=== PATIENT | male | born 1960 | race Caucasian/White ===

== ENCOUNTER 2016-08-23 15:17 | Emergency (ER) | payer MEDICARE ==
[2016-08-23 15:58] LABS: PROTHROMBIN TIME 17.5 SEC (11.4-15.4)
[2016-08-23 15:59] LABS: ABSOLUTE EOSINOPHILS # (AUTO) 0.1 10^3/uL (0.0-0.6); ABSOLUTE LYMPHOCYTES (AUTO) 0.8 10^3/uL (0.5-4.7); ABSOLUTE MONOCYTES (AUTO) 0.5 10^3/uL (0.1-1.4); ABSOLUTE NEUT (AUTO) 4.8 10^3/uL (1.7-8.2); BASOPHILS % (AUTO) 0.7 % (0-2); EOSINOPHILS % (AUTO) 0.9 % (0-6); HEMATOCRIT 29.4 % (37.9-51.0); HEMOGLOBIN 9.4 g/dL (13.5-17.0); HGB HCT DIFFERENCE -1.2; LYMPHOCYTES % (AUTO) 13.4 % (13-45); MEAN CORPUSCULAR HEMOGLOBIN 32.3 pg (27.0-33.4); MEAN CORPUSCULAR HGB CONC 31.8 g/dL (32.0-36.0); MEAN CORPUSCULAR VOLUME 102 fl (80-97); MONOCYTES % (AUTO) 7.6 % (3-13); RED CELL DISTRIBUTION WIDTH 16.6 % (11.5-14.0); SEGMENTED NEUTROPHILS % (AUTO) 77.4 % (42-78); WHITE BLOOD COUNT 6.2 10^3/uL (4.0-10.5)
[2016-08-23 16:00] LABS: VENOUS BLOOD HCO3 26.6 mmol/L (20-32); VENOUS BLOOD PCO2 53.1 mmHg (35-63); VENOUS BLOOD PH 7.32 (7.30-7.42)
[2016-08-23 16:01] LABS: APPEARANCE,URINE SLIGHTLY-CLOUDY; BILIRUBIN,URINE NEGATIVE (NEGATIVE); GLUCOSE, URINE 50 mg/dL (NEGATIVE); KETONES,URINE NEGATIVE (NEGATIVE); LEUKOCYTE ESTERASE,URINE NEGATIVE (NEGATIVE); NITRITE,URINE NEGATIVE (NEGATIVE); PROTEIN,URINE >=500 mg/dL (NEGATIVE); UROBILINOGEN,URINE NEGATIVE mg/dL (<2.0)
[2016-08-23 16:19] LABS: ALANINE AMINOTRANSFERASE 37 U/L (21-72); ALBUMIN 2.6 g/dL (3.5-5.0); ALKALINE PHOSPHATASE 150 U/L (38-126); ANION GAP 10 (5-19); ASPARTATE AMINO TRANSFERASE 28 U/L (17-59); BILIRUBIN,TOTAL 0.4 mg/dL (0.2-1.3); BLOOD UREA NITROGEN 45 mg/dL (7-20); CALCIUM 8.3 mg/dL (8.4-10.2); CARBON DIOXIDE 26 mmol/L (22-30); CHLORIDE 105 mmol/L (98-107); CREATININE RESULT 2.28 mg/dL (0.52-1.25); GLUCOSE 224 mg/dL (75-110); SODIUM 141.2 mmol/L (137-145); TOTAL PROTEIN 7.8 g/dL (6.3-8.2)
[2016-08-23 16:29] LABS: ANISOCYTOSIS 1+; MICROCYTOSIS 1+; OVALOCYTES SLIGHT
[2016-08-23] MEDS ORDERED: IPRATROPIUM/ALBUTEROL 0.5-2.5 MG/3 ML AMPUL NEB ONE (16:55)
--- NOTE | 2016-08-23 16:55 | ER Document Report ---
ED Respiratory Problem - General Mode of Arrival: Medic Information source: Patient TRAVEL OUTSIDE OF THE [place] IN LAST 30 DAYS: No - HPI Patient complains to provider of: Other - Difficulty breathing Associated symptoms: Other - See above <ANDREWS TERRY - Last Filed: 08/23/16 17:15> <ZOE MORALES - Last Filed: 08/23/16 20:32> - General Chief Complaint: Breathing Difficulty Stated Complaint: BODY ACHES Notes: Patient is a 56 year old male, with a past medical history including a-fib and COPD, who presents to the emergency department via EMS with his family complaining of difficulty breathing onset last night. Patient reports that he is breathing better now. Patient had a right leg amputation and reports that his left lower leg is more swollen than usual. Patient is currently taking Eloquis and Lasix regularly. (ANDREWS TERRY) - Related Data Allergies/Adverse Reactions: No Known Allergies Allergy (Verified 09/16/14 09:10) Past Medical History - General Information source: Patient - Social History Smoking Status: Unknown if Ever Smoked Family History: Reviewed & Not Pertinent - Past Medical History Cardiac Medical History: Reports: Hx Atrial Fibrillation, Hx Congestive Heart Failure, Hx Heart Attack - x2, Hx Hypercholesterolemia Pulmonary Medical History: Reports: Hx COPD Endocrine Medical History: Reports: Hx Diabetes Mellitus Type 1 Renal/ Medical History: Reports: Hx Renal Insufficiency GI Medical History: Reports: Hx Gastroesophageal Reflux Disease, Hx Ulcer Past Surgical History: Reports: Hx Cardiac Catheterization, Hx Orthopedic Surgery - right knee, right big toe amputation, right leg amputation - Immunizations Hx Diphtheria, Pertussis, Tetanus Vaccination: Yes Hx Pneumococcal Vaccination: 09/25/14 <ANDREWS TERRY - Last Filed: 08/23/16 17:15> Review of Systems - Review of Systems Constitutional: No symptoms reported EENT: No symptoms reported Cardiovascular: No symptoms reported Respiratory: See HPI, Other - difficulty breathing Gastrointestinal: No symptoms reported Genitourinary: No symptoms reported Male Genitourinary: No symptoms reported Musculoskeletal: See HPI, Leg swelling Skin: No symptoms reported Hematologic/Lymphatic: No symptoms reported Neurological/Psychological: No symptoms reported -: Yes All other systems reviewed and negative <ANDREWS TERRY - Last Filed: 08/23/16 17:15> Physical Exam - Vital signs Interpretation: Normal - General General appearance: Appears well, Alert - HEENT Head: Normocephalic, Atraumatic - Respiratory Respiratory status: No respiratory distress Chest status: Nontender, Prolonged expirations Breath sounds: Rhonchi, Wheezing Chest palpation: Normal - Cardiovascular Rhythm: Regular Heart sounds: Normal auscultation Murmur: No - Back Back: Normal, Nontender - Extremities General upper extremity: Normal inspection, Normal ROM, Normal strength General lower extremity: Edema - left, Other - right amputation wound bandaged with a wound vacuum - Neurological Neuro grossly intact: Yes Cognition: Normal Orientation: AAOx4 Hope Coma Scale Eye Opening: Spontaneous Cory Coma Scale Verbal: Oriented Cory Coma Scale Motor: Obeys Commands Hope Coma Scale Total: 15 Speech: Normal - Psychological Associated symptoms: Normal affect, Normal mood - Skin Skin Temperature: Warm Skin Moisture: Dry Skin Color: Normal <ANDREWS TERRY - Last Filed: 08/23/16 17:15> - Extremities General lower extremity: Other - right AKA stump wound bandaged with a wound vacuum <ZOE MORALES - Last Filed: 08/23/16 20:32> - Vital signs Vitals: Resp Pulse Ox 21 H 96 08/23/16 15:30 08/23/16 15:30 (ANDREWS TERRY) (ZOE MORALES) Course - Laboratory Result Diagrams: 08/23/16 15:30 08/23/16 15:30 <ANDREWS TERRY - Last Filed: 08/23/16 17:15> - Laboratory Result Diagrams: 08/23/16 15:30 08/23/16 15:30 - Diagnostic Test Radiology reviewed: Image reviewed, Reports reviewed - Cardiac enlargement with pulmonary vascular congestion, unchanged from previous chest x-ray - EKG Interpretation by [place] EKG shows normal: Sinus rhythm, [place], QRS Complexes. abnormal: Intervals - Prolonged QT interval, ST-T Waves - Nonspecific lateral T-wave abnormalities Rate: Tachycardia - 121 Rhythm: A.Fib Voltage: Decreased voltage When compared to previous EKG there are: No significant change <ZOE MORALES - Last Filed: 08/23/16 20:32> - Re-evaluation Re-evalutation: 08/23/16 20:21 Patient states he feels much better after breathing treatments. At this time his room air pulse ox is 95%. He has started to diurese some from the Lasix. He is comfortable going home with an inhaler. His hemoglobin A1c was only 5.7, so I think we can safely add steroids to his regimen for now. (ZOE MORALES) - Vital Signs Vital signs: Temp Pulse Resp BP Pulse Ox 98.6 F 120 H 25 H 127/83 H 93 08/23/16 15:37 08/23/16 15:37 08/23/16 17:01 08/23/16 17:01 08/23/16 18:01 (ANDREWS TERRY) (ZOE MORALES) - Laboratory Laboratory results interpreted by me: 08/23/16 08/23/16 08/23/16 15:30 15:30 15:30 RBC 2.90 L Hgb 9.4 L Hct 29.4 L MCV 102 H MCHC 31.8 L RDW 16.6 H PT 17.5 H BUN 45 H Creatinine 2.28 H Est GFR ( Amer) 36 L Est GFR (Non-Af Amer) 30 L Glucose 224 H Calcium 8.3 L Alkaline Phosphatase 150 H Creatine Kinase NT-Pro-B Natriuret Pep Albumin 2.6 L Urine Protein Urine Glucose (UA) Urine Blood Digoxin 08/23/16 08/23/16 08/23/16 15:30 15:30 15:30 RBC Hgb Hct MCV MCHC RDW PT BUN Creatinine Est GFR ( Amer) Est GFR (Non-Af Amer) Glucose Calcium Alkaline Phosphatase Creatine Kinase 24 L NT-Pro-B Natriuret Pep 79438 H Albumin Urine Protein Urine Glucose (UA) Urine Blood Digoxin 0.71 L 08/23/16 15:46 RBC Hgb Hct MCV MCHC RDW PT BUN Creatinine Est GFR ( Amer) Est GFR (Non-Af Amer) Glucose Calcium Alkaline Phosphatase Creatine Kinase NT-Pro-B Natriuret Pep Albumin Urine Protein >=500 H Urine Glucose (UA) 50 H Urine Blood MODERATE H Digoxin (ANDREWS TERRY) (ZOE MORALES) Discharge <ANDREWS TERRY - Last Filed: 08/23/16 17:15> <ZOE MORALES - Last Filed: 08/23/16 20:32> - Discharge Clinical Impression: Acute exacerbation of chronic obstructive pulmonary disease (COPD), Pulmonary vascular congestion, Peripheral edema, Chronic atrial fibrillation Condition: Stable Disposition: HOME, SELF-CARE Additional Instructions: Your shortness of breath appears to be a combination of a COPD exacerbation and some pulmonary vascular congestion. Use the inhaler dispensed for the shortness of breath and wheezing. Take 2 puffs every 4 hours as needed. Elevate your swollen leg as much as possible. Continue your regular medications. Add the prednisone as prescribed for the next few days. Follow-up with your primary care doctor this week for recheck. RETURN TO THE EMERGENCY ROOM IF ANY NEW OR WORSENING SYMPTOMS. Prescriptions: Prednisone 10 mg PO TID #10 tablet Referrals: CLARISSE REMY MD [Primary Care Provider] - Follow up in 3-5 days Theodora Attestation: 08/23/16 20:32 I personally performed the services described in the documentation, reviewed and edited the documentation which was dictated to the scribe in my presence, and it accurately records my words and actions. (ZOE MORALES) Theodora Documentation - Scribe Written by Theodora:: theodora Pearson, 08/23/16, 17:22 <ANDREWS TERRY - Last Filed: 08/23/16 17:15>
[2016-08-23 17:03] LABS: ADD ON TESTING BLD IN LAB ACKNOWLEDGE
[2016-08-23 17:25] LABS: DIGOXIN 0.71 ng/mL (0.8-2.0)
[2016-08-23] MEDS ORDERED: FUROSEMIDE INJ/PF 100 MG/10 ML SDV IV ONE (18:20)
[2016-08-23] MEDS ORDERED: ALBUTEROL SULFATE 0.083% NEB 2.5 MG/3 ML AMPUL NEB ONE ×2 (18:20→19:23)
[2016-08-23 19:06] LABS: ADD ON TESTING BLD IN LAB ACKNOWLEDGE
[2016-08-23 19:18] LABS: CREATINE KINASE 24 U/L (55-170)
[2016-08-23 19:32] LABS: TROPONIN I < 0.012 ng/mL
[2016-08-23] MEDS ORDERED: METHYLPREDNISOLONE INJ 125 MG/2 ML SDV IV ONE (20:15)
[2016-08-23] MEDS ORDERED: PREDNISONE 20 MG TABLET PO ONE (20:22)
[2016-08-23] MEDS ORDERED: ALBUTEROL SULFATE HFA (90 MCG/PUFF) 8 GM MDI (1 MDI/ER DISP) IH ONE (20:23)
--- NOTE | 2016-08-23 22:05 | EKG REPORT ---
SEVERITY:- ABNORMAL ECG - ATRIAL FIBRILLATION VENTRICULAR PREMATURE COMPLEX LOW VOLTAGE IN FRONTAL LEADS NONSPECIFIC T ABNORMALITIES, LATERAL LEADS BORDERLINE PROLONGED QT INTERVAL : Confirmed by: Mayra Sanz 23-Aug-2016 22:04:18
[2016-08-23 22:39] VITALS: BP 143/98
== END 2016-08-23 22:25 | disposition home or self-care (01) ==
LOC: ER 15:17
DX: J44.1 Chronic obstructive pulmonary disease with (acute) exacerbation (principal); R60.9 Edema, unspecified; R06.00 Dyspnea, unspecified; I48.2 Chronic atrial fibrillation; M79.1 Myalgia; J44.9 Chronic obstructive pulmonary disease, unspecified; I50.9 Heart failure, unspecified; E78.00 Pure hypercholesterolemia, unspecified; E10.9 Type 1 diabetes mellitus without complications; K21.9 Gastro-esophageal reflux disease without esophagitis; Z89.612 Acquired absence of left leg above knee; Z79.01 Long term (current) use of anticoagulants
CPT/HCPCS: 93005; 94640 ×2; 99285; 96374; 36415; 87040; 87086; 82553; 82550; 80162; 85025; 85610; 80053; 81001; 84484; 83036; 82803; 83605; 83880; 71010; 93010; J1940; A9270 ×3; J3490; J7512; J7620

== ENCOUNTER 2016-08-25 21:28 | Inpatient (IN) | payer MEDICARE ==
[2016-08-25] MEDS ORDERED: IPRATROPIUM/ALBUTEROL 0.5-2.5 MG/3 ML AMPUL NEB ONE (21:31)
[2016-08-25] MEDS ORDERED: METHYLPREDNISOLONE INJ 125 MG/2 ML SDV ONE (21:32)
[2016-08-25] MEDS ORDERED: MAGNESIUM SULFATE/D5W 2 GM/200 ML RTUPB IV ONE (21:32)
[2016-08-25] MEDS ORDERED: NALOXONE HCL INJ/PF 0.4 MG/1 ML SDV ONE ×2 (21:35)
[2016-08-25] MEDS ORDERED: FUROSEMIDE INJ/PF 40 MG/4 ML SDV ONE (21:40)
--- NOTE | 2016-08-25 22:07 | ER Document Report ---
ED General - General Chief Complaint: Respiratory Distress Stated Complaint: UNRESPONSIVE Cannot obtain history due to: Unstable vital signs, Altered mental status Notes: Patient is a 56-year-old male with past history of COPD and CHF as well as chronic kidney disease who presents by EMS in respiratory distress, lethargic, unable to answer any additional questions. Family who arrived later was also unable to provide any additional useful history. She was seen emergency room 2 days ago and diagnosed as COPD exacerbation and discharged home with prednisone and inhalers which family states did not appear to help symptoms. They deny history of similar severe episodes of shortness of breath and altered mental status in the past. TRAVEL OUTSIDE OF THE [place] IN LAST 30 DAYS: No - Related Data Allergies/Adverse Reactions: No Known Allergies Allergy (Verified 09/16/14 09:10) Home Medications: Current Home Medications Amiodarone HCl [Cordarone 200 mg Tablet] 200 mg PO DAILY 08/26/16 [History] Atorvastatin Calcium 40 mg PO QHS 08/26/16 [History] Furosemide [Lasix 40 mg Tablet] 80 mg PO DAILY 08/26/16 [History] Gabapentin 100 mg PO TID 08/26/16 [History] Oxycodone HCl 5 mg PO Q4H PRN 08/26/16 [History] Pantoprazole Sodium 40 mg PO BID 08/26/16 [History] Tamsulosin HCl 0.4 mg PO DAILY 08/26/16 [History] Past Medical History - General Information source: Emergency Med Personnel Cannot obtain history due to: Unstable vital signs - Social History Smoking Status: Former Smoker Frequency of alcohol use: None Drug Abuse: None Lives with: Alone Family History: Reviewed & Not Pertinent - Past Medical History Cardiac Medical History: Reports: Hx Atrial Fibrillation, Hx Congestive Heart Failure, Hx Heart Attack - x2, Hx Hypercholesterolemia Pulmonary Medical History: Reports: Hx COPD Denies: Hx Tuberculosis Endocrine Medical History: Reports: Hx Diabetes Mellitus Type 1 Renal/ Medical History: Reports: Hx Renal Insufficiency GI Medical History: Reports: Hx Gastroesophageal Reflux Disease, Hx Ulcer Psychiatric Medical History: Denies: Hx Depression Past Surgical History: Reports: Hx Cardiac Catheterization, Hx Orthopedic Surgery - right knee, right big toe amputation, right leg amputation - Immunizations Hx Diphtheria, Pertussis, Tetanus Vaccination: Yes Hx Pneumococcal Vaccination: 09/25/14 Review of Systems - Review of Systems -: Yes ROS unobtainable due to patient's medical condition Physical Exam - Vital signs Vitals: Resp 19 08/25/16 21:30 Interpretation: Tachycardic, Tachypneic Notes: PHYSICAL EXAMINATION: GENERAL: Frail, older appearing than stated age HEAD: Atraumatic, normocephalic. EYES: Pupils are pinpoint and reactive to light bilaterally ENT: nares patent, oropharynx clear without exudates. Dry mucous membranes. NECK: supple without lymphadenopathy LUNGS: Respiratory distress with tachypnea with respiratory rate of 32. Coarse expiratory wheezing throughout with scattered rales. Outside ultrasound the lungs shows B-lines, appropriate pleural slide HEART: Regular tachycardia without murmurs, bedside echocardiogram shows poor cardiac contractility diffusely without pericardial effusion or RV dilation ABDOMEN: Soft, nontender, normoactive bowel sounds. No guarding, no rebound. No masses appreciated. EXTREMITIES: BKA of the right lower extremity. 3+ pitting edema in the left lower extremity NEUROLOGICAL: No focal neurological deficits. Moves all extremities spontaneously and on command. PSYCH: Altered and unable to answer questions SKIN: Warm, Dry, normal turgor, no rashes or lesions noted. Course - Re-evaluation Re-evalutation: 08/25/162139 Patient arrives in severe respiratory distress, initially listless but would follow commands in bilateral hands as well as open his eyes on command after several verbal prompts. His initial vitals show tachycardia with a rapid ventricular response to atrial fibrillation. He was immediately placed on BiPAP. A bedside ultrasound demonstrated findings consistent with pulmonary edema. Cardiac ultrasound demonstrated cardiomegaly with ventricular hypertrophy and poor contractility but no evidence of pericardial effusion. Patient did have significant improvement of his mentation after giving 0.08 mg of naloxone. He also began to have decreased work of breathing on BiPAP with continuous in-line DuoNeb nebulizer. 2 g of IV magnesium as well as 125 mg of IV Solu-Medrol were administered. He was also given 80 mg of IV Lasix given obvious IVC distention on bedside ultrasound in addition to the findings of pulmonary edema both on ultrasound and chest x-ray. He remains critically ill at this time will require frequent reassessments. 08/25/16 22:30 Patient is much more alert, awake and talkative at this time. Asking to have the BiPAP mask off. Joking with staff at this time. ABG does show severe hypoxemia but I believe this is prior to the improvement that he received after getting Narcan and BiPAP. He will require admission and will be continued to monitor this time although I do not believe he has any longer critically ill at this time 08/25/16 23:32 Patient's laboratories do show show significant hyperkalemia at 6.1 although no changes on EKG. Insulin, glucose, and Lasix have all been administered. Patient continues to be wheezing on repeat lung examination so additional 15 mg of continuous albuterol through the BiPAP has been administered. She continues to have appropriate mentation and be much improved both from a vitals and clinical appearance standpoint. I have discussed this case with Dr. Juárez will admit the patient to the [facility]. - Vital Signs Vital signs: Temp Pulse Resp BP Pulse Ox 99.0 F 14 126/94 H 95 08/25/16 22:01 08/26/16 02:40 08/26/16 02:40 08/26/16 02:40 - Laboratory Result Diagrams: 08/25/16 21:57 08/25/16 21:57 Laboratory results interpreted by me: 08/25/16 08/25/16 08/25/16 21:45 21:57 21:57 RBC 3.08 L Hgb 10.2 L Hct 31.4 L MCV 102 H RDW 16.5 H Seg Neutrophils % 79.0 H Lymphocytes % 10.6 L Carbonic Acid 1.64 H ABG pH 7.26 L ABG pCO2 54.6 H ABG pO2 30.7 L* ABG O2 Saturation 49.0 L Potassium 6.1 H* BUN 58 H Creatinine 3.14 H Est GFR ( Amer) 25 L Est GFR (Non-Af Amer) 20 L Glucose 207 H AST 105 H ALT 103 H Alkaline Phosphatase 163 H Creatine Kinase 25 L NT-Pro-B Natriuret Pep Total Protein 8.6 H Albumin 3.3 L TSH Free T4 08/25/16 08/25/16 21:57 21:57 RBC Hgb Hct MCV RDW Seg Neutrophils % Lymphocytes % Carbonic Acid ABG pH ABG pCO2 ABG pO2 ABG O2 Saturation Potassium BUN Creatinine Est GFR ( Amer) Est GFR (Non-Af Amer) Glucose AST ALT Alkaline Phosphatase Creatine Kinase NT-Pro-B Natriuret Pep 36395 H Total Protein Albumin TSH 16.70 H Free T4 4.03 H - Diagnostic Test Radiology reviewed: Image reviewed, Reports reviewed Radiology results interpreted by me: 08/25/16 23:33 CXR: Cardiomegaly and bilateral pulmonary congestion - EKG Interpretation by Me Additional EKG results interpreted by me: 08/25/16 23:33 Atrial fibrillation with rapid ventricular response, rate 107. No ST elevations or depressions. QTC is prolonged at 513. No widened QRS or peaking T waves Critical Care Note - Critical Care Note Total time excluding time spent on procedures (mins): 45 Comments: Critical care time spent obtaining history from patient or surrogate, discussions with consultants, development of treatment plan with patient or surrogate, evaluation of patient's response to treatment, examination of patient , ordering and performing treatments and interventions, ordering and review of laboratory studies, re-evaluation of patient's condition, ordering and review of radiographic studies and review of old charts Discharge - Discharge Clinical Impression: Respiratory distress, Hypoxemia, Acute kidney injury superimposed on chronic kidney disease Narcotic overdose Qualifiers: Encounter type: initial encounter Injury intent: accidental or unintentional Qualified Code(s): T40.601A - Poisoning by unspecified narcotics, accidental ( unintentional), initial encounter CHF exacerbation Qualifiers: Congestive heart failure type: unspecified congestive heart failure type Qualified Code(s): I50.9 - Heart failure, unspecified Condition: Fair Disposition: ADMITTED INPATIENT Admitting Provider: [facility] Unit Admitted: [facility]
[2016-08-25 22:13] LABS: ARTERIAL BLOOD BASE EXCESS -3.7 mmol/L
[2016-08-25 22:20] LABS: ABSOLUTE BASOPHILS # (AUTO) 0.1 10^3/uL (0.0-0.2); ABSOLUTE MONOCYTES (AUTO) 0.8 10^3/uL (0.1-1.4); ABSOLUTE NEUT (AUTO) 7.2 10^3/uL (1.7-8.2); BASOPHILS % (AUTO) 0.7 % (0-2); EOSINOPHILS % (AUTO) 0.3 % (0-6); HEMATOCRIT 31.4 % (37.9-51.0); HEMOGLOBIN 10.2 g/dL (13.5-17.0); HGB HCT DIFFERENCE -0.8; LYMPHOCYTES % (AUTO) 10.6 % (13-45); MEAN CORPUSCULAR HEMOGLOBIN 33.3 pg (27.0-33.4); MEAN CORPUSCULAR HGB CONC 32.6 g/dL (32.0-36.0); MEAN CORPUSCULAR VOLUME 102 fl (80-97); MONOCYTES % (AUTO) 9.4 % (3-13); RED BLOOD COUNT 3.08 10^6/uL (4.35-5.55); RED CELL DISTRIBUTION WIDTH 16.5 % (11.5-14.0); WHITE BLOOD COUNT 9.1 10^3/uL (4.0-10.5)
[2016-08-25 22:32] LABS: ALANINE AMINOTRANSFERASE 103 U/L (21-72); ALBUMIN 3.3 g/dL (3.5-5.0); ALKALINE PHOSPHATASE 163 U/L (38-126); ANION GAP 15 (5-19); ASPARTATE AMINO TRANSFERASE 105 U/L (17-59); BILIRUBIN,TOTAL 0.6 mg/dL (0.2-1.3); BLOOD UREA NITROGEN 58 mg/dL (7-20); CALCIUM 8.8 mg/dL (8.4-10.2); CARBON DIOXIDE 23 mmol/L (22-30); CHLORIDE 102 mmol/L (98-107); CREATINE KINASE 25 U/L (55-170); CREATININE RESULT 3.14 mg/dL (0.52-1.25); GLUCOSE 207 mg/dL (75-110); SODIUM 139.9 mmol/L (137-145); TOTAL PROTEIN 8.6 g/dL (6.3-8.2)
[2016-08-25 22:34] LABS: POTASSIUM 6.1 mmol/L (3.6-5.0)
[2016-08-25] MEDS ORDERED: INSULIN REG, HUMAN 100 UNIT/ML 3 ML VIAL (PYX) IV ONE (22:39)
[2016-08-25] MEDS ORDERED: DEXTROSE 50%-WATER 25 GM/50 ML DISP.SYRIN IV ONE (22:39)
[2016-08-25 22:51] LABS: CREATINE KINASE MB 0.96 ng/mL (<4.55); TROPONIN I 0.012 ng/mL
--- NOTE | 2016-08-25 23:11 | EKG REPORT ---
SEVERITY:- ABNORMAL ECG - ATRIAL FIBRILLATION NONSPECIFIC T ABNORMALITIES, LATERAL LEADS PROLONGED QT INTERVAL : Confirmed by: Mayra Sanz 25-Aug-2016 23:10:57
[2016-08-25] MEDS ORDERED: ALBUTEROL SULFATE 0.083% NEB 2.5 MG/3 ML AMPUL NEB ONE (23:51)
[2016-08-26] MEDS ORDERED: GLUCAGON,HUMAN RECOMB 1 MG INJ IM PRN (00:13)
[2016-08-26] MEDS ORDERED: DEXTROSE 40% GEL 15 GM TUBE PO PRN ×2 (00:13)
[2016-08-26] MEDS ORDERED: DEXTROSE 50%-WATER 25 GM/50 ML DISP.SYRIN IV PRN ×2 (00:13)
[2016-08-26] MEDS ORDERED: NORMAL SALINE 250 ML with FUROSEMIDE 250 MG IV PRN ×4 (00:14→10:53)
[2016-08-26] MEDS ORDERED: (PENDING PHARMACY ID) (Linagliptin [Tradjenta] 5 MG) PO SCH (00:15)
[2016-08-26 01:15] LABS: THYROID STIMULATING HORMONE 16.7 uIU/mL (0.47-4.68)
[2016-08-26 01:23] LABS: APPEARANCE,URINE CLOUDY; BILIRUBIN,URINE NEGATIVE (NEGATIVE); GLUCOSE, URINE 50 mg/dL (NEGATIVE); KETONES,URINE NEGATIVE (NEGATIVE); LEUKOCYTE ESTERASE,URINE TRACE (NEGATIVE); NITRITE,URINE NEGATIVE (NEGATIVE); PROTEIN,URINE >=500 mg/dL (NEGATIVE); URINE SPECIFIC GRAVITY 1.015; UROBILINOGEN,URINE NEGATIVE mg/dL (<2.0)
[2016-08-26 01:31] LABS: URINE BARBITURATES SCREEN NEGATIVE; URINE METHADONE SCREEN NEGATIVE; URINE PHENCYCLIDINE SCREEN NEGATIVE
[2016-08-26] MEDS ORDERED: APIXABAN 2.5 MG TABLET PO ONE (02:30)
[2016-08-26] MEDS ORDERED: LEVOTHYROXINE SODIUM 0.15 MG TABLET PO ONE (02:30)
[2016-08-26] MEDS ORDERED: METOPROLOL SUCCINATE 50 MG TAB.SR.24H PO ONE (02:30)
[2016-08-26] MEDS ORDERED: SIMVASTATIN 40 MG TABLET PO ONE (03:00)
[2016-08-26] MEDS ORDERED: LEVOTHYROXINE SODIUM 0.15 MG TABLET ONE (03:22)
[2016-08-26 04:39] LABS: CREATINE KINASE MB 0.6 ng/mL (<4.55); TROPONIN I 0.013 ng/mL
[2016-08-26] MEDS: LEVALBUTEROL HCL NEB 0.63 MG/3 ML AMPUL NEB PRN (04:56)
[2016-08-26] MEDS ORDERED: FUROSEMIDE INJ/PF 100 MG/10 ML SDV ONE (05:12)
[2016-08-26] MEDS ORDERED: METOPROLOL SUCCINATE 50 MG TAB.SR.24H PO SCH (10:00)
[2016-08-26 10:30] LABS: ALANINE AMINOTRANSFERASE 121 U/L (21-72); ALBUMIN 2.6 g/dL (3.5-5.0); ALKALINE PHOSPHATASE 144 U/L (38-126); ANION GAP 13 (5-19); ASPARTATE AMINO TRANSFERASE 106 U/L (17-59); BILIRUBIN,TOTAL 0.5 mg/dL (0.2-1.3); BLOOD UREA NITROGEN 67 mg/dL (7-20); CALCIUM 8.8 mg/dL (8.4-10.2); CARBON DIOXIDE 24 mmol/L (22-30); CHLORIDE 103 mmol/L (98-107); CREATININE RESULT 3.08 mg/dL (0.52-1.25); GLUCOSE 191 mg/dL (75-110)
[2016-08-26 11:22] LABS: CREATINE KINASE MB 0.65 ng/mL (<4.55); TROPONIN I 0.013 ng/mL
[2016-08-26 11:31] LABS: ARTERIAL BLOOD BASE EXCESS 0.9 mmol/L; ARTERIAL BLOOD O2 SATURATION 98.6 % (94-98)
[2016-08-26] MEDS ORDERED: CALCIUM GLUCONATE 1000 MG/10 ML INJ IV ONE (11:55)
[2016-08-26] MEDS: SODIUM POLYSTYRENE SULFONATE 15 GM/60 ML PO SCH ×4 (12:03→23:15)
--- NOTE | 2016-08-26 13:55 | XCELERA REPORT ---
[address] [address] Transthoracic Echocardiogram Report Name: JOSE D COLBERT Age: 56 yrs Gender: Male : 1960 Patient Status: Inpatient Patient Location: [id number]\S\326\S\A Study Date: 08/26/2016 10:01 AM Height: 69 in Weight: 196 lb BSA: 2.0 m2 Procedure: A complete two-dimensional transthoracic echocardiogram was performed (2D, M-mode, spectral and color flow Doppler). The study was technically difficult with many images being suboptimal in quality. Reason For Study: chf Ordering Physician: CLARISSE REMY Performed By: Patricia Wells Interpretation Summary The Ejection Fraction estimate is 20-25% Left ventricular systolic function is severely reduced. Doppler measurements suggest pseudonormalized left ventricular relaxation, which is associated with grade II/IV or mild to moderate diastolic dysfunction There is borderline concentric left ventricular hypertrophy. The left ventricle is moderately dilated. There is anterior wall akinesis There is apical wall akinesis The left ventricular apex is not well visualized. Thrombus can not be excluded. The right ventricle is mildly dilated. The right ventricular systolic function is mild to moderately reduced. The left atrium is moderately dilated. The right atrium is mildly dilated. There is a moderate amount of mitral regurgitation There is a trace amount of aortic regurgitation There is a moderate amount of tricuspid regurgitation Best estimated right ventricular systolic pressure is elevated at >60mmHg. There is servere pulmonary hypertension by echo The inferior vena cava appeared normal and decreased < 50% with respiration (RAP 10-15 mmHg) There is no pericardial effusion. MMode/2D Measurements \T\ Calculations RVDd: 2.3 cm LVIDd: 6.2 cm FS: 12.8 % Ao root diam: IVSd: 0.76 cm LVIDs: 5.4 cm EDV(Teich): 3.2 cm LVPWd: 0.84 cm 192.6 ml Ao root area: ESV(Teich): 140.9 ml 8.0 cm2 EF(Teich): 26.9 % LA dimension: 4.7 cm LVLd ap4: 7.7 cm SV(MOD-sp4): EDV(MOD-sp4): 26.0 ml 113.0 ml LVLs ap4: 7.4 cm ESV(MOD-sp4): 87.0 ml EF(MOD-sp4): 23.0 % Doppler Measurements \T\ Calculations MV E max adriane: MV P1/2t max adriane: Ao V2 max: LV V1 max P.5 cm/sec 104.8 cm/sec 64.6 cm/sec 1.1 mmHg MV A max adriane: MV P1/2t: 42.6 msec Ao max PG: LV V1 max: 28.1 cm/sec MVA(P1/2t): 5.2 cm2 1.7 mmHg 52.8 cm/sec MV E/A: 3.7 MV dec slope: 719.9 cm/sec2 MV dec time: 0.15 sec PA V2 max: PI end-d adriane: TR max adriane: 41.6 cm/sec 162.5 cm/sec 272.7 cm/sec PA max PG: TR max P.69 mmHg 29.7 mmHg Left Ventricle The left ventricle is moderately dilated. There is borderline concentric left ventricular hypertrophy. Left ventricular systolic function is severely reduced. The Ejection Fraction estimate is 20-25%. Doppler measurements suggest pseudonormalized left ventricular relaxation, which is associated with grade II/IV or mild to moderate diastolic dysfunction. There is anterior wall akinesis. There is apical wall akinesis. The left ventricular apex is not well visualized. Thrombus can not be excluded. Right Ventricle The right ventricle is mildly dilated. There is normal right ventricular wall thickness. The right ventricular systolic function is mild to moderately reduced. Atria The right atrium is mildly dilated. The left atrium is moderately dilated. Interarterial septum not well visualized and not well dopplered. Cannot comment on ASD/PFO presence. Mitral Valve The mitral valve is grossly normal. There is no mitral valve stenosis. There is a moderate amount of mitral regurgitation. Aortic Valve The aortic valve is not well visualized secondary to technical limitations. There is no aortic valve stenosis. There is a trace amount of aortic regurgitation. Tricuspid Valve The tricuspid valve is not well visualized, but is grossly normal. There is no tricuspid stenosis. There is a moderate amount of tricuspid regurgitation. Best estimated right ventricular systolic pressure is elevated at >60mmHg. There is servere pulmonary hypertension by echo. Pulmonic Valve The pulmonic valve is not well visualized. Great Vessels The aortic root is not well visualized. The inferior vena cava appeared normal and decreased < 50% with respiration (RAP 10-15 mmHg). Effusions There is no pericardial effusion. : CLARISSE REMY > Mayra Sanz
[2016-08-26] MEDS: APIXABAN 2.5 MG TABLET PO SCH ×2 (13:59→21:32)
[2016-08-26] MEDS: SITAGLIPTIN PHOSPHATE 25 MG TABLET PO SCH (13:59)
[2016-08-26] MEDS: SIMVASTATIN 40 MG TABLET PO SCH (13:59)
[2016-08-26] MEDS: OXYCODONE HCL IR 5 MG TABLET PO PRN ×2 (14:04→19:31)
[2016-08-26 14:27] LABS: ALANINE AMINOTRANSFERASE 111 U/L (21-72); ALBUMIN 3.1 g/dL (3.5-5.0); ALKALINE PHOSPHATASE 144 U/L (38-126); ANION GAP 12 (5-19); ASPARTATE AMINO TRANSFERASE 96 U/L (17-59); BILIRUBIN,TOTAL 0.7 mg/dL (0.2-1.3); BLOOD UREA NITROGEN 68 mg/dL (7-20); CARBON DIOXIDE 25 mmol/L (22-30); CHLORIDE 104 mmol/L (98-107); CREATININE RESULT 3.09 mg/dL (0.52-1.25); GLUCOSE 185 mg/dL (75-110); POTASSIUM 5.6 mmol/L (3.6-5.0); SODIUM 140.9 mmol/L (137-145); TOTAL PROTEIN 8.2 g/dL (6.3-8.2)
--- NOTE | 2016-08-26 16:47 | PDOC CONSULTATION ---
Consultation Consult Date: 08/26/16 Attending physician:: CLARISSE REMY Consult reason:: Right stump wound History of Present Illness Admission Date/PCP: 08/26/16 00:07 CLARISSE REMY, History of Present Illness: JOSE D COLBERT is a 56 year old male several weeks if not months status post right [id number] amputation, and other procedures including some sort of revascularization right lower extremity, likely [facility]. Past Medical History Cardiac Medical History: Reports: Atrial Fibrillation, Congestive Heart Failure , Myocardial Infarction - x2, Hyperlipidema Pulmonary Medical History: Reports: Chronic Obstructive Pulmonary Disease (COPD) Denies: Tuberculosis Endocrine Medical History: Reports: Diabetes Mellitus Type 1 GI Medical History: Reports: Gastroesophageal Reflux Disease Psychiatric Medical History: Denies: Depression Past Surgical History Past Surgical History: Reports: Cardiac Catheterization, Orthopedic Surgery - right knee, right big toe amputation, right leg amputation Social History Lives with: Alone Smoking Status: Former Smoker Frequency of Alcohol Use: None Hx Recreational Drug Use: No Hx Prescription Drug Abuse: No - Advance Directive Resuscitation Status: Full Code Family History Family History: Reviewed & Not Pertinent Parental Family History Reviewed: Yes Children Family History Reviewed: Yes Sibling(s) Family History Reviewed.: Yes Medication/Allergy Home Medications: Levothyroxine Sodium [Unithroid] 150 mcg PO QAM 09/16/14 Apixaban [Eliquis 2.5 mg Tablet] 2.5 mg PO BID #60 tablet 09/24/14 Metoprolol Succinate [Toprol Xl 50 mg Tab.sr] 200 mg PO DAILY #30 tab.sr.24h 11/03 Prednisone 10 mg PO TID #10 tablet 08/23/16 Amiodarone HCl [Cordarone 200 mg Tablet] 200 mg PO DAILY 08/26/16 Atorvastatin Calcium 40 mg PO QHS 08/26/16 Furosemide [Lasix 40 mg Tablet] 80 mg PO DAILY 08/26/16 Gabapentin 100 mg PO TID 08/26/16 Oxycodone HCl 5 mg PO Q4H PRN 08/26/16 Pantoprazole Sodium 40 mg PO BID 08/26/16 Tamsulosin HCl 0.4 mg PO DAILY 08/26/16 Allergies/Adverse Reactions: No Known Allergies Allergy (Verified 09/16/14 09:10) Physical Exam Vital Signs: Temp Pulse Resp BP Pulse Ox 97.2 F 117 H 20 116/90 H 92 08/26/16 07:23 08/26/16 11:53 08/26/16 11:53 08/26/16 11:53 08/26/16 11:53 Intake & Output 08/25/16 08/26/16 08/27/16 06:59 06:59 06:59 Intake Total 7 Output Total 300 Balance -293 Weight 85.1 kg General appearance: PRESENT: mild distress Musculoskeletal exam: PRESENT: other - Stump examined; the operative scars reasonably well healed; no open areas. There is marked edema elated to hypoalbuminemia. Is a wound well granulating in the right inguinal crease, chronic, with a thin fibrinous film over the granulating tissue; there is a small tracking cavity cephalad approximately 3 cm in depth. Results Laboratory Results: 08/26/16 13:58 08/26/16 08/26/16 08/26/16 01:05 09:41 10:45 Carbonic Acid 1.75 H HCO3/H2CO3 Ratio 16:1 ABG pH 7.30 L ABG pCO2 58.2 H ABG pO2 147.1 H ABG HCO3 28.1 H ABG O2 Saturation 98.6 H ABG Base Excess 0.9 FiO2 45% Sodium 140.0 Potassium 6.0 H* Chloride 103 Carbon Dioxide 24 Anion Gap 13 BUN 67 H Creatinine 3.08 H Est GFR ( Amer) 25 L Est GFR (Non-Af Amer) 21 L Glucose 191 H Calcium 8.8 Total Bilirubin 0.5 AST 106 H ALT 121 H Alkaline Phosphatase 144 H Total Protein 8.0 Albumin 2.6 L Urine Color YELLOW Urine Appearance CLOUDY Urine pH 5.0 Ur Specific [place] 1.015 Urine Protein >=500 H Urine Glucose (UA) 50 H Urine Ketones NEGATIVE Urine Blood LARGE H Urine Nitrite NEGATIVE Ur Leukocyte Esterase TRACE H Urine WBC (Auto) 9 Urine RBC (Auto) >182 08/26/16 13:58 Carbonic Acid HCO3/H2CO3 Ratio ABG pH ABG pCO2 ABG pO2 ABG HCO3 ABG O2 Saturation ABG Base Excess FiO2 Sodium 140.9 Potassium 5.6 H Chloride 104 Carbon Dioxide 25 Anion Gap 12 BUN 68 H Creatinine 3.09 H Est GFR ( Amer) 25 L Est GFR (Non-Af Amer) 21 L Glucose 185 H Calcium 9.0 Total Bilirubin 0.7 AST 96 H ALT 111 H Alkaline Phosphatase 144 H Total Protein 8.2 Albumin 3.1 L Urine Color Urine Appearance Urine pH Ur Specific [place] Urine Protein Urine Glucose (UA) Urine Ketones Urine Blood Urine Nitrite Ur Leukocyte Esterase Urine WBC (Auto) Urine RBC (Auto) 08/26/16 08/26/16 08/26/16 03:52 03:52 10:31 Creatine Kinase < 20 L 41 L CK-MB (CK-2) 0.60 Troponin I 0.013 08/26/16 10:31 Creatine Kinase CK-MB (CK-2) 0.65 Troponin I 0.013 Impressions: Chest X-Ray 08/25/16 00:00 IMPRESSION: Similar interstitial edema pattern bilaterally. Assessment & Plan - Diagnosis (1) Right groin wound Is this a current diagnosis for this admission?: YesPlan: 1. Right groin were wound can be treated with Teresa, or comparable absorbing agent, then cover with 4 x 4's. 2. I would leave the penile wound which is dry and scabbing over left open and the air. 3. The right ivyid-wiu-ieqx amputation wound has epithelialized closed and there is no need for further debridement of dressing changes. 4. Consider [place] wrap to right AKA stump to control edema 5. Reconsult surgery if needed. - Time Time Spent: 30 to 50 Minutes Critical Time spent with patient: Less than 15 minutes
[2016-08-26 17:11] LABS: CREATINE KINASE MB 0.58 ng/mL (<4.55); TROPONIN I 0.014 ng/mL
--- NOTE | 2016-08-26 18:55 | PDOC H&P ---
History of Present Illness Admission Date/PCP: 08/26/16 00:07 ZIONEVERSUNG REMY, History of Present Illness: Patient 56-year-old male with history of diabetes mellitus type II with metabolic complications including nephropathy, retinopathy, cardiomyopathy, history of COPD, atrial fibrillation on chronic anticoagulation. He was recently admitted at [facility] when he had below-knee amputation of the right leg due to peripheral vascular disease. He came to the emergency room last night because of respiratory distress and altered mental status. History taking is a challenge in emergency room, he was evaluated blood work was done, he also had ABG done, pH 7.26, PCO2 54.6, this is consistent with acute respiratory acidosis. Patient is known to have chronic kidney disease with nephrotic syndrome when he presented last night, this serum potassium was 6, the GFR was 20. He told me that he spent about, 2 months in the hospital in [place]. A 2-D echo was done this morning it showed dilated left ventricle with ejection fraction of 20%, the right ventricle is dilated with severe pulmonary hypertension., Past Medical History Cardiac Medical History: Reports: Atrial Fibrillation, Congestive Heart Failure , Myocardial Infarction - x2, Hyperlipidema Pulmonary Medical History: Reports: Chronic Obstructive Pulmonary Disease (COPD) Denies: Tuberculosis Endocrine Medical History: Reports: Diabetes Mellitus Type 1 GI Medical History: Reports: Gastroesophageal Reflux Disease Psychiatric Medical History: Denies: Depression Past Surgical History Past Surgical History: Reports: Cardiac Catheterization, Orthopedic Surgery - right knee, right big toe amputation, right leg amputation Social History Information Source: Patient Lives with: Alone, Friend Smoking Status: Former Smoker Frequency of Alcohol Use: None Hx Recreational Drug Use: No Hx Prescription Drug Abuse: No - Advance Directive Resuscitation Status: Full Code Family History Family History: Reviewed & Not Pertinent Parental Family History Reviewed: Yes Children Family History Reviewed: Yes Sibling(s) Family History Reviewed.: Yes Medication/Allergy Home Medications: Levothyroxine Sodium [Unithroid] 150 mcg PO QAM 09/16/14 Apixaban [Eliquis 2.5 mg Tablet] 2.5 mg PO BID #60 tablet 09/24/14 Metoprolol Succinate [Toprol Xl 50 mg Tab.sr] 200 mg PO DAILY #30 tab.sr.24h 11/03 Prednisone 10 mg PO TID #10 tablet 08/23/16 Amiodarone HCl [Cordarone 200 mg Tablet] 200 mg PO DAILY 08/26/16 Atorvastatin Calcium 40 mg PO QHS 08/26/16 Furosemide [Lasix 40 mg Tablet] 80 mg PO DAILY 08/26/16 Gabapentin 100 mg PO TID 08/26/16 Oxycodone HCl 5 mg PO Q4H PRN 08/26/16 Pantoprazole Sodium 40 mg PO BID 08/26/16 Tamsulosin HCl 0.4 mg PO DAILY 08/26/16 Allergies/Adverse Reactions: No Known Allergies Allergy (Verified 09/16/14 09:10) Review of Systems Constitutional: PRESENT: anorexia Cardiovascular: PRESENT: dyspnea on exertion, edema Respiratory: PRESENT: dyspnea Gastrointestinal: ABSENT: as per HPI, abdominal pain, bloating, coffee ground emesis, constipation, diarrhea, dysphagia, heartburn, hematemesis, hematochezia , melena, nausea, vomiting, other Neurological: PRESENT: dizziness Physical Exam Vital Signs: Temp Pulse Resp BP Pulse Ox 98.8 F 110 H 18 126/89 H 93 08/26/16 15:35 08/26/16 15:35 08/26/16 15:35 08/26/16 15:35 08/26/16 15:35 Intake & Output 08/25/16 08/26/16 08/27/16 06:59 06:59 06:59 Intake Total 7 200 Output Total 300 400 Balance -293 -200 Weight 85.1 kg General appearance: PRESENT: mild distress Eye exam: PRESENT: PERRLA Respiratory exam: PRESENT: rales Cardiovascular exam: PRESENT: irregular rhythm, +S1, +S2 GI/Abdominal exam: PRESENT: soft Gentrourinary exam: PRESENT: other - There is penile lesion on the shaft, ulcerated low suspicious for HPV versus herpes Extremities exam: PRESENT: right BKA Neurological exam: PRESENT: alert, CN II-XII grossly intact Skin exam: PRESENT: other - edema of the lower extremity Results Laboratory Results: 08/26/16 13:58 08/26/16 08/26/16 08/26/16 01:05 09:41 10:45 Carbonic Acid 1.75 H HCO3/H2CO3 Ratio 16:1 ABG pH 7.30 L ABG pCO2 58.2 H ABG pO2 147.1 H ABG HCO3 28.1 H ABG O2 Saturation 98.6 H ABG Base Excess 0.9 FiO2 45% Sodium 140.0 Potassium 6.0 H* Chloride 103 Carbon Dioxide 24 Anion Gap 13 BUN 67 H Creatinine 3.08 H Est GFR ( Amer) 25 L Est GFR (Non-Af Amer) 21 L Glucose 191 H Calcium 8.8 Total Bilirubin 0.5 AST 106 H ALT 121 H Alkaline Phosphatase 144 H Total Protein 8.0 Albumin 2.6 L Urine Color YELLOW Urine Appearance CLOUDY Urine pH 5.0 Ur Specific [place] 1.015 Urine Protein >=500 H Urine Glucose (UA) 50 H Urine Ketones NEGATIVE Urine Blood LARGE H Urine Nitrite NEGATIVE Ur Leukocyte Esterase TRACE H Urine WBC (Auto) 9 Urine RBC (Auto) >182 08/26/16 13:58 Carbonic Acid HCO3/H2CO3 Ratio ABG pH ABG pCO2 ABG pO2 ABG HCO3 ABG O2 Saturation ABG Base Excess FiO2 Sodium 140.9 Potassium 5.6 H Chloride 104 Carbon Dioxide 25 Anion Gap 12 BUN 68 H Creatinine 3.09 H Est GFR ( Amer) 25 L Est GFR (Non-Af Amer) 21 L Glucose 185 H Calcium 9.0 Total Bilirubin 0.7 AST 96 H ALT 111 H Alkaline Phosphatase 144 H Total Protein 8.2 Albumin 3.1 L Urine Color Urine Appearance Urine pH Ur Specific [place] Urine Protein Urine Glucose (UA) Urine Ketones Urine Blood Urine Nitrite Ur Leukocyte Esterase Urine WBC (Auto) Urine RBC (Auto) 08/26/16 08/26/16 08/26/16 03:52 03:52 10:31 Creatine Kinase < 20 L 41 L CK-MB (CK-2) 0.60 Troponin I 0.013 08/26/16 08/26/16 08/26/16 10:31 16:30 16:30 Creatine Kinase 48 L CK-MB (CK-2) 0.65 0.58 Troponin I 0.013 0.014 Impressions: Chest X-Ray 08/25/16 00:00 IMPRESSION: Similar interstitial edema pattern bilaterally. Assessment & Plan - Diagnosis (1) Acute systolic heart failure Is this a current diagnosis for this admission?: Yes (2) Acute kidney injury Is this a current diagnosis for this admission?: YesPlan: Patient with a baseline chronic kidney disease stage III, the acute kidney injury could be progression from his chronic kidney disease, there could be prerenal component. There is more consistent with progression of chronic kidney disease. Because of the hyperkalemia (3) Nephrotic range proteinuria Is this a current diagnosis for this admission?: Yes (4) Chronic kidney disease, stage IV (severe) Is this a current diagnosis for this admission?: Yes (5) Anasarca Is this a current diagnosis for this admission?: YesPlan: The anasarca is due to to combination of acute systolic heart failure, nephrotic syndrome, chronic kidney disease stage IV. Patient will be diuresed with furosemide infusion (6) Hyperkalemia Is this a current diagnosis for this admission?: YesPlan: Patient to be treated with anti-hyperkalemic regimen including Kayexalate, calcium gluconate, insulin, dextrose (7) Acute hypercapnic respiratory failure Is this a current diagnosis for this admission?: Yes (8) Acute respiratory acidosis Plan: Patient with acute respiratory acidosis, the PCO2 54.6, pH 7.26. The expected bicarbonate is 25, patient was treated with positive pressure ventilation emergency room, BiPAP (9) Hypothyroidism Qualifiers: Hypothyroidism type: unspecified Qualified Code(s): E03.9 - Hypothyroidism, unspecified Is this a current diagnosis for this admission?: YesPlan: Patient with history of hypothyroidism, on Synthroid replacement therapy, not issue of adherence to medication , thyroid stimulating hormone is 16
[2016-08-26 19:26] LABS: ALANINE AMINOTRANSFERASE 127 U/L (21-72); ALKALINE PHOSPHATASE 145 U/L (38-126); ANION GAP 15 (5-19); ASPARTATE AMINO TRANSFERASE 98 U/L (17-59); BILIRUBIN,TOTAL 0.5 mg/dL (0.2-1.3); BLOOD UREA NITROGEN 76 mg/dL (7-20); CALCIUM 9.4 mg/dL (8.4-10.2); CARBON DIOXIDE 24 mmol/L (22-30); CHLORIDE 109 mmol/L (98-107); CREATININE RESULT 3.19 mg/dL (0.52-1.25); GLUCOSE 193 mg/dL (75-110); POTASSIUM 5.9 mmol/L (3.6-5.0); SODIUM 147.6 mmol/L (137-145); TOTAL PROTEIN 8.2 g/dL (6.3-8.2)
[2016-08-26] MEDS: NORMAL SALINE 250 ML with FUROSEMIDE 250 MG IV PRN ×2 (19:56)
[2016-08-26] MEDS ORDERED: TAMSULOSIN HCL 0.4 MG CAP.SR.24H PO ONE (20:00)
[2016-08-26] MEDS: ATORVASTATIN CALCIUM 40 MG TABLET PO SCH (21:31)
[2016-08-26] MEDS: LEVOTHYROXINE SODIUM 0.15 MG TABLET PO SCH (21:32)
[2016-08-26] MEDS: INSULIN REG, HUMAN 100 UNIT/ML 3 ML VIAL (PYX) SUBCUT PRN (23:15)
[2016-08-27 05:32] LABS: ABSOLUTE LYMPHOCYTES (AUTO) 0.8 10^3/uL (0.5-4.7); ABSOLUTE MONOCYTES (AUTO) 0.8 10^3/uL (0.1-1.4); ABSOLUTE NEUT (AUTO) 6.1 10^3/uL (1.7-8.2); BASOPHILS % (AUTO) 0.4 % (0-2); HEMATOCRIT 29.6 % (37.9-51.0); HEMOGLOBIN 9.5 g/dL (13.5-17.0); HGB HCT DIFFERENCE -1.1; LYMPHOCYTES % (AUTO) 10.9 % (13-45); MEAN CORPUSCULAR HEMOGLOBIN 32.4 pg (27.0-33.4); MEAN CORPUSCULAR HGB CONC 32.1 g/dL (32.0-36.0); MEAN CORPUSCULAR VOLUME 101 fl (80-97); MONOCYTES % (AUTO) 10.7 % (3-13); PROTHROMBIN TIME 16.7 SEC (11.4-15.4); RED BLOOD COUNT 2.92 10^6/uL (4.35-5.55); WHITE BLOOD COUNT 7.8 10^3/uL (4.0-10.5)
[2016-08-27 05:33] LABS: PARTIAL THROMBOPLASTIN TIME 31.3 SEC (23.5-35.8)
[2016-08-27 05:49] LABS: ALANINE AMINOTRANSFERASE 115 U/L (21-72); ALBUMIN 2.6 g/dL (3.5-5.0); ALKALINE PHOSPHATASE 140 U/L (38-126); ANION GAP 13 (5-19); ASPARTATE AMINO TRANSFERASE 82 U/L (17-59); BILIRUBIN,TOTAL 0.4 mg/dL (0.2-1.3); BLOOD UREA NITROGEN 67 mg/dL (7-20); CALCIUM 8.4 mg/dL (8.4-10.2); CARBON DIOXIDE 27 mmol/L (22-30); CHLORIDE 103 mmol/L (98-107); CHOLESTEROL 118.98 mg/dL (0-200); CREATININE RESULT 3.05 mg/dL (0.52-1.25); Direct HDL 30 mg/dL (>40); GLUCOSE 128 mg/dL (75-110); MAGNESIUM 2.3 mg/dL (1.6-2.3); PHOSPHORUS 8.2 mg/dL (2.5-4.5); SODIUM 143.4 mmol/L (137-145); TOTAL PROTEIN 7.8 g/dL (6.3-8.2); TRIGLYCERIDES 85 mg/dL (<150)
[2016-08-27 06:00] LABS: DIRECT LDL 55 mg/dL (<100)
[2016-08-27] MEDS: LEVALBUTEROL HCL NEB 0.63 MG/3 ML AMPUL NEB PRN ×3 (06:08→16:56)
[2016-08-27 06:17] LABS: POTASSIUM 3.5 mmol/L (3.6-5.0)
[2016-08-27 07:14] LABS: ARTERIAL BLOOD BASE EXCESS -0.5 mmol/L; ARTERIAL BLOOD O2 SATURATION 93.6 % (94-98)
[2016-08-27] MEDS: NORMAL SALINE 250 ML with FUROSEMIDE 250 MG IV PRN ×4 (08:12→22:26)
[2016-08-27] MEDS: SIMVASTATIN 40 MG TABLET PO SCH (09:34)
[2016-08-27] MEDS: APIXABAN 2.5 MG TABLET PO SCH ×2 (09:34→22:27)
[2016-08-27] MEDS: SITAGLIPTIN PHOSPHATE 25 MG TABLET PO SCH (09:39)
[2016-08-27] MEDS: METOPROLOL SUCCINATE 50 MG TAB.SR.24H PO SCH (10:00)
--- NOTE | 2016-08-27 10:23 | EKG REPORT ---
SEVERITY:- ABNORMAL ECG - ATRIAL FIBRILLATION, V-RATE 86-150 LOW VOLTAGE IN FRONTAL LEADS NONSPECIFIC T ABNORMALITIES, LATERAL LEADS BORDERLINE PROLONGED QT INTERVAL : Confirmed by: Mayra Sanz 27-Aug-2016 10:22:40
[2016-08-27] MEDS: INSULIN REG, HUMAN 100 UNIT/ML 3 ML VIAL (PYX) SUBCUT PRN (11:29)
[2016-08-27 11:40] LABS: CREATININE URINE 98.5 mg/dL (Not Estab.)
[2016-08-27] MEDS: TAMSULOSIN HCL 0.4 MG CAP.SR.24H PO SCH (17:05)
--- NOTE | 2016-08-27 18:52 | PDOC PROGRESS REPORT ---
Subjective Progress Note for:: 08/27/16 Subjective:: Patient was seen by the bedside, he was admitted yesterday because of anasarca due to combination of nephrotic syndrome and acute systolic and diastolic heart failure. He is diuresing quite nicely on the IV furosemide, there was admitted. He had altered mental status and he was asking me why he was in the hospital and I explained to him the circumstances that led to his admission to the hospital. Physical Exam Vital Signs: Temp Pulse Resp BP Pulse Ox 97.6 F 101 H 20 136/85 H 96 08/27/16 15:47 08/27/16 16:56 08/27/16 16:56 08/27/16 15:47 08/27/16 16:56 Intake & Output 08/26/16 08/27/16 08/28/16 06:59 06:59 06:59 Intake Total 7 1022 1532 Output Total 300 1300 2195 Balance -293 -278 -663 Weight 85.1 kg 88.6 kg General appearance: PRESENT: no acute distress Eye exam: PRESENT: PERRLA Respiratory exam: PRESENT: crackles, rales Cardiovascular exam: PRESENT: irregular rhythm, +S1, +S2 GI/Abdominal exam: PRESENT: soft Extremities exam: PRESENT: right BKA - There is edema of the left leg,areas of open wound in the right groin, other Results Laboratory Results: 08/27/16 05:02 08/27/16 05:02 08/26/16 08/27/16 08/27/16 16:30 05:02 05:02 WBC 7.8 RBC 2.92 L Hgb 9.5 L Hct 29.6 L MCV 101 H MCH 32.4 MCHC 32.1 RDW 16.0 H Plt Count 217 Seg Neutrophils % 78.0 Lymphocytes % 10.9 L Monocytes % 10.7 Eosinophils % 0.0 Basophils % 0.4 Absolute Neutrophils 6.1 Absolute Lymphocytes 0.8 Absolute Monocytes 0.8 Absolute Eosinophils 0.0 Absolute Basophils 0.0 Carbonic Acid HCO3/H2CO3 Ratio ABG pH ABG pCO2 ABG pO2 ABG HCO3 ABG O2 Saturation ABG Base Excess FiO2 Sodium 147.6 H 143.4 Potassium 5.9 H 3.5 L D Chloride 109 H 103 Carbon Dioxide 24 27 Anion Gap 15 13 BUN 76 H 67 H Creatinine 3.19 H 3.05 H Est GFR ( Amer) 24 L 26 L Est GFR (Non-Af Amer) 20 L 21 L Glucose 193 H 128 H Calcium 9.4 8.4 Phosphorus 8.2 H Magnesium 2.3 Total Bilirubin 0.5 0.4 AST 98 H 82 H ALT 127 H 115 H Alkaline Phosphatase 145 H 140 H Total Protein 8.2 7.8 Albumin 3.0 L 2.6 L Triglycerides 85 Cholesterol 118.98 LDL Cholesterol Direct 55 VLDL Cholesterol 17.0 HDL Cholesterol 30 L Lipase 316.0 H 08/27/16 06:45 WBC RBC Hgb Hct MCV MCH MCHC RDW Plt Count Seg Neutrophils % Lymphocytes % Monocytes % Eosinophils % Basophils % Absolute Neutrophils Absolute Lymphocytes Absolute Monocytes Absolute Eosinophils Absolute Basophils Carbonic Acid 1.68 H HCO3/H2CO3 Ratio 15:1 ABG pH 7.30 L ABG pCO2 55.8 H ABG pO2 76.2 L ABG HCO3 26.6 H ABG O2 Saturation 93.6 L ABG Base Excess -0.5 FiO2 2 L Sodium Potassium Chloride Carbon Dioxide Anion Gap BUN Creatinine Est GFR ( Amer) Est GFR (Non-Af Amer) Glucose Calcium Phosphorus Magnesium Total Bilirubin AST ALT Alkaline Phosphatase Total Protein Albumin Triglycerides Cholesterol LDL Cholesterol Direct VLDL Cholesterol HDL Cholesterol Lipase 08/26/16 08/26/16 08/26/16 03:52 03:52 10:31 Creatine Kinase < 20 L 41 L CK-MB (CK-2) 0.60 Troponin I 0.013 08/26/16 08/26/16 08/26/16 10:31 16:30 16:30 Creatine Kinase 48 L CK-MB (CK-2) 0.65 0.58 Troponin I 0.013 0.014 Impressions: Chest X-Ray 08/25/16 00:00 IMPRESSION: Similar interstitial edema pattern bilaterally. Assessment & Plan - Diagnosis (1) Acute systolic heart failure Is this a current diagnosis for this admission?: Yes (2) Acute kidney injury Is this a current diagnosis for this admission?: Yes (3) Nephrotic range proteinuria Is this a current diagnosis for this admission?: Yes (4) Chronic kidney disease, stage IV (severe) Is this a current diagnosis for this admission?: Yes (5) Anasarca Is this a current diagnosis for this admission?: YesPlan: Continue intravenous furosemide infusion, she is still edematous (6) Hyperkalemia Is this a current diagnosis for this admission?: Yes (7) Acute hypercapnic respiratory failure Is this a current diagnosis for this admission?: Yes (9) Hypothyroidism Qualifiers: Hypothyroidism type: unspecified Qualified Code(s): E03.9 - Hypothyroidism, unspecified Is this a current diagnosis for this admission?: Yes
[2016-08-27] MEDS: ATORVASTATIN CALCIUM 40 MG TABLET PO SCH (22:27)
[2016-08-27] MEDS: LEVOTHYROXINE SODIUM 0.15 MG TABLET PO SCH (22:27)
[2016-08-28 05:31] LABS: ABSOLUTE LYMPHOCYTES (AUTO) 0.6 10^3/uL (0.5-4.7); ABSOLUTE MONOCYTES (AUTO) 0.5 10^3/uL (0.1-1.4); ABSOLUTE NEUT (AUTO) 4.8 10^3/uL (1.7-8.2); BASOPHILS % (AUTO) 0.3 % (0-2); EOSINOPHILS % (AUTO) 0.5 % (0-6); HEMATOCRIT 27.1 % (37.9-51.0); HEMOGLOBIN 8.8 g/dL (13.5-17.0); HGB HCT DIFFERENCE -0.7; LYMPHOCYTES % (AUTO) 9.8 % (13-45); MEAN CORPUSCULAR HEMOGLOBIN 32.4 pg (27.0-33.4); MEAN CORPUSCULAR HGB CONC 32.6 g/dL (32.0-36.0); MEAN CORPUSCULAR VOLUME 99 fl (80-97); MONOCYTES % (AUTO) 9.1 % (3-13); RED BLOOD COUNT 2.73 10^6/uL (4.35-5.55); RED CELL DISTRIBUTION WIDTH 15.8 % (11.5-14.0); SEGMENTED NEUTROPHILS % (AUTO) 80.3 % (42-78); WHITE BLOOD COUNT 5.9 10^3/uL (4.0-10.5)
[2016-08-28 05:34] LABS: PROTHROMBIN TIME 17.2 SEC (11.4-15.4)
[2016-08-28 05:35] LABS: PARTIAL THROMBOPLASTIN TIME 33.9 SEC (23.5-35.8)
[2016-08-28 05:49] LABS: ALANINE AMINOTRANSFERASE 104 U/L (21-72); ALBUMIN 2.3 g/dL (3.5-5.0); ALKALINE PHOSPHATASE 144 U/L (38-126); ANION GAP 8 (5-19); ASPARTATE AMINO TRANSFERASE 61 U/L (17-59); BILIRUBIN,TOTAL 0.3 mg/dL (0.2-1.3); BLOOD UREA NITROGEN 65 mg/dL (7-20); CALCIUM 7.6 mg/dL (8.4-10.2); CARBON DIOXIDE 32 mmol/L (22-30); CHLORIDE 101 mmol/L (98-107); CREATININE RESULT 2.56 mg/dL (0.52-1.25); GLUCOSE 154 mg/dL (75-110); LIPASE 91.4 U/L (23-300); MAGNESIUM 1.9 mg/dL (1.6-2.3); SODIUM 141.3 mmol/L (137-145)
[2016-08-28 06:03] LABS: PHOSPHORUS 5.6 mg/dL (2.5-4.5)
[2016-08-28 06:05] LABS: POTASSIUM 2.6 mmol/L (3.6-5.0)
[2016-08-28] MEDS ORDERED: POTASSIUM CHLORIDE 10 MEQ TABLET.SA PO ONE (06:26)
[2016-08-28] MEDS: POTASSIUM CHLORIDE 10 MEQ TABLET.SA PO SCH ×2 (07:40→11:07)
[2016-08-28] MEDS: LEVALBUTEROL HCL NEB 0.63 MG/3 ML AMPUL NEB PRN (08:43)
[2016-08-28] MEDS: APIXABAN 2.5 MG TABLET PO SCH ×2 (09:22→21:55)
[2016-08-28] MEDS: METOPROLOL SUCCINATE 50 MG TAB.SR.24H PO SCH (09:22)
[2016-08-28] MEDS: SIMVASTATIN 40 MG TABLET PO SCH (09:22)
[2016-08-28] MEDS: SITAGLIPTIN PHOSPHATE 25 MG TABLET PO SCH (09:22)
[2016-08-28 12:19] LABS: MICROALBUMIN URINE 2273.4 ug/mL (Not Estab.)
[2016-08-28] MEDS: NORMAL SALINE 250 ML with FUROSEMIDE 250 MG IV PRN ×2 (13:32)
--- NOTE | 2016-08-28 15:30 | PDOC PROGRESS REPORT ---
Subjective Progress Note for:: 08/28/16 Subjective:: Patient was admitted because of acute systolic failure and nephrotic syndrome, he said he feels better. It seems that he is getting close to his dry weight Physical Exam Vital Signs: Temp Pulse Resp BP Pulse Ox 98.1 F 114 H 20 125/68 91 L 08/28/16 12:18 08/28/16 14:00 08/28/16 12:18 08/28/16 12:18 08/28/16 12:18 Intake & Output 08/27/16 08/28/16 08/29/16 06:59 06:59 06:59 Intake Total 1022 2283 1014 Output Total 1300 5509 1800 Balance -248 -3358 -871 Weight 88.6 kg 87.4 kg General appearance: PRESENT: no acute distress Eye exam: PRESENT: PERRLA Respiratory exam: PRESENT: rhonchi Cardiovascular exam: PRESENT: irregular rhythm, +S1, +S2 Neurological exam: PRESENT: alert, CN II-XII grossly intact Results Laboratory Results: 08/28/16 04:51 08/28/16 04:51 08/28/16 08/28/16 04:51 04:51 WBC 5.9 RBC 2.73 L Hgb 8.8 L Hct 27.1 L MCV 99 H MCH 32.4 MCHC 32.6 RDW 15.8 H Plt Count 177 Seg Neutrophils % 80.3 H Lymphocytes % 9.8 L Monocytes % 9.1 Eosinophils % 0.5 Basophils % 0.3 Absolute Neutrophils 4.8 Absolute Lymphocytes 0.6 Absolute Monocytes 0.5 Absolute Eosinophils 0.0 Absolute Basophils 0.0 Sodium 141.3 Potassium 2.6 L* Chloride 101 Carbon Dioxide 32 H Anion Gap 8 BUN 65 H Creatinine 2.56 H Est GFR ( Amer) 31 L Est GFR (Non-Af Amer) 26 L Glucose 154 H Calcium 7.6 L Phosphorus 5.6 H D Magnesium 1.9 Total Bilirubin 0.3 AST 61 H ALT 104 H Alkaline Phosphatase 144 H Total Protein 7.0 Albumin 2.3 L Lipase 91.4 08/26/16 08/26/16 08/26/16 03:52 03:52 10:31 Creatine Kinase < 20 L 41 L CK-MB (CK-2) 0.60 Troponin I 0.013 08/26/16 08/26/16 08/26/16 10:31 16:30 16:30 Creatine Kinase 48 L CK-MB (CK-2) 0.65 0.58 Troponin I 0.013 0.014 Impressions: Chest X-Ray 08/25/16 00:00 IMPRESSION: Similar interstitial edema pattern bilaterally. Assessment & Plan - Diagnosis (1) Acute systolic heart failure Is this a current diagnosis for this admission?: Yes (2) Acute kidney injury Is this a current diagnosis for this admission?: Yes (3) Nephrotic range proteinuria Is this a current diagnosis for this admission?: Yes (4) Chronic kidney disease, stage IV (severe) Is this a current diagnosis for this admission?: Yes (5) Anasarca Is this a current diagnosis for this admission?: Yes (6) Hyperkalemia Is this a current diagnosis for this admission?: Yes (7) Acute hypercapnic respiratory failure Is this a current diagnosis for this admission?: Yes (9) Hypothyroidism Qualifiers: Hypothyroidism type: unspecified Qualified Code(s): E03.9 - Hypothyroidism, unspecified Is this a current diagnosis for this admission?: Yes
[2016-08-28] MEDS ORDERED: LOSARTAN POTASSIUM 50 MG TABLET PO ONE (16:00)
[2016-08-28] MEDS: TAMSULOSIN HCL 0.4 MG CAP.SR.24H PO SCH (18:07)
[2016-08-28] MEDS: ATORVASTATIN CALCIUM 40 MG TABLET PO SCH (21:55)
[2016-08-28] MEDS: LEVOTHYROXINE SODIUM 0.15 MG TABLET PO SCH (21:55)
[2016-08-28] MEDS: INSULIN REG, HUMAN 100 UNIT/ML 3 ML VIAL (PYX) SUBCUT PRN (22:35)
[2016-08-29] MEDS: LEVALBUTEROL HCL NEB 0.63 MG/3 ML AMPUL NEB PRN ×2 (03:44→17:09)
[2016-08-29 05:34] LABS: ABSOLUTE EOSINOPHILS # (AUTO) 0.1 10^3/uL (0.0-0.6); ABSOLUTE LYMPHOCYTES (AUTO) 0.8 10^3/uL (0.5-4.7); ABSOLUTE MONOCYTES (AUTO) 0.7 10^3/uL (0.1-1.4); BASOPHILS % (AUTO) 0.3 % (0-2); EOSINOPHILS % (AUTO) 0.9 % (0-6); HEMATOCRIT 27.8 % (37.9-51.0); HEMOGLOBIN 9.1 g/dL (13.5-17.0); HGB HCT DIFFERENCE -0.5; LYMPHOCYTES % (AUTO) 14.9 % (13-45); MEAN CORPUSCULAR HEMOGLOBIN 32.3 pg (27.0-33.4); MEAN CORPUSCULAR HGB CONC 32.8 g/dL (32.0-36.0); MEAN CORPUSCULAR VOLUME 98 fl (80-97); MONOCYTES % (AUTO) 11.9 % (3-13); RED BLOOD COUNT 2.83 10^6/uL (4.35-5.55); RED CELL DISTRIBUTION WIDTH 15.6 % (11.5-14.0); WHITE BLOOD COUNT 5.5 10^3/uL (4.0-10.5)
[2016-08-29 05:36] LABS: PROTHROMBIN TIME 17.6 SEC (11.4-15.4)
[2016-08-29 05:37] LABS: PARTIAL THROMBOPLASTIN TIME 34.2 SEC (23.5-35.8)
[2016-08-29 06:09] LABS: ALANINE AMINOTRANSFERASE 84 U/L (21-72); ALBUMIN 2.6 g/dL (3.5-5.0); ALKALINE PHOSPHATASE 133 U/L (38-126); ANION GAP 9 (5-19); ASPARTATE AMINO TRANSFERASE 46 U/L (17-59); BILIRUBIN,TOTAL 0.4 mg/dL (0.2-1.3); BLOOD UREA NITROGEN 60 mg/dL (7-20); CALCIUM 8.1 mg/dL (8.4-10.2); CARBON DIOXIDE 36 mmol/L (22-30); CHLORIDE 99 mmol/L (98-107); CREATININE RESULT 2.23 mg/dL (0.52-1.25); GLUCOSE 111 mg/dL (75-110); LIPASE 144.1 U/L (23-300); MAGNESIUM 1.7 mg/dL (1.6-2.3); PHOSPHORUS 4.1 mg/dL (2.5-4.5); SODIUM 144.3 mmol/L (137-145); TOTAL PROTEIN 7.1 g/dL (6.3-8.2)
[2016-08-29 08:47] LABS: HSV SOURCE PENIS
[2016-08-29] MEDS: METOPROLOL SUCCINATE 50 MG TAB.SR.24H PO SCH (09:06)
[2016-08-29] MEDS: POTASSIUM CHLORIDE 10 MEQ TABLET.SA PO SCH (09:06)
[2016-08-29] MEDS: LOSARTAN POTASSIUM 50 MG TABLET PO SCH (09:07)
[2016-08-29] MEDS: SITAGLIPTIN PHOSPHATE 25 MG TABLET PO SCH (09:07)
[2016-08-29] MEDS: SIMVASTATIN 40 MG TABLET PO SCH (09:07)
[2016-08-29] MEDS: APIXABAN 2.5 MG TABLET PO SCH ×2 (09:07→21:19)
[2016-08-29] MEDS: NORMAL SALINE 250 ML with FUROSEMIDE 250 MG IV PRN ×4 (14:10→14:17)
--- NOTE | 2016-08-29 14:53 | PDOC PROGRESS REPORT ---
Subjective Progress Note for:: 08/29/16 Subjective:: Patient was seen by the bedside, he has no new complaints today Physical Exam Vital Signs: Temp Pulse Resp BP Pulse Ox 97.8 F 104 H 20 123/79 96 08/29/16 11:17 08/29/16 11:17 08/29/16 11:17 08/29/16 11:17 08/29/16 11:17 Intake & Output 08/28/16 08/29/16 08/30/16 06:59 06:59 06:59 Intake Total 2283 3082 662 Output Total 5584 4450 600 Balance -5384 -6820 62 Weight 87.4 kg 84.3 kg General appearance: PRESENT: mild distress Eye exam: PRESENT: PERRLA Neck exam: PRESENT: full ROM Respiratory exam: PRESENT: rales, rhonchi Cardiovascular exam: PRESENT: RRR, +S1, +S2 GI/Abdominal exam: PRESENT: soft Extremities exam: PRESENT: pedal edema Neurological exam: PRESENT: alert, awake, oriented to person, oriented to place , oriented to time, oriented to situation, CN II-XII grossly intact. ABSENT: motor sensory deficit Psychiatric exam: PRESENT: appropriate affect, normal mood Results Laboratory Results: 08/29/16 05:00 08/29/16 05:00 08/29/16 08/29/16 05:00 05:00 WBC 5.5 RBC 2.83 L Hgb 9.1 L Hct 27.8 L MCV 98 H MCH 32.3 MCHC 32.8 RDW 15.6 H Plt Count 162 Seg Neutrophils % 72.0 Lymphocytes % 14.9 Monocytes % 11.9 Eosinophils % 0.9 Basophils % 0.3 Absolute Neutrophils 4.0 Absolute Lymphocytes 0.8 Absolute Monocytes 0.7 Absolute Eosinophils 0.1 Absolute Basophils 0.0 Sodium 144.3 Potassium 3.0 L* Chloride 99 Carbon Dioxide 36 H Anion Gap 9 BUN 60 H Creatinine 2.23 H Est GFR ( Amer) 37 L Est GFR (Non-Af Amer) 30 L Glucose 111 H Calcium 8.1 L Phosphorus 4.1 Magnesium 1.7 Total Bilirubin 0.4 AST 46 ALT 84 H Alkaline Phosphatase 133 H Total Protein 7.1 Albumin 2.6 L Lipase 144.1 08/26/16 14:20 Groin - Right Gram Stain - Final 08/26/16 23:00 Sputum Gram Stain - Final 08/26/16 23:00 Sputum Sputum Culture - Final Corynebacterium Striatum Normal [place] 08/26/16 01:05 Catheterized Urine Urine Culture - Final Pseudomonas Aeruginosa 08/26/16 08/26/16 08/26/16 03:52 03:52 10:31 Creatine Kinase < 20 L 41 L CK-MB (CK-2) 0.60 Troponin I 0.013 08/26/16 08/26/16 08/26/16 10:31 16:30 16:30 Creatine Kinase 48 L CK-MB (CK-2) 0.65 0.58 Troponin I 0.013 0.014 Impressions: Chest X-Ray 08/25/16 00:00 IMPRESSION: Similar interstitial edema pattern bilaterally. Assessment & Plan - Diagnosis (1) Acute systolic heart failure Is this a current diagnosis for this admission?: Yes (2) Acute kidney injury Is this a current diagnosis for this admission?: Yes (3) Nephrotic range proteinuria Is this a current diagnosis for this admission?: Yes (4) Chronic kidney disease, stage IV (severe) Is this a current diagnosis for this admission?: Yes (5) Anasarca Is this a current diagnosis for this admission?: YesPlan: Continue IV furosemide infusion until dry weight is achieve (6) Hyperkalemia Is this a current diagnosis for this admission?: Yes (7) Acute hypercapnic respiratory failure Is this a current diagnosis for this admission?: Yes (9) Hypothyroidism Qualifiers: Hypothyroidism type: unspecified Qualified Code(s): E03.9 - Hypothyroidism, unspecified Is this a current diagnosis for this admission?: Yes (10) Hypokalemia due to loss of potassium Is this a current diagnosis for this admission?: YesPlan: Replace potassium
[2016-08-29 15:46] LABS: ALANINE AMINOTRANSFERASE 74 U/L (21-72); ALBUMIN 2.7 g/dL (3.5-5.0); ANION GAP 11 (5-19); ASPARTATE AMINO TRANSFERASE 41 U/L (17-59); BILIRUBIN,TOTAL 0.5 mg/dL (0.2-1.3); BLOOD UREA NITROGEN 53 mg/dL (7-20); CALCIUM 7.5 mg/dL (8.4-10.2); CARBON DIOXIDE 38 mmol/L (22-30); CHLORIDE 96 mmol/L (98-107); CREATININE RESULT 2.07 mg/dL (0.52-1.25); GLUCOSE 145 mg/dL (75-110); SODIUM 144.9 mmol/L (137-145); TOTAL PROTEIN 6.8 g/dL (6.3-8.2)
[2016-08-29 15:47] LABS: ALKALINE PHOSPHATASE 124 U/L (38-126)
[2016-08-29] MEDS: POTASSI CL 20 MEQ/50 ML RIDER 50 ML IV SCH ×2 (16:53→18:10)
[2016-08-29] MEDS: TAMSULOSIN HCL 0.4 MG CAP.SR.24H PO SCH (17:23)
[2016-08-29] MEDS: INSULIN REG, HUMAN 100 UNIT/ML 3 ML VIAL (PYX) SUBCUT PRN ×2 (17:23→21:21)
[2016-08-29] MEDS ORDERED: NORMAL SALINE 250 ML with FUROSEMIDE 250 MG IV PRN ×2 (17:51)
[2016-08-29] MEDS: LEVOTHYROXINE SODIUM 0.15 MG TABLET PO SCH (21:19)
[2016-08-29] MEDS: ATORVASTATIN CALCIUM 40 MG TABLET PO SCH (21:19)
[2016-08-29 22:36] LABS: HSV I DNA Negative (Negative)
[2016-08-30] MEDS: POTASSIUM CHLORIDE 10 MEQ TABLET.SA PO SCH (10:14)
[2016-08-30] MEDS: LOSARTAN POTASSIUM 50 MG TABLET PO SCH (10:15)
[2016-08-30] MEDS: APIXABAN 2.5 MG TABLET PO SCH ×2 (10:15→21:34)
[2016-08-30] MEDS: METOPROLOL SUCCINATE 50 MG TAB.SR.24H PO SCH (10:15)
[2016-08-30] MEDS: SIMVASTATIN 40 MG TABLET PO SCH (10:15)
[2016-08-30] MEDS: OXYCODONE HCL IR 5 MG TABLET PO PRN (10:45)
[2016-08-30] MEDS: SITAGLIPTIN PHOSPHATE 25 MG TABLET PO SCH (10:45)
[2016-08-30] MEDS: INSULIN REG, HUMAN 100 UNIT/ML 3 ML VIAL (PYX) SUBCUT PRN ×3 (12:33→22:28)
[2016-08-30 13:51] LABS: ABSOLUTE EOSINOPHILS # (AUTO) 0.1 10^3/uL (0.0-0.6); ABSOLUTE LYMPHOCYTES (AUTO) 1.2 10^3/uL (0.5-4.7); ABSOLUTE MONOCYTES (AUTO) 0.6 10^3/uL (0.1-1.4); ABSOLUTE NEUT (AUTO) 5.1 10^3/uL (1.7-8.2); BASOPHILS % (AUTO) 0.4 % (0-2); EOSINOPHILS % (AUTO) 1.5 % (0-6); HEMATOCRIT 30.7 % (37.9-51.0); HGB HCT DIFFERENCE -0.7; LYMPHOCYTES % (AUTO) 17.1 % (13-45); MEAN CORPUSCULAR HEMOGLOBIN 31.7 pg (27.0-33.4); MEAN CORPUSCULAR HGB CONC 32.7 g/dL (32.0-36.0); MEAN CORPUSCULAR VOLUME 97 fl (80-97); MONOCYTES % (AUTO) 8.8 % (3-13); RED BLOOD COUNT 3.17 10^6/uL (4.35-5.55); RED CELL DISTRIBUTION WIDTH 15.8 % (11.5-14.0); SEGMENTED NEUTROPHILS % (AUTO) 72.2 % (42-78)
[2016-08-30 14:14] LABS: ALANINE AMINOTRANSFERASE 74 U/L (21-72); ALKALINE PHOSPHATASE 140 U/L (38-126); ANION GAP 9 (5-19); ASPARTATE AMINO TRANSFERASE 50 U/L (17-59); BILIRUBIN,TOTAL 0.6 mg/dL (0.2-1.3); BLOOD UREA NITROGEN 56 mg/dL (7-20); CALCIUM 8.4 mg/dL (8.4-10.2); CARBON DIOXIDE 38 mmol/L (22-30); CHLORIDE 96 mmol/L (98-107); CREATININE RESULT 1.91 mg/dL (0.52-1.25); GLUCOSE 136 mg/dL (75-110); POTASSIUM 3.8 mmol/L (3.6-5.0); SODIUM 143.1 mmol/L (137-145); TOTAL PROTEIN 7.8 g/dL (6.3-8.2)
[2016-08-30 14:19] LABS: ANISOCYTOSIS SLIGHT; POIKILOCYTOSIS SLIGHT; POLYCHROMASIA SLIGHT; SCHISTOCYTES SLIGHT
[2016-08-30 15:37] LABS: ALBUMIN 3 2.4 g/dL (2.9-4.4); ALPHA-1-GLOBULIN 0.3 g/dL (0.0-0.4); ALPHA-2-GLOBULIN 3 0.8 g/dL (0.4-1.0); BETA GLOBULIN 1.1 g/dL (0.7-1.3); GLOBULIN TTL 5.8 g/dL (2.2-3.9); IMMUNOGLOBULIN A 776 mg/dL (90-386); IMMUNOGLOBULIN G 3340 mg/dL (700-1600); IMMUNOGLOBULIN M 155 mg/dL (20-172); MONOCLONAL-SPIKE Not Observed g/dL (Not Observed); PROTEIN TOTAL SERUM 8.2 g/dL (6.0-8.5)
[2016-08-30] MEDS: TAMSULOSIN HCL 0.4 MG CAP.SR.24H PO SCH (17:45)
[2016-08-30] MEDS ORDERED: ACYCLOVIR 200 MG CAPSULE PO ONE (20:00)
--- NOTE | 2016-08-30 21:00 | PDOC PROGRESS REPORT ---
Subjective Progress Note for:: 08/30/16 Subjective:: Patient is improving is near his dry weight Physical Exam Vital Signs: Temp Pulse Resp BP Pulse Ox 98.1 F 120 H 19 144/85 H 99 08/30/16 15:09 08/30/16 15:09 08/30/16 15:09 08/30/16 15:09 08/30/16 16:00 Intake & Output 08/29/16 08/30/16 08/31/16 06:59 06:59 06:59 Intake Total 3082 2067 711 Output Total 4450 2300 355 Balance -1368 -233 356 Weight 84.3 kg 83.2 kg General appearance: PRESENT: no acute distress Eye exam: PRESENT: PERRLA Respiratory exam: PRESENT: crackles Cardiovascular exam: PRESENT: +S1, +S2 Results Laboratory Results: 08/30/16 13:40 08/30/16 13:40 08/30/16 08/30/16 13:40 13:40 WBC 7.0 RBC 3.17 L Hgb 10.0 L Hct 30.7 L MCV 97 MCH 31.7 MCHC 32.7 RDW 15.8 H Plt Count 174 Seg Neutrophils % 72.2 Lymphocytes % 17.1 Monocytes % 8.8 Eosinophils % 1.5 Basophils % 0.4 Absolute Neutrophils 5.1 Absolute Lymphocytes 1.2 Absolute Monocytes 0.6 Absolute Eosinophils 0.1 Absolute Basophils 0.0 Sodium 143.1 Potassium 3.8 Chloride 96 L Carbon Dioxide 38 H Anion Gap 9 BUN 56 H Creatinine 1.91 H Est GFR ( Amer) 44 L Est GFR (Non-Af Amer) 36 L Glucose 136 H Calcium 8.4 Total Bilirubin 0.6 AST 50 ALT 74 H Alkaline Phosphatase 140 H Total Protein 7.8 Albumin 3.0 L 08/26/16 14:20 Groin - Right Gram Stain - Final 08/26/16 14:20 Groin - Right Wound Culture - Final Enterobacter Cloacae Pseudomonas Aeruginosa Enterococcus Faecalis(Group D) Skin [place] 08/26/16 08/26/16 08/26/16 03:52 03:52 10:31 Creatine Kinase < 20 L 41 L CK-MB (CK-2) 0.60 Troponin I 0.013 08/26/16 08/26/16 08/26/16 10:31 16:30 16:30 Creatine Kinase 48 L CK-MB (CK-2) 0.65 0.58 Troponin I 0.013 0.014 Impressions: Chest X-Ray 08/25/16 00:00 IMPRESSION: Similar interstitial edema pattern bilaterally. Assessment & Plan - Diagnosis (1) Acute systolic heart failure Is this a current diagnosis for this admission?: Yes (2) Acute kidney injury Is this a current diagnosis for this admission?: Yes (3) Nephrotic range proteinuria Is this a current diagnosis for this admission?: Yes (4) Chronic kidney disease, stage IV (severe) Is this a current diagnosis for this admission?: Yes (5) Anasarca Is this a current diagnosis for this admission?: Yes (6) Hyperkalemia Is this a current diagnosis for this admission?: Yes (7) Acute hypercapnic respiratory failure Is this a current diagnosis for this admission?: Yes (9) Hypothyroidism Qualifiers: Hypothyroidism type: unspecified Qualified Code(s): E03.9 - Hypothyroidism, unspecified Is this a current diagnosis for this admission?: Yes (10) Hypokalemia due to loss of potassium Is this a current diagnosis for this admission?: Yes (11) Genital herpes simplex type 2 Is this a current diagnosis for this admission?: YesPlan: The PCR results came back as type II herpes simplex, treat with acyclovir
[2016-08-30] MEDS ORDERED: NORMAL SALINE 250 ML with FUROSEMIDE 250 MG IV PRN ×2 (21:09)
[2016-08-30] MEDS: ATORVASTATIN CALCIUM 40 MG TABLET PO SCH (21:34)
[2016-08-30] MEDS: LEVOTHYROXINE SODIUM 0.15 MG TABLET PO SCH (21:34)
[2016-08-31] MEDS: ACYCLOVIR 200 MG CAPSULE PO SCH ×3 (05:30→22:01)
[2016-08-31] MEDS: METOPROLOL SUCCINATE 50 MG TAB.SR.24H PO SCH (10:40)
[2016-08-31] MEDS: SITAGLIPTIN PHOSPHATE 25 MG TABLET PO SCH (10:40)
[2016-08-31] MEDS: SIMVASTATIN 40 MG TABLET PO SCH (10:42)
[2016-08-31] MEDS: LOSARTAN POTASSIUM 50 MG TABLET PO SCH (10:47)
[2016-08-31] MEDS: APIXABAN 2.5 MG TABLET PO SCH ×2 (10:47→22:01)
[2016-08-31] MEDS: INSULIN REG, HUMAN 100 UNIT/ML 3 ML VIAL (PYX) SUBCUT PRN ×3 (12:09→22:42)
[2016-08-31] MEDS: TAMSULOSIN HCL 0.4 MG CAP.SR.24H PO SCH (16:38)
[2016-08-31] MEDS ORDERED: FUROSEMIDE 80 MG TABLET PO ONE (17:00)
[2016-08-31] MEDS ORDERED: METOLAZONE 5 MG TABLET PO ONE (17:00)
[2016-08-31 17:37] LABS: ALBUMIN URINE 58.2 % (.); BETA GLOBULIN UR 7.5 % (.); GAMMA GLOBULIN UR 30.1 % (.); M-SPIKE % URINE Not Observed % (Not Observed); PROTEIN TOTAL UR 24HR 2566.4 mg/24 hr (30.0-150.0)
--- NOTE | 2016-08-31 18:57 | PDOC PROGRESS REPORT ---
Subjective Progress Note for:: 08/31/16 Subjective:: He was admitted because of anasarca due to combination of acute systolic heart failure and nephrotic syndrome in the setting of chronic kidney disease. He was also found to have genital herpes on this admission. He has weeping lower extremity +2 edema Physical Exam Vital Signs: Temp Pulse Resp BP Pulse Ox 97.9 F 114 H 18 116/62 95 08/31/16 15:29 08/31/16 15:29 08/31/16 15:29 08/31/16 15:29 08/31/16 15:29 Intake & Output 08/30/16 08/31/16 09/01/16 06:59 06:59 06:59 Intake Total 2067 1544 1400 Output Total 2300 1055 1300 Balance -233 489 100 Weight 83.2 kg 83.3 kg General appearance: PRESENT: no acute distress Eye exam: PRESENT: PERRLA Respiratory exam: PRESENT: rhonchi Cardiovascular exam: PRESENT: +S1, +S2 Extremities exam: PRESENT: other - edema l both lower extremities Neurological exam: PRESENT: alert Results Laboratory Results: 08/30/16 13:40 08/30/16 13:40 08/26/16 13:58 Total Protein 8.2 Albumin 2.4 L 08/26/16 08/26/16 08/26/16 03:52 03:52 10:31 Creatine Kinase < 20 L 41 L CK-MB (CK-2) 0.60 Troponin I 0.013 08/26/16 08/26/16 08/26/16 10:31 16:30 16:30 Creatine Kinase 48 L CK-MB (CK-2) 0.65 0.58 Troponin I 0.013 0.014 Impressions: Chest X-Ray 08/25/16 00:00 IMPRESSION: Similar interstitial edema pattern bilaterally. Assessment & Plan - Diagnosis (1) Acute systolic heart failure Is this a current diagnosis for this admission?: Yes (2) Acute kidney injury Is this a current diagnosis for this admission?: Yes (3) Nephrotic range proteinuria Is this a current diagnosis for this admission?: Yes (4) Chronic kidney disease, stage IV (severe) Is this a current diagnosis for this admission?: Yes (5) Anasarca Is this a current diagnosis for this admission?: YesPlan: We will discontinue furosemide infusion and start by mouth Lasix and metolazone (6) Hyperkalemia Is this a current diagnosis for this admission?: Yes (7) Acute hypercapnic respiratory failure Is this a current diagnosis for this admission?: Yes (9) Hypothyroidism Qualifiers: Hypothyroidism type: unspecified Qualified Code(s): E03.9 - Hypothyroidism, unspecified Is this a current diagnosis for this admission?: Yes (10) Hypokalemia due to loss of potassium Is this a current diagnosis for this admission?: Yes (11) Genital herpes simplex type 2 Is this a current diagnosis for this admission?: Yes
[2016-08-31] MEDS: LEVOTHYROXINE SODIUM 0.15 MG TABLET PO SCH (22:00)
[2016-08-31] MEDS: ATORVASTATIN CALCIUM 40 MG TABLET PO SCH (22:01)
[2016-09-01] MEDS: ACYCLOVIR 200 MG CAPSULE PO SCH ×2 (05:19→13:14)
[2016-09-01] MEDS: LOSARTAN POTASSIUM 50 MG TABLET PO SCH (09:23)
[2016-09-01] MEDS: METOPROLOL SUCCINATE 50 MG TAB.SR.24H PO SCH (09:24)
[2016-09-01] MEDS: APIXABAN 2.5 MG TABLET PO SCH (09:24)
[2016-09-01] MEDS: SIMVASTATIN 40 MG TABLET PO SCH (09:24)
[2016-09-01] MEDS: SITAGLIPTIN PHOSPHATE 25 MG TABLET PO SCH (09:26)
[2016-09-01] MEDS ORDERED: METOLAZONE 5 MG TABLET PO SCH (10:00)
[2016-09-01] MEDS ORDERED: FUROSEMIDE 80 MG TABLET PO SCH (10:00)
[2016-09-01] MEDS: INSULIN REG, HUMAN 100 UNIT/ML 3 ML VIAL (PYX) SUBCUT PRN ×2 (12:16→16:57)
--- NOTE | 2016-09-01 16:37 | PDOC CONSULTATION ---
Consultation Consult Date: 09/01/16 Attending physician:: CLARISSE REMY Consult reason:: I was asked by Dr. Remy to see this patient because of nephrotic syndrome and chronic kidney disease. History of Present Illness Admission Date/PCP: 08/26/16 00:07 CLARISSE REMY, History of Present Illness: Patient 56-year-old male with history of diabetes mellitus type II with metabolic complications including nephropathy, retinopathy, cardiomyopathy, history of COPD, atrial fibrillation on chronic anticoagulation. He was recently admitted at [facility] when he had above-knee amputation of the right leg due to peripheral vascular disease. He came to the emergency room last night because of respiratory distress and altered mental status. History taking is a challenge in emergency room, he was evaluated blood work was done, he also had ABG done, pH 7.26, PCO2 54.6, this is consistent with acute respiratory acidosis. Patient is known to have chronic kidney disease with nephrotic syndrome when he presented last night, this serum potassium was 6, the GFR was 20. He told me that he spent about, 2 months in the hospital in [place]. A 2-D echo was done this morning it showed dilated left ventricle with ejection fraction of 20%, the right ventricle is dilated with severe pulmonary hypertension. Since admission the patient was diuresed with Lasix IV infusion. His swelling was significantly improved and the patient was switched to oral Lasix starting today. Patient is confirmed that his swelling is much better and his breathing is much improved. In terms of his kidney function, he came in with a BUN of 58 creatinine of 3.14 on admission. About 2 days ago in August had a BUN of 56 creatinine of 1.91 with estimated GFR of 36. I have seen the patient in May for a consultation as an outpatient. At that time I did order workup for his nephrotic syndrome and chronic kidney disease. On 06/09/2016 he had a BUN of 24 creatinine of 2.01 estimated GFR of 34 which seems to be his baseline kidney function. From his records his kidney function has significantly progressed and worsened for the past year from a creatinine of 1.96 on July 2015 to 2.26 on January 2016. Patient also has nephrotic range proteinuria which has progressively gotten worse within the past year and is range from 3.2-3.9 g. When I saw him last May we did workup which included 24-hour urine showing a proteinuria of 13,935 mg. He also has elevated TSH and and and free T4 which is currently being treated by Dr. Remy. His serologies including EVANGELINA, ANCA , serum protein electrophoresis, urine protein electrophoresis, immunoelectrophoresis were all negative. His hepatitis B surface antigen was also was also negative. The only thing that is mildly borderline elevated was his anti-GBM antibody but is not clinically significant and does not correlate with an anti-GBM disease clinically. Currently the patient is clinically improved. Past Medical History Cardiac Medical History: Reports: Atrial Fibrillation, CHF-Systolic, Coronary Artery Disease, Hyperlipidemia, Myocardial Infarction - x2, Peripheral Vascular Disease Pulmonary Medical History: Denies: Tuberculosis Endocrine Medical History: Reports: Diabetes Mellitus Type 2, Hypothyroidism Complications of Diabetes: Reports: Nephropathy Renal/ Medical History: Reports: Chronic Kidney Disease Stage III, Proteinuria GI Medical History: Reports: Gastroesophageal Reflux Disease Past Surgical History Past Surgical History: Reports: Cardiac Catheterization, Orthopedic Surgery - right knee, right big toe amputation, right leg above-knee amputation, Vascular Surgery - Angioplasty in the right leg Social History Information Source: Patient Lives with: Spouse/Significant other Smoking Status: Former Smoker Frequency of Alcohol Use: None Hx Recreational Drug Use: No Hx Prescription Drug Abuse: No - Advance Directive Resuscitation Status: Full Code Family History Family History: DM - Mother, Hypertension - Father Parental Family History Reviewed: Yes Children Family History Reviewed: NA Sibling(s) Family History Reviewed.: No Medication/Allergy Home Medications: Levothyroxine Sodium [Unithroid] 150 mcg PO QAM 09/16/14 Apixaban [Eliquis 2.5 mg Tablet] 2.5 mg PO BID #60 tablet 09/24/14 Metoprolol Succinate [Toprol Xl 50 mg Tab.sr] 200 mg PO DAILY #30 tab.sr.24h 11/03 Prednisone 10 mg PO TID #10 tablet 08/23/16 Amiodarone HCl [Cordarone 200 mg Tablet] 200 mg PO DAILY 08/26/16 Atorvastatin Calcium 40 mg PO QHS 08/26/16 Furosemide [Lasix 40 mg Tablet] 80 mg PO DAILY 08/26/16 Gabapentin 100 mg PO TID 08/26/16 Oxycodone HCl 5 mg PO Q4H PRN 08/26/16 Pantoprazole Sodium 40 mg PO BID 08/26/16 Tamsulosin HCl 0.4 mg PO DAILY 08/26/16 Allergies/Adverse Reactions: No Known Allergies Allergy (Verified 09/16/14 09:10) Review of Systems All systems: reviewed and no additional remarkable complaints except as stated Review of Systems: Constitutional: ABSENT: chills, fatigue, fever(s), headache(s), weight gain, weight loss Eyes: ABSENT: visual disturbances Ears: ABSENT: hearing changes Cardiovascular: ABSENT: chest pain, dyspnea on exertion, orthropnea, palpitations; admits lower extremity edema Respiratory: ABSENT: cough, dyspnea, hemoptysis Gastrointestinal: ABSENT: abdominal pain, constipation, diarrhea, hematemesis, hematochezia, nausea, vomiting Genitourinary: ABSENT: dysuria, hematuria Musculoskeletal: ABSENT: joint swelling Integumentary: ABSENT: rash, wounds Neurological: ABSENT: abnormal gait, abnormal speech, confusion, dizziness, focal weakness, numbness, syncope Psychiatric: ABSENT: anxiety, depression Endocrine: ABSENT: cold intolerance, heat intolerance, polydipsia, polyuria Hematologic/Lymphatic: ABSENT: easy bleeding, easy bruising, lymphadenopathy Physical Exam Vital Signs: Temp Pulse Resp BP Pulse Ox 98.4 F 127 H 18 130/76 H 100 09/01/16 11:48 09/01/16 14:00 09/01/16 11:48 09/01/16 11:48 09/01/16 11:48 Intake & Output 08/31/16 09/01/16 09/02/16 06:59 06:59 06:59 Intake Total 1544 2600 598 Output Total 1055 2200 600 Balance 489 400 -2 Weight 83.3 kg 80.9 kg Exam: General appearance: no acute distress, cooperative, well-developed, well- nourished Head exam: PRESENT: atraumatic, normocephalic Eye exam: PRESENT: Conjunctiva pale, EOMI, PERRLA. ABSENT: conjunctival injection, scleral icterus Mouth exam: PRESENT: moist, neck supple, tongue midline Neck exam: PRESENT: full ROM. ABSENT: carotid bruit, JVD, lymphadenopathy, thyromegaly Respiratory exam: PRESENT: Coarse breath sounds bilaterally. Positive rhonchi diffusely ABSENT: rales, stridor, wheezes Cardiovascular exam: PRESENT: Irregularly irregular, +S1, +S2. ABSENT: systolic murmur Pulses: PRESENT: normal radial pulses, diminished dorsalis pedis pulses on the left foot GI/Abdominal exam: PRESENT: normal bowel sounds, soft. ABSENT: guarding, mass, tenderness Rectal exam: deferred Extremities exam: PRESENT: full ROM. Grade 2 bilateral pitting edema on his left leg and right AKA stump ABSENT: calf tenderness Musculoskeletal: PRESENT: full ROM. Right AKA stump Neurological exam: PRESENT: alert, Awake, Oriented to person, Oriented to place , Oriented to time, reflexes normal, CN II-XII grossly intact. ABSENT: motor sensory deficit Psychiatric exam: PRESENT: appropriate affect, normal mood. ABSENT: homicidal ideation, suicidal ideation Skin exam: PRESENT: intact, dry, warm. ABSENT: rash Results Laboratory Results: 08/30/16 13:40 08/30/16 13:40 08/27/16 16:30 Ur Total Protein 24 Hr 2566.4 H 08/26/16 08/26/16 08/26/16 03:52 03:52 10:31 Creatine Kinase < 20 L 41 L CK-MB (CK-2) 0.60 Troponin I 0.013 08/26/16 08/26/16 08/26/16 10:31 16:30 16:30 Creatine Kinase 48 L CK-MB (CK-2) 0.65 0.58 Troponin I 0.013 0.014 06/09/16 06/09/16 06/09/16 07:00 11:41 11:41 BUN 24 H Creatinine 2.01 H Est GFR (Non-Af Amer) 34 L Total Protein Albumin Globulin Albumin/Globulin Ratio Ciiow-5-Ahdrjhlxp Uamlb-3-Jyakbikri Beta Globulins Gamma Globulins M-Bunny Vitamin D 25-Hydroxy 22.2 L TSH Free T4 PTH Intact 46 Immunoglobulin A Immunoglobulin G Immunoglobulin M Serum Immunofixation Immunofixation Note Ur Total Protein 24 Hr 55518 H Urine Total Protein 860.2 H Urine Albumin U Rixtt-8-Dtqbyrme U Bgfky-5-Pjqxleis U Beta Globulin U Gamma Globulin U PEP M-Bunny % Urine PEP Note Anti-Nuclear Antibody Negative c-ANCA Antibody <1:20 Anti-Proteinase 3 Intrp <3.5 Atypical p-ANCA <1:20 p-ANCA Antibody <1:20 Myeloperoxidase Ab <9.0 Glomerular Base Memb Ab 39 H Complement C3 121 Complement C4 24 Hep Bs Antibody <3.1 L 08/23/16 08/25/16 08/25/16 15:30 21:57 21:57 BUN 45 H 58 H Creatinine 2.28 H 3.14 H Est GFR (Non-Af Amer) 30 L 20 L Total Protein Albumin Globulin Albumin/Globulin Ratio Cnoyq-8-Mrkjwwclv Ovqkw-8-Hezoesvvq Beta Globulins Gamma Globulins M-Bunny Vitamin D 25-Hydroxy TSH 16.70 H Free T4 4.03 H PTH Intact Immunoglobulin A Immunoglobulin G Immunoglobulin M Serum Immunofixation Immunofixation Note Ur Total Protein 24 Hr Urine Total Protein Urine Albumin U Gfove-7-Gplohmcw U Nodoa-2-Cnkmhovk U Beta Globulin U Gamma Globulin U PEP M-Bunny % Urine PEP Note Anti-Nuclear Antibody c-ANCA Antibody Anti-Proteinase 3 Intrp Atypical p-ANCA p-ANCA Antibody Myeloperoxidase Ab Glomerular Base Memb Ab Complement C3 Complement C4 Hep Bs Antibody 08/26/16 08/27/16 13:58 16:30 BUN Creatinine Est GFR (Non-Af Amer) Total Protein 8.2 Albumin 2.4 L Globulin 5.8 H Albumin/Globulin Ratio 0.5 L Irtnk-4-Uojtxdjwy 0.3 Usrwg-4-Kyubcbrmu 0.8 Beta Globulins 1.1 Gamma Globulins 3.6 H M-Bunny Not Observed Vitamin D 25-Hydroxy TSH Free T4 PTH Intact Immunoglobulin A 776 H Immunoglobulin G 3340 H Immunoglobulin M 155 Serum Immunofixation Comment Immunofixation Note Comment Ur Total Protein 24 Hr 2566.4 H Urine Total Protein 104.2 Urine Albumin 58.2 U Lulzz-7-Tapqatqd 1.1 U Xpghl-4-Ekcngxzw 3.2 U Beta Globulin 7.5 U Gamma Globulin 30.1 U PEP M-Bunny % Not Observed Urine PEP Note Comment Anti-Nuclear Antibody c-ANCA Antibody Anti-Proteinase 3 Intrp Atypical p-ANCA p-ANCA Antibody Myeloperoxidase Ab Glomerular Base Memb Ab Complement C3 Complement C4 Hep Bs Antibody Impressions: Chest X-Ray 08/25/16 00:00 IMPRESSION: Similar interstitial edema pattern bilaterally. Assessment & Plan - Diagnosis (1) Chronic kidney disease, stage III (moderate) Is this a current diagnosis for this admission?: YesPlan: This is most likely secondary to diabetic nephropathy with associated nephrotic syndrome. Patient is currently at his baseline kidney function. Previous workup is negative for any paraproteinemia, vasculitis, nor any other autoimmune conditions. Patient is a good response to current diuretic regimen. I agreed to continue Lasix and metolazone combination. The patient does not need any urgent renal replacement therapy at this time. Patient needs continues follow up as an outpatient once discharged. If the patient is discharged in the next few days followed be happy to see the patient on a follow-up in 2-3 weeks with repeat BMP , albumin, CBC, and a urine for protein and creatinine ratio. (2) Diabetic nephropathy Qualifiers: Diabetes mellitus type: type 2 Qualified Code(s): E11.21 - Type 2 diabetes mellitus with diabetic nephropathy Is this a current diagnosis for this admission?: Yes (3) Nephrotic range proteinuria Is this a current diagnosis for this admission?: Yes (4) Hypoalbuminemia Is this a current diagnosis for this admission?: Yes (5) Anemia in chronic kidney disease (CKD) Is this a current diagnosis for this admission?: Yes (6) Anasarca Is this a current diagnosis for this admission?: YesPlan: Currently improved with diuretics. (7) Genital herpes simplex type 2 Is this a current diagnosis for this admission?: Yes (8) Hypothyroidism Qualifiers: Hypothyroidism type: unspecified Qualified Code(s): E03.9 - Hypothyroidism, unspecified Is this a current diagnosis for this admission?: Yes (9) Acute systolic heart failure Is this a current diagnosis for this admission?: YesPlan: Ejection fraction of 20-25% with grade II/IV mild to moderate diastolic dysfunction and severe pulmonary hypertension based on echocardiogram done this admission. - Notes Notes: Thank you very much for this consultation. Discussed with Dr. Remy. - Time Time Spent: 50 to 70 Minutes
[2016-09-01] MEDS: TAMSULOSIN HCL 0.4 MG CAP.SR.24H PO SCH (17:00)
--- NOTE | 2016-09-01 19:20 | PDOC DISCHARGE SUMMARY ---
General - Admit/Disc Date/PCP Admission Date/Primary Care Provider: 08/26/16 00:07 CLARISSE REMY, Discharge Date: 09/08/16 - Discharge Diagnosis (1) Acute systolic heart failure Is this a current diagnosis for this admission?: Yes (2) Acute kidney injury Is this a current diagnosis for this admission?: Yes (3) Nephrotic range proteinuria Is this a current diagnosis for this admission?: Yes (4) Chronic kidney disease, stage IV (severe) Is this a current diagnosis for this admission?: Yes (5) Anasarca Is this a current diagnosis for this admission?: Yes (6) Hyperkalemia Is this a current diagnosis for this admission?: Yes (7) Acute hypercapnic respiratory failure Is this a current diagnosis for this admission?: Yes (9) Hypothyroidism Is this a current diagnosis for this admission?: Yes (10) Hypokalemia due to loss of potassium Is this a current diagnosis for this admission?: Yes (11) Genital herpes simplex type 2 Is this a current diagnosis for this admission?: Yes (12) Pulmonary hypertension Is this a current diagnosis for this admission?: Yes (13) Acute diastolic heart failure Is this a current diagnosis for this admission?: Yes (14) Chronic obstructive pulmonary disease Is this a current diagnosis for this admission?: Yes - Additional Information Resuscitation Status: Full Code Home Medications: Levothyroxine Sodium [Unithroid] 150 mcg PO QAM 09/16/14 Metoprolol Succinate [Toprol Xl 50 mg Tab.sr] 200 mg PO DAILY #30 tab.sr.24h 11/03 Furosemide [Lasix 40 mg Tablet] 80 mg PO DAILY 08/26/16 Gabapentin 100 mg PO TID 08/26/16 Pantoprazole Sodium 40 mg PO BID 08/26/16 Tamsulosin HCl 0.4 mg PO DAILY 08/26/16 Acetaminophen 500 mg PO Q8H #90 tablet 09/01/16 Acyclovir [Zovirax 200 mg Capsule] 400 mg PO Q8 #21 capsule 09/01/16 Apixaban [Eliquis 2.5 mg Tablet] 2.5 mg PO BID #60 tablet 09/01/16 Atorvastatin Calcium 40 mg PO QHS #30 tablet 09/01/16 Furosemide [Lasix 80 mg Tablet] 80 mg PO DAILY #30 tablet 09/01/16 Linagliptin [Tradjenta] 5 mg PO DAILY #30 tablet 09/01/16 Losartan Potassium [Cozaar 50 mg Tablet] 100 mg PO DAILY #30 tablet 09/01/16 Metolazone [Zaroxolyn 5 mg Tablet] 5 mg PO DAILY #30 tablet 09/01/16 History of Present Illness History of Present Illness: Patient 56-year-old male with history of diabetes mellitus type II with metabolic complications including nephropathy, retinopathy, cardiomyopathy, history of COPD, atrial fibrillation on chronic anticoagulation. He was recently admitted at [facility] when he had below-knee amputation of the right leg due to peripheral vascular disease. He came to the emergency room last night because of respiratory distress and altered mental status. History taking is a challenge in emergency room, he was evaluated blood work was done, he also had ABG done, pH 7.26, PCO2 54.6, this is consistent with acute respiratory acidosis. Patient is known to have chronic kidney disease with nephrotic syndrome when he presented last night, this serum potassium was 6, the GFR was 20. He told me that he spent about, 2 months in the hospital in [place]. A 2-D echo was done this morning it showed dilated left ventricle with ejection fraction of 20%, the right ventricle is dilated with severe pulmonary hypertension., Hospital Course Hospital Course: Patient was admitted because of anasarca due to combination of acute systolic heart failure, nephrotic syndrome and pulmonary hypertension. He was treated successfully with Lasix infusion, he was also found to have a penile lesion, herpes PCR test was done it came back as herpes simplex type II and he was treated with acyclovir. He has chronic obstructive pulmonary disease with acute hypercapnic respiratory failure and he required positive pressure ventilation with BiPAP machine. Patient improved significantly on this treatment regimen. On admission he was profoundly volume overloaded. He was seen by nephrology, Dr. davis on this admission. A 2-D echo was done it showed severe pulmonary hypertension and acute systolic heart failure with ejection fraction of 20% also showed grade 2 diastolic heart failure. Physical Exam Vital Signs: Temp Pulse Resp BP Pulse Ox 98.4 F 127 H 18 115/70 98 09/01/16 15:59 09/01/16 15:59 09/01/16 15:59 09/01/16 15:59 09/01/16 15:59 Intake & Output 0109/01/16 09/02/16 06:59 06:59 06:59 Intake Total 1544 2600 959 Output Total 1055 2200 925 Balance 489 400 34 Weight 83.3 kg 80.9 kg General appearance: PRESENT: no acute distress Head exam: PRESENT: atraumatic, normocephalic Eye exam: PRESENT: PERRLA Neck exam: PRESENT: full ROM Respiratory exam: PRESENT: rhonchi Cardiovascular exam: PRESENT: RRR, +S1, +S2 GI/Abdominal exam: PRESENT: normal bowel sounds, soft Rectal exam: PRESENT: deferred Neurological exam: PRESENT: alert, CN II-XII grossly intact Psychiatric exam: PRESENT: appropriate affect, normal mood Skin exam: PRESENT: dry, intact, warm Results Laboratory Results: 08/30/16 13:40 08/30/16 13:40 08/27/16 16:30 Ur Total Protein 24 Hr 2566.4 H 08/26/16 08/26/16 08/26/16 03:52 03:52 10:31 Creatine Kinase < 20 L 41 L CK-MB (CK-2) 0.60 Troponin I 0.013 08/26/16 08/26/16 08/26/16 10:31 16:30 16:30 Creatine Kinase 48 L CK-MB (CK-2) 0.65 0.58 Troponin I 0.013 0.014 Impressions: Chest X-Ray 08/25/16 00:00 IMPRESSION: Similar interstitial edema pattern bilaterally.
[2016-09-01 20:34] VITALS: BP 126/89
== END 2016-09-01 22:03 | disposition home or self-care (01) | DRG 291 ==
LOC: ER 21:28 → EH 23:34 → UNDOADMIN 23:34 → EH 08-26 00:07 → 3S 08-26 04:49
PROVIDERS: ADMIT Internal Medicine; ATTEND Internal Medicine
DX: I13.0 Hypertensive heart and chronic kidney disease with heart failure and stage 1 through stage 4 chronic kidney disease, or unspecified chronic kidney disease (principal); I50.43 Acute on chronic combined systolic (congestive) and diastolic (congestive) heart failure; J96.02 Acute respiratory failure with hypercapnia; N18.4 Chronic kidney disease, stage 4 (severe); N17.9 Acute kidney failure, unspecified; E87.2 Acidosis; J44.9 Chronic obstructive pulmonary disease, unspecified; I48.2 Chronic atrial fibrillation; E78.00 Pure hypercholesterolemia, unspecified; K21.9 Gastro-esophageal reflux disease without esophagitis; E87.5 Hyperkalemia; E11.21 Type 2 diabetes mellitus with diabetic nephropathy; E11.22 Type 2 diabetes mellitus with diabetic chronic kidney disease; E87.6 Hypokalemia; D63.1 Anemia in chronic kidney disease; E03.9 Hypothyroidism, unspecified; E88.09 Other disorders of plasma-protein metabolism, not elsewhere classified; S31.103A Unspecified open wound of abdominal wall, right lower quadrant without penetration into peritoneal cavity, initial encounter; X58.XXXA Exposure to other specified factors, initial encounter; Y92.9 Unspecified place or not applicable; A60.01 Herpesviral infection of penis; Z60.2 Problems related to living alone; I25.2 Old myocardial infarction; Z87.891 Personal history of nicotine dependence; Z89.511 Acquired absence of right leg below knee; Z79.01 Long term (current) use of anticoagulants; Z79.52 Long term (current) use of systemic steroids
CPT/HCPCS: 36415; 36600; 71010; 80048; 80053; 80061; 80076; 80162; 80307; 81001; 82043; 82550; 82553; 82570; 82803; 82962; 83036; 83605; 83690; 83735; 83880; 84100; 84156; 84166; 84439; 84443; 84484; 85025; 85610; 85730; 86320; 86325; 87040; 87070; 87077; 87086; 87088; 87186; 87205; 87529; 93005; 93010; 93306; 94640; 94660; 96365; 96375; 99291; J0610; J1815; J1940; J2310; J2930; J3475; J3480; J3490; J7050; J7614; J7620

== ENCOUNTER 2016-09-25 14:23 | Emergency (ER) | payer MEDICARE ==
[~2016-09-25 14:23] MED LIST: SUCCINYLCHOLINE CHLORIDE INJ 200 MG/10 ML VIAL ONE
[2016-09-25] MEDS ORDERED: LIDOCAINE 2% URO-JET 5 ML KIT MM ONE (14:35)
--- NOTE | 2016-09-25 14:38 | ER Document Report ---
ED Respiratory Problem - General Stated Complaint: RESPIRATORY DISTRESS Mode of Arrival: Medic Information source: Patient, Emergency Med Personnel TRAVEL OUTSIDE OF THE [place] IN LAST 30 DAYS: No - HPI Patient complains to provider of: Short of breath Onset: Other - SPOUSE SAYS HE'S BEEN SICK SEVERAL DAYS, DECLINED TO SEEK CARE @ PCP OFFICE. Duration: Continuous Initiating Event: Other - UNKNOWN Quality of pain: No pain - DENIES Severity: Moderate Context: Hx CHF, Other - CHRONIC RENAL FAIURE, NOT ON DIALYSIS Short of Breath: Moderate Sputum amount: None At home treatment: Diuretics EMS treatments: Oxygen Associated symptoms: Other - LETHARGIC Recently seen / treated by doctor: No - Related Data Allergies/Adverse Reactions: No Known Allergies Allergy (Verified 09/16/14 09:10) Past Medical History - General Information source: Emergency Med Personnel, [facility] Records - Social History Smoking Status: Former Smoker Cigarette use (# per day): No Chew tobacco use (# tins/day): No Frequency of alcohol use: None Drug Abuse: None Lives with: Family Family History: Reviewed & Not Pertinent - Past Medical History Cardiac Medical History: Reports: Hx Atrial Fibrillation, Hx Congestive Heart Failure, Hx Coronary Artery Disease, Hx Heart Attack - x2, Hx Hypercholesterolemia, Hx Peripheral Vascular Disease Pulmonary Medical History: Reports: Hx COPD Denies: Hx Tuberculosis Endocrine Medical History: Reports: Hx Diabetes Mellitus Type 1, Hx Diabetes Mellitus Type 2, Hx Hypothyroidism Renal/ Medical History: Reports: Hx Renal Insufficiency GI Medical History: Reports: Hx Gastroesophageal Reflux Disease, Hx Ulcer Psychiatric Medical History: Denies: Hx Depression Past Surgical History: Reports: Hx Cardiac Catheterization, Hx Orthopedic Surgery - right knee, right big toe amputation, right leg above-knee amputation , Hx Vascular Surgery - Angioplasty in the right leg - Immunizations Hx Diphtheria, Pertussis, Tetanus Vaccination: Yes Hx Pneumococcal Vaccination: 09/25/14 Review of Systems - Review of Systems -: Yes ROS unobtainable due to patient's medical condition - PATIENT LETHARGIC, CAN ONLY ANSWER YES/NO QUESTIONS Physical Exam - Vital signs Vitals: Resp Pulse Ox 17 86 L 09/25/16 14:29 09/25/16 14:29 Interpretation: Hypotensive, Tachycardic, Hypoxic. No: Febrile - General General appearance: Lethargic In distress: Mild - HEENT Head: Normocephalic Eyes: Normal Conjunctiva: Normal Ears: Normal Nasal: Normal Mouth/Lips: Normal Mucous membranes: Normal Pharynx: Normal Neck: Normal - Respiratory Respiratory status: Labored Breath sounds: Decreased air movement - RIGHT MIDDLE, Rales - BILATERAL. No: Wheezing - Cardiovascular Rhythm: Irregularly irregular, Tachycardia Heart sounds: Normal auscultation Murmur: No - Abdominal Distension: Distended - TENSE Bowel sounds: Hypoactive Tenderness: Nontender - DOES NOT PROTEST PALPATION - Extremities General upper extremity: Edema - 1+ General lower extremity: Edema - 4+ LEFT, Other - S/P R. AKA - Neurological Cognition: Confused - Skin Skin Temperature: Warm Skin Moisture: Dry Skin Color: Normal Skin Turgor: Edematous Skin irregularity: Lesion - WEEPING ULCER L. LEG, other - ULCER R. INGUINAL AREA Course - Re-evaluation Re-evalutation: 09/25/16 19:48 Awaiting transfer to [facility]. Patient remains hypotensive. Oxygen saturation on ventilator is satisfactory and stable. He remains tachycardic. Adding a second pressor agent to his regimen has been considered, but in my judgment it would not be helpful at this time. - Vital Signs Vital signs: Temp Pulse Resp BP Pulse Ox 99.1 F 14 88/70 L 96 09/25/16 19:43 09/25/16 19:43 09/25/16 19:43 09/25/16 19:43 - Laboratory Result Diagrams: 09/25/16 16:04 09/25/16 16:04 Laboratory results interpreted by me: 09/25/16 09/25/16 09/25/16 14:35 14:35 14:45 RBC Hgb Hct MCV MCHC RDW PT 17.2 H VBG pH 7.13 L* VBG pCO2 64.4 H Potassium Carbon Dioxide BUN Creatinine Est GFR ( Amer) Est GFR (Non-Af Amer) Glucose POC Glucose 204 H Calcium Alkaline Phosphatase Albumin Urine Protein Urine Ketones 09/25/16 09/25/16 09/25/16 14:55 16:04 16:04 RBC 3.06 L Hgb 9.7 L Hct 31.3 L MCV 102 H D MCHC 30.8 L RDW 17.6 H PT VBG pH VBG pCO2 Potassium 6.0 H* Carbon Dioxide 21 L BUN 94 H Creatinine 5.87 H Est GFR ( Amer) 12 L Est GFR (Non-Af Amer) 10 L Glucose 186 H POC Glucose Calcium 8.1 L Alkaline Phosphatase 149 H Albumin 3.1 L Urine Protein 100 H Urine Ketones TRACE H - Diagnostic Test Radiology reviewed: Image reviewed, Reports reviewed - EKG Interpretation by Me EKG shows normal: [place], Intervals. abnormal: Sinus rhythm, QRS Complexes - LOW VOLTAGES, ST-T Waves - LAT. T ABNLS, NS. Rate: Normal Rhythm: A.Fib - Consults DR. KINNEY Time consulted: 17:35 Reason for consultation: 09/25/16 17:46 ACCEPTS PATIENT FOR TRANSFER TO [facility]. Procedures - Intubation Orotracheal Time of Intubation: 15:28 Airway evaluation: Normal anatomy Mallampati Classification: Class 3 Medications: Etomidate, Diprivan, Other - LORAZEPAM Intubation method: Orotracheal Blade type: Vu Blade size: 3 ETT size: 7.5 ETT secured at: Teeth ETT secured at (cm): 23 Breath Sounds after Intubation: Equal, Other - NO GASTRIC SOUNDS End tidal CO2 confirmed: Yes Tidal volume: 500 FiO2: 35% Respirations: 12 Pressure support: 5 PEEP: 5 Post Intubation Xray: Yes - ET AND OG TUBES IN ADEQUATE POSITION Intubation Complications: No complications Critical Care Note - Critical Care Note Total time excluding time spent on procedures (mins): 120 Comments: MULTI-ORGAN SYSTEM FAILURE, UNSTABLE VITAL SIGNS, AGGRESSIVE RESUSCITATION NECESSARY FOR STABILIZATION. Discharge - Discharge Clinical Impression: Renal failure (ARF), acute on chronic, Hyperkalemia, Anasarca, Hypoxemia Acute respiratory failure Qualifiers: Respiratory failure complication: hypoxia and hypercapnia Qualified Code(s): J96.01 - Acute respiratory failure with hypoxia Hypotension Qualifiers: Hypotension type: unspecified hypotension type Qualified Code(s): I95.9 - Hypotension, unspecified Atrial fibrillation Qualifiers: Atrial fibrillation type: chronic Qualified Code(s): I48.2 - Chronic atrial fibrillation Condition: Critical Disposition: [facility]
[2016-09-25 15:03] LABS: VENOUS BLOOD BASE EXCESS -9.4 mmol/L; VENOUS BLOOD HCO3 20.8 mmol/L (20-32); VENOUS BLOOD PCO2 64.4 mmHg (35-63)
[2016-09-25 15:06] LABS: PROTHROMBIN TIME 17.2 SEC (11.4-15.4)
[2016-09-25 15:14] LABS: VENOUS BLOOD PH 7.13 (7.30-7.42)
[2016-09-25] MEDS ORDERED: LEVOFLOXACIN 750 MG/D5W RTU 150 ML IV ONE (15:19)
[2016-09-25 15:25] LABS: APPEARANCE,URINE SLIGHTLY-CLOUDY; BILIRUBIN,URINE NEGATIVE (NEGATIVE); GLUCOSE, URINE NEGATIVE (NEGATIVE); KETONES,URINE TRACE mg/dL (NEGATIVE); LEUKOCYTE ESTERASE,URINE NEGATIVE (NEGATIVE); NITRITE,URINE NEGATIVE (NEGATIVE); PROTEIN,URINE 100 mg/dL (NEGATIVE); URINE SPECIFIC GRAVITY 1.016; UROBILINOGEN,URINE NEGATIVE mg/dL (<2.0)
[2016-09-25] MEDS ORDERED: ETOMIDATE INJ/PF 20 MG/10 ML SDV IV ONE (15:30)
[2016-09-25] MEDS ORDERED: LORAZEPAM INJ 2 MG/1 ML VIAL ONE (15:38)
[2016-09-25] MEDS ORDERED: PROPOFOL 100 ML IV ONE (15:39)
[2016-09-25] MEDS ORDERED: NOREPINEPHRINE BITARTRATE INJ/PF 4 MG/4 ML SDV IV ONE (15:47)
[2016-09-25] MEDS ORDERED: PROPOFOL 100 ML IV PRN (15:50)
[2016-09-25] MEDS ORDERED: PROPOFOL INJ 200 MG/20 ML VIAL IV ONE (15:51)
[2016-09-25] MEDS ORDERED: DEXTROSE 5%-WATER 250 ML with NOREPINEPHRINE BITARTRATE 4 MG IV PRN ×2 (15:52)
[2016-09-25 16:23] LABS: ABSOLUTE BASOPHILS # (AUTO) 0.1 10^3/uL (0.0-0.2); ABSOLUTE EOSINOPHILS # (AUTO) 0.1 10^3/uL (0.0-0.6); ABSOLUTE LYMPHOCYTES (AUTO) 1.1 10^3/uL (0.5-4.7); ABSOLUTE MONOCYTES (AUTO) 0.7 10^3/uL (0.1-1.4); BASOPHILS % (AUTO) 1.1 % (0-2); EOSINOPHILS % (AUTO) 1.3 % (0-6); HEMATOCRIT 31.3 % (37.9-51.0); HEMOGLOBIN 9.7 g/dL (13.5-17.0); HGB HCT DIFFERENCE -2.2; LYMPHOCYTES % (AUTO) 18.2 % (13-45); MEAN CORPUSCULAR HEMOGLOBIN 31.6 pg (27.0-33.4); MEAN CORPUSCULAR HGB CONC 30.8 g/dL (32.0-36.0); MONOCYTES % (AUTO) 12.3 % (3-13); RED BLOOD COUNT 3.06 10^6/uL (4.35-5.55); RED CELL DISTRIBUTION WIDTH 17.6 % (11.5-14.0); SEGMENTED NEUTROPHILS % (AUTO) 67.1 % (42-78); WHITE BLOOD COUNT 5.9 10^3/uL (4.0-10.5)
[2016-09-25] MEDS ORDERED: FUROSEMIDE INJ/PF 100 MG/10 ML SDV IV ONE (16:29)
[2016-09-25 16:33] LABS: MEAN CORPUSCULAR VOLUME 102 fl (80-97)
[2016-09-25 16:40] LABS: ALANINE AMINOTRANSFERASE 42 U/L (21-72); ALBUMIN 3.1 g/dL (3.5-5.0); ALKALINE PHOSPHATASE 149 U/L (38-126); ANION GAP 15 (5-19); ASPARTATE AMINO TRANSFERASE 28 U/L (17-59); BILIRUBIN,TOTAL 0.5 mg/dL (0.2-1.3); BLOOD UREA NITROGEN 94 mg/dL (7-20); CALCIUM 8.1 mg/dL (8.4-10.2); CARBON DIOXIDE 21 mmol/L (22-30); CHLORIDE 103 mmol/L (98-107); CREATININE RESULT 5.87 mg/dL (0.52-1.25); GLUCOSE 186 mg/dL (75-110); SODIUM 138.5 mmol/L (137-145); TOTAL PROTEIN 7.8 g/dL (6.3-8.2)
[2016-09-25] MEDS ORDERED: CALCIUM GLUCONATE 1000 MG/10 ML INJ IV ONE (16:48)
[2016-09-25] MEDS ORDERED: INSULIN REG, HUMAN 100 UNIT/ML 3 ML VIAL (PYX) IV ONE (16:49)
[2016-09-25] MEDS ORDERED: DEXTROSE 50%-WATER 25 GM/50 ML DISP.SYRIN IV ONE (16:50)
[2016-09-25] MEDS ORDERED: SODIUM BICARBONATE 8.4% INJ 50 MEQ/50 ML DISP.SYRIN IV ONE (17:41)
[2016-09-25] MEDS ORDERED: NORMAL SALINE 1000 ML 200 ML IV ONE (20:10)
[2016-09-25 20:28] VITALS: BP 87/62
--- NOTE | 2016-09-25 22:13 | EKG REPORT ---
SEVERITY:- ABNORMAL ECG - ATRIAL FIBRILLATION LOW VOLTAGE IN FRONTAL LEADS NONSPECIFIC T ABNORMALITIES, LATERAL LEADS : Confirmed by: Mayra Sanz 25-Sep-2016 22:13:05
== END 2016-09-25 20:47 | disposition short-term general hospital (02) ==
LOC: ER 14:23
PROC: 0BH17EZ Insertion of Endotracheal Airway into Trachea, Via Natural or Artificial Opening (ICD-10-PCS; principal; 2016-09-25)
DX: J96.01 Acute respiratory failure with hypoxia (principal); N17.9 Acute kidney failure, unspecified; E11.22 Type 2 diabetes mellitus with diabetic chronic kidney disease; N18.9 Chronic kidney disease, unspecified; E87.5 Hyperkalemia; I95.9 Hypotension, unspecified; I50.9 Heart failure, unspecified; I48.2 Chronic atrial fibrillation; I25.10 Atherosclerotic heart disease of native coronary artery without angina pectoris; R00.0 Tachycardia, unspecified; R60.1 Generalized edema; R53.83 Other fatigue; J44.9 Chronic obstructive pulmonary disease, unspecified; E11.51 Type 2 diabetes mellitus with diabetic peripheral angiopathy without gangrene; E11.622 Type 2 diabetes mellitus with other skin ulcer; L98.499 Non-pressure chronic ulcer of skin of other sites with unspecified severity; Z79.899 Other long term (current) drug therapy; Z89.611 Acquired absence of right leg above knee
CPT/HCPCS: 93005; 99291; 99292; 51702; 96375; 96365; 96366; 36415; 87040; 87086; 82962; 85025; 85610; 87077; 80053; 81001; 87186; 82803; 83605; 71010; 93010; 31500; J3490 ×4; J2704 ×2; J2060; A9270; J0330; J1956; J1815

== ENCOUNTER 2016-10-10 09:54 | Emergency (ER) | payer MEDICARE ==
--- NOTE | 2016-10-10 10:29 | ER Document Report ---
ED General - General Chief Complaint: Abdominal Distention Stated Complaint: ABDOMINAL DISTENTION Mode of Arrival: Medic Information source: Patient TRAVEL OUTSIDE OF THE [place] IN LAST 30 DAYS: No - HPI Onset: Other - 3 DAYS Onset/Duration: Gradual Quality of pain: No pain Severity: Moderate Associated symptoms: Leg swelling. denies: Shortness of breath Exacerbated by: Denies Relieved by: Denies Similar symptoms previously: Yes Recently seen / treated by doctor: Yes - DISCHARGED FROM [facility] 3 d AGO AFTER 2 wks IN-PATIENT STAY - Related Data Allergies/Adverse Reactions: No Known Allergies Allergy (Verified 09/16/14 09:10) Past Medical History - General Information source: Patient, [facility] Records - Social History Smoking Status: Former Smoker Drug Abuse: None Lives with: Family Family History: Reviewed & Not Pertinent - Past Medical History Cardiac Medical History: Reports: Hx Atrial Fibrillation, Hx Congestive Heart Failure, Hx Coronary Artery Disease, Hx Heart Attack - x2, Hx Hypercholesterolemia, Hx Peripheral Vascular Disease Pulmonary Medical History: Reports: Hx COPD Denies: Hx Tuberculosis Endocrine Medical History: Reports: Hx Diabetes Mellitus Type 1, Hx Diabetes Mellitus Type 2, Hx Hypothyroidism Renal/ Medical History: Reports: Hx Renal Insufficiency GI Medical History: Reports: Hx Gastroesophageal Reflux Disease, Hx Ulcer Psychiatric Medical History: Denies: Hx Depression Past Surgical History: Reports: Hx Cardiac Catheterization, Hx Orthopedic Surgery - right knee, right big toe amputation, right leg above-knee amputation , Hx Vascular Surgery - Angioplasty in the right leg - Immunizations Hx Diphtheria, Pertussis, Tetanus Vaccination: Yes Hx Pneumococcal Vaccination: 09/25/14 Review of Systems - Review of Systems Constitutional: No symptoms reported. denies: Chills, Fever EENT: No symptoms reported Cardiovascular: No symptoms reported Respiratory: No symptoms reported Gastrointestinal: Abdomen distended Genitourinary: No symptoms reported Musculoskeletal: No symptoms reported Skin: Change in color - REDNESS LOW ABDOMEN Neurological/Psychological: No symptoms reported Physical Exam - Vital signs Interpretation: Hypertensive, Tachypneic. No: Hypoxic, Febrile - General General appearance: Appears well, Alert In distress: None - HEENT Head: Normocephalic Eyes: Normal Conjunctiva: Normal Ears: Normal Nasal: Normal Mouth/Lips: Normal Mucous membranes: Normal Pharynx: Normal Neck: Normal - Respiratory Respiratory status: No respiratory distress Breath sounds: Rales - FEW [place]ILAR - Cardiovascular Rhythm: Regular Heart sounds: Normal auscultation Murmur: No - Abdominal Distension: Distended Bowel sounds: Normal Tenderness: Nontender - Back Back: Normal - Extremities General upper extremity: Normal inspection General lower extremity: No: Normal inspection - S/P R. AKA - Neurological Neuro grossly intact: Yes Cognition: Normal Orientation: AAOx4 - Psychological Associated symptoms: Normal affect, Normal mood - Skin Skin Temperature: Warm Skin Moisture: Dry Skin Color: Normal Skin Turgor: Elastic Skin irregularity: other - ULCER R. INGUINAL AREA, MODESTLY REDUCED IN SIZE SINCE 2 WEEKS AGO. Course - Laboratory Result Diagrams: 10/10/16 10:03 10/10/16 10:03 Laboratory results interpreted by me: 10/10/16 10/10/16 10/10/16 10:03 10:03 10:03 RBC 2.88 L Hgb 9.2 L Hct 28.8 L MCV 100 H MCHC 31.8 L RDW 17.4 H Carbon Dioxide 33 H BUN 29 H Creatinine 1.65 H Est GFR ( Amer) 52 L Est GFR (Non-Af Amer) 43 L Glucose 136 H ALT 14 L NT-Pro-B Natriuret Pep 51470 H Albumin 2.4 L - Diagnostic Test Radiology reviewed: Image reviewed, Reports reviewed - EKG Interpretation by Me EKG shows normal: [place], QRS Complexes, ST-T Waves. abnormal: Sinus rhythm Rate: Normal Rhythm: A.Fib Voltage: Decreased voltage - FRONTAL When compared to previous EKG there are: No significant change Discharge - Discharge Clinical Impression: Abdominal distention Edema Qualifiers: Edema type: localized Qualified Code(s): R60.0 - Localized edema Right groin wound Qualifiers: Encounter type: subsequent encounter Qualified Code(s): S31.109D - Unspecified open wound of abdominal wall, unspecified quadrant without penetration into peritoneal cavity, subsequent encounter CHF exacerbation Qualifiers: Congestive heart failure type: unspecified congestive heart failure type Qualified Code(s): I50.9 - Heart failure, unspecified Condition: Stable Disposition: HOME, SELF-CARE Instructions: Edema, Peripheral ([facility]) Additional Instructions: BEGIN TAKING MIRALAX DIRECTED, ONCE OR TWICE DAILY TO PRODUCE A BOWEL MOVEMENT AT LEAST ONCE A DAY. KEEP YOUR LEFT LEG ELEVATED MUCH POSSIBLE. AVOID SALT IN YOUR DIET. CONTINUE ALL MEDICATIONS BEFORE. FOLLOW UP WITH YOUR PRIMARY CARE PROVIDER IN THE NEXT 3-5 DAYS. RETURN TO E.R. IF PROBLEMS, ANY TIME. Referrals: CLARISSE REMY MD [Primary Care Provider] - Follow up in 3-5 days
[2016-10-10 10:45] LABS: ABSOLUTE BASOPHILS # (AUTO) 0.1 10^3/uL (0.0-0.2); ABSOLUTE EOSINOPHILS # (AUTO) 0.1 10^3/uL (0.0-0.6); ABSOLUTE LYMPHOCYTES (AUTO) 0.9 10^3/uL (0.5-4.7); ABSOLUTE MONOCYTES (AUTO) 0.7 10^3/uL (0.1-1.4); ABSOLUTE NEUT (AUTO) 5.1 10^3/uL (1.7-8.2); BASOPHILS % (AUTO) 0.8 % (0-2); EOSINOPHILS % (AUTO) 1.1 % (0-6); HEMATOCRIT 28.8 % (37.9-51.0); HEMOGLOBIN 9.2 g/dL (13.5-17.0); HGB HCT DIFFERENCE -1.2; LYMPHOCYTES % (AUTO) 13.5 % (13-45); MEAN CORPUSCULAR HEMOGLOBIN 31.8 pg (27.0-33.4); MEAN CORPUSCULAR HGB CONC 31.8 g/dL (32.0-36.0); MEAN CORPUSCULAR VOLUME 100 fl (80-97); MONOCYTES % (AUTO) 9.5 % (3-13); RED BLOOD COUNT 2.88 10^6/uL (4.35-5.55); RED CELL DISTRIBUTION WIDTH 17.4 % (11.5-14.0); SEGMENTED NEUTROPHILS % (AUTO) 75.1 % (42-78); WHITE BLOOD COUNT 6.8 10^3/uL (4.0-10.5)
[2016-10-10 10:59] LABS: ALANINE AMINOTRANSFERASE 14 U/L (21-72); ALBUMIN 2.4 g/dL (3.5-5.0); ALKALINE PHOSPHATASE 120 U/L (38-126); ANION GAP 7 (5-19); ASPARTATE AMINO TRANSFERASE 30 U/L (17-59); BILIRUBIN,TOTAL 0.4 mg/dL (0.2-1.3); BLOOD UREA NITROGEN 29 mg/dL (7-20); CALCIUM 8.8 mg/dL (8.4-10.2); CARBON DIOXIDE 33 mmol/L (22-30); CHLORIDE 104 mmol/L (98-107); CREATININE RESULT 1.65 mg/dL (0.52-1.25); GLUCOSE 136 mg/dL (75-110); MAGNESIUM 1.8 mg/dL (1.6-2.3); POTASSIUM 4.4 mmol/L (3.6-5.0); SODIUM 144.2 mmol/L (137-145); TOTAL PROTEIN 7.6 g/dL (6.3-8.2)
[2016-10-10] MEDS ORDERED: FUROSEMIDE INJ/PF 100 MG/10 ML SDV IV ONE (12:43)
[2016-10-10 14:14] VITALS: BP 153/102
[2016-10-10 14:22] LABS: APPEARANCE,URINE SLIGHTLY-CLOUDY; BILIRUBIN,URINE NEGATIVE (NEGATIVE); GLUCOSE, URINE NEGATIVE (NEGATIVE); KETONES,URINE NEGATIVE (NEGATIVE); LEUKOCYTE ESTERASE,URINE NEGATIVE (NEGATIVE); NITRITE,URINE NEGATIVE (NEGATIVE); PROTEIN,URINE >=500 mg/dL (NEGATIVE); URINE SPECIFIC GRAVITY 1.014; UROBILINOGEN,URINE NEGATIVE mg/dL (<2.0)
--- NOTE | 2016-10-10 22:00 | EKG REPORT ---
SEVERITY:- ABNORMAL ECG - ATRIAL FIBRILLATION, V-RATE 62-108 LOW VOLTAGE IN FRONTAL LEADS : Confirmed by: Mayra Sanz 10-Oct-2016 21:59:40
== END 2016-10-10 14:14 | disposition home or self-care (01) ==
LOC: ER 09:54
DX: S31.109D Unspecified open wound of abdominal wall, unspecified quadrant without penetration into peritoneal cavity, subsequent encounter (principal); R14.0 Abdominal distension (gaseous); Z87.891 Personal history of nicotine dependence; R60.0 Localized edema; I50.9 Heart failure, unspecified; X58.XXXD Exposure to other specified factors, subsequent encounter
CPT/HCPCS: 93005; 99284; 96374; 36415; 87040; 83735; 85025; 80053; 81001; 83880; 74022; 93010; J1940

== ENCOUNTER → 2016-11-03 | Outpatient (CLI) | payer MEDICARE ==
[2016-11-03 16:38] LABS: ALANINE AMINOTRANSFERASE 41 U/L (21-72); ALBUMIN 2.9 g/dL (3.5-5.0); ALKALINE PHOSPHATASE 156 U/L (38-126); ANION GAP 9 (5-19); ASPARTATE AMINO TRANSFERASE 39 U/L (17-59); BILIRUBIN,TOTAL 0.3 mg/dL (0.2-1.3); BLOOD UREA NITROGEN 39 mg/dL (7-20); C-REACTIVE PROTEIN 21.6 mg/L (<10.0); CALCIUM 8.6 mg/dL (8.4-10.2); CARBON DIOXIDE 31 mmol/L (22-30); CHLORIDE 99 mmol/L (98-107); CREATININE RESULT 2.36 mg/dL (0.52-1.25); GLUCOSE 184 mg/dL (75-110); POTASSIUM 4.8 mmol/L (3.6-5.0); SODIUM 138.5 mmol/L (137-145); TOTAL PROTEIN 7.7 g/dL (6.3-8.2)
== END ==
LOC: OD 14:58
PROVIDERS: ATTEND Nurse Practitioner Family
DX: E11.621 Type 2 diabetes mellitus with foot ulcer (principal); Z01.818 Encounter for other preprocedural examination
CPT/HCPCS: 36415; 71020; 80053; 83036; 86140

== ENCOUNTER → 2016-11-26 | Outpatient (CLI) | payer MEDICARE | LOC: RAD 15:41 | PROVIDERS: ATTEND Nurse Practitioner Family | DX: L97.522 Non-pressure chronic ulcer of other part of left foot with fat layer exposed (principal) ==

== ENCOUNTER 2016-12-13 16:53 | Inpatient (IN) | payer MEDICARE ==
--- NOTE | 2016-12-13 17:38 | ER Document Report ---
ED Cardiac - General Mode of Arrival: Ambulatory Information source: Patient TRAVEL OUTSIDE OF THE [place] IN LAST 30 DAYS: No - HPI Patient complains to provider of: Other - see notes above Associated symptoms: Other - see notes above <EDEL HOSKINS - Last Filed: 12/13/16 17:33> <ISMAEL RAMIREZ - Last Filed: 12/13/16 19:54> - General Stated Complaint: HEART RATE CONCERNS Notes: 56 year old male with history of atrial fibrillation (on Xarelto) and diabetes presents to the ED by the wound clinic after having a 170/128 blood pressure and a heart rate of 155. Patient reports no complaints at this time and states that his left foot sore is being handled by Dr. Sanders. Patient reports he has a chronic history of dysrhythmia. (EDEL HOSKINS) - Related Data Allergies/Adverse Reactions: No Known Allergies Allergy (Verified 09/16/14 09:10) Past Medical History - General Information source: Patient - Social History Smoking Status: Unknown if Ever Smoked Family History: Reviewed & Not Pertinent - Past Medical History Cardiac Medical History: Reports: Hx Atrial Fibrillation, Hx Congestive Heart Failure, Hx Coronary Artery Disease, Hx Heart Attack - x2, Hx Hypercholesterolemia, Hx Peripheral Vascular Disease Pulmonary Medical History: Reports: Hx COPD Denies: Hx Tuberculosis Endocrine Medical History: Reports: Hx Diabetes Mellitus Type 1, Hx Diabetes Mellitus Type 2, Hx Hypothyroidism Renal/ Medical History: Reports: Hx Renal Insufficiency GI Medical History: Reports: Hx Gastroesophageal Reflux Disease, Hx Ulcer Past Surgical History: Reports: Hx Cardiac Catheterization, Hx Orthopedic Surgery - right knee, right big toe amputation, right leg above-knee amputation , Hx Vascular Surgery - Angioplasty in the right leg - Immunizations Hx Diphtheria, Pertussis, Tetanus Vaccination: Yes Hx Pneumococcal Vaccination: 09/25/14 <EDEL HOSKINS - Last Filed: 12/13/16 17:33> Review of Systems - Review of Systems Constitutional: No symptoms reported EENT: No symptoms reported Cardiovascular: No symptoms reported Respiratory: No symptoms reported Gastrointestinal: No symptoms reported Genitourinary: No symptoms reported Male Genitourinary: No symptoms reported Musculoskeletal: No symptoms reported Skin: No symptoms reported Hematologic/Lymphatic: No symptoms reported Neurological/Psychological: No symptoms reported -: Yes All other systems reviewed and negative <EDEL HOSKINS - Last Filed: 12/13/16 17:33> Physical Exam - General General appearance: Appears well, Alert In distress: None - HEENT Head: Normocephalic, Atraumatic Eyes: Normal Extraocular movements intact: Yes Pupils: PERRL - Respiratory Respiratory status: No respiratory distress Breath sounds: Normal - Cardiovascular Rhythm: Irregularly irregular, Tachycardia Heart sounds: Normal auscultation - Abdominal Inspection: Normal - Back Back: Normal - Extremities General upper extremity: Normal inspection, Normal ROM General lower extremity: No: Normal inspection - Right AKA. Clean dressing over left foot. - Neurological Neuro grossly intact: Yes Cognition: Normal Orientation: AAOx4 [place] Coma Scale Eye Opening: Spontaneous Cory Coma Scale Verbal: Oriented Cory Coma Scale Motor: Obeys Commands [place] Coma Scale Total: 15 Speech: Normal - Psychological Associated symptoms: Normal affect, Normal mood - Skin Skin Temperature: Warm Skin Moisture: Dry Skin Color: Normal <EDEL HOSKINS - Last Filed: 12/13/16 17:33> <ISMAEL RAMIREZ - Last Filed: 12/13/16 19:54> - Vital signs Vitals: Temp Pulse Resp BP Pulse Ox 98.2 F 125 H 19 124/82 99 12/13/16 17:10 12/13/16 17:10 12/13/16 17:10 12/13/16 17:10 12/13/16 17:10 Course <EDEL HOSKINS - Last Filed: 12/13/16 17:33> - Laboratory Result Diagrams: 12/13/16 17:18 12/13/16 18:52 <ISMAEL RAMIREZ - Last Filed: 12/13/16 19:54> - Re-evaluation Re-evalutation: 12/13/16 19:21 Patient was given Cardizem 10 mg IV. He responded well with a heart rate in the 80s which it remained at and a blood pressure 122/85. I have asked the patient to discuss Cardizem with his PCP or preferably his central office repairer if he is having problems with maintaining a good heart rate and blood pressure. He voices understanding of this. He has been asymptomatic with this. He understands and voices return to emergency department warning signs. 12/13/16 19:52 Patient remains asymptomatic. No nausea or vomiting. The chemistry had to be redrawn due to hemolysis though with redraw his potassium was 7.6 without hemolysis. We will treat him with IV calcium, dextrose, insulin, sodium bicarbonate and get hourly checks. I spoke with Dr. Black and he will admit the patient to the [facility]. 12/13/16 19:54 (ISMAEL RAMIREZ) - Vital Signs Vital signs: Temp Pulse Resp BP Pulse Ox 98.2 F 125 H 15 122/85 100 12/13/16 19:37 12/13/16 17:10 12/13/16 19:01 12/13/16 19:01 12/13/16 19:01 - Laboratory Laboratory results interpreted by me: 12/13/16 12/13/16 17:18 18:52 WBC 11.9 H RBC 3.55 L Hgb 11.1 L Hct 34.5 L RDW 16.9 H Eosinophils % 10.6 H Absolute Eosinophils 1.3 H Potassium 7.6 H* BUN 48 H Creatinine 3.65 H Est GFR ( Amer) 21 L Est GFR (Non-Af Amer) 17 L Discharge <EDEL HOSKINS - Last Filed: 12/13/16 17:33> - Discharge Admitting Provider: Marquita Unit Admitted: [facility] <ISMAEL RAMIREZ - Last Filed: 12/13/16 19:54> - Discharge Clinical Impression: Atrial fibrillation with rapid ventricular response, Acute renal failure, Hyperkalemia Condition: Fair Disposition: ADMITTED INPATIENT Additional Instructions: Contact your central office repairer for follow-up tomorrow. Please return if you're developing symptoms such as shortness of breath, chest discomfort or other. If you're continuing to have problems with your heart rate becoming elevated, left them know used a single dose of Cardizem here and it seemed to keep your heart rate controlled. Scribe Attestation: 12/13/16 19:22 I personally performed the services described in the documentation, reviewed and edited the documentation which was dictated to the scribe in my presence, and it accurately records my words and actions. (ISMAEL RAMIREZ) Scribe Documentation - Scribe Written by Frank:: Frank Small, 12/13/2016 [id number] acting as scribe for :: Shanna <EDEL HOSKINS - Last Filed: 12/13/16 17:33>
[2016-12-13 18:33] LABS: ABSOLUTE BASOPHILS # (AUTO) 0.1 10^3/uL (0.0-0.2); ABSOLUTE EOSINOPHILS # (AUTO) 1.3 10^3/uL (0.0-0.6); ABSOLUTE LYMPHOCYTES (AUTO) 2.1 10^3/uL (0.5-4.7); ABSOLUTE MONOCYTES (AUTO) 1.1 10^3/uL (0.1-1.4); ABSOLUTE NEUT (AUTO) 7.5 10^3/uL (1.7-8.2); BASOPHILS % (AUTO) 0.8 % (0-2); EOSINOPHILS % (AUTO) 10.6 % (0-6); HEMATOCRIT 34.5 % (37.9-51.0); HEMOGLOBIN 11.1 g/dL (13.5-17.0); HGB HCT DIFFERENCE -1.2; LYMPHOCYTES % (AUTO) 17.2 % (13-45); MEAN CORPUSCULAR HEMOGLOBIN 31.4 pg (27.0-33.4); MEAN CORPUSCULAR HGB CONC 32.2 g/dL (32.0-36.0); MEAN CORPUSCULAR VOLUME 97 fl (80-97); RED BLOOD COUNT 3.55 10^6/uL (4.35-5.55); RED CELL DISTRIBUTION WIDTH 16.9 % (11.5-14.0); SEGMENTED NEUTROPHILS % (AUTO) 62.4 % (42-78); WHITE BLOOD COUNT 11.9 10^3/uL (4.0-10.5)
[2016-12-13 18:35] LABS: PROTHROMBIN TIME 15.4 SEC (11.4-15.4)
[2016-12-13] MEDS ORDERED: DILTIAZEM HCL INJ 25 MG/5 ML VIAL IV ONE (18:45)
[2016-12-13 19:29] LABS: ANION GAP 14 (5-19); BLOOD UREA NITROGEN 48 mg/dL (7-20); CALCIUM 9.3 mg/dL (8.4-10.2); CARBON DIOXIDE 27 mmol/L (22-30); CHLORIDE 103 mmol/L (98-107); CREATININE RESULT 3.65 mg/dL (0.52-1.25); GLUCOSE 100 mg/dL (75-110); MAGNESIUM 2.3 mg/dL (1.6-2.3); SODIUM 143.9 mmol/L (137-145)
[2016-12-13 19:43] LABS: POTASSIUM 7.6 mmol/L (3.6-5.0)
[2016-12-13] MEDS ORDERED: CALCIUM GLUCONATE 1,000 MG in DEXTROSE 5%-WATER 50 ML IV ONE (19:49)
[2016-12-13] MEDS ORDERED: INSULIN REG, HUMAN 100 UNIT/ML 3 ML VIAL (PYX) IV ONE (19:50)
[2016-12-13] MEDS ORDERED: SODIUM BICARBONATE 4.2% INJ (2.4 MEQ/5 ML) VIAL INJ ONE (19:50)
[2016-12-13] MEDS ORDERED: DEXTROSE 50%-WATER 25 GM/50 ML DISP.SYRIN IV ONE (19:50)
[2016-12-13] MEDS ORDERED: CALCIUM GLUCONATE 1000 MG/10 ML INJ IV ONE (21:00)
--- NOTE | 2016-12-13 21:39 | EKG REPORT ---
SEVERITY:- ABNORMAL ECG - ATRIAL FIBRILLATION, V-RATE 77-172 LOW VOLTAGE IN FRONTAL LEADS NONSPECIFIC T ABNORMALITIES, LATERAL LEADS : Confirmed by: Mayra Sanz 13-Dec-2016 21:39:04
[2016-12-13 21:59] LABS: APPEARANCE,URINE CLEAR; BILIRUBIN,URINE NEGATIVE (NEGATIVE); GLUCOSE, URINE NEGATIVE (NEGATIVE); KETONES,URINE NEGATIVE (NEGATIVE); LEUKOCYTE ESTERASE,URINE NEGATIVE (NEGATIVE); NITRITE,URINE NEGATIVE (NEGATIVE); PROTEIN,URINE 30 mg/dL (NEGATIVE); URINE SPECIFIC GRAVITY 1.006; UROBILINOGEN,URINE NEGATIVE mg/dL (<2.0)
[2016-12-14 01:10] LABS: ABSOLUTE BASOPHILS # (AUTO) 0.1 10^3/uL (0.0-0.2); ABSOLUTE EOSINOPHILS # (AUTO) 1.1 10^3/uL (0.0-0.6); ABSOLUTE LYMPHOCYTES (AUTO) 1.9 10^3/uL (0.5-4.7); ABSOLUTE MONOCYTES (AUTO) 0.9 10^3/uL (0.1-1.4); ABSOLUTE NEUT (AUTO) 5.9 10^3/uL (1.7-8.2); HEMATOCRIT 30.8 % (37.9-51.0); HEMOGLOBIN 10.4 g/dL (13.5-17.0); HGB HCT DIFFERENCE 0.4; LYMPHOCYTES % (AUTO) 19.4 % (13-45); MEAN CORPUSCULAR HEMOGLOBIN 31.9 pg (27.0-33.4); MEAN CORPUSCULAR HGB CONC 33.6 g/dL (32.0-36.0); MEAN CORPUSCULAR VOLUME 95 fl (80-97); MONOCYTES % (AUTO) 9.3 % (3-13); RED BLOOD COUNT 3.24 10^6/uL (4.35-5.55); RED CELL DISTRIBUTION WIDTH 16.8 % (11.5-14.0); SEGMENTED NEUTROPHILS % (AUTO) 59.3 % (42-78)
[2016-12-14 01:28] LABS: ANION GAP 15 (5-19); BLOOD UREA NITROGEN 47 mg/dL (7-20); CALCIUM 9.4 mg/dL (8.4-10.2); CARBON DIOXIDE 24 mmol/L (22-30); CHLORIDE 104 mmol/L (98-107); CREATININE RESULT 3.57 mg/dL (0.52-1.25); GLUCOSE 93 mg/dL (75-110); SODIUM 143.4 mmol/L (137-145)
[2016-12-14 01:32] LABS: POTASSIUM 6.5 mmol/L (3.6-5.0)
[2016-12-14] MEDS ORDERED: CALCIUM GLUCONATE 1000 MG/10 ML INJ IV PRN (05:29)
[2016-12-14] MEDS ORDERED: DEXTROSE 50%-WATER 25 GM/50 ML DISP.SYRIN IV ONE (05:30)
[2016-12-14] MEDS ORDERED: CALCIUM GLUCONATE 1,000 MG in DEXTROSE 5%-WATER 50 ML IV ONE (05:30)
[2016-12-14] MEDS ORDERED: INSULIN REG, HUMAN 100 UNIT/ML 3 ML VIAL (PYX) IV ONE (05:30)
[2016-12-14] MEDS: ACETAMINOPHEN 325 MG TABLET PO PRN ×3 (06:35→18:23)
[2016-12-14] MEDS: SODIUM POLYSTYRENE SULFONATE 15 GM/60 ML PO SCH ×3 (06:36→15:38)
[2016-12-14 06:41] LABS: ABSOLUTE BASOPHILS # (AUTO) 0.1 10^3/uL (0.0-0.2); ABSOLUTE EOSINOPHILS # (AUTO) 1.1 10^3/uL (0.0-0.6); ABSOLUTE LYMPHOCYTES (AUTO) 2.1 10^3/uL (0.5-4.7); ABSOLUTE NEUT (AUTO) 5.1 10^3/uL (1.7-8.2); BASOPHILS % (AUTO) 0.7 % (0-2); EOSINOPHILS % (AUTO) 11.6 % (0-6); HEMATOCRIT 30.4 % (37.9-51.0); HEMOGLOBIN 10.3 g/dL (13.5-17.0); HGB HCT DIFFERENCE 0.5; LYMPHOCYTES % (AUTO) 22.8 % (13-45); MEAN CORPUSCULAR HEMOGLOBIN 32.6 pg (27.0-33.4); MEAN CORPUSCULAR HGB CONC 33.8 g/dL (32.0-36.0); MEAN CORPUSCULAR VOLUME 96 fl (80-97); MONOCYTES % (AUTO) 10.8 % (3-13); RED BLOOD COUNT 3.15 10^6/uL (4.35-5.55); RED CELL DISTRIBUTION WIDTH 16.6 % (11.5-14.0); SEGMENTED NEUTROPHILS % (AUTO) 54.1 % (42-78); WHITE BLOOD COUNT 9.3 10^3/uL (4.0-10.5)
[2016-12-14 07:06] LABS: ANION GAP 13 (5-19); BLOOD UREA NITROGEN 46 mg/dL (7-20); CALCIUM 9.4 mg/dL (8.4-10.2); CARBON DIOXIDE 27 mmol/L (22-30); CHLORIDE 103 mmol/L (98-107); CREATININE RESULT 3.58 mg/dL (0.52-1.25); GLUCOSE 87 mg/dL (75-110); SODIUM 143.3 mmol/L (137-145)
[2016-12-14 07:14] LABS: POTASSIUM 6.7 mmol/L (3.6-5.0)
[2016-12-14 16:58] LABS: ANION GAP 16 (5-19); BLOOD UREA NITROGEN 45 mg/dL (7-20); CALCIUM 9.3 mg/dL (8.4-10.2); CARBON DIOXIDE 26 mmol/L (22-30); CHLORIDE 103 mmol/L (98-107); GLUCOSE 150 mg/dL (75-110); SODIUM 145.1 mmol/L (137-145)
[2016-12-14 17:18] LABS: POTASSIUM 4.8 mmol/L (3.6-5.0)
[2016-12-14] MEDS ORDERED: (PENDING PHARMACY ID) (Linagliptin [Tradjenta] 5 MG) PO SCH (20:00)
--- NOTE | 2016-12-14 20:05 | PDOC H&P ---
History of Present Illness Admission Date/PCP: 12/13/16 20:34 ANNA JACKSON NP History of Present Illness: Patient 56-year-old male with diabetes mellitus type 2 complicated with, nephropathy, retinopathy, neuropathy, PAD status post AKA of right leg, he has an ulcer on the left heel and he goes to the wound clinic for treatment of the ulcer, he has a history of chronic atrial fibrillation, in the wound clinic he was found to have increased heart rate and he was referred to the emergency room for evaluation. In the emergency room he was found to have atrial fibrillation with rapid heart rate there was also hyperkalemia with potassium of 7.6 this was repeated multiple times in the ER and it remained elevated. I was called from emergency room about this patient regarding the elevated serum potassium and the fact that the kidney function is worsening when compared to previously. He was admitted and he was treated with calcium gluconate, insulin infusion, and Kayexalate Past Medical History Cardiac Medical History: Reports: Atrial Fibrillation, Coronary Artery Disease, Myocardial Infarction, Hyperlipidema, Hypertension, Peripheral Vascular Disease , Other - History of chronic systolic and diastolic heart failure Pulmonary Medical History: Reports: Chronic Obstructive Pulmonary Disease (COPD) Denies: Tuberculosis Endocrine Medical History: Reports: Diabetes Mellitus Type 2, Hypothyroidism GI Medical History: Reports: Gastroesophageal Reflux Disease Past Surgical History Past Surgical History: Reports: Cardiac Catheterization, Orthopedic Surgery - right knee, right big toe amputation, right leg above-knee amputation, Vascular Surgery - Angioplasty in the right leg Social History Smoking Status: Former Smoker Frequency of Alcohol Use: None Hx Recreational Drug Use: No Drugs: None Hx Prescription Drug Abuse: No - Advance Directive Resuscitation Status: Full Code Family History Family History: Reviewed & Not Pertinent Parental Family History Reviewed: Yes Children Family History Reviewed: Yes Sibling(s) Family History Reviewed.: Yes Medication/Allergy Home Medications: Apixaban [Eliquis 2.5 mg Tablet] 2.5 mg PO Q12 12/13/16 Atorvastatin Calcium [Lipitor 40 mg Tablet] 40 mg PO QHS 12/13/16 Collagenase Clostridium Hist. [Santyl] 1 applic TP TID 12/13/16 Digoxin [Lanoxin 0.125 mg Tablet] 0.125 mg PO DAILY 12/13/16 Furosemide [Lasix] 80 mg PO DAILY 12/13/16 Isosorb Dinit/Hydralazine HCl [Bidil 20-37.5 mg Tablet] 1 tab PO Q12 12/13/16 Levothyroxine Sodium [Unithroid] 150 mcg PO QAM 12/13/16 Linagliptin [Tradjenta] 5 mg PO DAILY 12/13/16 Losartan Potassium [Cozaar 100 mg Tablet] 100 mg PO Q12 12/13/16 Metolazone [Zaroxolyn 5 Mg Tablet] 5 mg PO DAILY 12/13/16 Metoprolol Succinate [Toprol XL 100 mg Tablet] 100 mg PO Q12 12/13/16 Zolpidem Tartrate [Ambien 5 mg Tablet] 5 mg PO QHS 12/13/16 Allergies/Adverse Reactions: No Known Allergies Allergy (Verified 09/16/14 09:10) Review of Systems Constitutional: ABSENT: chills, fever(s), headache(s), weight gain, weight loss Eyes: ABSENT: visual disturbances Ears: ABSENT: hearing changes Cardiovascular: ABSENT: chest pain, dyspnea on exertion, edema, orthropnea, palpitations Respiratory: ABSENT: cough, hemoptysis Gastrointestinal: ABSENT: abdominal pain, constipation, diarrhea, hematemesis, hematochezia, nausea, vomiting Genitourinary: ABSENT: dysuria, hematuria Musculoskeletal: ABSENT: joint swelling Integumentary: ABSENT: rash, wounds Neurological: ABSENT: abnormal gait, abnormal speech, confusion, dizziness, focal weakness, syncope Psychiatric: ABSENT: anxiety, depression, homidical ideation, suicidal ideation Endocrine: ABSENT: cold intolerance, heat intolerance, menstrual abnormalities, polydipsia, polyuria Hematologic/Lymphatic: ABSENT: easy bleeding, easy bruising, lymphadenopathy Physical Exam Vital Signs: Temp Pulse Resp BP Pulse Ox 97.9 F 114 H 18 122/94 H 98 12/14/16 11:42 12/14/16 14:00 12/14/16 11:42 12/14/16 11:42 12/14/16 11:42 Intake & Output 12/13/16 12/14/16 12/15/16 06:59 06:59 06:59 Intake Total 0 1385 Output Total 750 700 Balance -750 685 Weight 71 kg General appearance: PRESENT: no acute distress Head exam: PRESENT: atraumatic, normocephalic Eye exam: PRESENT: conjunctiva pink, EOMI, PERRLA. ABSENT: scleral icterus Ear exam: PRESENT: normal external ear exam Mouth exam: PRESENT: moist, tongue midline Neck exam: PRESENT: full ROM Respiratory exam: PRESENT: clear to auscultation [place] Cardiovascular exam: PRESENT: RRR, +S1, +S2 GI/Abdominal exam: PRESENT: normal bowel sounds, soft. ABSENT: distended, guarding, mass, organolmegaly, rebound, tenderness Rectal exam: PRESENT: deferred Extremities exam: PRESENT: right AKA, other - Left heel ulcer Neurological exam: PRESENT: alert, awake, oriented to person, oriented to place , oriented to time, oriented to situation, CN II-XII grossly intact Psychiatric exam: PRESENT: appropriate affect, normal mood Skin exam: PRESENT: dry, intact, warm Results Laboratory Results: 12/14/16 05:56 12/14/16 16:37 12/13/16 12/14/16 12/14/16 21:42 01:02 01:02 WBC 10.0 RBC 3.24 L Hgb 10.4 L Hct 30.8 L MCV 95 MCH 31.9 MCHC 33.6 RDW 16.8 H Plt Count 175 Seg Neutrophils % 59.3 Lymphocytes % 19.4 Monocytes % 9.3 Eosinophils % 11.0 H Basophils % 1.0 Absolute Neutrophils 5.9 Absolute Lymphocytes 1.9 Absolute Monocytes 0.9 Absolute Eosinophils 1.1 H Absolute Basophils 0.1 Sodium 143.4 Potassium 6.5 H* D Chloride 104 Carbon Dioxide 24 Anion Gap 15 BUN 47 H Creatinine 3.57 H Est GFR ( Amer) 21 L Est GFR (Non-Af Amer) 18 L Glucose 93 Calcium 9.4 Magnesium Urine Color STRAW Urine Appearance CLEAR Urine pH 6.0 Ur Specific [place] 1.006 Urine Protein 30 H Urine Glucose (UA) NEGATIVE Urine Ketones NEGATIVE Urine Blood NEGATIVE Urine Nitrite NEGATIVE Ur Leukocyte Esterase NEGATIVE Urine WBC (Auto) 1 Urine RBC (Auto) 1 12/14/16 12/14/16 12/14/16 05:56 05:56 16:37 WBC 9.3 RBC 3.15 L Hgb 10.3 L Hct 30.4 L MCV 96 MCH 32.6 MCHC 33.8 RDW 16.6 H Plt Count 162 Seg Neutrophils % 54.1 Lymphocytes % 22.8 Monocytes % 10.8 Eosinophils % 11.6 H Basophils % 0.7 Absolute Neutrophils 5.1 Absolute Lymphocytes 2.1 Absolute Monocytes 1.0 Absolute Eosinophils 1.1 H Absolute Basophils 0.1 Sodium 143.3 Potassium 6.7 H* Chloride 103 Carbon Dioxide 27 Anion Gap 13 BUN 46 H Creatinine 3.58 H Est GFR ( Amer) 21 L Est GFR (Non-Af Amer) 18 L Glucose 87 Calcium 9.4 Magnesium 2.3 Urine Color Urine Appearance Urine pH Ur Specific [place] Urine Protein Urine Glucose (UA) Urine Ketones Urine Blood Urine Nitrite Ur Leukocyte Esterase Urine WBC (Auto) Urine RBC (Auto) 12/14/16 16:37 WBC RBC Hgb Hct MCV MCH MCHC RDW Plt Count Seg Neutrophils % Lymphocytes % Monocytes % Eosinophils % Basophils % Absolute Neutrophils Absolute Lymphocytes Absolute Monocytes Absolute Eosinophils Absolute Basophils Sodium 145.1 H Potassium 4.8 D Chloride 103 Carbon Dioxide 26 Anion Gap 16 BUN 45 H Creatinine 3.80 H Est GFR ( Amer) 20 L Est GFR (Non-Af Amer) 16 L Glucose 150 H Calcium 9.3 Magnesium Urine Color Urine Appearance Urine pH Ur Specific [place] Urine Protein Urine Glucose (UA) Urine Ketones Urine Blood Urine Nitrite Ur Leukocyte Esterase Urine WBC (Auto) Urine RBC (Auto) Assessment & Plan - Diagnosis (1) Hyperkalemia Is this a current diagnosis for this admission?: YesPlan: He has hyperkalemia in the setting of chronic kidney disease, he be treated with Kayexalate, calcium gluconate, insulin the estimated GFR is 18 consultation will be requested from nephrology (2) Chronic atrial fibrillation Is this a current diagnosis for this admission?: Yes (3) Chronic combined systolic and diastolic heart failure Is this a current diagnosis for this admission?: Yes (4) Hypothyroidism Qualifiers: Hypothyroidism type: unspecified Qualified Code(s): E03.9 - Hypothyroidism, unspecified Is this a current diagnosis for this admission?: Yes
--- NOTE | 2016-12-14 20:07 | PDOC CONSULTATION ---
Consultation Consult Date: 12/14/16 Attending physician:: CLARISSE REMY Consult reason:: I was asked by Dr. Remy to see this patient because of worsening kidney function and hyperkalemia. History of Present Illness Admission Date/PCP: 12/13/16 20:34 ANNA JACKSON NP History of Present Illness: JOSE D COLBERT is a 56 year old male with history of chronic kidney disease stage III secondary to diabetic nephropathy, no nephrotic range proteinuria, diabetes mellitus type II, anemia, cardiomyopathy, atrial fibrillation, and COPD who was admitted yesterday because of hyperkalemia and atrial fibrillation with rapid ventricular response. Patient was seen at the wound clinic yesterday when he was found to have elevated blood pressure of 170/128 and heart rate of 155. He was sent to the emergency room. Initial evaluation showed a potassium of 7.6 with BUN of 48 creatinine 3.65 with estimated GFR of 17. Patient was given medications to bring down his potassium and current potassium is now 4.8. His BUN today is 45 and creatinine of 3.8 with estimated GFR of 16. Review off his kidney function in the past showed progressively deteriorating kidney function for the last 6 months. This usual baseline creatinine is between 2-3 with estimated GFR between 20 to 30s. He did have episodes of hyperkalemia for the last couple 2-3 months. Has never been on dialysis. Patient tells me that his doing fine and he seems to be asymptomatic. He denies any palpitation, chest pain, shortness of breath, and any problems with urination. He said he feels good. He said he makes good amount of urine and has a good appetite. He denies any nausea nor vomiting or fatigue. Past Medical History Cardiac Medical History: Reports: Atrial Fibrillation, CHF-Systolic, Coronary Artery Disease, Hyperlipidemia, Myocardial Infarction - x2, Peripheral Vascular Disease Pulmonary Medical History: Reports: Chronic Obstructive Pulmonary Disease (COPD) Endocrine Medical History: Reports: Diabetes Mellitus Type 2, Hypothyroidism Complications of Diabetes: Reports: Nephropathy Renal/ Medical History: Reports: Chronic Kidney Disease Stage III, Proteinuria GI Medical History: Reports: Gastroesophageal Reflux Disease Past Surgical History Past Surgical History: Reports: Cardiac Catheterization, Orthopedic Surgery - right knee, right big toe amputation, right leg above-knee amputation, Vascular Surgery - Angioplasty in the right leg Social History Information Source: Patient Smoking Status: Former Smoker Frequency of Alcohol Use: None Hx Recreational Drug Use: No Drugs: None Hx Prescription Drug Abuse: No - Advance Directive Resuscitation Status: Full Code Family History Family History: DM - Mother, Hypertension - Father Parental Family History Reviewed: Yes Children Family History Reviewed: No Sibling(s) Family History Reviewed.: No Medication/Allergy Home Medications: Apixaban [Eliquis 2.5 mg Tablet] 2.5 mg PO Q12 12/13/16 Atorvastatin Calcium [Lipitor 40 mg Tablet] 40 mg PO QHS 12/13/16 Collagenase Clostridium Hist. [Santyl] 1 applic TP TID 12/13/16 Digoxin [Lanoxin 0.125 mg Tablet] 0.125 mg PO DAILY 12/13/16 Furosemide [Lasix] 80 mg PO DAILY 12/13/16 Isosorb Dinit/Hydralazine HCl [Bidil 20-37.5 mg Tablet] 1 tab PO Q12 12/13/16 Levothyroxine Sodium [Unithroid] 150 mcg PO QAM 12/13/16 Linagliptin [Tradjenta] 5 mg PO DAILY 12/13/16 Losartan Potassium [Cozaar 100 mg Tablet] 100 mg PO Q12 12/13/16 Metolazone [Zaroxolyn 5 Mg Tablet] 5 mg PO DAILY 12/13/16 Metoprolol Succinate [Toprol XL 100 mg Tablet] 100 mg PO Q12 12/13/16 Zolpidem Tartrate [Ambien 5 mg Tablet] 5 mg PO QHS 12/13/16 Allergies/Adverse Reactions: No Known Allergies Allergy (Verified 09/16/14 09:10) Review of Systems All systems: reviewed and no additional remarkable complaints except as stated Review of Systems: Constitutional: ABSENT: chills, fatigue, fever(s), headache(s), weight gain, weight loss Eyes: ABSENT: visual disturbances Ears: ABSENT: hearing changes Cardiovascular: ABSENT: chest pain, dyspnea on exertion, edema, orthropnea, palpitations Respiratory: ABSENT: cough, dyspnea, hemoptysis Gastrointestinal: ABSENT: abdominal pain, constipation, diarrhea, hematemesis, hematochezia, nausea, vomiting Genitourinary: ABSENT: dysuria, hematuria Musculoskeletal: ABSENT: joint swelling Integumentary: ABSENT: rash, wounds Neurological: ABSENT: abnormal gait, abnormal speech, confusion, dizziness, focal weakness, numbness, syncope Psychiatric: ABSENT: anxiety, depression Endocrine: ABSENT: cold intolerance, heat intolerance, polydipsia, polyuria Hematologic/Lymphatic: ABSENT: easy bleeding, easy bruising, lymphadenopathy Physical Exam Vital Signs: Temp Pulse Resp BP Pulse Ox 97.9 F 114 H 18 122/94 H 98 12/14/16 11:42 12/14/16 14:00 12/14/16 11:42 12/14/16 11:42 12/14/16 11:42 Intake & Output 12/13/16 12/14/16 12/15/16 06:59 06:59 06:59 Intake Total 0 1385 Output Total 750 700 Balance -750 685 Weight 71 kg Exam: General appearance: no acute distress, cooperative, well-developed, well- nourished Head exam: PRESENT: atraumatic, normocephalic Eye exam: PRESENT: Conjunctiva [place], EOMI, PERRLA. ABSENT: conjunctival injection, scleral icterus Mouth exam: PRESENT: moist, neck supple, tongue midline Neck exam: PRESENT: full ROM. ABSENT: carotid bruit, JVD, lymphadenopathy, thyromegaly Respiratory exam: PRESENT: clear to auscultation bilaterally. ABSENT: rales, rhonchi, stridor, wheezes Cardiovascular exam: PRESENT: Irregularly irregular, +S1, +S2. ABSENT: systolic murmur Pulses: PRESENT: normal radial pulses, normal dorsalis pedis pulses GI/Abdominal exam: PRESENT: normal bowel sounds, soft. ABSENT: guarding, mass, tenderness Rectal exam: deferred Extremities exam: PRESENT: full ROM. ABSENT: calf tenderness, pedal edema Musculoskeletal: PRESENT: full ROM. He had right AKA stump. Left foot wound with dressing ABSENT: deformity Neurological exam: PRESENT: alert, Awake, Oriented to person, Oriented to place , Oriented to time, reflexes normal, CN II-XII grossly intact. ABSENT: motor sensory deficit Psychiatric exam: PRESENT: appropriate affect, normal mood. ABSENT: homicidal ideation, suicidal ideation Skin exam: PRESENT: intact, dry, warm. ABSENT: rash Results Laboratory Results: 12/14/16 05:56 12/14/16 16:37 12/13/16 12/14/16 12/14/16 21:42 01:02 01:02 WBC 10.0 RBC 3.24 L Hgb 10.4 L Hct 30.8 L MCV 95 MCH 31.9 MCHC 33.6 RDW 16.8 H Plt Count 175 Seg Neutrophils % 59.3 Lymphocytes % 19.4 Monocytes % 9.3 Eosinophils % 11.0 H Basophils % 1.0 Absolute Neutrophils 5.9 Absolute Lymphocytes 1.9 Absolute Monocytes 0.9 Absolute Eosinophils 1.1 H Absolute Basophils 0.1 Sodium 143.4 Potassium 6.5 H* D Chloride 104 Carbon Dioxide 24 Anion Gap 15 BUN 47 H Creatinine 3.57 H Est GFR ( Amer) 21 L Est GFR (Non-Af Amer) 18 L Glucose 93 Calcium 9.4 Magnesium Urine Color STRAW Urine Appearance CLEAR Urine pH 6.0 Ur Specific [place] 1.006 Urine Protein 30 H Urine Glucose (UA) NEGATIVE Urine Ketones NEGATIVE Urine Blood NEGATIVE Urine Nitrite NEGATIVE Ur Leukocyte Esterase NEGATIVE Urine WBC (Auto) 1 Urine RBC (Auto) 1 12/14/16 12/14/16 12/14/16 05:56 05:56 16:37 WBC 9.3 RBC 3.15 L Hgb 10.3 L Hct 30.4 L MCV 96 MCH 32.6 MCHC 33.8 RDW 16.6 H Plt Count 162 Seg Neutrophils % 54.1 Lymphocytes % 22.8 Monocytes % 10.8 Eosinophils % 11.6 H Basophils % 0.7 Absolute Neutrophils 5.1 Absolute Lymphocytes 2.1 Absolute Monocytes 1.0 Absolute Eosinophils 1.1 H Absolute Basophils 0.1 Sodium 143.3 Potassium 6.7 H* Chloride 103 Carbon Dioxide 27 Anion Gap 13 BUN 46 H Creatinine 3.58 H Est GFR ( Amer) 21 L Est GFR (Non-Af Amer) 18 L Glucose 87 Calcium 9.4 Magnesium 2.3 Urine Color Urine Appearance Urine pH Ur Specific [place] Urine Protein Urine Glucose (UA) Urine Ketones Urine Blood Urine Nitrite Ur Leukocyte Esterase Urine WBC (Auto) Urine RBC (Auto) 12/14/16 16:37 WBC RBC Hgb Hct MCV MCH MCHC RDW Plt Count Seg Neutrophils % Lymphocytes % Monocytes % Eosinophils % Basophils % Absolute Neutrophils Absolute Lymphocytes Absolute Monocytes Absolute Eosinophils Absolute Basophils Sodium 145.1 H Potassium 4.8 D Chloride 103 Carbon Dioxide 26 Anion Gap 16 BUN 45 H Creatinine 3.80 H Est GFR ( Amer) 20 L Est GFR (Non-Af Amer) 16 L Glucose 150 H Calcium 9.3 Magnesium Urine Color Urine Appearance Urine pH Ur Specific [place] Urine Protein Urine Glucose (UA) Urine Ketones Urine Blood Urine Nitrite Ur Leukocyte Esterase Urine WBC (Auto) Urine RBC (Auto) Assessment & Plan - Diagnosis (1) Acute kidney injury superimposed on chronic kidney disease Is this a current diagnosis for this admission?: YesPlan: Likely secondary to prerenal factors including rapid ventricular response in a patient with atrial fibrillation and accelerated hypertension which are currently improved. Patient is nonoliguric and nonuremic. No acute indication for urgent renal replacement therapy. Continue to monitor kidney function. Continue to hold off on a DANIELLE inhibitor hours or ARB's. Patient seems to be euvolemic and probably does not need any diuretics at this point. We'll hold off on that as well. Monitor intake and output if possible. (2) Chronic kidney disease, stage III (moderate) Is this a current diagnosis for this admission?: YesPlan: Due to diabetic nephropathy with previously known nephrotic range proteinuria. Review of his kidney function for the last 6-8 months revealed that the patient has progressive deterioration of kidney function. If the patient is establishing a new baseline, currently could be at stage IV. I explained to the patient the point where we would need to start him on dialysis. Also discussed options for renal replacement therapy including hemodialysis and peritoneal dialysis. We will continue to monitor the patient and adjust therapy accordingly. We will check his phosphorus and PTH level. (3) Diabetic nephropathy Qualifiers: Diabetes mellitus type: type 2 Qualified Code(s): E11.21 - Type 2 diabetes mellitus with diabetic nephropathy Is this a current diagnosis for this admission?: YesPlan: Check urine for protein and creatinine. In the kidneys stabilize we might still consider re-initiating losartan for and they proteinuric effect but we will need to start the patient on maintenance medication for hyperkalemia. (4) Hyperkalemia Is this a current diagnosis for this admission?: YesPlan: Currently improved with medications. If the patient continues to be hyperkalemic we will consider starting him on maintenance medication including veltassa. We will monitor potassium while the patient is here in hospital. (5) Anemia in chronic kidney disease (CKD) Is this a current diagnosis for this admission?: Yes (6) Diabetes mellitus, type II Qualifiers: Diabetes mellitus complication detail: with nephropathy Is this a current diagnosis for this admission?: Yes (7) Hypertension Is this a current diagnosis for this admission?: YesPlan: Controlled. (8) Atrial fibrillation with rapid ventricular response Is this a current diagnosis for this admission?: YesPlan: Defer management to Dr. Remy. - Notes Notes: Thank you very much for this consultation. I will follow the patient with you. - Time Time Spent: Greater than 70 Minutes
[2016-12-14] MEDS ORDERED: ATORVASTATIN CALCIUM 40 MG TABLET PO SCH (22:00)
[2016-12-14] MEDS: METOPROLOL SUCCINATE 50 MG TAB.SR.24H PO SCH (23:54)
[2016-12-14] MEDS: APIXABAN 2.5 MG TABLET PO SCH (23:55)
[2016-12-14] MEDS: ISOSORB DINIT/HYDRALAZINE HCL 20-37.5 MG TABLET PO SCH (23:55)
[2016-12-15 07:09] LABS: ANION GAP 18 (5-19); BLOOD UREA NITROGEN 41 mg/dL (7-20); CARBON DIOXIDE 24 mmol/L (22-30); CHLORIDE 103 mmol/L (98-107); CREATININE RESULT 3.44 mg/dL (0.52-1.25); GLUCOSE 131 mg/dL (75-110); PHOSPHORUS 5.9 mg/dL (2.5-4.5); POTASSIUM 4.9 mmol/L (3.6-5.0); SODIUM 144.5 mmol/L (137-145)
[2016-12-15] MEDS ORDERED: LEVOTHYROXINE SODIUM 0.15 MG TABLET PO SCH (08:00)
[2016-12-15] MEDS: METOPROLOL SUCCINATE 50 MG TAB.SR.24H PO SCH (08:46)
[2016-12-15] MEDS: ACETAMINOPHEN 325 MG TABLET PO PRN ×2 (08:47→12:54)
[2016-12-15] MEDS: APIXABAN 2.5 MG TABLET PO SCH (08:48)
[2016-12-15] MEDS: COLLAGENASE CLOSTRIDIUM HIST. OINT 30 GM TP SCH ×2 (08:50→12:54)
[2016-12-15] MEDS: ISOSORB DINIT/HYDRALAZINE HCL 20-37.5 MG TABLET PO SCH (08:50)
[2016-12-15] MEDS ORDERED: SITAGLIPTIN PHOSPHATE 25 MG TABLET PO SCH (10:00)
[2016-12-15] MEDS ORDERED: FUROSEMIDE 80 MG TABLET PO SCH (10:00)
[2016-12-15] MEDS ORDERED: METOLAZONE 5 MG TABLET PO SCH (10:00)
[2016-12-15] MEDS ORDERED: DIGOXIN 0.125 MG TABLET PO SCH (10:00)
[2016-12-15] MEDS ORDERED: OXYCODONE-ACETAMINOPHEN 5-325 MG TABLET PO PRN (16:12)
--- NOTE | 2016-12-15 16:18 | PDOC DISCHARGE SUMMARY ---
General - Admit/Disc Date/PCP Admission Date/Primary Care Provider: 12/13/16 20:34 ANNA JACKSON NP Discharge Date: 12/15/16 - Discharge Diagnosis (1) Hyperkalemia Is this a current diagnosis for this admission?: Yes (2) Chronic atrial fibrillation Is this a current diagnosis for this admission?: Yes (3) Chronic combined systolic and diastolic heart failure Is this a current diagnosis for this admission?: Yes (4) Hypothyroidism Is this a current diagnosis for this admission?: Yes - Additional Information Resuscitation Status: Full Code Discharge Diet: Diabetic, Other (Comments) - renal Discharge Activity: Activity As Tolerated Home Medications: Apixaban [Eliquis 2.5 mg Tablet] 2.5 mg PO Q12 12/13/16 Atorvastatin Calcium [Lipitor 40 mg Tablet] 40 mg PO QHS 12/13/16 Collagenase Clostridium Hist. [Santyl] 1 applic TP TID 12/13/16 Digoxin [Lanoxin 0.125 mg Tablet] 0.125 mg PO DAILY 12/13/16 Furosemide [Lasix] 80 mg PO DAILY 12/13/16 Isosorb Dinit/Hydralazine HCl [Bidil 20-37.5 mg Tablet] 1 tab PO Q12 12/13/16 Levothyroxine Sodium [Unithroid] 150 mcg PO QAM 12/13/16 Linagliptin [Tradjenta] 5 mg PO DAILY 12/13/16 Metolazone [Zaroxolyn 5 mg Tablet] 5 mg PO DAILY 12/13/16 Metoprolol Succinate [Toprol XL 100 mg Tablet] 100 mg PO Q12 12/13/16 Zolpidem Tartrate [Ambien 5 mg Tablet] 5 mg PO QHS 12/13/16 Oxycodone HCl/Acetaminophen [Oxycodone-Acetaminophen 5-325] 1 each PO Q6H PRN History of Present Illness History of Present Illness: Patient 56-year-old male with diabetes mellitus type 2 complicated with, nephropathy, retinopathy, neuropathy, PAD status post AKA of right leg, he has an ulcer on the left heel and he goes to the wound clinic for treatment of the ulcer, he has a history of chronic atrial fibrillation, in the wound clinic he was found to have increased heart rate and he was referred to the emergency room for evaluation. In the emergency room he was found to have atrial fibrillation with rapid heart rate there was also hyperkalemia with potassium of 7.6 this was repeated multiple times in the ER and it remained elevated. I was called from emergency room about this patient regarding the elevated serum potassium and the fact that the kidney function is worsening when compared to previously. He was admitted and he was treated with calcium gluconate, insulin infusion, and Kayexalate Hospital Course Hospital Course: Patient was admitted because of severe hyperkalemia associated with atrial fibrillation with RVR. He was treated with Kayexalate, calcium gluconate, insulin on 50% dextrose with good result on admission the serum potassium was 7.4 on discharge it is 4. 9. He was taken off ARB/losartan and he was also seen by yarn finisher Dr. Silver. The estimated GFR is 18 suggesting that is closer to dialysis patient is stable at this point is symptomatic, he will need to establish with nephrology to get him prepared for maintenance hemodialysis. Physical Exam Vital Signs: Temp Pulse Resp BP Pulse Ox 97.6 F 95 16 124/69 100 12/15/16 07:31 12/15/16 07:31 12/15/16 07:31 12/15/16 07:31 12/15/16 07:31 Intake & Output 12/14/16 12/15/16 12/16/16 06:59 06:59 06:59 Intake Total 0 1775 880 Output Total 750 1100 780 Balance -750 675 100 Weight 71 kg General appearance: PRESENT: no acute distress, well-developed, well-nourished Head exam: PRESENT: atraumatic, normocephalic Eye exam: PRESENT: PERRLA Mouth exam: PRESENT: moist, tongue midline Neck exam: PRESENT: full ROM Cardiovascular exam: PRESENT: RRR, +S1, +S2 GI/Abdominal exam: PRESENT: normal bowel sounds, soft Rectal exam: PRESENT: deferred Extremities exam: PRESENT: right AKA Neurological exam: PRESENT: alert, awake, oriented to person, oriented to place , oriented to time, oriented to situation, CN II-XII grossly intact Psychiatric exam: PRESENT: appropriate affect, normal mood Skin exam: PRESENT: dry, intact, warm Results Laboratory Results: 12/14/16 05:56 12/15/16 05:34 12/14/16 12/14/16 12/15/16 16:37 16:37 05:34 Sodium 145.1 H 144.5 Potassium 4.8 D 4.9 Chloride 103 103 Carbon Dioxide 26 24 Anion Gap 16 18 BUN 45 H 41 H Creatinine 3.80 H 3.44 H Est GFR ( Amer) 20 L 22 L Est GFR (Non-Af Amer) 16 L 18 L Glucose 150 H 131 H Calcium 9.3 9.0 Phosphorus 5.9 H Magnesium 2.3
[2016-12-15 16:23] VITALS: BP 124/70
[2016-12-15] MEDS ORDERED: CIPROFLOXACIN HCL 500 MG TABLET PO SCH (22:00)
[2016-12-15] MEDS ORDERED: SULFAMETHOXAZOLE/TRIMETHOPRIM 800-160 MG TABLET PO SCH (22:00)
== END 2016-12-15 16:52 | disposition home or self-care (01) | DRG 641 ==
LOC: ER 16:53 → EH 20:34 → 3W 23:29
PROVIDERS: ADMIT Internal Medicine; ATTEND Internal Medicine
DX: E87.5 Hyperkalemia (principal); L97.429 Non-pressure chronic ulcer of left heel and midfoot with unspecified severity; I13.0 Hypertensive heart and chronic kidney disease with heart failure and stage 1 through stage 4 chronic kidney disease, or unspecified chronic kidney disease; N17.9 Acute kidney failure, unspecified; I50.42 Chronic combined systolic (congestive) and diastolic (congestive) heart failure; I48.2 Chronic atrial fibrillation; Z79.899 Other long term (current) drug therapy; E11.319 Type 2 diabetes mellitus with unspecified diabetic retinopathy without macular edema; E11.40 Type 2 diabetes mellitus with diabetic neuropathy, unspecified; E11.22 Type 2 diabetes mellitus with diabetic chronic kidney disease; E11.621 Type 2 diabetes mellitus with foot ulcer; E11.21 Type 2 diabetes mellitus with diabetic nephropathy; Z89.611 Acquired absence of right leg above knee; N18.3 Chronic kidney disease, stage 3 (moderate); K21.9 Gastro-esophageal reflux disease without esophagitis; D63.1 Anemia in chronic kidney disease; I25.10 Atherosclerotic heart disease of native coronary artery without angina pectoris; E78.5 Hyperlipidemia, unspecified; J44.9 Chronic obstructive pulmonary disease, unspecified; E03.9 Hypothyroidism, unspecified; I25.2 Old myocardial infarction; Z79.02 Long term (current) use of antithrombotics/antiplatelets; Z87.891 Personal history of nicotine dependence; Z82.49 Family history of ischemic heart disease and other diseases of the circulatory system
CPT/HCPCS: 36415; 80048; 81001; 82962; 83735; 83970; 84100; 85025; 85610; 93005; 93010; 96374; 99285; J0610; J1815; J3490

== ENCOUNTER 2016-12-30 03:25 | Inpatient (IN) | payer MEDICARE ==
[2016-12-30 04:20] LABS: ABSOLUTE BASOPHILS # (AUTO) 0.1 10^3/uL (0.0-0.2); ABSOLUTE EOSINOPHILS # (AUTO) 1.9 10^3/uL (0.0-0.6); ABSOLUTE LYMPHOCYTES (AUTO) 1.9 10^3/uL (0.5-4.7); ABSOLUTE MONOCYTES (AUTO) 0.9 10^3/uL (0.1-1.4); ABSOLUTE NEUT (AUTO) 7.7 10^3/uL (1.7-8.2); BASOPHILS % (AUTO) 0.5 % (0-2); EOSINOPHILS % (AUTO) 14.9 % (0-6); HEMATOCRIT 29.1 % (37.9-51.0); HEMOGLOBIN 9.6 g/dL (13.5-17.0); HGB HCT DIFFERENCE -0.3; LYMPHOCYTES % (AUTO) 15.4 % (13-45); MEAN CORPUSCULAR HEMOGLOBIN 32.5 pg (27.0-33.4); MEAN CORPUSCULAR HGB CONC 33.1 g/dL (32.0-36.0); MEAN CORPUSCULAR VOLUME 98 fl (80-97); MONOCYTES % (AUTO) 7.3 % (3-13); RED BLOOD COUNT 2.96 10^6/uL (4.35-5.55); RED CELL DISTRIBUTION WIDTH 17.3 % (11.5-14.0); SEGMENTED NEUTROPHILS % (AUTO) 61.9 % (42-78); WHITE BLOOD COUNT 12.5 10^3/uL (4.0-10.5)
[2016-12-30 04:27] LABS: ALANINE AMINOTRANSFERASE 18 U/L (21-72); ALBUMIN 3.6 g/dL (3.5-5.0); ALKALINE PHOSPHATASE 125 U/L (38-126); ANION GAP 16 (5-19); ASPARTATE AMINO TRANSFERASE 36 U/L (17-59); BILIRUBIN,DIRECT 0.6 mg/dL (0.0-0.4); BILIRUBIN,TOTAL 0.6 mg/dL (0.2-1.3); BLOOD UREA NITROGEN 54 mg/dL (7-20); CALCIUM 8.3 mg/dL (8.4-10.2); CARBON DIOXIDE 26 mmol/L (22-30); CHLORIDE 94 mmol/L (98-107); CREATINE KINASE 82 U/L (55-170); CREATININE RESULT 5.21 mg/dL (0.52-1.25); GLUCOSE 101 mg/dL (75-110); LIPASE 57.1 U/L (23-300); SODIUM 135.5 mmol/L (137-145); TOTAL PROTEIN 8.6 g/dL (6.3-8.2)
[2016-12-30 04:38] LABS: CREATINE KINASE MB 1.43 ng/mL (<4.55); TROPONIN I 0.016 ng/mL
[2016-12-30 06:38] LABS: APPEARANCE,URINE CLEAR; BILIRUBIN,URINE NEGATIVE (NEGATIVE); GLUCOSE, URINE NEGATIVE (NEGATIVE); KETONES,URINE NEGATIVE (NEGATIVE); LEUKOCYTE ESTERASE,URINE NEGATIVE (NEGATIVE); NITRITE,URINE NEGATIVE (NEGATIVE); PROTEIN,URINE 100 mg/dL (NEGATIVE); URINE SPECIFIC GRAVITY 1.013; UROBILINOGEN,URINE NEGATIVE mg/dL (<2.0)
[2016-12-30] MEDS ORDERED: NORMAL SALINE 250 ML IV ONE (06:47)
[2016-12-30 06:58] LABS: URINE BARBITURATES SCREEN NEGATIVE; URINE METHADONE SCREEN NEGATIVE; URINE OPIATES LOW NEGATIVE; URINE PHENCYCLIDINE SCREEN NEGATIVE
--- NOTE | 2016-12-30 07:05 | ER Document Report ---
ED Neuro Symptoms/Deficit - General Chief Complaint: Altered Mental Status Stated Complaint: ALTERED MENTAL STATUS Time Seen by Provider: 12/30/16 04:12 Mode of Arrival: Medic Information source: Relative Notes: Patient is a 56-year-old male brought into the emergency department today when family at home called 911 because he was confused. Apparently patient usually gets around on his own in his wheelchair in the house and is independent per family, but tonight he came around the living room and asked where his grandchildren were, he did not live in the home and have not lived in the home for quite some time. He then went back to his bedroom when family heard a thump, went to check on him and found him on the floor. Patient states that he was reaching for something on a shelf and fell. On arrival to the emergency department he said his name is Roque, then hours later when I ask him he says his name is Boris. Family never showed up to the emergency department. TRAVEL OUTSIDE OF THE [place] IN LAST 30 DAYS: No - Related Data Allergies/Adverse Reactions: No Known Allergies Allergy (Verified 09/16/14 09:10) Past Medical History - General Information source: Relative - Social History Smoking Status: Unknown if Ever Smoked Family History: Reviewed & Not Pertinent - Past Medical History Cardiac Medical History: Reports: Hx Atrial Fibrillation, Hx Congestive Heart Failure, Hx Coronary Artery Disease, Hx Heart Attack, Hx Hypercholesterolemia, Hx Hypertension, Hx Peripheral Vascular Disease Pulmonary Medical History: Reports: Hx COPD Denies: Hx Tuberculosis Endocrine Medical History: Reports: Hx Diabetes Mellitus Type 1, Hx Diabetes Mellitus Type 2, Hx Hypothyroidism Renal/ Medical History: Reports: Hx Renal Insufficiency. Denies: Hx Peritoneal Dialysis GI Medical History: Reports: Hx Gastroesophageal Reflux Disease, Hx Ulcer Past Surgical History: Reports: Hx Cardiac Catheterization, Hx Orthopedic Surgery - RAKA, Hx Vascular Surgery - Angioplasty in the right leg - Immunizations Hx Diphtheria, Pertussis, Tetanus Vaccination: Yes Hx Pneumococcal Vaccination: 09/25/14 Review of Systems - Review of Systems Constitutional: No symptoms reported EENT: No symptoms reported Cardiovascular: No symptoms reported Respiratory: No symptoms reported Gastrointestinal: No symptoms reported Genitourinary: No symptoms reported Male Genitourinary: No symptoms reported Musculoskeletal: See HPI Skin: No symptoms reported Hematologic/Lymphatic: No symptoms reported Neurological/Psychological: See HPI Physical Exam - Vital signs Vitals: Temp 98.4 F 12/30/16 03:37 - Notes Notes: PHYSICAL EXAMINATION: GENERAL: Obviously altered, wiggling in bed nonstop, but in no acute distress. HEAD: Hematoma to the left mandible, dried blood over her face and nose, mouth, normocephalic. EYES: Pupils equal round and reactive to light, extraocular movements intact, sclera anicteric, conjunctiva are normal. ENT: ear canals without erythema or foreign body, TMs pearly vela with good bony landmarks, nares patent, oropharynx clear without exudates. Moist mucous membranes. Dried blood throughout mouth, no obvious laceration noted NECK: Normal range of motion, supple without lymphadenopathy LUNGS: CTAB and equal. No wheezes rales or rhonchi. HEART: Regular rate and rhythm without murmurs ABDOMEN: Soft, no tenderness. No guarding, no rebound EXTREMITIES: Right [id number] amputation, Normal range of motion, no pitting edema. No cyanosis. NEUROLOGICAL: Unable to assess SKIN: Warm, Dry, normal turgor, multiple ecchymoses and abrasions over entire body, pressure wound to the left heel Course - Re-evaluation Re-evalutation: 12/30/16 07:08 Labwork is pretty much at patient's baseline with the exception of a creatinine at 5.21, which patient has had before but recently it has been better. CT of the head, chest x-ray negative for any acute pathology. Urinalysis negative, drug screen negative, alcohol negative. Patient thinks that he is hunting. Dr. Juárez called and agrees to admit patient at this time to further evaluate. EKG reveals atrial fibrillation which patient is known to have. - Vital Signs Vital signs: Temp Pulse Resp BP Pulse Ox 98.4 F 18 92/80 L 96 12/30/16 03:37 12/30/16 06:01 12/30/16 06:01 12/30/16 06:01 - Laboratory Result Diagrams: 12/30/16 03:48 12/30/16 03:48 Laboratory results interpreted by me: 12/30/16 12/30/16 12/30/16 03:48 03:48 03:48 WBC 12.5 H RBC 2.96 L Hgb 9.6 L Hct 29.1 L MCV 98 H RDW 17.3 H Plt Count 144 L Eosinophils % 14.9 H Absolute Eosinophils 1.9 H Sodium 135.5 L Chloride 94 L BUN 54 H Creatinine 5.21 H Est GFR ( Amer) 14 L Est GFR (Non-Af Amer) 11 L Calcium 8.3 L Direct Bilirubin 0.6 H ALT 18 L NT-Pro-B Natriuret Pep 6810 H Total Protein 8.6 H Urine Protein 12/30/16 06:22 WBC RBC Hgb Hct MCV RDW Plt Count Eosinophils % Absolute Eosinophils Sodium Chloride BUN Creatinine Est GFR ( Amer) Est GFR (Non-Af Amer) Calcium Direct Bilirubin ALT NT-Pro-B Natriuret Pep Total Protein Urine Protein 100 H Discharge - Discharge Clinical Impression: Acute renal failure Qualifiers: Acute renal failure type: unspecified Qualified Code(s): N17.9 - Acute kidney failure, unspecified Altered mental status Qualifiers: Altered mental status type: disorientation Qualified Code(s): R41.0 - Disorientation, unspecified Condition: Fair Disposition: ADMITTED INPATIENT Admitting Provider: Marquita Unit Admitted: Telemetry
[2016-12-30] MEDS ORDERED: INSULIN LISPRO 100 UNIT/ML 3 ML VIAL SUBCUT PRN (08:30)
[2016-12-30] MEDS ORDERED: DEXTROSE 50%-WATER 25 GM/50 ML DISP.SYRIN IV PRN ×2 (08:30)
[2016-12-30] MEDS ORDERED: GLUCAGON,HUMAN RECOMB 1 MG INJ IM PRN (08:30)
[2016-12-30] MEDS ORDERED: DEXTROSE 40% GEL 15 GM TUBE PO PRN ×2 (08:30)
[2016-12-30 09:35] LABS: THYROID STIMULATING HORMONE 6.79 uIU/mL (0.47-4.68)
--- NOTE | 2016-12-30 13:53 | EKG REPORT ---
SEVERITY:- ABNORMAL ECG - ATRIAL FIBRILLATION : Confirmed by: Mayra Sanz 30-Dec-2016 13:53:26
[2016-12-30] MEDS ORDERED: HEPARIN SOD (PORCINE) 5,000 UNIT/ML 1 ML SYRINGE SUBCUT SCH (14:00)
[2016-12-30] MEDS ORDERED: TUBERCULIN,PURIF.PROT.DERIV. 5 TU/0.1 ML TEST 1 ML VIAL ID ONE ×2 (17:35→18:00)
--- NOTE | 2016-12-30 18:03 | PDOC CONSULTATION ---
Consultation Consult Date: 12/30/16 Attending physician:: CLARISSE REMY Consult reason:: I was asked by Dr. Remy to see this patient because of worsening kidney function. History of Present Illness Admission Date/PCP: 12/30/16 08:26 History of Present Illness: JOSE D COLBERT is a 56 year old male known to me with history of chronic kidney disease baseline stage 3-4 secondary to diabetic nephropathy with nonnephrotic range proteinuria, diabetes mellitus type II, anemia, cardiomyopathy, atrial fibrillation, and COPD who was brought into the emergency room last night or early this morning because of reported confusion and fall. The emergency room note stated that the family members have noted the patient has been confused. Patient was reportedly looking for some family members in their living room last night who was not supposed to be there anyway. Patient recalled that he fell while trying to reach out something in a closet any hip the left side of his jaw. Patient could not remember however anything else nor does he remember how he ended up here in hospital. When I asked him if he has episodes of confusion he said he doesn't now. In the emergency room he was disoriented and unable to state his name correctly. Initial evaluation only showed an elevated BUN and creatinine more than his usual. Everything else has been within acceptable limits. His urinalysis was clear and his chest x-ray was negative. Head CT was also done without any acute findings. His initial BUN was 54, creatinine of 5.21 with estimated GFR 11. He was just admitted couple weeks ago where his creatinine was around 3.8 and estimated GFR for around 18. Other than that HIS electrolytes are acceptable and within normal limits. When I talked to him this afternoon he seems to be in his usual self and has been answering questions appropriately. He is oriented and does not appear to be confused as reported. He denies any problems with urination nor a change in the urine volume. He denies feeling tired or fatigued. He said he is eating good and drinking fluids appropriately. He did have some soft stools like today. He denied any nausea or vomiting or abdominal pain. He denies any chest pains nor shortness of breath or cough. He claims he has a good appetite. Past Medical History Cardiac Medical History: Reports: Atrial Fibrillation, CHF-Systolic, Coronary Artery Disease, Hyperlipidemia, Myocardial Infarction - 2, Peripheral Vascular Disease Pulmonary Medical History: Reports: Chronic Obstructive Pulmonary Disease (COPD) Endocrine Medical History: Reports: Diabetes Mellitus Type 2, Hypothyroidism Complications of Diabetes: Reports: Nephropathy Renal/ Medical History: Reports: Chronic Kidney Disease Stage IV, Hyperphosphatemia, Proteinuria, Secondary Hyperparathyroidism GI Medical History: Reports: Gastroesophageal Reflux Disease Hematology Medical History: Reports Anemia of Chronic Kidney Disease Past Surgical History Past Surgical History: Reports: Cardiac Catheterization, Orthopedic Surgery - Right AKA, Vascular Surgery - Angioplasty in the right leg Social History Information Source: Patient Lives with: Spouse/Significant other Smoking Status: Former Smoker Frequency of Alcohol Use: None Hx Recreational Drug Use: No Drugs: None Hx Prescription Drug Abuse: No - Advance Directive Resuscitation Status: Full Code Family History Family History: DM - Mother, Hypertension - Father Parental Family History Reviewed: Yes Children Family History Reviewed: No Sibling(s) Family History Reviewed.: No Medication/Allergy Home Medications: Apixaban [Eliquis 2.5 mg Tablet] 2.5 mg PO Q12 12/30/16 Atorvastatin Calcium [Lipitor 40 mg Tablet] 40 mg PO QHS 12/30/16 Ciprofloxacin HCl [Cipro 500 mg Tablet] 500 mg PO BID 12/30/16 Collagenase Clostridium Hist. [Santyl Ointment 30 gm] 1 applic TP TID 12/30/16 Digoxin [Lanoxin 0.125 mg Tablet] 0.125 mg PO DAILY 12/30/16 Furosemide [Lasix] 80 mg PO DAILY 12/30/16 Isosorb Dinit/Hydralazine HCl [Bidil 20-37.5 mg Tablet] 1 tab PO Q12 12/30/16 Levothyroxine Sodium [Synthroid] 150 mcg PO QAM 12/30/16 Linagliptin [Tradjenta] 5 mg PO DAILY 12/30/16 Losartan Potassium [Cozaar 50 mg Tablet] 50 mg PO BID 12/30/16 Metolazone [Zaroxolyn 5 Mg Tablet] 5 mg PO DAILY 12/30/16 Metoprolol Succinate [Toprol Xl] 100 mg PO Q12 12/30/16 Oxycodone HCl/Acetaminophen [Percocet 5-325 mg Tablet] 1 tab PO Q6HP PRN Polyethylene Glycol 3350 [Miralax Powder 17 gm/Packet] 1 packet PO DAILY Sulfamethoxazole/Trimethoprim [Septra-Ds 800-160 mg Tablet] 1 tab PO BID Tamsulosin HCl [Flomax] 0.4 mg PO DAILY 12/30/16 Zolpidem Tartrate [Ambien 5 mg Tablet] 5 mg PO QHS 12/30/16 Allergies/Adverse Reactions: No Known Allergies Allergy (Verified 09/16/14 09:10) Review of Systems All systems: reviewed and no additional remarkable complaints except as stated Review of Systems: Constitutional: ABSENT: chills, fatigue, fever(s), headache(s), weight gain, weight loss Eyes: ABSENT: visual disturbances Ears: ABSENT: hearing changes Cardiovascular: ABSENT: chest pain, dyspnea on exertion, edema, orthropnea, palpitations Respiratory: ABSENT: cough, dyspnea, hemoptysis Gastrointestinal: ABSENT: abdominal pain, constipation, diarrhea, hematemesis, hematochezia, nausea, vomiting Genitourinary: ABSENT: dysuria, hematuria Musculoskeletal: ABSENT: joint swelling Integumentary: ABSENT: rash, wounds Neurological: ABSENT: abnormal gait, abnormal speech, dizziness, focal weakness , numbness, syncope; reported confusion Psychiatric: ABSENT: anxiety, depression Endocrine: ABSENT: cold intolerance, heat intolerance, polydipsia, polyuria Hematologic/Lymphatic: ABSENT: easy bleeding, easy bruising, lymphadenopathy Physical Exam Vital Signs: Temp Pulse Resp BP Pulse Ox 97.5 F 14 118/80 98 12/30/16 13:47 12/30/16 13:47 12/30/16 13:47 12/30/16 13:47 Intake & Output 12/29/16 12/30/16 12/31/16 06:59 06:59 06:59 Weight 81.647 kg Exam: General appearance: no acute distress, cooperative, well-developed, well- nourished Head exam: PRESENT: atraumatic, normocephalic, contusion around the left side of the jaw and chin Eye exam: PRESENT: Conjunctiva [place], EOMI, PERRLA. ABSENT: conjunctival injection, scleral icterus Mouth exam: PRESENT: moist, neck supple, tongue midline Neck exam: PRESENT: full ROM. ABSENT: carotid bruit, JVD, lymphadenopathy, thyromegaly Respiratory exam: PRESENT: clear to auscultation bilaterally. ABSENT: rales, rhonchi, stridor, wheezes Cardiovascular exam: PRESENT: Irregular rate and rhythm, +S1, +S2. ABSENT: systolic murmur Pulses: PRESENT: normal radial pulses, normal dorsalis pedis pulses GI/Abdominal exam: PRESENT: normal bowel sounds, soft. ABSENT: guarding, mass, tenderness Rectal exam: deferred Extremities exam: PRESENT: full ROM. ABSENT: calf tenderness, pedal edema Musculoskeletal: PRESENT: full ROM. Status post right AKA ABSENT: deformity Neurological exam: PRESENT: alert, Awake, Oriented to person, Oriented to place , Oriented to time, reflexes normal, CN II-XII grossly intact. ABSENT: motor sensory deficit Psychiatric exam: PRESENT: appropriate affect, normal mood. ABSENT: homicidal ideation, suicidal ideation Skin exam: PRESENT: intact, dry, warm. ABSENT: rash Results Laboratory Results: Laboratory 12/30/16 12/30/16 12/30/16 03:48 03:48 03:48 WBC 12.5 H RBC 2.96 L Hgb 9.6 L Hct 29.1 L MCV 98 H MCH 32.5 MCHC 33.1 RDW 17.3 H Plt Count 144 L Seg Neutrophils % 61.9 Lymphocytes % 15.4 Monocytes % 7.3 Eosinophils % 14.9 H Basophils % 0.5 Absolute Neutrophils 7.7 Absolute Lymphocytes 1.9 Absolute Monocytes 0.9 Absolute Eosinophils 1.9 H Absolute Basophils 0.1 Sodium 135.5 L Potassium 4.0 Chloride 94 L Carbon Dioxide 26 Anion Gap 16 BUN 54 H Creatinine 5.21 H Est GFR ( Amer) 14 L Est GFR (Non-Af Amer) 11 L Glucose 101 POC Glucose Calcium 8.3 L Total Bilirubin 0.6 Direct Bilirubin 0.6 H Indirect Bilirubin Not Reportable Neonat Total Bilirubin Not Reportable AST 36 ALT 18 L Alkaline Phosphatase 125 Creatine Kinase 82 CK-MB (CK-2) 1.43 Troponin I 0.016 NT-Pro-B Natriuret Pep 6810 H Total Protein 8.6 H Albumin 3.6 Lipase 57.1 TSH Free T4 Urine Color Urine Appearance Urine pH Ur Specific [place] Urine Protein Urine Glucose (UA) Urine Ketones Urine Blood Urine Nitrite Urine Bilirubin Urine Urobilinogen Ur Leukocyte Esterase Urine WBC (Auto) Urine RBC (Auto) U Hyaline Cast (Auto) Squamous Epi Cells Auto Urine Mucus (Auto) Urine Ascorbic Acid Digoxin Urine Opiates Screen Urine Methadone Screen Ur Barbiturates Screen Ur Phencyclidine Scrn Ur Amphetamines Screen U Benzodiazepines Scrn Urine Cocaine Screen U Marijuana (THC) Screen Serum Alcohol 12/30/16 12/30/16 12/30/16 03:48 03:48 03:48 WBC RBC Hgb Hct MCV MCH MCHC RDW Plt Count Seg Neutrophils % Lymphocytes % Monocytes % Eosinophils % Basophils % Absolute Neutrophils Absolute Lymphocytes Absolute Monocytes Absolute Eosinophils Absolute Basophils Sodium Potassium Chloride Carbon Dioxide Anion Gap BUN Creatinine Est GFR ( Amer) Est GFR (Non-Af Amer) Glucose POC Glucose Calcium Total Bilirubin Direct Bilirubin Indirect Bilirubin Neonat Total Bilirubin AST ALT Alkaline Phosphatase Creatine Kinase CK-MB (CK-2) Troponin I NT-Pro-B Natriuret Pep Total Protein Albumin Lipase TSH 6.79 H Free T4 2.14 Urine Color Urine Appearance Urine pH Ur Specific [place] Urine Protein Urine Glucose (UA) Urine Ketones Urine Blood Urine Nitrite Urine Bilirubin Urine Urobilinogen Ur Leukocyte Esterase Urine WBC (Auto) Urine RBC (Auto) U Hyaline Cast (Auto) Squamous Epi Cells Auto Urine Mucus (Auto) Urine Ascorbic Acid Digoxin 1.55 Urine Opiates Screen Urine Methadone Screen Ur Barbiturates Screen Ur Phencyclidine Scrn Ur Amphetamines Screen U Benzodiazepines Scrn Urine Cocaine Screen U Marijuana (THC) Screen Serum Alcohol < 10 12/30/16 12/30/16 12/30/16 06:22 06:22 09:06 WBC RBC Hgb Hct MCV MCH MCHC RDW Plt Count Seg Neutrophils % Lymphocytes % Monocytes % Eosinophils % Basophils % Absolute Neutrophils Absolute Lymphocytes Absolute Monocytes Absolute Eosinophils Absolute Basophils Sodium Potassium Chloride Carbon Dioxide Anion Gap BUN Creatinine Est GFR ( Amer) Est GFR (Non-Af Amer) Glucose POC Glucose 99 Calcium Total Bilirubin Direct Bilirubin Indirect Bilirubin Neonat Total Bilirubin AST ALT Alkaline Phosphatase Creatine Kinase CK-MB (CK-2) Troponin I NT-Pro-B Natriuret Pep Total Protein Albumin Lipase TSH Free T4 Urine Color YELLOW Urine Appearance CLEAR Urine pH 5.0 Ur Specific [place] 1.013 Urine Protein 100 H Urine Glucose (UA) NEGATIVE Urine Ketones NEGATIVE Urine Blood NEGATIVE Urine Nitrite NEGATIVE Urine Bilirubin NEGATIVE Urine Urobilinogen NEGATIVE Ur Leukocyte Esterase NEGATIVE Urine WBC (Auto) 0 Urine RBC (Auto) 7 U Hyaline Cast (Auto) 29 Squamous Epi Cells Auto <1 Urine Mucus (Auto) RARE Urine Ascorbic Acid NEGATIVE Digoxin Urine Opiates Screen NEGATIVE Urine Methadone Screen NEGATIVE Ur Barbiturates Screen NEGATIVE Ur Phencyclidine Scrn NEGATIVE Ur Amphetamines Screen NEGATIVE U Benzodiazepines Scrn NEGATIVE Urine Cocaine Screen NEGATIVE U Marijuana (THC) Screen NEGATIVE Serum Alcohol 12/30/16 12/30/16 11:21 16:44 WBC RBC Hgb Hct MCV MCH MCHC RDW Plt Count Seg Neutrophils % Lymphocytes % Monocytes % Eosinophils % Basophils % Absolute Neutrophils Absolute Lymphocytes Absolute Monocytes Absolute Eosinophils Absolute Basophils Sodium Potassium Chloride Carbon Dioxide Anion Gap BUN Creatinine Est GFR ( Amer) Est GFR (Non-Af Amer) Glucose POC Glucose 128 H 142 H Calcium Total Bilirubin Direct Bilirubin Indirect Bilirubin Neonat Total Bilirubin AST ALT Alkaline Phosphatase Creatine Kinase CK-MB (CK-2) Troponin I NT-Pro-B Natriuret Pep Total Protein Albumin Lipase TSH Free T4 Urine Color Urine Appearance Urine pH Ur Specific [place] Urine Protein Urine Glucose (UA) Urine Ketones Urine Blood Urine Nitrite Urine Bilirubin Urine Urobilinogen Ur Leukocyte Esterase Urine WBC (Auto) Urine RBC (Auto) U Hyaline Cast (Auto) Squamous Epi Cells Auto Urine Mucus (Auto) Urine Ascorbic Acid Digoxin Urine Opiates Screen Urine Methadone Screen Ur Barbiturates Screen Ur Phencyclidine Scrn Ur Amphetamines Screen U Benzodiazepines Scrn Urine Cocaine Screen U Marijuana (THC) Screen Serum Alcohol Impressions: Chest X-Ray 12/30/16 04:13 IMPRESSION: No acute cardiopulmonary findings. Head CT 12/30/16 04:13 IMPRESSION: No acute findings. Assessment & Plan - Diagnosis (1) Acute kidney injury superimposed on chronic kidney disease Is this a current diagnosis for this admission?: YesPlan: There is no obvious precipitating factors but we will consider prerenal azotemia in a patient who is taking diuretics and has been on ARB. Patient does not appear to be clinically uremic. He does not look to be fluid overloaded. I don't think there is an urgent need for renal replacement therapy. I will monitor him for the next couple of days and see if his kidney function will improve. If his kidney function does not improve with holding diuretics and ARB then he might truly need to be initiated on renal replacement therapy. . the patient regarding the hemodialysis process. Discussed with them the risks and benefits of hemodialysis. Also discussed other modalities of dialysis including peritoneal dialysis. Again at this time I don't think he needs it urgently. We will monitor the patient closely. I will hold off on the Lasix for the next 24-48 hours. Hold the metolazone as well. Hold losartan. Monitor kidney function daily and record intake and output if possible. I will order a PPD and hepatitis panel just in case the patient would need dialysis. I will also order a kidney ultrasound. (2) Chronic kidney disease, stage IV (severe) Is this a current diagnosis for this admission?: YesPlan: Patient's kidney disease has been progressive for the last 6 months and I think his baseline is around stage IV now. This is due to diabetic nephropathy. I will check his phosphorus, and urine protein to creatinine ratio. (3) Diabetic nephropathy Qualifiers: Diabetes mellitus type: type 2 Qualified Code(s): E11.21 - Type 2 diabetes mellitus with diabetic nephropathy Is this a current diagnosis for this admission?: Yes (4) Acute encephalopathy Is this a current diagnosis for this admission?: YesPlan: Currently the patient's mental status seems to be back to baseline and is within normal limits. We need to consider an acute effect of medications including Ambien on his med list. Again he does not appear to be uremic at this time during this examination. Recommend to hold Ambien and any medication that can affect mentation at this time. (5) Anemia in chronic kidney disease (CKD) Is this a current diagnosis for this admission?: YesPlan: I will check iron panel. (6) Fall Is this a current diagnosis for this admission?: Yes (7) Facial contusion Is this a current diagnosis for this admission?: Yes - Notes Notes: Thank you very much for allowing me to participate in the care of this patient. Discussed with Dr. Remy. I will follow the patient with you. - Time Time Spent: Greater than 70 Minutes
[2016-12-30] MEDS ORDERED: (PENDING PHARMACY ID) (Linagliptin [Tradjenta] 5 MG) PO SCH (21:00)
[2016-12-30 21:29] LABS: URINE CREATININE 69.2 mg/dL (22-328); URINE PROTEIN 144.3 mg/dL (<12)
[2016-12-30] MEDS: ATORVASTATIN CALCIUM 40 MG TABLET PO SCH (21:54)
[2016-12-30] MEDS: METOPROLOL SUCCINATE 50 MG TAB.SR.24H PO SCH (21:54)
[2016-12-30] MEDS: ISOSORB DINIT/HYDRALAZINE HCL 20-37.5 MG TABLET PO SCH (21:54)
[2016-12-30] MEDS: APIXABAN 2.5 MG TABLET PO SCH (21:54)
[2016-12-30] MEDS ORDERED: TAMSULOSIN HCL 0.4 MG CAP.SR.24H PO ONE (22:00)
[2016-12-30] MEDS ORDERED: CIPROFLOXACIN HCL 500 MG TABLET PO ONE (22:00)
[2016-12-30] MEDS ORDERED: SULFAMETHOXAZOLE/TRIMETHOPRIM 800-160 MG TABLET PO ONE (22:00)
[2016-12-30] MEDS ORDERED: SITAGLIPTIN PHOSPHATE 25 MG TABLET PO ONE (22:00)
[2016-12-31] MEDS: OXYCODONE-ACETAMINOPHEN 5-325 MG TABLET PO PRN ×2 (00:24→10:02)
[2016-12-31 05:00] LABS: ABSOLUTE BASOPHILS # (AUTO) 0.1 10^3/uL (0.0-0.2); ABSOLUTE EOSINOPHILS # (AUTO) 1.5 10^3/uL (0.0-0.6); ABSOLUTE LYMPHOCYTES (AUTO) 1.7 10^3/uL (0.5-4.7); ABSOLUTE NEUT (AUTO) 4.9 10^3/uL (1.7-8.2); BASOPHILS % (AUTO) 0.9 % (0-2); EOSINOPHILS % (AUTO) 16.8 % (0-6); HEMATOCRIT 30.4 % (37.9-51.0); HEMOGLOBIN 10.2 g/dL (13.5-17.0); HGB HCT DIFFERENCE 0.2; LYMPHOCYTES % (AUTO) 18.3 % (13-45); MEAN CORPUSCULAR HEMOGLOBIN 32.5 pg (27.0-33.4); MEAN CORPUSCULAR HGB CONC 33.4 g/dL (32.0-36.0); MEAN CORPUSCULAR VOLUME 98 fl (80-97); MONOCYTES % (AUTO) 10.8 % (3-13); RED BLOOD COUNT 3.12 10^6/uL (4.35-5.55); RED CELL DISTRIBUTION WIDTH 16.9 % (11.5-14.0); SEGMENTED NEUTROPHILS % (AUTO) 53.2 % (42-78); WHITE BLOOD COUNT 9.2 10^3/uL (4.0-10.5)
[2016-12-31 05:19] LABS: ANION GAP 16 (5-19); BLOOD UREA NITROGEN 46 mg/dL (7-20); CALCIUM 8.8 mg/dL (8.4-10.2); CARBON DIOXIDE 27 mmol/L (22-30); CHLORIDE 96 mmol/L (98-107); CREATININE RESULT 4.58 mg/dL (0.52-1.25); GLUCOSE 96 mg/dL (75-110); PHOSPHORUS 5.6 mg/dL (2.5-4.5); POTASSIUM 4.4 mmol/L (3.6-5.0); SODIUM 138.5 mmol/L (137-145)
[2016-12-31] MEDS: SITAGLIPTIN PHOSPHATE 25 MG TABLET PO SCH (10:01)
[2016-12-31] MEDS: SULFAMETHOXAZOLE/TRIMETHOPRIM 800-160 MG TABLET PO SCH ×2 (10:01→17:54)
[2016-12-31] MEDS: TAMSULOSIN HCL 0.4 MG CAP.SR.24H PO SCH (10:01)
[2016-12-31] MEDS: LEVOTHYROXINE SODIUM 0.15 MG TABLET PO SCH (10:01)
[2016-12-31] MEDS: ISOSORB DINIT/HYDRALAZINE HCL 20-37.5 MG TABLET PO SCH ×2 (10:01→22:17)
[2016-12-31] MEDS: METOPROLOL SUCCINATE 50 MG TAB.SR.24H PO SCH ×2 (10:02→22:17)
[2016-12-31] MEDS: CIPROFLOXACIN HCL 500 MG TABLET PO SCH ×2 (10:02→17:54)
[2016-12-31] MEDS: APIXABAN 2.5 MG TABLET PO SCH ×2 (10:03→22:17)
[2016-12-31] MEDS: POLYETHYLENE GLYCOL 3350 POWDER 17 GM/1 PACKET PO SCH (10:06)
--- NOTE | 2016-12-31 14:09 | PDOC PROGRESS REPORT ---
Subjective Progress Note for:: 12/31/16 Subjective:: Patient is doing fine and clinically stable. He does not have any complaints. She denies any chest pains, shortness of breath, nausea, vomiting nor any bouts of confusion. Physical Exam Vital Signs: Temp Pulse Resp BP Pulse Ox 97.7 F 91 16 108/54 L 99 12/31/16 11:16 12/31/16 11:16 12/31/16 11:16 12/31/16 11:16 12/31/16 11:16 Intake & Output 12/30/16 12/31/16 01/01/17 06:59 06:59 06:59 Intake Total 240 Output Total 200 Balance 40 Weight 86.2 kg Exam: General appearance: PRESENT: no acute distress, cooperative, well-developed, well-nourished Head exam: PRESENT: atraumatic, normocephalic Eye exam: PRESENT: conjunctiva slightly pale, PERRLA. ABSENT: scleral icterus Neck exam: ABSENT: JVD Respiratory exam: PRESENT: Normal breath sounds. ABSENT: crackles, rales, rhonchi, unlabored, wheezes Cardiovascular exam: PRESENT: Irregular rate rhythm -+S1, +S2. ABSENT: diastolic murmur, systolic murmur GI/Abdominal exam: PRESENT: normal bowel sounds, soft. ABSENT: guarding, mass, tenderness Extremities exam: ABSENT: No edema; status post right AKA Neurological exam: PRESENT: alert, awake, oriented to person, place and time. Skin exam: PRESENT: dry, warm, Results Laboratory Results: 12/31/16 04:42 12/31/16 04:42 12/31/16 12/31/16 04:42 04:42 WBC 9.2 RBC 3.12 L Hgb 10.2 L Hct 30.4 L MCV 98 H MCH 32.5 MCHC 33.4 RDW 16.9 H Plt Count 150 Seg Neutrophils % 53.2 Lymphocytes % 18.3 Monocytes % 10.8 Eosinophils % 16.8 H Basophils % 0.9 Absolute Neutrophils 4.9 Absolute Lymphocytes 1.7 Absolute Monocytes 1.0 Absolute Eosinophils 1.5 H Absolute Basophils 0.1 Retic Count (auto) 1.85 Absolute Retic 0.058 Sodium 138.5 Potassium 4.4 Chloride 96 L Carbon Dioxide 27 Anion Gap 16 BUN 46 H Creatinine 4.58 H Est GFR ( Amer) 16 L Est GFR (Non-Af Amer) 13 L Glucose 96 Calcium 8.8 Phosphorus 5.6 H Iron 35.3 L TIBC 283 % Saturation 12 Ferritin 65.00 Vitamin B12 454.0 Folate 14.80 Impressions: Chest X-Ray 12/30/16 04:13 IMPRESSION: No acute cardiopulmonary findings. Head CT 12/30/16 04:13 IMPRESSION: No acute findings. Renal Ultrasound 12/31/16 00:00 IMPRESSION: Increased indeterminate 2.0 cm left renal lesion may indicate a benign, mildly complicated cyst although not definitively characterize; cannot exclude other neoplasm. Recommend further evaluation with dynamic contrast CT or MRI of the kidneys. Assessment & Plan - Diagnosis (1) Acute kidney injury superimposed on chronic kidney disease Is this a current diagnosis for this admission?: YesPlan: There is no obvious precipitating factors but we will consider prerenal azotemia in a patient who is taking diuretics and has been on ARB. Patient does not appear to be clinically uremic. He does not look to be fluid overloaded. I don't think there is an urgent need for renal replacement therapy. Kidney function is improved today. Kidney ultrasound showed normal size kidneys with left kidney cyst. He appears to be euvolemic. Continue to hold Lasix, metolazone and losartan. May need to restart Lasix possibly as a lower dose of 40 mg once a day tomorrow. He may not need the metolazone to be restarted. Hold losartan for now since his blood pressure is on the low side. He might need to hold losartan moving forward at this point. From nephrology standpoint if the patient's kidney function continued to improve or remains stable over the weekend I think he can be discharged. I instructed the patient to keep his appointment to see me as an outpatient so we can prepare him for eventuality of needing renal replacement therapy. (2) Chronic kidney disease, stage IV (severe) Is this a current diagnosis for this admission?: YesPlan: Patient's kidney disease has been progressive for the last 6 months and I think his baseline is around stage IV now. This is due to diabetic nephropathy. Urine protein to creatinine ratio is around 2.1. (3) Diabetic nephropathy Qualifiers: Diabetes mellitus type: type 2 Qualified Code(s): E11.21 - Type 2 diabetes mellitus with diabetic nephropathy Is this a current diagnosis for this admission?: Yes (4) Acute encephalopathy Is this a current diagnosis for this admission?: YesPlan: Currently the patient's mental status seems to be back to baseline and is within normal limits. We need to consider an acute effect of medications including Ambien on his med list. Again he does not appear to be uremic at this time during this examination. Recommend to hold Ambien and any medication that can affect mentation at this time. (5) Anemia in chronic kidney disease (CKD) Is this a current diagnosis for this admission?: YesPlan: Patient also has iron deficiency. (6) Iron deficiency anemia Is this a current diagnosis for this admission?: YesPlan: We will give IV Feraheme today 1 dose. (7) Hyperphosphatemia Is this a current diagnosis for this admission?: YesPlan: Follow renal and low phosphorus diet. (8) Fall Is this a current diagnosis for this admission?: Yes (9) Facial contusion Is this a current diagnosis for this admission?: Yes - Time Time with patient: 15-25 minutes
[2016-12-31] MEDS ORDERED: FERUMOXYTOL 510 MG in NORMAL SALINE 100 ML IV ONE (15:00)
--- NOTE | 2016-12-31 16:46 | PDOC H&P ---
History of Present Illness Admission Date/PCP: 12/30/16 08:26 History of Present Illness: Patient is a 56-year-old male with multiple comorbid conditions including chronic kidney disease stage V, nonnephrotic range proteinuria, type 2 diabetes mellitus with many complications including nephropathy, vasculopathy, retinopathy, neuropathy. COPD, ischemic cardiomyopathy, he was transferred from his residence to the emergency room because he was extremely confused family stated that he was talking to people, he also had an apparent fall and he sustained injury to his head, he was seen in the emergency room for his symptoms, he had blood work done, he also had CT scan of the head, he also had urinalysis ordered ,evaluation done in the ER was negative, except for the GFR that was in the range of stage 5 CKD, the ER provider called me to discuss the case with me, I thought he was uremic because he was manifesting encephalopathic symptoms in the setting of chronic kidney disease stage V. When patient arrived on the floor and when I saw him he was clear he was coherent, he was oriented to time place and person. Past Medical History Cardiac Medical History: Reports: Atrial Fibrillation, Coronary Artery Disease, Myocardial Infarction - 2, Hyperlipidema, Hypertension, Peripheral Vascular Disease, Other - Chronic systolic and diastolic heart failure Pulmonary Medical History: Reports: Chronic Obstructive Pulmonary Disease (COPD) Endocrine Medical History: Reports: Diabetes Mellitus Type 2, Hypothyroidism GI Medical History: Reports: Gastroesophageal Reflux Disease Past Surgical History Past Surgical History: Reports: Cardiac Catheterization, Orthopedic Surgery - Right AKA, Vascular Surgery - Angioplasty in the right leg Social History Lives with: Spouse/Significant other Smoking Status: Former Smoker Frequency of Alcohol Use: None Hx Recreational Drug Use: No Drugs: None Hx Prescription Drug Abuse: No - Advance Directive Resuscitation Status: Full Code Family History Family History: Reviewed & Not Pertinent Parental Family History Reviewed: Yes Children Family History Reviewed: Yes Sibling(s) Family History Reviewed.: Yes Medication/Allergy Home Medications: Apixaban [Eliquis 2.5 mg Tablet] 2.5 mg PO Q12 12/30/16 Atorvastatin Calcium [Lipitor 40 mg Tablet] 40 mg PO QHS 12/30/16 Ciprofloxacin HCl [Cipro 500 mg Tablet] 500 mg PO BID 12/30/16 Collagenase Clostridium Hist. [Santyl Ointment 30 gm] 1 applic TP TID 12/30/16 Digoxin [Lanoxin 0.125 mg Tablet] 0.125 mg PO DAILY 12/30/16 Furosemide [Lasix] 80 mg PO DAILY 12/30/16 Isosorb Dinit/Hydralazine HCl [Bidil 20-37.5 mg Tablet] 1 tab PO Q12 12/30/16 Levothyroxine Sodium [Synthroid] 150 mcg PO QAM 12/30/16 Linagliptin [Tradjenta] 5 mg PO DAILY 12/30/16 Losartan Potassium [Cozaar 50 mg Tablet] 50 mg PO BID 12/30/16 Metolazone [Zaroxolyn 5 Mg Tablet] 5 mg PO DAILY 12/30/16 Metoprolol Succinate [Toprol Xl] 100 mg PO Q12 12/30/16 Oxycodone HCl/Acetaminophen [Percocet 5-325 mg Tablet] 1 tab PO Q6HP PRN Polyethylene Glycol 3350 [Miralax Powder 17 gm/Packet] 1 packet PO DAILY Sulfamethoxazole/Trimethoprim [Septra-Ds 800-160 mg Tablet] 1 tab PO BID Tamsulosin HCl [Flomax] 0.4 mg PO DAILY 12/30/16 Zolpidem Tartrate [Ambien 5 mg Tablet] 5 mg PO QHS 12/30/16 Allergies/Adverse Reactions: No Known Allergies Allergy (Verified 09/16/14 09:10) Review of Systems Constitutional: ABSENT: chills, fever(s), headache(s), weight gain, weight loss Eyes: ABSENT: visual disturbances Ears: ABSENT: hearing changes Cardiovascular: ABSENT: chest pain, dyspnea on exertion, edema, orthropnea, palpitations Respiratory: ABSENT: cough, hemoptysis Gastrointestinal: ABSENT: abdominal pain, constipation, diarrhea, hematemesis, hematochezia, nausea, vomiting Genitourinary: ABSENT: dysuria, hematuria Musculoskeletal: ABSENT: joint swelling Integumentary: ABSENT: rash, wounds Neurological: ABSENT: abnormal gait, abnormal speech, confusion, dizziness, focal weakness, syncope Psychiatric: ABSENT: anxiety, depression, homidical ideation, suicidal ideation Endocrine: ABSENT: cold intolerance, heat intolerance, menstrual abnormalities, polydipsia, polyuria Hematologic/Lymphatic: ABSENT: easy bleeding, easy bruising, lymphadenopathy Physical Exam Vital Signs: Temp Pulse Resp BP Pulse Ox 97.5 F 68 18 110/60 100 12/31/16 15:46 12/31/16 15:46 12/31/16 15:46 12/31/16 15:46 12/31/16 15:46 Intake & Output 12/30/16 12/31/16 01/01/17 06:59 06:59 06:59 Intake Total 240 660 Output Total 200 Balance 40 660 Weight 86.2 kg General appearance: PRESENT: no acute distress, well-developed, well-nourished Head exam: PRESENT: atraumatic, normocephalic Eye exam: PRESENT: conjunctiva pink, EOMI, PERRLA. ABSENT: scleral icterus Ear exam: PRESENT: normal external ear exam Mouth exam: PRESENT: moist, tongue midline Neck exam: PRESENT: full ROM. ABSENT: carotid bruit, JVD, lymphadenopathy, thyromegaly Cardiovascular exam: PRESENT: RRR, +S1, +S2 Vascular exam: PRESENT: normal capillary refill GI/Abdominal exam: PRESENT: normal bowel sounds, soft Rectal exam: PRESENT: deferred Extremities exam: PRESENT: right BKA Neurological exam: PRESENT: alert, awake, oriented to person, oriented to place , oriented to time, oriented to situation, CN II-XII grossly intact Psychiatric exam: PRESENT: appropriate affect, normal mood Skin exam: PRESENT: dry, intact, warm Results Laboratory Results: 12/31/16 04:42 12/31/16 04:42 12/31/16 12/31/16 04:42 04:42 WBC 9.2 RBC 3.12 L Hgb 10.2 L Hct 30.4 L MCV 98 H MCH 32.5 MCHC 33.4 RDW 16.9 H Plt Count 150 Seg Neutrophils % 53.2 Lymphocytes % 18.3 Monocytes % 10.8 Eosinophils % 16.8 H Basophils % 0.9 Absolute Neutrophils 4.9 Absolute Lymphocytes 1.7 Absolute Monocytes 1.0 Absolute Eosinophils 1.5 H Absolute Basophils 0.1 Retic Count (auto) 1.85 Absolute Retic 0.058 Sodium 138.5 Potassium 4.4 Chloride 96 L Carbon Dioxide 27 Anion Gap 16 BUN 46 H Creatinine 4.58 H Est GFR ( Amer) 16 L Est GFR (Non-Af Amer) 13 L Glucose 96 Calcium 8.8 Phosphorus 5.6 H Iron 35.3 L TIBC 283 % Saturation 12 Ferritin 65.00 Vitamin B12 454.0 Folate 14.80 Impressions: Chest X-Ray 12/30/16 04:13 IMPRESSION: No acute cardiopulmonary findings. Head CT 12/30/16 04:13 IMPRESSION: No acute findings. Renal Ultrasound 12/31/16 00:00 IMPRESSION: Increased indeterminate 2.0 cm left renal lesion may indicate a benign, mildly complicated cyst although not definitively characterize; cannot exclude other neoplasm. Recommend further evaluation with dynamic contrast CT or MRI of the kidneys. Assessment & Plan - Diagnosis (1) Acute encephalopathy Is this a current diagnosis for this admission?: YesPlan: Clinically patient is not uremic, the acute encephalopathy probably due to medication, he takes Ambien for sleep that could be a factor/etiology of the encephalopathy (3) Chronic combined systolic and diastolic heart failure Is this a current diagnosis for this admission?: Yes (4) Pulmonary hypertension Is this a current diagnosis for this admission?: Yes
--- NOTE | 2016-12-31 18:30 | PDOC PROGRESS REPORT ---
Subjective Progress Note for:: 12/31/16 Subjective:: Patient was admitted yesterday when he presented with encephalopathy symptoms, confusion and also a fall , he was seen by nephrology medications were adjusted patient is alert oriented Physical Exam Vital Signs: Temp Pulse Resp BP Pulse Ox 97.5 F 68 18 110/60 100 12/31/16 15:46 12/31/16 15:46 12/31/16 15:46 12/31/16 15:46 12/31/16 15:46 Intake & Output 12/30/16 12/31/16 01/01/17 06:59 06:59 06:59 Intake Total 240 660 Output Total 200 Balance 40 660 Weight 86.2 kg General appearance: PRESENT: no acute distress Eye exam: PRESENT: PERRLA Respiratory exam: PRESENT: clear to auscultation clay Cardiovascular exam: PRESENT: +S1, +S2 GI/Abdominal exam: PRESENT: soft Neurological exam: PRESENT: alert Results Laboratory Results: 12/31/16 04:42 12/31/16 04:42 12/31/16 12/31/16 04:42 04:42 WBC 9.2 RBC 3.12 L Hgb 10.2 L Hct 30.4 L MCV 98 H MCH 32.5 MCHC 33.4 RDW 16.9 H Plt Count 150 Seg Neutrophils % 53.2 Lymphocytes % 18.3 Monocytes % 10.8 Eosinophils % 16.8 H Basophils % 0.9 Absolute Neutrophils 4.9 Absolute Lymphocytes 1.7 Absolute Monocytes 1.0 Absolute Eosinophils 1.5 H Absolute Basophils 0.1 Retic Count (auto) 1.85 Absolute Retic 0.058 Sodium 138.5 Potassium 4.4 Chloride 96 L Carbon Dioxide 27 Anion Gap 16 BUN 46 H Creatinine 4.58 H Est GFR ( Amer) 16 L Est GFR (Non-Af Amer) 13 L Glucose 96 Calcium 8.8 Phosphorus 5.6 H Iron 35.3 L TIBC 283 % Saturation 12 Ferritin 65.00 Vitamin B12 454.0 Folate 14.80 Impressions: Chest X-Ray 12/30/16 04:13 IMPRESSION: No acute cardiopulmonary findings. Head CT 12/30/16 04:13 IMPRESSION: No acute findings. Renal Ultrasound 12/31/16 00:00 IMPRESSION: Increased indeterminate 2.0 cm left renal lesion may indicate a benign, mildly complicated cyst although not definitively characterize; cannot exclude other neoplasm. Recommend further evaluation with dynamic contrast CT or MRI of the kidneys. Assessment & Plan - Diagnosis (1) Acute encephalopathy Is this a current diagnosis for this admission?: Yes (2) Chronic kidney disease (CKD) stage G5/A3, glomerular filtration rate (GFR) less than or equal to 15 mL/min/1.73 square meter and albuminuria creatinine ratio greater than 300 mg/g Is this a current diagnosis for this admission?: Yes (3) Chronic combined systolic and diastolic heart failure Is this a current diagnosis for this admission?: Yes (4) Pulmonary hypertension Is this a current diagnosis for this admission?: Yes
[2016-12-31] MEDS: ATORVASTATIN CALCIUM 40 MG TABLET PO SCH (22:17)
[2017-01-01 05:52] LABS: ABSOLUTE BASOPHILS # (AUTO) 0.1 10^3/uL (0.0-0.2); ABSOLUTE EOSINOPHILS # (AUTO) 1.6 10^3/uL (0.0-0.6); ABSOLUTE LYMPHOCYTES (AUTO) 1.9 10^3/uL (0.5-4.7); ABSOLUTE NEUT (AUTO) 4.2 10^3/uL (1.7-8.2); BASOPHILS % (AUTO) 0.8 % (0-2); EOSINOPHILS % (AUTO) 18.5 % (0-6); HEMATOCRIT 28.4 % (37.9-51.0); HEMOGLOBIN 9.8 g/dL (13.5-17.0); LYMPHOCYTES % (AUTO) 21.8 % (13-45); MEAN CORPUSCULAR HEMOGLOBIN 33.4 pg (27.0-33.4); MEAN CORPUSCULAR HGB CONC 34.5 g/dL (32.0-36.0); MEAN CORPUSCULAR VOLUME 97 fl (80-97); MONOCYTES % (AUTO) 11.7 % (3-13); RED BLOOD COUNT 2.93 10^6/uL (4.35-5.55); RED CELL DISTRIBUTION WIDTH 17.3 % (11.5-14.0); SEGMENTED NEUTROPHILS % (AUTO) 47.2 % (42-78); WHITE BLOOD COUNT 8.9 10^3/uL (4.0-10.5)
[2017-01-01 06:00] LABS: ANION GAP 14 (5-19); BLOOD UREA NITROGEN 44 mg/dL (7-20); CALCIUM 8.9 mg/dL (8.4-10.2); CARBON DIOXIDE 25 mmol/L (22-30); CHLORIDE 97 mmol/L (98-107); CREATININE RESULT 3.99 mg/dL (0.52-1.25); GLUCOSE 93 mg/dL (75-110); POTASSIUM 4.4 mmol/L (3.6-5.0); SODIUM 135.9 mmol/L (137-145)
[2017-01-01] MEDS: LEVOTHYROXINE SODIUM 0.15 MG TABLET PO SCH (08:42)
[2017-01-01] MEDS ORDERED: FUROSEMIDE 40 MG TABLET PO SCH (10:00)
[2017-01-01] MEDS: SITAGLIPTIN PHOSPHATE 25 MG TABLET PO SCH (11:07)
[2017-01-01] MEDS: TAMSULOSIN HCL 0.4 MG CAP.SR.24H PO SCH (11:07)
[2017-01-01] MEDS: SULFAMETHOXAZOLE/TRIMETHOPRIM 800-160 MG TABLET PO SCH (11:07)
[2017-01-01] MEDS: CIPROFLOXACIN HCL 500 MG TABLET PO SCH (11:07)
[2017-01-01] MEDS: ISOSORB DINIT/HYDRALAZINE HCL 20-37.5 MG TABLET PO SCH (11:08)
[2017-01-01] MEDS: METOPROLOL SUCCINATE 50 MG TAB.SR.24H PO SCH (11:08)
[2017-01-01] MEDS: POLYETHYLENE GLYCOL 3350 POWDER 17 GM/1 PACKET PO SCH (11:09)
[2017-01-01] MEDS: APIXABAN 2.5 MG TABLET PO SCH (11:09)
--- NOTE | 2017-01-01 11:55 | PDOC DISCHARGE SUMMARY ---
General - Admit/Disc Date/PCP Admission Date/Primary Care Provider: 12/30/16 08:26 Discharge Date: 01/01/17 - Discharge Diagnosis (1) Acute encephalopathy Is this a current diagnosis for this admission?: Yes (2) Chronic combined systolic and diastolic heart failure Is this a current diagnosis for this admission?: Yes (3) Pulmonary hypertension Is this a current diagnosis for this admission?: Yes (4) Chronic kidney disease (CKD), stage V Is this a current diagnosis for this admission?: Yes - Additional Information Resuscitation Status: Full Code Discharge Diet: Cardiac, Diabetic Home Medications: Apixaban [Eliquis 2.5 mg Tablet] 2.5 mg PO Q12 12/30/16 Atorvastatin Calcium [Lipitor 40 mg Tablet] 40 mg PO QHS 12/30/16 Ciprofloxacin HCl [Cipro 500 mg Tablet] 500 mg PO BID 12/30/16 Collagenase Clostridium Hist. [Santyl Ointment 30 gm] 1 applic TP TID 12/30/16 Isosorb Dinit/Hydralazine HCl [Bidil 20-37.5 mg Tablet] 1 tab PO Q12 12/30/16 Levothyroxine Sodium [Synthroid] 150 mcg PO QAM 12/30/16 Linagliptin [Tradjenta] 5 mg PO DAILY 12/30/16 Metoprolol Succinate [Toprol Xl] 100 mg PO Q12 12/30/16 Oxycodone HCl/Acetaminophen [Percocet 5-325 mg Tablet] 1 tab PO Q6HP PRN Polyethylene Glycol 3350 [Miralax Powder 17 gm/Packet] 1 packet PO DAILY Tamsulosin HCl [Flomax] 0.4 mg PO DAILY 12/30/16 Furosemide [Lasix] 40 mg PO DAILY #0 01/01/17 Sacubitril/Valsartan [Entresto 97 mg-103 mg Tablet] 1 each PO BID #60 tablet History of Present Illness History of Present Illness: Patient is a 56-year-old male with multiple comorbid conditions including chronic kidney disease stage V, nonnephrotic range proteinuria, type 2 diabetes mellitus with many complications including nephropathy, vasculopathy, retinopathy, neuropathy. COPD, ischemic cardiomyopathy, he was transferred from his residence to the emergency room because he was extremely confused family stated that he was talking to people, he also had an apparent fall and he sustained injury to his head, he was seen in the emergency room for his symptoms, he had blood work done, he also had CT scan of the head, he also had urinalysis ordered ,evaluation done in the ER was negative, except for the GFR that was in the range of stage 5 CKD, the ER provider called me to discuss the case with me, I thought he was uremic because he was manifesting encephalopathic symptoms in the setting of chronic kidney disease stage V. When patient arrived on the floor and when I saw him he was clear he was coherent, he was oriented to time place and person. Hospital Course Hospital Course: Patient was admitted because of concern for uremia, he presented with confusion , fall in the setting of chronic kidney disease stage V, on further evaluation he was found not to be uremic, the encephalopathic symptoms is thought to be due to medication, Ambien and probably overdiuresis. He was taken off of the Ambien in the hospital and the medication was adjusted. He also had a history of chronic combined systolic and diastolic heart failure, he was started on entresto on this admission. The digoxin was discontinued because of the chronic kidney disease stage V, there is increased risk of toxicity in the setting of very low GFR he was seen by nephrology Dr. Silver, it was felt that there is no immediate need at this time to initiate hemodialysis. The patient is being prepped for dialysis, PPD was applied and other measures instituted in preparation for chronic dialysis. Physical Exam Vital Signs: Temp Pulse Resp BP Pulse Ox 97.9 F 61 20 122/61 98 01/01/17 08:15 01/01/17 08:15 01/01/17 08:15 01/01/17 08:15 01/01/17 08:15 Intake & Output 12/31/16 01/01/17 01/02/17 06:59 06:59 06:59 Intake Total 240 1310 Output Total 200 300 Balance 40 1010 Weight 86.2 kg 86.5 kg General appearance: PRESENT: no acute distress, well-developed, well-nourished Head exam: PRESENT: atraumatic, normocephalic Eye exam: PRESENT: conjunctiva pink, EOMI, PERRLA. ABSENT: scleral icterus Ear exam: PRESENT: normal external ear exam Neck exam: PRESENT: full ROM Cardiovascular exam: PRESENT: RRR, +S1, +S2 Vascular exam: PRESENT: normal capillary refill GI/Abdominal exam: PRESENT: normal bowel sounds, soft Rectal exam: PRESENT: deferred Neurological exam: PRESENT: alert, awake, oriented to person, oriented to place , oriented to time, oriented to situation, CN II-XII grossly intact Psychiatric exam: PRESENT: appropriate affect, normal mood Skin exam: PRESENT: dry, intact, warm Results Laboratory Results: 01/01/17 05:22 01/01/17 05:22 01/01/17 01/01/17 05:22 05:22 WBC 8.9 RBC 2.93 L Hgb 9.8 L Hct 28.4 L MCV 97 MCH 33.4 MCHC 34.5 RDW 17.3 H Plt Count 126 L Seg Neutrophils % 47.2 Lymphocytes % 21.8 Monocytes % 11.7 Eosinophils % 18.5 H Basophils % 0.8 Absolute Neutrophils 4.2 Absolute Lymphocytes 1.9 Absolute Monocytes 1.0 Absolute Eosinophils 1.6 H Absolute Basophils 0.1 Sodium 135.9 L Potassium 4.4 Chloride 97 L Carbon Dioxide 25 Anion Gap 14 BUN 44 H Creatinine 3.99 H Est GFR ( Amer) 19 L Est GFR (Non-Af Amer) 16 L Glucose 93 Calcium 8.9 Impressions: Chest X-Ray 12/30/16 04:13 IMPRESSION: No acute cardiopulmonary findings. Head CT 12/30/16 04:13 IMPRESSION: No acute findings. Renal Ultrasound 12/31/16 00:00 IMPRESSION: Increased indeterminate 2.0 cm left renal lesion may indicate a benign, mildly complicated cyst although not definitively characterize; cannot exclude other neoplasm. Recommend further evaluation with dynamic contrast CT or MRI of the kidneys.
[2017-01-01 13:28] VITALS: BP 130/65
[2017-01-03 11:39] LABS: HEPATITIS C QUANTITATION HCV Not Detected IU/mL (.)
== END 2017-01-01 14:10 | disposition home or self-care (01) | DRG 92 ==
LOC: ER 03:25 → EH 07:23 → UNDOADMIN 07:23 → EH 08:26 → 4S 15:15
PROVIDERS: ADMIT Internal Medicine; ATTEND Internal Medicine
DX: G92 Toxic encephalopathy (principal); I13.2 Hypertensive heart and chronic kidney disease with heart failure and with stage 5 chronic kidney disease, or end stage renal disease; I50.42 Chronic combined systolic (congestive) and diastolic (congestive) heart failure; N18.5 Chronic kidney disease, stage 5; T42.6X5A Adverse effect of other antiepileptic and sedative-hypnotic drugs, initial encounter; T50.2X5A Adverse effect of carbonic-anhydrase inhibitors, benzothiadiazides and other diuretics, initial encounter; E11.21 Type 2 diabetes mellitus with diabetic nephropathy; E11.319 Type 2 diabetes mellitus with unspecified diabetic retinopathy without macular edema; E11.40 Type 2 diabetes mellitus with diabetic neuropathy, unspecified; J44.9 Chronic obstructive pulmonary disease, unspecified; I25.5 Ischemic cardiomyopathy; I25.10 Atherosclerotic heart disease of native coronary artery without angina pectoris; I25.2 Old myocardial infarction; E11.51 Type 2 diabetes mellitus with diabetic peripheral angiopathy without gangrene; K21.9 Gastro-esophageal reflux disease without esophagitis; Z89.611 Acquired absence of right leg above knee; Z87.891 Personal history of nicotine dependence; Z79.899 Other long term (current) drug therapy; I27.2 Other secondary pulmonary hypertension; D50.9 Iron deficiency anemia, unspecified; E83.39 Other disorders of phosphorus metabolism; D63.1 Anemia in chronic kidney disease; S00.83XA Contusion of other part of head, initial encounter; W18.30XA Fall on same level, unspecified, initial encounter; Y92.003 Bedroom of unspecified non-institutional (private) residence as the place of occurrence of the external cause; Z82.49 Family history of ischemic heart disease and other diseases of the circulatory system; Z83.3 Family history of diabetes mellitus; E11.621 Type 2 diabetes mellitus with foot ulcer; L97.522 Non-pressure chronic ulcer of other part of left foot with fat layer exposed
CPT/HCPCS: 11042; 36415; 51701; 70450; 71010; 76770; 80048; 80053; 80162; 80307; 81001; 82550; 82553; 82570; 82607; 82728; 82746; 82962; 83540; 83550; 83690; 83880; 84100; 84156; 84439; 84443; 84466; 84484; 85025; 85045; 86317; 86704; 87340; 87522; 93005; 93010; 99285; J1644; J3490; Q0138

== ENCOUNTER → 2017-01-11 | Outpatient (CLI) | payer MEDICARE ==
--- NOTE | 2017-01-11 16:21 | RADIOLOGY REPORT (SQ) ---
EXAM DESCRIPTION: FOOT LEFT COMPLETE COMPLETED DATE/TIME: 01/11/2017 4:03 pm REASON FOR STUDY: NON-PRS CHRONIC ULCER OTH PRT LEFT FOOT W FAT LAYER EXPOSED L97.522 NON-PRS CHRON IC ULCER OTH PRT LEFT FOOT W FAT LAYER COMPARISON: 11/03/2016 NUMBER OF VIEWS: Three views. TECHNIQUE: AP, lateral and oblique radiographic images acquired of the left foot. LIMITATIONS: None. FINDINGS: MINERALIZATION: Normal. BONES: No acute fracture or dislocation. No worrisome bone lesions. JOINTS: No effusions. SOFT TISSUES: Vascular calcifications. OTHER: No other significant finding. IMPRESSION: No evidence of osteomyelitis. TECHNICAL DOCUMENTATION: JOB ID: [id number] [employer]- All Rights Reserved
== END ==
LOC: OD 15:42
PROVIDERS: ATTEND Nurse Practitioner Family
DX: L97.522 Non-pressure chronic ulcer of other part of left foot with fat layer exposed (principal)

== ENCOUNTER 2017-01-20 11:10 | Inpatient (IN) | payer MEDICARE ==
--- NOTE | 2017-01-20 11:54 | ER Document Report ---
ED General - General Chief Complaint: Other Stated Complaint: FALL/NO COMPLAINT Time Seen by Provider: 01/20/17 11:44 Mode of Arrival: Medic Information source: Patient, Relative Notes: This is a 56-year-old man with a history of hypertension, diabetes (right AKA), coronary artery disease, atrial fibrillation (chronic anticoagulation). Patient is brought in by EMS after he fell trying to stand from his wheelchair. Patient denies hitting his head and he denies loss of consciousness. The patient does have a home health nurse because of a left foot diabetic ulcer. The patient's reports that the home health nurse was concerned about the patient's heart rate in atrial fibrillation and she was also concerned about patient taking too many medicines. Patient does not have any complaints. He denies headache, chest pain, abdominal pain or extremity pain. TRAVEL OUTSIDE OF THE [place] IN LAST 30 DAYS: No - HPI Onset: Just prior to arrival Onset/Duration: Sudden Quality of pain: No pain Severity: None Pain Level: Denies Associated symptoms: Other - Tachycardia Exacerbated by: Denies Relieved by: Denies Similar symptoms previously: Yes Recently seen / treated by doctor: Yes - Related Data Allergies/Adverse Reactions: No Known Allergies Allergy (Verified 09/16/14 09:10) Home Medications: Current Home Medications Acetaminophen [Tylenol Extra Strength 500 mg Tablet] 1 tab PO BIDP PRN 01/20/17 [History] Apixaban [Eliquis 2.5 mg Tablet] 2.5 mg PO Q12 01/20/17 [History] Atorvastatin Calcium [Lipitor 40 mg Tablet] 40 mg PO QHS 01/20/17 [History] Digoxin [Lanoxin 0.125 mg Tablet] 0.125 mg PO DAILY 01/20/17 [History] Furosemide [Lasix] 40 mg PO DAILY 01/20/17 [History] Isosorb Dinit/Hydralazine HCl [Bidil 20-37.5 mg Tablet] 1 tab PO Q12 01/20/17 [ History] Levothyroxine Sodium [Synthroid 0.15 mg Tablet] 0.15 mg PO QAM 01/20/17 [History ] Linagliptin [Tradjenta] 5 mg PO DAILY 01/20/17 [History] Metoprolol Succinate [Toprol XL 100 mg Tablet] 100 mg PO Q12 01/20/17 [History] Polyethylene Glycol 3350 [Miralax Powder 17 gm/Packet] 1 packet PO DAILY [History] Sacubitril/Valsartan [Entresto 97 mg/103 mg Tablet] 1 tab PO BID 01/20/17 [ History] Sulfamethoxazole/Trimethoprim [Septra-Ds 800-160 mg Tablet] 1 tab PO BID [History] Tamsulosin HCl [Flomax 0.4 mg Cap.sr] 0.4 mg PO DAILY 01/20/17 [History] Past Medical History - General Information source: Patient, Relative - Social History Smoking Status: Never Smoker Cigarette use (# per day): No Chew tobacco use (# tins/day): No Frequency of alcohol use: None Drug Abuse: None Lives with: Family Family History: Reviewed & Not Pertinent Patient has suicidal ideation: No Patient has homicidal ideation: No - Past Medical History Cardiac Medical History: Reports: Hx Atrial Fibrillation, Hx Congestive Heart Failure, Hx Coronary Artery Disease, Hx Heart Attack, Hx Hypercholesterolemia, Hx Hypertension, Hx Peripheral Vascular Disease Pulmonary Medical History: Reports: Hx COPD Denies: Hx Tuberculosis Endocrine Medical History: Reports: Hx Diabetes Mellitus Type 1, Hx Diabetes Mellitus Type 2, Hx Hypothyroidism Renal/ Medical History: Reports: Hx Renal Insufficiency. Denies: Hx Peritoneal Dialysis GI Medical History: Reports: Hx Gastroesophageal Reflux Disease, Hx Ulcer Past Surgical History: Reports: Hx Cardiac Catheterization, Hx Orthopedic Surgery - RAKA, Hx Vascular Surgery - Angioplasty in the right leg - Immunizations Hx Diphtheria, Pertussis, Tetanus Vaccination: Yes Hx Pneumococcal Vaccination: 09/25/14 Review of Systems - Review of Systems Constitutional: denies: Chills, Fever EENT: No symptoms reported Cardiovascular: See HPI Respiratory: No symptoms reported Gastrointestinal: No symptoms reported Genitourinary: No symptoms reported Male Genitourinary: No symptoms reported Musculoskeletal: No symptoms reported Skin: No symptoms reported Hematologic/Lymphatic: No symptoms reported Neurological/Psychological: No symptoms reported Physical Exam - Vital signs Vitals: Temp Pulse BP Pulse Ox 97.8 F 134 H 119/70 98 01/20/17 11:32 01/20/17 11:32 01/20/17 11:32 01/20/17 11:32 Notes: Physical exam: GENERAL: 56-year-old man, alert and oriented 3, no acute distress HEAD: Atraumatic, normocephalic. EYES: Pupils equal round and reactive to light, extraocular movements intact, sclera anicteric, conjunctiva are normal. ENT: TMs normal, nares patent, oropharynx clear without exudates. Moist mucous membranes. NECK: Normal range of motion, supple , no spinal tenderness. Patient does have an old bruise anteriorly in the neck. Right AKA. LUNGS: Breath sounds clear to auscultation bilaterally and equal. No wheezes rales or rhonchi. HEART: Regular rate and rhythm without murmurs, rubs or gallops. ABDOMEN: Soft, normoactive bowel sounds. No tenderness to palpation. No guarding, no rebound. No masses appreciated. EXTREMITIES: Right AKA. Patient does have a ulcer on the heel of the left foot. There is no overlying erythema. There is no foul smell. There is no discharge. Distal cap refill is reasonable. NEUROLOGICAL: Cranial nerves II through XII grossly in normal speech, patient moving all extremities. PSYCH: Normal mood, normal affect. SKIN: Warm, Dry, normal turgor, no rashes or lesions noted (other than the left heel ulcer mentioned above). Course - Re-evaluation Re-evalutation: 01/20/17 11:54 I have discussed the situation with the patient's ([phone]) and she reevaluated that she was concerned about the home health nurses concerns regarding the atrial fibrillation (which he has a history of) and the possibility of the patient taking too many pain medicines. I told her that the patient looks alert and oriented 3 right now and does not appear altered in any way. We will check electrolytes and EKG today. - Vital Signs Vital signs: Temp Pulse Resp BP Pulse Ox 97.3 F 95 14 126/50 H 100 01/20/17 20:09 01/20/17 20:09 01/20/17 20:09 01/20/17 20:09 01/20/17 20:09 - Laboratory Result Diagrams: 01/20/17 13:40 01/20/17 19:13 Laboratory results interpreted by me: 01/20/17 01/20/17 12:23 13:40 RBC 2.77 L Hgb 9.1 L Hct 28.7 L MCV 103 H D MCHC 31.9 L RDW 18.4 H Plt Count 103 L Eosinophils % 11.1 H Absolute Eosinophils 0.7 H Sodium 136.3 L Potassium 6.2 H* Chloride 111 H Carbon Dioxide 16 L BUN 43 H Creatinine 3.17 H Est GFR ( Amer) 25 L Est GFR (Non-Af Amer) 20 L Glucose 72 L - Diagnostic Test Radiology reviewed: Image reviewed, Reports reviewed - NO Acute infiltrates - EKG Interpretation by Me Rate: Tachycardia Rhythm: A.Fib Critical Care Note - Critical Care Note Total time excluding time spent on procedures (mins): 55 Discharge - Discharge Clinical Impression: Atrial Fibrillation with RVR, Hyperkalemia Condition: Serious Disposition: ADMITTED INPATIENT Admitting Provider: [facility] Admitted: Telemetry
[2017-01-20] MEDS ORDERED: DILTIAZEM HCL INJ 25 MG/5 ML VIAL IV ONE (12:26)
[2017-01-20] MEDS ORDERED: DILTIAZEM HCL/D5W 0 MG/0 ML RTUINJ IV ONE (12:29)
[2017-01-20 13:05] LABS: ALANINE AMINOTRANSFERASE 34 U/L (21-72); ALBUMIN 3.5 g/dL (3.5-5.0); ALKALINE PHOSPHATASE 109 U/L (38-126); ANION GAP 9 (5-19); ASPARTATE AMINO TRANSFERASE 42 U/L (17-59); BILIRUBIN,DIRECT 0.3 mg/dL (0.0-0.4); BILIRUBIN,TOTAL 0.3 mg/dL (0.2-1.3); BLOOD UREA NITROGEN 43 mg/dL (7-20); CALCIUM 8.6 mg/dL (8.4-10.2); CARBON DIOXIDE 16 mmol/L (22-30); CHLORIDE 111 mmol/L (98-107); CREATINE KINASE 167 U/L (55-170); CREATININE RESULT 3.17 mg/dL (0.52-1.25); GLUCOSE 72 mg/dL (75-110); MAGNESIUM 1.6 mg/dL (1.6-2.3); SODIUM 136.3 mmol/L (137-145); TOTAL PROTEIN 7.9 g/dL (6.3-8.2)
[2017-01-20 13:16] LABS: CREATINE KINASE MB 2.42 ng/mL (<4.55)
[2017-01-20 13:18] LABS: TROPONIN I < 0.012 ng/mL
[2017-01-20 13:20] LABS: POTASSIUM 6.2 mmol/L (3.6-5.0)
[2017-01-20] MEDS ORDERED: DEXTROSE 50%-WATER 25 GM/50 ML DISP.SYRIN IV ONE ×2 (13:26→13:42)
[2017-01-20] MEDS ORDERED: INSULIN REG, HUMAN 100 UNIT/ML 3 ML VIAL (PYX) IV ONE (13:26)
[2017-01-20] MEDS ORDERED: CALCIUM GLUCONATE 1000 MG/10 ML INJ IV ONE (13:26)
[2017-01-20] MEDS ORDERED: SODIUM POLYSTYRENE SULFONATE 15 GM/60 ML PO ONE ×2 (13:58→22:00)
[2017-01-20 14:08] LABS: ABSOLUTE BASOPHILS # (AUTO) 0.1 10^3/uL (0.0-0.2); ABSOLUTE EOSINOPHILS # (AUTO) 0.7 10^3/uL (0.0-0.6); ABSOLUTE LYMPHOCYTES (AUTO) 1.7 10^3/uL (0.5-4.7); ABSOLUTE MONOCYTES (AUTO) 0.6 10^3/uL (0.1-1.4); ABSOLUTE NEUT (AUTO) 3.4 10^3/uL (1.7-8.2); BASOPHILS % (AUTO) 1.2 % (0-2); EOSINOPHILS % (AUTO) 11.1 % (0-6); HEMATOCRIT 28.7 % (37.9-51.0); HEMOGLOBIN 9.1 g/dL (13.5-17.0); HGB HCT DIFFERENCE -1.4; LYMPHOCYTES % (AUTO) 26.5 % (13-45); MEAN CORPUSCULAR HGB CONC 31.9 g/dL (32.0-36.0); MONOCYTES % (AUTO) 9.5 % (3-13); RED BLOOD COUNT 2.77 10^6/uL (4.35-5.55); RED CELL DISTRIBUTION WIDTH 18.4 % (11.5-14.0); SEGMENTED NEUTROPHILS % (AUTO) 51.7 % (42-78); WHITE BLOOD COUNT 6.5 10^3/uL (4.0-10.5)
[2017-01-20 14:11] LABS: MEAN CORPUSCULAR VOLUME 103 fl (80-97)
--- NOTE | 2017-01-20 14:34 | RADIOLOGY REPORT (SQ) ---
EXAM DESCRIPTION: CHEST SINGLE VIEW COMPLETED DATE/TIME: 01/20/2017 2:21 pm REASON FOR STUDY: tachycardia COMPARISON: 11/03/2016, 12/30/2016 chest films EXAM PARAMETERS: NUMBER OF VIEWS: One view. TECHNIQUE: Single frontal radiographic view of the chest acquired. RADIATION DOSE: NA LIMITATIONS: None. FINDINGS: LUNGS AND PLEURA: No opacities, masses or pneumothorax. No pleural effusion. MEDIASTINUM AND HILAR STRUCTURES: No masses. Contour normal. HEART AND VASCULAR STRUCTURES: Stable moderate cardiomegaly BONES: No acute findings. HARDWARE: None in the chest. OTHER: No other significant finding. IMPRESSION: Stable moderate cardiomegaly. No acute infiltrates. No pleural effusion. TECHNICAL DOCUMENTATION: JOB ID: [id number]
[2017-01-20] MEDS ORDERED: DEXTROSE 50%-WATER SYRINGE 25 GM/50 ML DOSE IV PRN (17:28)
[2017-01-20] MEDS ORDERED: DEXTROSE 40% GEL 15 GM TUBE PO PRN (17:28)
[2017-01-20] MEDS ORDERED: DEXTROSE 40% GEL 15 GM TUBE X 2 PO PRN (17:28)
[2017-01-20] MEDS ORDERED: DEXTROSE 50%-WATER SYRINGE 12.5 GM/25 ML DOSE IV PRN (17:28)
[2017-01-20] MEDS ORDERED: INSULIN LISPRO 100 UNIT/ML 3 ML VIAL SUBCUT PRN (17:28)
[2017-01-20] MEDS ORDERED: GLUCAGON,HUMAN RECOMB 1 MG INJ IM PRN (17:28)
[2017-01-20] MEDS: ACETAMINOPHEN 325 MG TABLET PO PRN (17:34)
[2017-01-20 20:21] LABS: ALANINE AMINOTRANSFERASE 41 U/L (21-72); ALBUMIN 3.3 g/dL (3.5-5.0); ALKALINE PHOSPHATASE 90 U/L (38-126); ANION GAP 12 (5-19); ASPARTATE AMINO TRANSFERASE 51 U/L (17-59); BILIRUBIN,DIRECT 0.3 mg/dL (0.0-0.4); BILIRUBIN,TOTAL 0.3 mg/dL (0.2-1.3); BLOOD UREA NITROGEN 44 mg/dL (7-20); CALCIUM 9.1 mg/dL (8.4-10.2); CARBON DIOXIDE 17 mmol/L (22-30); CHLORIDE 113 mmol/L (98-107); CREATININE RESULT 3.19 mg/dL (0.52-1.25); GLUCOSE 133 mg/dL (75-110); SODIUM 141.7 mmol/L (137-145); TOTAL PROTEIN 7.6 g/dL (6.3-8.2)
[2017-01-20 20:25] LABS: POTASSIUM 6.3 mmol/L (3.6-5.0)
[2017-01-20] MEDS ORDERED: (PENDING PHARMACY ID) (Acetaminophen [Tylenol Extra Strength 500 Mg Tablet] 1 TAB) PO PRN (20:36)
[2017-01-20] MEDS ORDERED: POLYETHYLENE GLYCOL 3350 POWDER 17 GM/1 PACKET PO SCH (20:45)
[2017-01-20] MEDS ORDERED: (PENDING PHARMACY ID) (Linagliptin [Tradjenta] 5 MG) PO SCH (20:45)
[2017-01-20] MEDS ORDERED: DIGOXIN 0.125 MG TABLET PO ONE (22:00)
[2017-01-20] MEDS ORDERED: TAMSULOSIN HCL 0.4 MG CAP.SR.24H PO ONE (22:00)
[2017-01-20] MEDS ORDERED: FUROSEMIDE 40 MG TABLET PO ONE (22:00)
[2017-01-20] MEDS ORDERED: ATORVASTATIN CALCIUM 40 MG TABLET PO SCH (22:00)
[2017-01-20] MEDS ORDERED: POLYETHYLENE GLYCOL 3350 POWDER 17 GM/1 PACKET PO ONE (22:00)
[2017-01-20] MEDS ORDERED: SITAGLIPTIN PHOSPHATE 25 MG TABLET PO ONE (22:00)
[2017-01-20] MEDS: APIXABAN 2.5 MG TABLET PO SCH (22:24)
[2017-01-20] MEDS: ISOSORB DINIT/HYDRALAZINE HCL 20-37.5 MG TABLET PO SCH (22:25)
[2017-01-20] MEDS: METOPROLOL SUCCINATE 50 MG TAB.SR.24H PO SCH (22:25)
[2017-01-21] MEDS: ACETAMINOPHEN 325 MG TABLET PO PRN ×3 (04:00→15:28)
[2017-01-21] MEDS: SODIUM POLYSTYRENE SULFONATE 15 GM/60 ML PO SCH ×3 (06:37→17:21)
[2017-01-21] MEDS ORDERED: LEVOTHYROXINE SODIUM 0.15 MG TABLET PO SCH (08:00)
--- NOTE | 2017-01-21 08:56 | EKG REPORT ---
SEVERITY:- ABNORMAL ECG - A-FIB LOW VOLTAGE IN FRONTAL LEADS : Confirmed by: Mayra Sanz 21-Jan-2017 08:55:52
[2017-01-21] MEDS: METOPROLOL SUCCINATE 50 MG TAB.SR.24H PO SCH (09:08)
[2017-01-21] MEDS: ISOSORB DINIT/HYDRALAZINE HCL 20-37.5 MG TABLET PO SCH (09:14)
[2017-01-21] MEDS: APIXABAN 2.5 MG TABLET PO SCH (09:15)
[2017-01-21] MEDS ORDERED: SITAGLIPTIN PHOSPHATE 25 MG TABLET PO SCH ×2 (10:00)
[2017-01-21] MEDS ORDERED: POLYETHYLENE GLYCOL 3350 POWDER 17 GM/1 PACKET PO SCH (10:00)
[2017-01-21] MEDS ORDERED: DIGOXIN 0.125 MG TABLET PO SCH (10:00)
[2017-01-21] MEDS ORDERED: FUROSEMIDE 40 MG TABLET PO SCH (10:00)
[2017-01-21] MEDS ORDERED: TAMSULOSIN HCL 0.4 MG CAP.SR.24H PO SCH (10:00)
[2017-01-21 16:43] VITALS: BP 116/57
[2017-01-21] MEDS ORDERED: COLLAGENASE CLOSTRIDIUM HIST. OINT 30 GM TOP ONE (17:00)
[2017-01-21 18:22] LABS: ALANINE AMINOTRANSFERASE 39 U/L (21-72); ALBUMIN 3.3 g/dL (3.5-5.0); ALKALINE PHOSPHATASE 78 U/L (38-126); ANION GAP 13 (5-19); ASPARTATE AMINO TRANSFERASE 41 U/L (17-59); BILIRUBIN,DIRECT 0.3 mg/dL (0.0-0.4); BILIRUBIN,TOTAL 0.3 mg/dL (0.2-1.3); BLOOD UREA NITROGEN 37 mg/dL (7-20); CALCIUM 8.8 mg/dL (8.4-10.2); CARBON DIOXIDE 17 mmol/L (22-30); CHLORIDE 112 mmol/L (98-107); CREATININE RESULT 2.91 mg/dL (0.52-1.25); GLUCOSE 114 mg/dL (75-110); POTASSIUM 5.4 mmol/L (3.6-5.0); SODIUM 142.1 mmol/L (137-145); TOTAL PROTEIN 7.5 g/dL (6.3-8.2)
--- NOTE | 2017-01-21 19:06 | PDOC H&P ---
History of Present Illness Admission Date/PCP: 01/20/17 14:08 CLARISSE REMY MD History of Present Illness: JOSE D COLBERT is a 56 year old male, he has a history of chronic kidney disease stage IV, type 2 diabetes mellitus complicated neuropathy, nephropathy, retinopathy, history of peripheral vascular,status post left leg amputation. He fell while trying to get out of his wheelchair, the home health nurse was concerned because of increased pulse rate and the fact that he takes too many medications, the nurse suggested that patient should go to the emergency room. He was seen and evaluated in the emergency room, he was found to have hyperkalemia ,potassium of 6.3. He was treated in the emergency room with calcium gluconate, Kayexalate, insulin. Emergency room physician advised admission because of the hyperkalemia. He developed hypoglycemia most likely from the insulin that was given to patient in the emergency room. 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 He was slightly increased pulse rate, patient has a history of chronic atrial fibrillation. Past Medical History Cardiac Medical History: Reports: Atrial Fibrillation, Coronary Artery Disease, Myocardial Infarction, Hyperlipidema, Hypertension, Peripheral Vascular Disease , Other - chronic systolic and diastolic heart failure Pulmonary Medical History: Reports: Chronic Obstructive Pulmonary Disease (COPD) Endocrine Medical History: Reports: Diabetes Mellitus Type 2, Hypothyroidism Renal/ Medical History: Reports: Chronic Kidney Disease - Chronic kidney disease stage IV GI Medical History: Reports: Gastroesophageal Reflux Disease Psychiatric Medical History: Reports: Depression Past Surgical History Past Surgical History: Reports: Cardiac Catheterization, Orthopedic Surgery - RAKA, Vascular Surgery - Angioplasty in the right leg Social History Lives with: Family Smoking Status: Former Smoker Frequency of Alcohol Use: None Hx Recreational Drug Use: No Drugs: None Hx Prescription Drug Abuse: No - Advance Directive Resuscitation Status: Full Code Family History Family History: Reviewed & Not Pertinent Parental Family History Reviewed: Yes Children Family History Reviewed: Yes Sibling(s) Family History Reviewed.: Yes Medication/Allergy Home Medications: Acetaminophen [Tylenol Extra Strength 500 mg Tablet] 1 tab PO BIDP PRN 01/20/17 Apixaban [Eliquis 2.5 mg Tablet] 2.5 mg PO Q12 01/20/17 Atorvastatin Calcium [Lipitor 40 mg Tablet] 40 mg PO QHS 01/20/17 Digoxin [Lanoxin 0.125 mg Tablet] 0.125 mg PO DAILY 01/20/17 Furosemide [Lasix] 40 mg PO DAILY 01/20/17 Isosorb Dinit/Hydralazine HCl [Bidil 20-37.5 mg Tablet] 1 tab PO Q12 01/20/17 Levothyroxine Sodium [Synthroid 0.15 mg Tablet] 0.15 mg PO QAM 01/20/17 Linagliptin [Tradjenta] 5 mg PO DAILY 01/20/17 Metoprolol Succinate [Toprol XL 100 mg Tablet] 100 mg PO Q12 01/20/17 Polyethylene Glycol 3350 [Miralax Powder 17 gm/Packet] 1 packet PO DAILY Sacubitril/Valsartan [Entresto 97 mg/103 mg Tablet] 1 tab PO BID 01/20/17 Sulfamethoxazole/Trimethoprim [Septra-Ds 800-160 mg Tablet] 1 tab PO BID Tamsulosin HCl [Flomax 0.4 mg Cap.sr] 0.4 mg PO DAILY 01/20/17 Allergies/Adverse Reactions: No Known Allergies Allergy (Verified 09/16/14 09:10) Review of Systems Constitutional: ABSENT: chills, fever(s), headache(s), weight gain, weight loss Eyes: ABSENT: visual disturbances Ears: ABSENT: hearing changes Cardiovascular: ABSENT: chest pain, dyspnea on exertion, edema, orthropnea, palpitations Respiratory: ABSENT: cough, hemoptysis Gastrointestinal: ABSENT: abdominal pain, constipation, diarrhea, hematemesis, hematochezia, nausea, vomiting Genitourinary: ABSENT: dysuria, hematuria Musculoskeletal: ABSENT: joint swelling Integumentary: ABSENT: rash, wounds Neurological: ABSENT: abnormal gait, abnormal speech, confusion, dizziness, focal weakness, syncope Psychiatric: ABSENT: anxiety, depression, homidical ideation, suicidal ideation Endocrine: ABSENT: cold intolerance, heat intolerance, menstrual abnormalities, polydipsia, polyuria Hematologic/Lymphatic: ABSENT: easy bleeding, easy bruising, lymphadenopathy Physical Exam Vital Signs: Temp Pulse Resp BP Pulse Ox 97.5 F 97 18 116/57 L 100 01/21/17 16:02 01/21/17 16:02 01/21/17 16:00 01/21/17 16:02 01/21/17 16:02 Intake & Output 01/20/17 01/21/17 01/22/17 06:59 06:59 06:59 Intake Total 540 800 Output Total 1900 Balance -1360 800 Weight 70.5 kg General appearance: PRESENT: no acute distress, well-developed, well-nourished Head exam: PRESENT: atraumatic, normocephalic Eye exam: PRESENT: conjunctiva pink, EOMI, PERRLA Ear exam: PRESENT: normal external ear exam Mouth exam: PRESENT: moist, tongue midline Neck exam: PRESENT: full ROM Respiratory exam: PRESENT: clear to auscultation clay Cardiovascular exam: PRESENT: RRR, +S1, +S2 Vascular exam: PRESENT: normal capillary refill GI/Abdominal exam: PRESENT: normal bowel sounds, soft Rectal exam: PRESENT: deferred Extremities exam: PRESENT: right AKA, other - There is ulcer on the heel of the left foot Neurological exam: PRESENT: alert, awake, oriented to person, oriented to place , oriented to time, oriented to situation, CN II-XII grossly intact Psychiatric exam: PRESENT: appropriate affect, normal mood Skin exam: PRESENT: dry, intact, warm Results Laboratory Results: 01/21/17 17:55 01/20/17 01/21/17 19:13 17:55 Sodium 141.7 142.1 Potassium 6.3 H* 5.4 H Chloride 113 H 112 H Carbon Dioxide 17 L 17 L Anion Gap 12 13 BUN 44 H 37 H Creatinine 3.19 H 2.91 H Est GFR ( Amer) 24 L 27 L Est GFR (Non-Af Amer) 20 L 22 L Glucose 133 H 114 H Calcium 9.1 8.8 Total Bilirubin 0.3 0.3 AST 51 41 ALT 41 39 Alkaline Phosphatase 90 78 Total Protein 7.6 7.5 Albumin 3.3 L 3.3 L Impressions: Chest X-Ray 01/20/17 13:57 IMPRESSION: Stable moderate cardiomegaly. No acute infiltrates. No pleural effusion. Assessment & Plan - Diagnosis (1) Hyperkalemia Is this a current diagnosis for this admission?: YesPlan: He has hyperkalemia, probably from combination of chronic kidney disease stage IV and medication ,admitted for treatment (2) Chronic combined systolic and diastolic heart failure Is this a current diagnosis for this admission?: Yes (3) Chronic kidney disease, stage IV (severe) Is this a current diagnosis for this admission?: Yes
[2017-01-21] MEDS ORDERED: SODIUM POLYSTYRENE SULFONATE 15 GM/60 ML PO ONE (19:09)
--- NOTE | 2017-01-21 19:13 | PDOC DISCHARGE SUMMARY ---
General - Admit/Disc Date/PCP Admission Date/Primary Care Provider: 01/20/17 14:08 CLARISSE REMY MD Discharge Date: 01/21/17 - Discharge Diagnosis (1) Hyperkalemia Is this a current diagnosis for this admission?: Yes (2) Chronic combined systolic and diastolic heart failure Is this a current diagnosis for this admission?: Yes (3) Chronic kidney disease, stage IV (severe) Is this a current diagnosis for this admission?: Yes - Additional Information Resuscitation Status: Full Code Discharge Diet: Diabetic Discharge Activity: Activity As Tolerated Home Medications: Acetaminophen [Tylenol Extra Strength 500 mg Tablet] 1 tab PO BIDP PRN 01/20/17 Apixaban [Eliquis 2.5 mg Tablet] 2.5 mg PO Q12 01/20/17 Atorvastatin Calcium [Lipitor 40 mg Tablet] 40 mg PO QHS 01/20/17 Digoxin [Lanoxin 0.125 mg Tablet] 0.125 mg PO DAILY 01/20/17 Furosemide [Lasix] 40 mg PO DAILY 01/20/17 Isosorb Dinit/Hydralazine HCl [Bidil 20-37.5 mg Tablet] 1 tab PO Q12 01/20/17 Levothyroxine Sodium [Synthroid 0.15 mg Tablet] 0.15 mg PO QAM 01/20/17 Linagliptin [Tradjenta] 5 mg PO DAILY 01/20/17 Metoprolol Succinate [Toprol XL 100 mg Tablet] 100 mg PO Q12 01/20/17 Polyethylene Glycol 3350 [Miralax Powder 17 gm/Packet] 1 packet PO DAILY Sulfamethoxazole/Trimethoprim [Septra-Ds 800-160 mg Tablet] 1 tab PO BID Tamsulosin HCl [Flomax 0.4 mg Cap.sr] 0.4 mg PO DAILY 01/20/17 History of Present Illness History of Present Illness: JOSE D COLBERT is a 56 year old male, he has a history of chronic kidney disease stage IV, type 2 diabetes mellitus complicated neuropathy, nephropathy, retinopathy, history of peripheral vascular,status post left leg amputation. He fell while trying to get out of his wheelchair, the home health nurse was concerned because of increased pulse rate and the fact that he takes too many medications, the nurse suggested that patient should go to the emergency room. He was seen and evaluated in the emergency room, he was found to have hyperkalemia ,potassium of 6.3. He was treated in the emergency room with calcium gluconate, Kayexalate, insulin. Emergency room physician advised admission because of the hyperkalemia. He developed hypoglycemia most likely from the insulin that was given to patient in the emergency room. 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 He was slightly increased pulse rate, patient has a history of chronic atrial fibrillation. Hospital Course Hospital Course: Patient was admitted because of hyperkalemia, he was treated with Kayexalate, calcium gluconate insulin. Patient was asymptomatic. He was admitted for observation, he has chronic kidney disease stage IV, he was taken off entresto because of the hyperkalemia Physical Exam Vital Signs: Temp Pulse Resp BP Pulse Ox 97.5 F 97 18 116/57 L 100 01/21/17 16:02 01/21/17 16:02 01/21/17 16:00 01/21/17 16:02 01/21/17 16:02 Intake & Output 01/20/17 01/21/17 01/22/17 06:59 06:59 06:59 Intake Total 540 800 Output Total 1900 Balance -1360 800 Weight 70.5 kg General appearance: PRESENT: no acute distress Head exam: PRESENT: atraumatic, normocephalic Eye exam: PRESENT: conjunctiva pink, EOMI, PERRLA Ear exam: PRESENT: normal external ear exam Mouth exam: PRESENT: moist, tongue midline Neck exam: PRESENT: full ROM Respiratory exam: PRESENT: clear to auscultation clay Cardiovascular exam: PRESENT: RRR, +S1, +S2 Vascular exam: PRESENT: normal capillary refill GI/Abdominal exam: PRESENT: normal bowel sounds, soft Rectal exam: PRESENT: deferred Extremities exam: PRESENT: right AKA Neurological exam: PRESENT: alert, awake, oriented to person, oriented to place , oriented to time, oriented to situation, CN II-XII grossly intact Psychiatric exam: PRESENT: appropriate affect, normal mood Skin exam: PRESENT: dry, intact, warm Results Laboratory Results: 01/21/17 17:55 01/20/17 01/21/17 19:13 17:55 Sodium 141.7 142.1 Potassium 6.3 H* 5.4 H Chloride 113 H 112 H Carbon Dioxide 17 L 17 L Anion Gap 12 13 BUN 44 H 37 H Creatinine 3.19 H 2.91 H Est GFR ( Amer) 24 L 27 L Est GFR (Non-Af Amer) 20 L 22 L Glucose 133 H 114 H Calcium 9.1 8.8 Total Bilirubin 0.3 0.3 AST 51 41 ALT 41 39 Alkaline Phosphatase 90 78 Total Protein 7.6 7.5 Albumin 3.3 L 3.3 L Impressions: Chest X-Ray 01/20/17 13:57 IMPRESSION: Stable moderate cardiomegaly. No acute infiltrates. No pleural effusion.
[2017-01-22] MEDS ORDERED: COLLAGENASE CLOSTRIDIUM HIST. OINT 30 GM TOP SCH (10:00)
== END 2017-01-21 20:00 | disposition home or self-care (01) | DRG 641 ==
LOC: ER 11:10 → UNDOADMIN 14:08 → EH 14:08 → 4N 15:40 → EH 15:40 → 4N 16:50 → EH 16:50
PROVIDERS: ADMIT Internal Medicine; ATTEND Internal Medicine
DX: E87.5 Hyperkalemia (principal); I13.0 Hypertensive heart and chronic kidney disease with heart failure and stage 1 through stage 4 chronic kidney disease, or unspecified chronic kidney disease; I50.42 Chronic combined systolic (congestive) and diastolic (congestive) heart failure; N18.4 Chronic kidney disease, stage 4 (severe); I48.2 Chronic atrial fibrillation; E87.6 Hypokalemia; E11.22 Type 2 diabetes mellitus with diabetic chronic kidney disease; E11.40 Type 2 diabetes mellitus with diabetic neuropathy, unspecified; E11.319 Type 2 diabetes mellitus with unspecified diabetic retinopathy without macular edema; E11.51 Type 2 diabetes mellitus with diabetic peripheral angiopathy without gangrene; W05.0XXA Fall from non-moving wheelchair, initial encounter; E11.649 Type 2 diabetes mellitus with hypoglycemia without coma; T38.3X5A Adverse effect of insulin and oral hypoglycemic [antidiabetic] drugs, initial encounter; I25.10 Atherosclerotic heart disease of native coronary artery without angina pectoris; I25.2 Old myocardial infarction; E78.5 Hyperlipidemia, unspecified; J44.9 Chronic obstructive pulmonary disease, unspecified; F32.9 Major depressive disorder, single episode, unspecified; K21.9 Gastro-esophageal reflux disease without esophagitis; E03.9 Hypothyroidism, unspecified; Z79.899 Other long term (current) drug therapy; Z87.891 Personal history of nicotine dependence; Z89.611 Acquired absence of right leg above knee; Z79.01 Long term (current) use of anticoagulants
CPT/HCPCS: 36415; 71010; 80053; 80162; 82550; 82553; 82962; 83735; 84484; 85025; 93005; 93010; 96374; 99291; J0610; J1815; J3490

== ENCOUNTER → 2017-01-31 | Outpatient (CLI) | payer MEDICARE ==
--- NOTE | 2017-01-31 16:32 | RADIOLOGY REPORT (SQ) ---
EXAM DESCRIPTION: FOOT LEFT COMPLETE COMPLETED DATE/TIME: 01/31/2017 4:15 pm REASON FOR STUDY: TYPE 2 DIABETES MELLITUS WITH FOOT ULCER COMPARISON: 01/11/2017 TECHNIQUE: Three views left foot LIMITATIONS: None. FINDINGS: No fracture or bony destructive change seen. Appearance similar to prior study. Bony structures and joint spaces intact. No air seen within the soft tissues. No metallic foreign bodies. arterial calcification noted. IMPRESSION: No acute bony changes. TECHNICAL DOCUMENTATION: JOB ID: [id number] [employer]- All Rights Reserved
== END ==
LOC: WC 15:42
PROVIDERS: ATTEND Preventive Medicine Undersea and Hyperbaric Medicine
DX: E11.621 Type 2 diabetes mellitus with foot ulcer (principal)
CPT/HCPCS: 36415; 83036; 85652; 86140

== ENCOUNTER → 2017-03-14 | Outpatient (CLI) | payer MEDICARE ==
--- NOTE | 2017-03-14 17:36 | RADIOLOGY REPORT (SQ) ---
EXAM DESCRIPTION: FOOT LEFT COMPLETE COMPLETED DATE/TIME: 03/14/2017 5:21 pm REASON FOR STUDY: NON-PRS CHRONIC ULCER OTH PRT LEFT FOOT W FAT LAYER EXPOSED N18.4 CHRONIC KIDNEY DISEASE, STAGE 4 (SEVERE) L97.522 NON-PRS CHRONIC ULCER OTH PRT LEFT FOOT W FAT LAYER COMPARISON: 01/31/2017 NUMBER OF VIEWS: Three views. TECHNIQUE: AP, lateral and oblique radiographic images acquired of the left foot. LIMITATIONS: None. FINDINGS: MINERALIZATION: Normal. BONES: No acute fracture or dislocation. No plain film evidence for bony involvement by osteomyeliti s. JOINTS: No effusions. SOFT TISSUES: Ulceration is identified in close proximity to the calcaneus with adjacent increased de nsity which may be represent medication. Clinical correlation is recommended. OTHER: No other significant finding. IMPRESSION: No acute fracture dislocation. No plain film evidence for bony involvement by osteomyel itis. Other findings as noted above TECHNICAL DOCUMENTATION: JOB ID: [id number] [employer]- All Rights Reserved
[2017-03-14 18:36] LABS: ABSOLUTE EOSINOPHILS # (AUTO) 1.2 10^3/uL (0.0-0.6); ABSOLUTE LYMPHOCYTES (AUTO) 2.3 10^3/uL (0.5-4.7); ABSOLUTE MONOCYTES (AUTO) 0.8 10^3/uL (0.1-1.4); ABSOLUTE NEUT (AUTO) 4.2 10^3/uL (1.7-8.2); BASOPHILS % (AUTO) 0.3 % (0-2); EOSINOPHILS % (AUTO) 14.1 % (0-6); HEMATOCRIT 32.4 % (37.9-51.0); HEMOGLOBIN 10.9 g/dL (13.5-17.0); HGB HCT DIFFERENCE 0.3; LYMPHOCYTES % (AUTO) 26.7 % (13-45); MEAN CORPUSCULAR HEMOGLOBIN 34.9 pg (27.0-33.4); MEAN CORPUSCULAR HGB CONC 33.5 g/dL (32.0-36.0); MEAN CORPUSCULAR VOLUME 104 fl (80-97); MONOCYTES % (AUTO) 9.5 % (3-13); RED BLOOD COUNT 3.11 10^6/uL (4.35-5.55); RED CELL DISTRIBUTION WIDTH 14.1 % (11.5-14.0); SEGMENTED NEUTROPHILS % (AUTO) 49.4 % (42-78); WHITE BLOOD COUNT 8.5 10^3/uL (4.0-10.5)
[2017-03-14 18:45] LABS: ALBUMIN 3.5 g/dL (3.5-5.0); ANION GAP 11 (5-19); BLOOD UREA NITROGEN 29 mg/dL (7-20); CALCIUM 8.8 mg/dL (8.4-10.2); CARBON DIOXIDE 27 mmol/L (22-30); CHLORIDE 103 mmol/L (98-107); GLUCOSE 166 mg/dL (75-110); PHOSPHORUS 3.8 mg/dL (2.5-4.5); POTASSIUM 4.6 mmol/L (3.6-5.0); SODIUM 140.9 mmol/L (137-145)
[2017-03-15 14:58] LABS: APPEARANCE,URINE CLEAR; BILIRUBIN,URINE NEGATIVE (NEGATIVE); GLUCOSE, URINE NEGATIVE (NEGATIVE); KETONES,URINE NEGATIVE (NEGATIVE); LEUKOCYTE ESTERASE,URINE NEGATIVE (NEGATIVE); NITRITE,URINE NEGATIVE (NEGATIVE); PROTEIN,URINE >=500 mg/dL (NEGATIVE); URINE SPECIFIC GRAVITY 1.011; UROBILINOGEN,URINE NEGATIVE mg/dL (<2.0)
[2017-03-15 15:17] LABS: URINE CREATININE 94.8 mg/dL (22-328)
[2017-03-15 15:27] LABS: URINE PROTEIN 298.5 mg/dL (<12)
[2017-03-16 07:25] LABS: VITAMIN D 25-HYDROXY 28.3 ng/mL (30.0-100.0)
== END ==
LOC: OD 16:30
PROVIDERS: ATTEND Preventive Medicine Undersea and Hyperbaric Medicine
DX: N18.4 Chronic kidney disease, stage 4 (severe) (principal); L97.522 Non-pressure chronic ulcer of other part of left foot with fat layer exposed
CPT/HCPCS: 36415; 80048; 81001; 82040; 82306; 82570; 82728; 83540; 83550; 83970; 84100; 84156; 85025

== ENCOUNTER → 2017-07-25 | Outpatient (CLI) | payer MEDICARE ==
[2017-07-25 16:17] LABS: ABSOLUTE EOSINOPHILS # (AUTO) 0.5 10^3/uL (0.0-0.6); ABSOLUTE LYMPHOCYTES (AUTO) 2.3 10^3/uL (0.5-4.7); ABSOLUTE MONOCYTES (AUTO) 0.6 10^3/uL (0.1-1.4); ABSOLUTE NEUT (AUTO) 4.5 10^3/uL (1.7-8.2); BASOPHILS % (AUTO) 0.4 % (0-2); EOSINOPHILS % (AUTO) 5.9 % (0-6); HEMATOCRIT 40.7 % (37.9-51.0); HEMOGLOBIN 13.8 g/dL (13.5-17.0); HGB HCT DIFFERENCE 0.7; MEAN CORPUSCULAR HEMOGLOBIN 34.5 pg (27.0-33.4); MEAN CORPUSCULAR HGB CONC 33.9 g/dL (32.0-36.0); MEAN CORPUSCULAR VOLUME 102 fl (80-97); MONOCYTES % (AUTO) 7.6 % (3-13); RED CELL DISTRIBUTION WIDTH 13.8 % (11.5-14.0); SEGMENTED NEUTROPHILS % (AUTO) 57.1 % (42-78); WHITE BLOOD COUNT 7.8 10^3/uL (4.0-10.5)
[2017-07-25 16:37] LABS: ANION GAP 14 (5-19); BLOOD UREA NITROGEN 32 mg/dL (7-20); CALCIUM 8.9 mg/dL (8.4-10.2); CARBON DIOXIDE 28 mmol/L (22-30); CHLORIDE 94 mmol/L (98-107); CREATININE RESULT 2.23 mg/dL (0.52-1.25); SODIUM 135.8 mmol/L (137-145)
[2017-07-25 16:43] LABS: URINE PROTEIN 270.9 mg/dL (<12)
[2017-07-25 16:50] LABS: GLUCOSE 475 mg/dL (75-110)
== END ==
LOC: OD 14:54
PROVIDERS: ATTEND Internal Medicine Nephrology
DX: N18.4 Chronic kidney disease, stage 4 (severe) (principal); R80.9 Proteinuria, unspecified; E55.9 Vitamin D deficiency, unspecified
CPT/HCPCS: 36415; 80048; 82306; 82570; 84156; 85025

== ENCOUNTER → 2017-10-18 | Outpatient (CLI) | payer MEDICARE ==
[2017-10-18 16:31] LABS: ALBUMIN 3.8 g/dL (3.5-5.0); ANION GAP 10 (5-19); BLOOD UREA NITROGEN 35 mg/dL (7-20); CALCIUM 8.8 mg/dL (8.4-10.2); CARBON DIOXIDE 29 mmol/L (22-30); CHLORIDE 96 mmol/L (98-107); GLUCOSE 387 mg/dL (75-110); PHOSPHORUS 3.7 mg/dL (2.5-4.5); POTASSIUM 5.1 mmol/L (3.6-5.0); SODIUM 135.3 mmol/L (137-145)
[2017-10-18 16:37] LABS: URINE CREATININE 49.9 mg/dL (22-328)
[2017-10-18 16:50] LABS: UR PRO/CREAT RATIO RESULT 5.9 mg/mg (0.0-0.2)
== END ==
LOC: OD 15:24
PROVIDERS: ATTEND Internal Medicine Nephrology
DX: E11.21 Type 2 diabetes mellitus with diabetic nephropathy (principal); N18.3 Chronic kidney disease, stage 3 (moderate); E55.9 Vitamin D deficiency, unspecified
CPT/HCPCS: 36415; 80048; 82040; 82306; 82570; 83970; 84100; 84156

== ENCOUNTER → 2018-01-25 | Outpatient (CLI) | payer MEDICARE ==
[2018-01-25 15:28] LABS: UR PRO/CREAT RATIO RESULT 4.4 mg/mg (0.0-0.2); URINE CREATININE 39.6 mg/dL (22-328); URINE PROTEIN 175.2 mg/dL (<12)
[2018-01-25 17:10] LABS: ANION GAP 13 (5-19); BLOOD UREA NITROGEN 43 mg/dL (7-20); CALCIUM 9.4 mg/dL (8.4-10.2); CARBON DIOXIDE 26 mmol/L (22-30); CHLORIDE 100 mmol/L (98-107); POTASSIUM 4.9 mmol/L (3.6-5.0); SODIUM 138.7 mmol/L (137-145)
[2018-01-25 17:38] LABS: GLUCOSE 416 mg/dL (75-110)
== END ==
LOC: OD 14:33
PROVIDERS: ATTEND Internal Medicine Nephrology
DX: N18.4 Chronic kidney disease, stage 4 (severe) (principal); E55.9 Vitamin D deficiency, unspecified; N25.81 Secondary hyperparathyroidism of renal origin; E11.21 Type 2 diabetes mellitus with diabetic nephropathy
CPT/HCPCS: 36415; 80048; 82306; 82570; 83970; 84156

== ENCOUNTER → 2018-05-30 | Outpatient (CLI) | payer MEDICARE ==
[2018-05-30 15:48] LABS: ABSOLUTE EOSINOPHILS # (AUTO) 0.3 10^3/uL (0.0-0.6); ABSOLUTE MONOCYTES (AUTO) 0.8 10^3/uL (0.1-1.4); ABSOLUTE NEUT (AUTO) 6.1 10^3/uL (1.7-8.2); BASOPHILS % (AUTO) 0.5 % (0-2); EOSINOPHILS % (AUTO) 3.3 % (0-6); HEMATOCRIT 40.1 % (37.9-51.0); HEMOGLOBIN 13.7 g/dL (13.5-17.0); LYMPHOCYTES % (AUTO) 21.7 % (13-45); MEAN CORPUSCULAR HGB CONC 34.3 g/dL (32.0-36.0); MEAN CORPUSCULAR VOLUME 102 fl (80-97); MONOCYTES % (AUTO) 8.8 % (3-13); PLATELET COUNT 125 10^3/uL (150-450); RED BLOOD COUNT 3.93 10^6/uL (4.35-5.55); RED CELL DISTRIBUTION WIDTH 13.8 % (11.5-14.0); SEGMENTED NEUTROPHILS % (AUTO) 65.7 % (42-78); TOTAL CELLS COUNTED % (AUTO) 100 %; WHITE BLOOD COUNT 9.3 10^3/uL (4.0-10.5)
[2018-05-30 15:49] LABS: APPEARANCE,URINE CLEAR; BILIRUBIN,URINE NEGATIVE (NEGATIVE); COLOR,URINE STRAW; GLUCOSE, URINE 150 mg/dL (NEGATIVE); KETONES,URINE NEGATIVE (NEGATIVE); LEUKOCYTE ESTERASE,URINE NEGATIVE (NEGATIVE); NITRITE,URINE NEGATIVE (NEGATIVE); PROTEIN,URINE 100 mg/dL (NEGATIVE); UROBILINOGEN,URINE NEGATIVE mg/dL (<2.0)
[2018-05-30 15:50] LABS: URINE SPECIFIC GRAVITY 1.012
[2018-05-30 16:09] LABS: UR PRO/CREAT RATIO RESULT 3.1 mg/mg (0.0-0.2); URINE CREATININE 62.4 mg/dL (22-328); URINE PROTEIN 196.3 mg/dL (<12)
[2018-05-30 16:12] LABS: ALBUMIN 3.6 g/dL (3.5-5.0); ANION GAP 10 (5-19); BLOOD UREA NITROGEN 34 mg/dL (7-20); CARBON DIOXIDE 31 mmol/L (22-30); CHLORIDE 100 mmol/L (98-107); GLUCOSE 251 mg/dL (75-110); PHOSPHORUS 4.6 mg/dL (2.5-4.5)
[2018-05-30 17:43] LABS: POTASSIUM 6.1 mmol/L (3.6-5.0)
== END ==
LOC: OD 15:06
PROVIDERS: ATTEND Internal Medicine Nephrology
DX: E11.21 Type 2 diabetes mellitus with diabetic nephropathy (principal); N18.4 Chronic kidney disease, stage 4 (severe); N25.81 Secondary hyperparathyroidism of renal origin
CPT/HCPCS: 36415; 80048; 81001; 82040; 82306; 82570; 83970; 84100; 84156; 85025

== ENCOUNTER → 2018-06-01 | Outpatient (CLI) | payer MEDICARE | LOC: OD 14:58 | PROVIDERS: ATTEND Internal Medicine Nephrology | DX: E87.5 Hyperkalemia (principal) | CPT/HCPCS: 36415; 84132 ==

== ENCOUNTER 2018-08-16 15:08 | Inpatient (IN) | payer MEDICARE ==
[2018-08-16] MEDS ORDERED: ONDANSETRON 4 MG TAB.RAPDIS PO ONE (16:11)
[2018-08-16] MEDS ORDERED: ONDANSETRON HCL INJ/PF 4 MG/2 ML SDV IV ONE (16:11)
[2018-08-16] MEDS ORDERED: ASPIRIN 81 MG TABLET, CHEWABLE PO ONE (16:11)
--- NOTE | 2018-08-16 16:36 | RADIOLOGY REPORT (SQ) ---
EXAM DESCRIPTION: CHEST SINGLE VIEW COMPLETED DATE/TIME: 08/16/2018 4:25 pm REASON FOR STUDY: diabetic, vomiting COMPARISON: 08/25/2016. EXAM PARAMETERS: NUMBER OF VIEWS: One view. TECHNIQUE: Single frontal radiographic view of the chest acquired. RADIATION DOSE: NA LIMITATIONS: None. FINDINGS: LUNGS AND PLEURA: No acute infiltrates or effusions. MEDIASTINUM AND HILAR STRUCTURES: No masses. Contour normal. HEART AND VASCULAR STRUCTURES: The heart is normal. The pulmonary vasculature is normal. BONES: No acute findings. HARDWARE: None in the chest. IMPRESSION: No acute disease. TECHNICAL DOCUMENTATION: JOB ID: [id number] [employer]- All Rights Reserved Reading location - IP/workstation name: [email or web address]
--- NOTE | 2018-08-16 17:18 | ER Document Report ---
ED Medical Screen (RME) - General TRAVEL OUTSIDE OF THE [place] IN LAST 30 DAYS: No <ORIANATAYDIOGENES - Last Filed: 08/16/18 16:14> <KATHLEEN BRITO - Last Filed: 08/16/18 21:15> - General Chief Complaint: Vomiting Stated Complaint: VOMITING/FLU SYMPTOMS Time Seen by Provider: 08/16/18 16:05 - Related Data Allergies/Adverse Reactions: No Known Allergies Allergy (Verified 08/16/18 15:09) Past Medical History - Social History Chew tobacco use (# tins/day): No Frequency of alcohol use: None Drug Abuse: None - Past Medical History Cardiac Medical History: Reports: Hx Atrial Fibrillation, Hx Congestive Heart F ailure, Hx Coronary Artery Disease, Hx Heart Attack, Hx Hypercholesterolemia, Hx Hypertension, Hx Peripheral Vascular Disease Pulmonary Medical History: Reports: Hx COPD Denies: Hx Tuberculosis Endocrine Medical History: Reports: Hx Diabetes Mellitus Type 1, Hx Diabetes Mellitus Type 2, Hx Hypothyroidism Renal/ Medical History: Reports: Hx Renal Insufficiency. Denies: Hx Peritoneal Dialysis GI Medical History: Reports: Hx Gastroesophageal Reflux Disease, Hx Ulcer Psychiatric Medical History: Reports: Hx Depression Past Surgical History: Reports: Hx Cardiac Catheterization, Hx Orthopedic Surgery - RAKA, Hx Vascular Surgery - Angioplasty in the right leg - Immunizations Hx Diphtheria, Pertussis, Tetanus Vaccination: Yes <DIOGENES GASTELUM - Last Filed: 08/16/18 16:14> Physical Exam <ORIANADIOGENES - Last Filed: 08/16/18 16:14> - Vital signs Vitals: Temp Pulse Resp BP Pulse Ox 99.9 F 103 H 20 181/88 H 91 L 08/16/18 15:32 08/16/18 15:32 08/16/18 15:32 08/16/18 15:32 08/16/18 15:32 - Notes Notes: 58-year-old male who presents today with complaints of vomiting beginning at 1430 while at physical therapy. at bedside states the patient has been shaking as well. Patient has not taken his BGL since having symptoms and does have a history of diabetes. Patient states he feels hot and has diaphoresis. Patient denies abdominal pain, blood in stool or vomit, chest pain, or shortness of breath. I have greeted and performed a rapid initial assessment of this patient. A comprehensive ED assessment and evaluation of the patient, analysis of test results, and completion of the medical decision making process will be conducted by additional ED providers. Review of systems: Constitutional: Feels hot. Diaphoresis. Gastrointestinal: Vomiting. Denies: abdominal pain PHYSICAL EXAM GENERAL: Alert, interacts well. Appears nauseated. HEAD: Normocephalic, atraumatic. EYES: Pupils equal, round, and reactive to light. Extraocular movements intact. ENT: Oral mucosa moist, tongue midline. NECK: Full range of motion. Supple. Trachea midline. LUNGS: No respiratory distress. ABDOMEN: Holding emesis bag with vomit in it. EXTREMITIES: Right AKA. NEUROLOGICAL: Alert and oriented x3. Normal speech. PSYCH: Normal affect, normal mood. SKIN: Warm, dry, normal turgor. No rashes or lesions noted. (DIOGENES GASTELUM) Course - Laboratory Result Diagrams: 08/16/18 16:50 08/16/18 16:50 <KATHLEEN BRITO - Last Filed: 08/16/18 21:15> - Vital Signs Vital signs: Temp Pulse Resp BP Pulse Ox 98.4 F 103 H 18 121/71 97 08/16/18 17:59 08/16/18 15:32 08/16/18 20:16 08/16/18 20:16 08/16/18 20:16 - Laboratory Laboratory results interpreted by me: 08/16/18 08/16/18 08/16/18 16:50 16:50 16:50 WBC 13.4 H RBC 4.18 L MCV 102 H MCH 34.3 H Seg Neuts % (Manual) 89 H Lymphocytes % (Manual) 3 L Abs Neuts (Manual) 12.5 H Abs Lymphs (Manual) 0.4 L BUN 28 H Creatinine 2.70 H Est GFR ( Amer) 29 L Est GFR (Non-Af Amer) 24 L Glucose 262 H Phosphorus NT-Pro-B Natriuret Pep 3340 H 08/16/18 16:50 WBC RBC MCV MCH Seg Neuts % (Manual) Lymphocytes % (Manual) Abs Neuts (Manual) Abs Lymphs (Manual) BUN Creatinine Est GFR ( Amer) Est GFR (Non-Af Amer) Glucose Phosphorus 2.3 L NT-Pro-B Natriuret Pep Doctor's Discharge <DIOGENES GASTELUM - Last Filed: 08/16/18 16:14> <KATHLEEN BRITO - Last Filed: 08/16/18 21:15> - Discharge Clinical Impression: Atrial fibrillation with RVR, Diaphoresis, Vomiting Condition: Stable Disposition: ADMITTED INPATIENT
[2018-08-16 17:41] LABS: HEMATOCRIT 42.8 % (37.9-51.0); HEMOGLOBIN 14.3 g/dL (13.5-17.0); MEAN CORPUSCULAR HEMOGLOBIN 34.3 pg (27.0-33.4); MEAN CORPUSCULAR HGB CONC 33.5 g/dL (32.0-36.0); MEAN CORPUSCULAR VOLUME 102 fl (80-97); PLATELET COUNT 179 10^3/uL (150-450); RED BLOOD COUNT 4.18 10^6/uL (4.35-5.55); RED CELL DISTRIBUTION WIDTH 13.8 % (11.5-14.0); WHITE BLOOD COUNT 13.4 10^3/uL (4.0-10.5)
[2018-08-16 17:43] LABS: ALANINE AMINOTRANSFERASE 21 U/L (21-72); ALKALINE PHOSPHATASE 116 U/L (38-126); ANION GAP 12 (5-19); ASPARTATE AMINO TRANSFERASE 26 U/L (17-59); BILIRUBIN,DIRECT 0.4 mg/dL (0.0-0.4); BILIRUBIN,TOTAL 0.6 mg/dL (0.2-1.3); BLOOD UREA NITROGEN 28 mg/dL (7-20); CALCIUM 9.4 mg/dL (8.4-10.2); CARBON DIOXIDE 26 mmol/L (22-30); CHLORIDE 105 mmol/L (98-107); CREATINE KINASE 59 U/L (55-170); GLUCOSE 262 mg/dL (75-110); LIPASE 127.6 U/L (23-300); POTASSIUM 4.6 mmol/L (3.6-5.0); SODIUM 143.1 mmol/L (137-145); TOTAL PROTEIN 7.9 g/dL (6.3-8.2)
[2018-08-16 17:44] LABS: ABSOLUTE LYMPHOCYTES# (MANUAL) 0.4 10^3/uL (0.5-4.7); ABSOLUTE MONOCYTES # (MANUAL) 0.5 10^3/uL (0.1-1.4); ABSOLUTE NEUTROPHILS# (MANUAL) 12.5 10^3/uL (1.7-8.2); BAND NEUTROPHILS % (MANUAL) 4 % (3-5); BASOPHILS % (MANUAL) 0 % (0-2); EOSINOPHILS % (MANUAL) 0 % (0-6); LYMPHOCYTES % (MANUAL) 3 % (13-45); MONOCYTES % (MANUAL) 4 % (3-13); SEGMENTED NEUTROPHILS % (MAN) 89 % (42-78); TOTAL CELLS COUNTED 100
[2018-08-16 17:45] LABS: PLATELET COMMENT ADEQUATE; TOXIC VACUOLATION PRESENT
[2018-08-16 17:51] LABS: CREATINE KINASE MB 0.47 ng/mL (<4.55); TROPONIN I 0.021 ng/mL
[2018-08-16] MEDS ORDERED: DILTIAZEM HCL INJ 25 MG/5 ML VIAL IV ONE (18:07)
[2018-08-16] MEDS ORDERED: DILTIAZEM HCL/D5W 125 MG/125 ML RTUINJ IV PRN (18:07)
--- NOTE | 2018-08-16 18:25 | ER Document Report ---
ED General - General Chief Complaint: Vomiting Stated Complaint: VOMITING/FLU SYMPTOMS Time Seen by Provider: 08/16/18 16:05 TRAVEL OUTSIDE OF THE [place] IN LAST 30 DAYS: No - HPI Notes: Patient is a 58-year-old male that presents to the emergency department for chief complaint of vomiting, diaphoresis and shakiness. Patient states he had acute onset of diaphoresis nausea and vomiting this afternoon. He reports 3-4 episodes of vomiting. He also states he felt very shaky. He denied any associated chest pain, palpitations, shortness of breath. He does have a significant history of cardiac disease and is on Eliquis for atrial fibrillation. He states he has had atrial fib with RVR in the past. He denies any recent illness including fevers cough congestion and dysuria. Past Medical History: CAD, A. fib, CHF, SD, hyperlipidemia, hypertension, peripheral vascular disease, COPD, diabetes Past Surgical History: Reviewed in chart Social History: Reviewed in chart Family History: Reviewed and noncontributory for presenting illness Allergies: Reviewed, see documented allergy list. REVIEW OF SYSTEMS: CONSTITUTIONAL : No fever No chills diaphoresis No recent illness EENT: No vision changes No congestion No sore throat CARDIOVASCULAR: No chest pain No palpitations RESPIRATORY: No shortness of breath No cough No difficulty breathing GASTROINTESTINAL: No abdominal pain nausea vomiting No diarrhea GENITOURINARY: No dysuria No hematuria No difficulty urinating MUSCULOSKELETAL: No back pain No leg pain No arm pain SKIN: No rashes No lesions LYMPHATIC: No swollen, enlarged glands. NEUROLOGICAL: No lightheadedness No headache No weakness No paresthesias PSYCHIATRIC: No anxiety No depression PHYSICAL EXAMINATION: Vital signs reviewed, nursing noted reviewed. GENERAL: Well-appearing, well-nourished and in no acute distress. HEAD: Atraumatic, normocephalic. EYES: Eyes appear normal, extraocular movements intact, sclera anicteric, conjunctiva are normal. ENT: nares patent, oropharynx clear without exudates. Moist mucous membranes. NECK: Normal range of motion, supple without lymphadenopathy LUNGS: Breath sounds clear to auscultation bilaterally and equal. No wheezes rales or rhonchi. HEART: Irregularly irregular and tachycardic without murmurs ABDOMEN: Protuberant, soft, nontender, normoactive bowel sounds. No rebound, guarding, or rigidity. No masses appreciated. EXTREMITIES: Nontender, good range of motion, no pitting or edema. NEUROLOGICAL: No focal neurological deficits. Moves all extremities spontaneou sly Motor and sensory grossly intact on exam. PSYCH: Normal mood, normal affect. SKIN: Warm, Dry, normal turgor, no rashes or lesions noted on exposed skin - Related Data Allergies/Adverse Reactions: No Known Allergies Allergy (Verified 08/16/18 15:09) Past Medical History - Social History Smoking Status: Former Smoker Chew tobacco use (# tins/day): No Frequency of alcohol use: None Drug Abuse: None Family History: Reviewed & Not Pertinent Patient has suicidal ideation: No Patient has homicidal ideation: No - Past Medical History Cardiac Medical History: Reports: Hx Atrial Fibrillation, Hx Congestive Heart Failure, Hx Coronary Artery Disease, Hx Heart Attack, Hx Hypercholesterolemia, H x Hypertension, Hx Peripheral Vascular Disease Pulmonary Medical History: Reports: Hx COPD Denies: Hx Tuberculosis Endocrine Medical History: Reports: Hx Diabetes Mellitus Type 1, Hx Diabetes Mellitus Type 2, Hx Hypothyroidism Renal/ Medical History: Reports: Hx Renal Insufficiency. Denies: Hx Peritoneal Dialysis GI Medical History: Reports: Hx Gastroesophageal Reflux Disease, Hx Ulcer Psychiatric Medical History: Reports: Hx Depression Past Surgical History: Reports: Hx Cardiac Catheterization, Hx Orthopedic Surgery - RAKA, Hx Vascular Surgery - Angioplasty in the right leg - Immunizations Hx Diphtheria, Pertussis, Tetanus Vaccination: Yes Hx Pneumococcal Vaccination: 09/25/14 Physical Exam - Vital signs Vitals: Temp Pulse Resp BP Pulse Ox 99.9 F 103 H 20 181/88 H 91 L 08/16/18 15:32 08/16/18 15:32 08/16/18 15:32 08/16/18 15:32 08/16/18 15:32 Course - Re-evaluation Re-evalutation: 08/16/18 18:23 Vitals reviewed. Nursing notes reviewed. Patient presented diaphoretic and nauseated. After receiving medication for nausea and heart rate control he is feeling much better. His diaphoresis has completely resolved. Patient's heart rate while on Cardizem is now 98. He will be admitted to the [facility] for further cardiac care. His lab work showed baseline renal insufficiency. His troponin is also baseline. The remainder of his workup is unremarkable. Case discussed with Dr. Juárez who accepted admission. Patient in agreement with this plan and improved at time of admission. Laboratory 08/16/18 08/16/18 08/16/18 16:50 16:50 16:50 WBC 13.4 H RBC 4.18 L Hgb 14.3 Hct 42.8 MCV 102 H MCH 34.3 H MCHC 33.5 RDW 13.8 Plt Count 179 Total Counted 100 Seg Neutrophils % Not Reportable Seg Neuts % (Manual) 89 H Band Neutrophils % 4 Lymphocytes % Not Reportable Lymphocytes % (Manual) 3 L Monocytes % Not Reportable Monocytes % (Manual) 4 Eosinophils % Not Reportable Eosinophils % (Manual) 0 Basophils % Not Reportable Basophils % (Manual) 0 Absolute Neutrophils Not Reportable Abs Neuts (Manual) 12.5 H Absolute Lymphocytes Not Reportable Abs Lymphs (Manual) 0.4 L Absolute Monocytes Not Reportable Abs Monocytes (Manual) 0.5 Absolute Eosinophils Not Reportable Absolute Eos (Manual) 0.0 Absolute Basophils Not Reportable Abs Basophils (Manual) 0.0 Toxic Vacuolation PRESENT Platelet Comment ADEQUATE Macrocytosis 1+ Sodium 143.1 Potassium 4.6 Chloride 105 Carbon Dioxide 26 Anion Gap 12 BUN 28 H Creatinine 2.70 H Est GFR ( Amer) 29 L Est GFR (Non-Af Amer) 24 L Glucose 262 H Calcium 9.4 Total Bilirubin 0.6 Direct Bilirubin 0.4 Neonat Total Bilirubin Not Reportable Neonat Direct Bilirubin Not Reportable Neonat Indirect Bili Not Reportable AST 26 ALT 21 Alkaline Phosphatase 116 Creatine Kinase 59 CK-MB (CK-2) 0.47 Troponin I 0.021 Total Protein 7.9 Albumin 4.0 Lipase 127.6 Chest X-Ray 08/16/18 16:11 IMPRESSION: No acute disease. - Vital Signs Vital signs: Temp Pulse Resp BP Pulse Ox 98.4 F 103 H 12 155/79 H 100 08/16/18 17:59 08/16/18 15:32 08/16/18 18:01 08/16/18 18:01 08/16/18 18:04 - Laboratory Result Diagrams: 08/16/18 16:50 08/16/18 16:50 Laboratory results interpreted by me: 08/16/18 08/16/18 16:50 16:50 WBC 13.4 H RBC 4.18 L MCV 102 H MCH 34.3 H Seg Neuts % (Manual) 89 H Lymphocytes % (Manual) 3 L Abs Neuts (Manual) 12.5 H Abs Lymphs (Manual) 0.4 L BUN 28 H Creatinine 2.70 H Est GFR ( Amer) 29 L Est GFR (Non-Af Amer) 24 L Glucose 262 H - EKG Interpretation by Me Additional EKG results interpreted by me: 08/16/18 18:24 Interpreted by myself 1714: Atrial fibrillation with RVR, rate 149, right axis, no ST elevation Critical Care Note - Critical Care Note Total time excluding time spent on procedures (mins): 35 Comments: Critical care time 35 exclusive from separate billable procedures for a patient requiring complex medical decision making, and high potential for clinical deterioration. Time spent obtaining history from patient or surrogate, discussions with consultants, development of treatment plan with patient or surrogate, evaluation of patient's response to treatment, examination of patient, ordering and performing treatments and interventions, ordering and review of laboratory studies, re-evaluation of patient's condition, ordering and review of radiographic studies and review of old charts Discharge - Discharge Clinical Impression: Atrial fibrillation with RVR, Diaphoresis, Vomiting Condition: Stable Disposition: ADMITTED INPATIENT Admitting Provider[facility] Unit Admitted: [facility] Referrals: CAROL ANN RILEY MD [Primary Care Provider] - Follow up as needed
--- NOTE | 2018-08-16 19:09 | EKG REPORT ---
SEVERITY:- ABNORMAL ECG - ATRIAL FIBRILLATION, V-RATE 82-208 RIGHT AXIS DEVIATION ABNORMAL T, CONSIDER ISCHEMIA, DIFFUSE LEADS : Confirmed by: Mayra Sanz 16-Aug-2018 19:08:39
[2018-08-16] MEDS ORDERED: IPRATROPIUM/ALBUTEROL 0.5-2.5 MG/3 ML AMPUL NEB PRN (19:36)
[2018-08-16 20:05] LABS: INTERNATIONAL RATION (INR) 1.09; PARTIAL THROMBOPLASTIN TIME 29.9 SEC (23.5-35.8); PROTHROMBIN TIME 14.7 SEC (11.4-15.4)
[2018-08-16 20:39] LABS: PHOSPHORUS 2.3 mg/dL (2.5-4.5)
[2018-08-16 22:22] LABS: FREE T4 (FREE THYROXINE) 1.63 ng/dL (0.78-2.19)
[2018-08-16 22:36] LABS: THYROID STIMULATING HORMONE 2.28 uIU/mL (0.47-4.68)
[2018-08-16 23:09] LABS: CREATINE KINASE MB 1.76 ng/mL (<4.55); TROPONIN I 0.041 ng/mL
[2018-08-17 00:46] LABS: ARTERIAL BLOOD BASE EXCESS 0.6 mmol/L; ARTERIAL BLOOD H2CO3 1.12 mmol/L (1.05-1.35); ARTERIAL BLOOD HCO3 24.5 mmol/L (20-24); ARTERIAL BLOOD O2 SATURATION 95.8 % (94-98); ARTERIAL BLOOD PCO2 37.3 mmHg (35-45); ARTERIAL BLOOD PH 7.44 (7.35-7.45); ARTERIAL BLOOD PO2 76.7 mmHg (80-100); ARTERIAL BLOOD TOTAL CO2 25.7 mmol/L (23-27)
[2018-08-17 00:55] LABS: ARTERIAL BLOOD FIO2 ROOM AIR
[2018-08-17 03:32] LABS: ABSOLUTE LYMPHOCYTES (AUTO) 0.8 10^3/uL (0.5-4.7); ABSOLUTE MONOCYTES (AUTO) 0.8 10^3/uL (0.1-1.4); ABSOLUTE NEUT (AUTO) 12.9 10^3/uL (1.7-8.2); BASOPHILS % (AUTO) 0.2 % (0-2); EOSINOPHILS % (AUTO) 0.3 % (0-6); HEMATOCRIT 39.1 % (37.9-51.0); HEMOGLOBIN 13.3 g/dL (13.5-17.0); LYMPHOCYTES % (AUTO) 5.3 % (13-45); MEAN CORPUSCULAR HEMOGLOBIN 34.2 pg (27.0-33.4); MEAN CORPUSCULAR HGB CONC 34.1 g/dL (32.0-36.0); MEAN CORPUSCULAR VOLUME 100 fl (80-97); MONOCYTES % (AUTO) 5.7 % (3-13); PLATELET COUNT 136 10^3/uL (150-450); RED CELL DISTRIBUTION WIDTH 13.7 % (11.5-14.0); SEGMENTED NEUTROPHILS % (AUTO) 88.5 % (42-78); TOTAL CELLS COUNTED % (AUTO) 100 %; WHITE BLOOD COUNT 14.6 10^3/uL (4.0-10.5)
[2018-08-17 04:14] LABS: ALANINE AMINOTRANSFERASE 16 U/L (21-72); ALKALINE PHOSPHATASE 86 U/L (38-126); ANION GAP 14 (5-19); ASPARTATE AMINO TRANSFERASE 30 U/L (17-59); BILIRUBIN,DIRECT 0.3 mg/dL (0.0-0.4); BILIRUBIN,TOTAL 0.8 mg/dL (0.2-1.3); BLOOD UREA NITROGEN 33 mg/dL (7-20); CALCIUM 9.2 mg/dL (8.4-10.2); CARBON DIOXIDE 26 mmol/L (22-30); CHLORIDE 100 mmol/L (98-107); CHOLESTEROL 99.39 mg/dL (0-200); GLUCOSE 264 mg/dL (75-110); POTASSIUM 4.5 mmol/L (3.6-5.0); SODIUM 139.7 mmol/L (137-145); TOTAL PROTEIN 8.2 g/dL (6.3-8.2); TRIGLYCERIDES 159 mg/dL (<150)
[2018-08-17 04:25] LABS: CREATINE KINASE MB 2.12 ng/mL (<4.55); DIRECT LDL 49 mg/dL (<100); TROPONIN I 0.053 ng/mL
[2018-08-17 04:26] LABS: VLDL CHOLESTEROL 31.8 mg/dL (10-31)
[2018-08-17] MEDS: DILTIAZEM HCL/D5W 125 MG/125 ML RTUINJ IV PRN ×2 (06:26→17:20)
[2018-08-17 09:37] LABS: CREATINE KINASE MB 1.65 ng/mL (<4.55); TROPONIN I 0.059 ng/mL
[2018-08-17] MEDS ORDERED: (PENDING PHARMACY ID) (Linagliptin [Tradjenta] 5 MG) PO SCH (12:15)
[2018-08-17] MEDS ORDERED: INSULIN DETEMIR 80 UNIT SQ SCH (12:15)
[2018-08-17 12:31] LABS: APPEARANCE,URINE CLOUDY; BILIRUBIN,URINE NEGATIVE (NEGATIVE); GLUCOSE, URINE 150 mg/dL (NEGATIVE); KETONES,URINE NEGATIVE (NEGATIVE); LEUKOCYTE ESTERASE,URINE NEGATIVE (NEGATIVE); NITRITE,URINE NEGATIVE (NEGATIVE); PROTEIN,URINE >=500 mg/dL (NEGATIVE); URINE SPECIFIC GRAVITY 1.025; UROBILINOGEN,URINE NEGATIVE mg/dL (<2.0)
[2018-08-17 12:34] LABS: COLOR,URINE YELLOW
[2018-08-17 12:43] LABS: URINE AMPHETAMINES SCREEN NEGATIVE; URINE BARBITURATES SCREEN NEGATIVE; URINE BENZODIAZEPINES SCREEN NEGATIVE; URINE COCAINE SCREEN NEGATIVE; URINE MARIJUANA (THC) SCREEN NEGATIVE; URINE METHADONE SCREEN NEGATIVE; URINE PHENCYCLIDINE SCREEN NEGATIVE
[2018-08-17] MEDS: LOSARTAN POTASSIUM 25 MG TABLET PO SCH (14:49)
[2018-08-17] MEDS: LEVOTHYROXINE SODIUM 0.15 MG TABLET PO SCH (14:49)
[2018-08-17] MEDS: FUROSEMIDE 40 MG TABLET PO SCH ×2 (14:49→17:20)
[2018-08-17] MEDS: ISOSORBIDE DINITRATE 20 MG TABLET PO SCH ×2 (14:49→21:52)
[2018-08-17] MEDS: TAMSULOSIN HCL 0.4 MG CAP.SR.24H PO SCH (14:49)
[2018-08-17] MEDS: DIGOXIN 0.125 MG TABLET PO SCH (14:50)
[2018-08-17] MEDS: APIXABAN 2.5 MG TABLET PO SCH ×2 (14:50→21:53)
[2018-08-17] MEDS: HYDRALAZINE HCL 50 MG TABLET PO SCH ×2 (14:50→21:52)
--- NOTE | 2018-08-17 21:28 | PDOC H&P ---
History of Present Illness Admission Date/PCP: 08/16/18 18:36 CLARISSE REMY MD History of Present Illness: JOSE D COLBERT is a 58 year old male.He has multiple comorbid conditions he came to the Emergency room for evaluation of vomiting, shakiness, he was found to be in atrial fibrillation with rapid ventricular response. He has a history of chronic atrial fibrillation on anticoagulation with Eliquis, in the emergency room he was started on Cardizem infusion and hospital admission was advised Past Medical History Cardiac Medical History: Reports: Atrial Fibrillation, Coronary Artery Disease, Myocardial Infarction, Hyperlipidema, Hypertension, Peripheral Vascular Disease Pulmonary Medical History: Reports: Chronic Obstructive Pulmonary Disease (COPD) Endocrine Medical History: Reports: Diabetes Mellitus Type 2, Hypothyroidism GI Medical History: Reports: Gastroesophageal Reflux Disease Psychiatric Medical History: Reports: Depression Past Surgical History Past Surgical History: Reports: Cardiac Catheterization, Orthopedic Surgery - RAKA, Vascular Surgery - Angioplasty in the right leg Social History Smoking Status: Former Smoker Cigarettes Packs Per Day: 2 Number of Years Smokin Last Time Smoked: 07/22/15 Frequency of Alcohol Use: None Hx Recreational Drug Use: No Drugs: None Hx Prescription Drug Abuse: No - Advance Directive Resuscitation Status: Full Code Family History Family History: Reviewed & Not Pertinent Parental Family History Reviewed: Yes Children Family History Reviewed: Yes Sibling(s) Family History Reviewed.: Yes Medication/Allergy Home Medications: Apixaban [Eliquis 2.5 mg Tablet] 2.5 mg PO BID 08/17/18 Atorvastatin Calcium [Lipitor 40 mg Tablet] 40 mg PO QHS 08/17/18 Calcitriol [Rocaltrol 0.25 Mcg Capsule] 0.25 mcg PO MOWEFR@1000 08/17/18 Digoxin [Lanoxin 0.125 mg Tablet] 0.125 mg PO DAILY 08/17/18 Exenatide Microspheres [Bydureon Pen] 2 mg SQ SA@1000 08/17/18 Furosemide [Lasix 40 mg Tablet] 40 mg PO BID 08/17/18 Hydralazine HCl [Apresoline 50 mg Tablet] 50 mg PO TID 08/17/18 Insulin Detemir [Levemir] 80 unit SQ DAILY 08/17/18 Isosorbide Dinitrate [Isordil Titradose 20 Mg Tablet] 20 mg PO TID 08/17/18 Levothyroxine Sodium 150 mcg PO DAILY 08/17/18 Linagliptin [Tradjenta] 5 mg PO DAILY 08/17/18 Losartan Potassium [Cozaar 25 mg Tablet] 25 mg PO DAILY 08/17/18 Metoprolol Succinate [Toprol XL 100 mg Tablet] 100 mg PO Q12 08/17/18 Tamsulosin HCl [Flomax] 0.4 mg PO DAILY 08/17/18 Allergies/Adverse Reactions: No Known Allergies Allergy (Verified 08/16/18 15:09) Review of Systems Constitutional: PRESENT: chills, fever(s). ABSENT: headache(s), weight gain, weight loss Eyes: ABSENT: visual disturbances Ears: ABSENT: hearing changes Cardiovascular: PRESENT: palpitations. ABSENT: chest pain, dyspnea on exertion, edema, orthropnea Respiratory: ABSENT: cough, hemoptysis Gastrointestinal: ABSENT: abdominal pain, constipation, diarrhea, hematemesis, hematochezia, nausea, vomiting Genitourinary: ABSENT: dysuria, hematuria Musculoskeletal: ABSENT: joint swelling Integumentary: ABSENT: rash, wounds Neurological: ABSENT: abnormal gait, abnormal speech, confusion, dizziness, focal weakness, syncope Psychiatric: ABSENT: anxiety, depression, homidical ideation, suicidal ideation Endocrine: ABSENT: cold intolerance, heat intolerance, menstrual abnormalities, polydipsia, polyuria Hematologic/Lymphatic: ABSENT: easy bleeding, easy bruising, lymphadenopathy Physical Exam Vital Signs: Temp Pulse Resp BP Pulse Ox 98.9 F 92 16 131/55 H 93 08/17/18 20:19 08/17/18 20:19 08/17/18 20:19 08/17/18 20:19 08/17/18 20:19 Intake & Output 08/16/18 08/17/18 08/18/18 06:59 06:59 06:59 Intake Total 125 2148 Output Total 0 550 Balance 125 1598 Weight 81.6 kg General appearance: PRESENT: no acute distress, well-developed, well-nourished Head exam: PRESENT: atraumatic, normocephalic Eye exam: PRESENT: conjunctiva pink, EOMI, PERRLA Ear exam: PRESENT: normal external ear exam Mouth exam: PRESENT: moist, tongue midline Neck exam: PRESENT: full ROM Respiratory exam: PRESENT: clear to auscultation clay Cardiovascular exam: PRESENT: RRR, +S1, +S2 Pulses: PRESENT: normal dorsalis pedis pul, +2 pedal pulses bilateral Vascular exam: PRESENT: normal capillary refill GI/Abdominal exam: PRESENT: normal bowel sounds, soft. ABSENT: distended, guarding, mass, organolmegaly, rebound, tenderness Rectal exam: PRESENT: deferred Extremities exam: PRESENT: right AKA Neurological exam: PRESENT: alert, awake, oriented to person, oriented to place, oriented to time, oriented to situation, CN II-XII grossly intact Psychiatric exam: PRESENT: appropriate affect, normal mood Skin exam: PRESENT: dry, intact, warm Results Laboratory Results: 08/17/18 03:24 08/17/18 03:52 08/16/18 08/16/18 08/17/18 21:34 21:34 00:25 WBC RBC Hgb Hct MCV MCH MCHC RDW Plt Count Seg Neutrophils % Lymphocytes % Monocytes % Eosinophils % Basophils % Absolute Neutrophils Absolute Lymphocytes Absolute Monocytes Absolute Eosinophils Absolute Basophils Carbonic Acid 1.12 HCO3/H2CO3 Ratio 21:1 ABG pH 7.44 ABG pCO2 37.3 ABG pO2 76.7 L ABG HCO3 24.5 H ABG O2 Saturation 95.8 ABG Base Excess 0.6 FiO2 ROOM AIR Sodium Potassium Chloride Carbon Dioxide Anion Gap BUN Creatinine Est GFR ( Amer) Est GFR (Non-Af Amer) Glucose Calcium Total Bilirubin AST ALT Alkaline Phosphatase Ammonia < 8.7 L Total Protein Albumin Triglycerides Cholesterol LDL Cholesterol Direct VLDL Cholesterol HDL Cholesterol TSH 2.28 Free T4 1.63 Urine Color Urine Appearance Urine pH Ur Specific [place] Urine Protein Urine Glucose (UA) Urine Ketones Urine Blood Urine Nitrite Ur Leukocyte Esterase Urine WBC (Auto) Urine RBC (Auto) 08/17/18 08/17/18 08/17/18 03:24 03:52 11:55 WBC 14.6 H RBC 3.90 L Hgb 13.3 L Hct 39.1 MCV 100 H MCH 34.2 H MCHC 34.1 RDW 13.7 Plt Count 136 L Seg Neutrophils % 88.5 H Lymphocytes % 5.3 L Monocytes % 5.7 Eosinophils % 0.3 Basophils % 0.2 Absolute Neutrophils 12.9 H Absolute Lymphocytes 0.8 Absolute Monocytes 0.8 Absolute Eosinophils 0.0 Absolute Basophils 0.0 Carbonic Acid HCO3/H2CO3 Ratio ABG pH ABG pCO2 ABG pO2 ABG HCO3 ABG O2 Saturation ABG Base Excess FiO2 Sodium 139.7 Potassium 4.5 Chloride 100 Carbon Dioxide 26 Anion Gap 14 BUN 33 H Creatinine 3.27 H Est GFR ( Amer) 24 L Est GFR (Non-Af Amer) 19 L Glucose 264 H Calcium 9.2 Total Bilirubin 0.8 AST 30 ALT 16 L Alkaline Phosphatase 86 Ammonia Total Protein 8.2 Albumin 4.0 Triglycerides 159 H Cholesterol 99.39 LDL Cholesterol Direct 49 VLDL Cholesterol 31.8 H HDL Cholesterol 23 L TSH Free T4 Urine Color YELLOW Urine Appearance CLOUDY Urine pH 5.0 Ur Specific [place] 1.025 Urine Protein >=500 H Urine Glucose (UA) 150 H Urine Ketones NEGATIVE Urine Blood SMALL H Urine Nitrite NEGATIVE Ur Leukocyte Esterase NEGATIVE Urine WBC (Auto) 22 Urine RBC (Auto) 169 08/16/18 08/16/18 08/16/18 16:50 16:50 16:50 Creatine Kinase 59 CK-MB (CK-2) 0.47 Troponin I 0.021 Cancelled NT-Pro-B Natriuret Pep 3340 H 08/16/18 08/17/18 08/17/18 21:34 03:24 03:52 Creatine Kinase CK-MB (CK-2) 1.76 Cancelled 2.12 Troponin I 0.041 Cancelled 0.053 NT-Pro-B Natriuret Pep 08/17/18 08:59 Creatine Kinase CK-MB (CK-2) 1.65 Troponin I 0.059 NT-Pro-B Natriuret Pep Impressions: Chest X-Ray 08/16/18 16:11 IMPRESSION: No acute disease. Assessment & Plan - Diagnosis (1) Atrial fibrillation with rapid ventricular response Is this a current diagnosis for this admission?: Yes Plan: Continue Cardizem infusion (2) Urinary tract infection Qualifiers: Urinary tract infection type: site unspecified Hematuria presence: without hematuria Qualified Code(s): N39.0 - Urinary tract infection, site not specified Is this a current diagnosis for this admission?: Yes Plan: He has bacteriuria, pyuria he also had chills and vomiting,, he has UTI
[2018-08-17] MEDS: METOPROLOL SUCCINATE 50 MG TAB.SR.24H PO SCH (21:53)
[2018-08-17] MEDS ORDERED: ATORVASTATIN CALCIUM 40 MG TABLET PO SCH (22:00)
[2018-08-17] MEDS ORDERED: CIPROFLOXACIN 200 MG/D5W RTU 200 MG/100 ML RTUPB IV SCH (22:00)
[2018-08-18 04:54] LABS: HEMATOCRIT 34.4 % (37.9-51.0); HEMOGLOBIN 12.1 g/dL (13.5-17.0); MEAN CORPUSCULAR HEMOGLOBIN 34.8 pg (27.0-33.4); MEAN CORPUSCULAR HGB CONC 35.3 g/dL (32.0-36.0); MEAN CORPUSCULAR VOLUME 99 fl (80-97); PLATELET COUNT 141 10^3/uL (150-450); RED BLOOD COUNT 3.48 10^6/uL (4.35-5.55); RED CELL DISTRIBUTION WIDTH 13.4 % (11.5-14.0); WHITE BLOOD COUNT 9.1 10^3/uL (4.0-10.5)
[2018-08-18 05:10] LABS: ALANINE AMINOTRANSFERASE 23 U/L (21-72); ALBUMIN 3.5 g/dL (3.5-5.0); ALKALINE PHOSPHATASE 72 U/L (38-126); ANION GAP 12 (5-19); ASPARTATE AMINO TRANSFERASE 37 U/L (17-59); BILIRUBIN,DIRECT 0.5 mg/dL (0.0-0.4); BILIRUBIN,TOTAL 0.9 mg/dL (0.2-1.3); BLOOD UREA NITROGEN 44 mg/dL (7-20); CALCIUM 9.3 mg/dL (8.4-10.2); CARBON DIOXIDE 26 mmol/L (22-30); CHLORIDE 97 mmol/L (98-107); GLUCOSE 239 mg/dL (75-110); POTASSIUM 4.1 mmol/L (3.6-5.0); SODIUM 135.1 mmol/L (137-145); TOTAL PROTEIN 7.2 g/dL (6.3-8.2)
[2018-08-18 05:21] LABS: ABSOLUTE LYMPHOCYTES# (MANUAL) 1.4 10^3/uL (0.5-4.7); ABSOLUTE NEUTROPHILS# (MANUAL) 6.7 10^3/uL (1.7-8.2); BAND NEUTROPHILS % (MANUAL) 1 % (3-5); BASOPHILS % (MANUAL) 0 % (0-2); EOSINOPHILS % (MANUAL) 0 % (0-6); LYMPHOCYTES % (MANUAL) 15 % (13-45); MONOCYTES % (MANUAL) 11 % (3-13); PLATELET COMMENT DECREASED; RBC MORPHOLOGY COMMENT NORMO-CYTIC/CHROMIC; SEGMENTED NEUTROPHILS % (MAN) 73 % (42-78); TOTAL CELLS COUNTED 100
[2018-08-18] MEDS: HYDRALAZINE HCL 50 MG TABLET PO SCH ×2 (05:57→13:58)
[2018-08-18] MEDS: ISOSORBIDE DINITRATE 20 MG TABLET PO SCH ×2 (05:57→13:58)
[2018-08-18] MEDS: LEVOTHYROXINE SODIUM 0.15 MG TABLET PO SCH (05:57)
[2018-08-18] MEDS: METOPROLOL SUCCINATE 50 MG TAB.SR.24H PO SCH (09:10)
[2018-08-18] MEDS: LOSARTAN POTASSIUM 25 MG TABLET PO SCH (09:11)
[2018-08-18] MEDS: FUROSEMIDE 40 MG TABLET PO SCH (09:11)
[2018-08-18] MEDS: TAMSULOSIN HCL 0.4 MG CAP.SR.24H PO SCH (09:11)
[2018-08-18] MEDS: DIGOXIN 0.125 MG TABLET PO SCH (09:12)
[2018-08-18] MEDS: APIXABAN 2.5 MG TABLET PO SCH (09:12)
[2018-08-18] MEDS ORDERED: INSULIN DETEMIR 100 UNIT/ML 3 ML PEN SUBCUT SCH (10:00)
[2018-08-18] MEDS ORDERED: CALCITRIOL 0.25 MCG CAPSULE PO SCH (10:00)
[2018-08-18] MEDS ORDERED: SITAGLIPTIN PHOSPHATE 25 MG TABLET PO SCH (10:00)
[2018-08-18] MEDS ORDERED: AMPICILLIN SODIUM 750 GM in NORMAL SALINE 50 ML IV SCH (18:00)
[2018-08-18 18:24] VITALS: BP 123/63
--- NOTE | 2018-08-18 18:27 | PDOC DISCHARGE SUMMARY ---
General - Admit/Disc Date/PCP Admission Date/Primary Care Provider: 08/16/18 18:36 CLARISSE REMY MD Discharge Date: 08/18/18 - Discharge Diagnosis (1) Atrial fibrillation with rapid ventricular response Is this a current diagnosis for this admission?: Yes (2) Urinary tract infection Is this a current diagnosis for this admission?: Yes (3) Gram-positive cocci in clusters Is this a current diagnosis for this admission?: Yes (5) Diabetes mellitus, type II Is this a current diagnosis for this admission?: Yes (6) Diabetic nephropathy Is this a current diagnosis for this admission?: Yes - Additional Information Resuscitation Status: Full Code Prescriptions: Ampicillin Sodium [Omnipen Inj 500 mg Vial] 500 mg PO Q6 #28 vial Home Medications: Apixaban [Eliquis 2.5 mg Tablet] 2.5 mg PO BID 08/17/18 Atorvastatin Calcium [Lipitor 40 mg Tablet] 40 mg PO QHS 08/17/18 Calcitriol [Rocaltrol 0.25 mcg Capsule] 0.25 mcg PO MOWEFR@1000 08/17/18 Digoxin [Lanoxin 0.125 mg Tablet] 0.125 mg PO DAILY 08/17/18 Exenatide Microspheres [Bydureon Pen] 2 mg SQ SA@1000 08/17/18 Furosemide [Lasix 40 mg Tablet] 40 mg PO BID 08/17/18 Hydralazine HCl [Apresoline 50 mg Tablet] 50 mg PO TID 08/17/18 Insulin Detemir [Levemir] 80 unit SQ DAILY 08/17/18 Isosorbide Dinitrate [Isordil Titradose 20 mg Tablet] 20 mg PO TID 08/17/18 Levothyroxine Sodium 150 mcg PO DAILY 08/17/18 Linagliptin [Tradjenta] 5 mg PO DAILY 08/17/18 Losartan Potassium [Cozaar 25 mg Tablet] 25 mg PO DAILY 08/17/18 Metoprolol Succinate [Toprol XL 100 mg Tablet] 100 mg PO Q12 08/17/18 Tamsulosin HCl [Flomax] 0.4 mg PO DAILY 08/17/18 Ampicillin Sodium [Omnipen Inj 500 mg Vial] 500 mg PO Q6 #28 vial 08/18/18 History of Present Illness History of Present Illness: JOSE D COLBERT is a 58 year old male.He has multiple comorbid conditions he came to the Emergency room for evaluation of vomiting, shakiness, he was found to be in atrial fibrillation with rapid ventricular response. He has a history of chronic atrial fibrillation on anticoagulation with Eliquis, in the emergency room he was started on Cardizem infusion and hospital admission was advised Hospital Course Hospital Course: Patient was admitted for the management of atrial fibrillation with rapid ventricular response. He has a history of chronic atrial fibrillation he felt feverish, rigors, in the emergency room he was found to be in atrial fibrillation with rapid ventricular response ,Hospital admission was advised the initial urinalysis suggest urinary tract infection. He was empirically treated with IV ciprofloxacin this was discontinued based on the initial urine culture results. The urine culture results showed gram-positive cocci in clusters that suggest Staphylococcus species. Patient was seen today on the floor he was stable he has no more complaints wants to go home Physical Exam Vital Signs: Temp Pulse Resp BP Pulse Ox 98.4 F 81 16 123/63 98 08/18/18 18:23 08/18/18 18:23 08/18/18 18:23 08/18/18 18:23 08/18/18 18:23 Intake & Output 08/17/18 08/18/18 08/19/18 06:59 06:59 06:59 Intake Total 125 2248 996 Output Total 0 550 975 Balance 125 1698 21 Weight 81.6 kg 87.1 kg General appearance: PRESENT: no acute distress Eye exam: PRESENT: PERRLA Respiratory exam: PRESENT: clear to auscultation clay Cardiovascular exam: PRESENT: +S1, +S2 GI/Abdominal exam: PRESENT: soft Neurological exam: PRESENT: alert Results Laboratory Results: 08/18/18 04:05 08/18/18 04:05 08/18/18 08/18/18 04:05 04:05 WBC 9.1 RBC 3.48 L Hgb 12.1 L Hct 34.4 L MCV 99 H MCH 34.8 H MCHC 35.3 RDW 13.4 Plt Count 141 L Seg Neutrophils % Not Reportable Lymphocytes % Not Reportable Monocytes % Not Reportable Eosinophils % Not Reportable Basophils % Not Reportable Absolute Neutrophils Not Reportable Absolute Lymphocytes Not Reportable Absolute Monocytes Not Reportable Absolute Eosinophils Not Reportable Absolute Basophils Not Reportable Sodium 135.1 L Potassium 4.1 Chloride 97 L Carbon Dioxide 26 Anion Gap 12 BUN 44 H Creatinine 3.08 H Est GFR ( Amer) 25 L Est GFR (Non-Af Amer) 21 L Glucose 239 H Calcium 9.3 Total Bilirubin 0.9 AST 37 ALT 23 Alkaline Phosphatase 72 Total Protein 7.2 Albumin 3.5 08/16/18 08/16/18 08/16/18 16:50 16:50 16:50 Creatine Kinase 59 CK-MB (CK-2) 0.47 Troponin I 0.021 Cancelled NT-Pro-B Natriuret Pep 3340 H 08/16/18 08/17/18 08/17/18 21:34 03:24 03:52 Creatine Kinase CK-MB (CK-2) 1.76 Cancelled 2.12 Troponin I 0.041 Cancelled 0.053 NT-Pro-B Natriuret Pep 08/17/18 08:59 Creatine Kinase CK-MB (CK-2) 1.65 Troponin I 0.059 NT-Pro-B Natriuret Pep Impressions: Chest X-Ray 08/16/18 16:11 IMPRESSION: No acute disease. Qualifiers - * PATIENT BEING DISCHARGED WITH ANY OF THE FOLLOWING DIAGNOSIS: No
[2018-08-18] MEDS ORDERED: AMPICILLIN SODIUM 500 MG in NORMAL SALINE 25 ML IV SCH (18:30)
[2018-08-19] MEDS ORDERED: (PENDING PHARMACY ID) (Exenatide Microspheres [Bydureon Pen] 2 MG) SQ SCH (10:00)
--- NOTE | 2018-08-22 20:27 | XCELERA REPORT ---
[address] [address] Transthoracic Echocardiogram Report Name: JOSE D COLBERT Age: 58 yrs Gender: Male : 1960 Patient Status: Inpatient Patient Location: [place] [address]^A Study Date: 08/16/2018 08:08 PM Height: 69 in Weight: 180 lb BSA: 2.0 m2 Procedure: A two-dimensional transthoracic echocardiogram with color flow and Doppler was performed. Study Quality: Poor. The study was technically difficult with many images being suboptimal in quality. Poor valvular interogation. Reason For Study: A-FIB History: ATRIAL FIBRILLATION. Ordering Physician: CLARISSE REMY Performed By: Kathie Ramsey Interpretation Summary The left ventricle is normal in size. There is normal left ventricular wall thickness. LV EF is 60% Left ventricular systolic function is normal. LV diastolic function could not be adequately assessed due to atrial fibrilation. Probably no wall motion abnormality. There is no thrombus. The right ventricle is not well visualized secondary to technical limitations The left atrial size is normal. There is no evidence of mitral valve prolapse. There is no mitral valve stenosis. There is a trace amount of mitral regurgitation There is no aortic valve stenosis There is no LVOT obstruction. No aortic regurgitation is present. There is no tricuspid stenosis. No tricuspid regurgitation. Unable to calculate RVSP due lack of TR jet..(poor TV interogationn). The pulmonic valve is not well visualized. There is no pericardial effusion. MMode/2D Measurements & Calculations RVDd: 1.8 cm LVIDd: 5.8 cm FS: 36.5 % LA dimension: 3.5 cm IVSd: 0.76 cm LVIDs: 3.7 cm EDV(Teich): 164.2 ml LVPWd: 1.0 cm ESV(Teich): 56.6 ml EF(Teich): 65.5 % Doppler Measurements & Calculations MV E max adriane: MV P1/2t max adriane: Ao V2 max: LV V1 max P.6 cm/sec 129.0 cm/sec 103.4 cm/sec 1.6 mmHg MV A max adriane: MV P1/2t: 34.6 msec Ao max P.3 mmHg LV V1 max: 40.0 cm/sec MVA(P1/2t): 6.4 cm2 62.5 cm/sec MV E/A: 2.6 MV dec slope: 1093 cm/sec2 MV dec time: 0.17 sec TV V2 max: PA V2 max: MV P1/2t-pr_phl: 102.6 cm/sec 71.2 cm/sec 34.6 msec TV max P.9 mmHg PA max P.0 mmHg Left Ventricle The left ventricle is normal in size. There is normal left ventricular wall thickness. LV EF is 60%. Left ventricular systolic function is normal. LV diastolic function could not be adequately assessed due to atrial fibrilation. Probably no wall motion abnormality. There is no thrombus. Right Ventricle The right ventricle is not well visualized secondary to technical limitations. Atria Right atrium not well visualized secondary to technical limitations. The left atrial size is normal. Mitral Valve There is no evidence of mitral valve prolapse. There is no vegetation seen on the mitral valve. There is no mitral valve stenosis. There is a trace amount of mitral regurgitation. Aortic Valve There is no aortic valvular vegetation. There is no aortic valve stenosis. There is no LVOT obstruction. No aortic regurgitation is present. Tricuspid Valve There is no tricuspid stenosis. No tricuspid regurgitation. Unable to calculate RVSP due lack of TR jet..(poor TV interogationn). Pulmonic Valve The pulmonic valve is not well visualized. Great Vessels The aortic root is not well visualized. Effusions There is no pericardial effusion. : CLARISSE REMY > [facility]
== END 2018-08-18 18:41 | disposition home or self-care (01) | DRG 309 ==
LOC: ER 15:08 → EH 18:36 → 3N 21:23
PROVIDERS: ADMIT Internal Medicine; ATTEND Internal Medicine
DX: I48.2 Chronic atrial fibrillation (principal); N39.0 Urinary tract infection, site not specified; N18.4 Chronic kidney disease, stage 4 (severe); I25.10 Atherosclerotic heart disease of native coronary artery without angina pectoris; I25.2 Old myocardial infarction; E78.5 Hyperlipidemia, unspecified; E11.51 Type 2 diabetes mellitus with diabetic peripheral angiopathy without gangrene; E11.22 Type 2 diabetes mellitus with diabetic chronic kidney disease; I12.9 Hypertensive chronic kidney disease with stage 1 through stage 4 chronic kidney disease, or unspecified chronic kidney disease; E11.21 Type 2 diabetes mellitus with diabetic nephropathy; J44.9 Chronic obstructive pulmonary disease, unspecified; B95.61 Methicillin susceptible Staphylococcus aureus infection as the cause of diseases classified elsewhere; Z79.01 Long term (current) use of anticoagulants; E03.9 Hypothyroidism, unspecified; K21.9 Gastro-esophageal reflux disease without esophagitis; F32.9 Major depressive disorder, single episode, unspecified; Z87.891 Personal history of nicotine dependence; Z79.4 Long term (current) use of insulin; Z79.899 Other long term (current) drug therapy
CPT/HCPCS: 36415; 71045; 80048; 80053; 80061; 80076; 80162; 80307; 81001; 82140; 82150; 82550; 82553; 82803; 82962; 83036; 83690; 83735; 83880; 84100; 84439; 84443; 84484; 85025; 85610; 85730; 87040; 87086; 87088; 87186; 93005; 93010; 93306; 96365; 96375; 99291; J0744; J1815; J2405; J3490

== ENCOUNTER 2018-09-09 19:34 | Inpatient (IN) | payer MEDICARE ==
--- NOTE | 2018-09-09 19:54 | ER Document Report ---
ED General - General Chief Complaint: Low Blood Pressure Stated Complaint: FEVER/VOMITING Time Seen by Provider: 09/09/18 19:54 Notes: Patient is a 58-year-old male with diabetes mellitus, hypertension and recent hospital admission that presents to the emergency department for chief complaint of lightheadedness, palpitations fever. Patient states that he started not feeling well, had some vomiting, earlier this evening, and then started feeling hot like he had a fever, and a lightheaded, so EMS was called. Upon arrival patient was found to be tachycardic, and febrile, he was given Tylenol by EMS and IV fluid bolus. At this time the patient denies having any cough, shortness of breath, chest pain or difficulty breathing, he states he was recently in the hospital and was thought to have a urinary tract infection, and thinks that may be related again this time. He denies having any abdominal pain, and his nausea has improved and essentially has resolved at this point. No other complaints at this time. Past Medical History: Diabetes mellitus, atrial fibrillation, on full anticoagulation, hypertension, hyperlipidemia Past Surgical History: Right lower extremity amputation Social History: Former smoker, denies alcohol or illicit drug use. Family History: Reviewed and noncontributory for presenting illness Allergies: Reviewed, see documented allergy list. REVIEW OF SYSTEMS: Other than noted above, the 12 point review of systems was reviewed with the patient and were negative, all pertinent findings are included in the HPI. PHYSICAL EXAMINATION: Vital signs reviewed, nursing noted reviewed. GENERAL: Ill-appearing male, but in no significant distress at this time. HEAD: Atraumatic, normocephalic. EYES: Eyes appear normal, extraocular movements intact, sclera anicteric, conjunctiva are normal. ENT: nares patent, oropharynx clear without exudates. Moist mucous membranes. NECK: Normal range of motion, supple without lymphadenopathy LUNGS: Breath sounds clear to auscultation bilaterally and equal. No wheezes rales or rhonchi. HEART: Heart rate tachycardic, irregular rhythm, atrial fibrillation with rapid ventricular response noted on telemetry, no audible murmur. ABDOMEN: Soft, nontender, normoactive bowel sounds. No rebound, guarding, or rigidity. No masses appreciated. EXTREMITIES: Right lower extremity amputation, stump appears to be intact, surgical wound well-healed, the rest of the patient's extremity exam is grossly unremarkable, no significant peripheral edema. NEUROLOGICAL: No focal neurological deficits. Moves all extremities spontaneously Motor and sensory grossly intact on exam. PSYCH: Normal mood, normal affect. SKIN: Warm, Dry, normal turgor, no rashes or lesions noted on exposed skin TRAVEL OUTSIDE OF THE [place] IN LAST 30 DAYS: No - Related Data Allergies/Adverse Reactions: No Known Allergies Allergy (Verified 08/16/18 15:09) Past Medical History - Social History Smoking Status: Former Smoker Family History: Reviewed & Not Pertinent - Past Medical History Cardiac Medical History: Reports: Hx Atrial Fibrillation, Hx Congestive Heart Failure, Hx Coronary Artery Disease, Hx Heart Attack, Hx Hypercholesterolemia, Hx Hypertension, Hx Peripheral Vascular Disease Pulmonary Medical History: Reports: Hx COPD Denies: Hx Tuberculosis Endocrine Medical History: Reports: Hx Diabetes Mellitus Type 1, Hx Diabetes Colette litus Type 2, Hx Hypothyroidism Renal/ Medical History: Reports: Hx Renal Insufficiency. Denies: Hx Peritoneal Dialysis GI Medical History: Reports: Hx Gastroesophageal Reflux Disease, Hx Ulcer Psychiatric Medical History: Reports: Hx Depression Past Surgical History: Reports: Hx Cardiac Catheterization, Hx Orthopedic Surgery - RAKA, Hx Vascular Surgery - Angioplasty in the right leg - Immunizations Hx Diphtheria, Pertussis, Tetanus Vaccination: Yes Hx Pneumococcal Vaccination: 09/25/14 Physical Exam - Vital signs Vitals: Resp 21 H 09/09/18 19:39 Course - Re-evaluation Re-evalutation: Patient seen and examined vital signs reviewed. Laboratory data and imaging were ordered as appropriate for the patient's presenting symptoms and complaint, with consideration of any critical or life threatening conditions that may be associated with their obtained history and exam as noted above. Patient was treated with IV fluid bolusing received a total of 2 L of IV fluid, 1 by EMS, and one in the emergency department, patient treated based on ideal body weight, given history of heart failure, did not want to fluid overload, and thus received the 30 mL/kg bolus by ideal body weight. He was also started on IV Rocephin, for presumed urinary tract infection, prior cultures demonstrated staph aureus. That was sensitive to cephalosporins. Results were reviewed when available and demonstrated leukocytosis, elevated lactic acid, concern for UTI, chest x-ray is negative, renal function at baseline The patient was re-evaluated and was improved on a Cardizem infusion, heart rate came down to the low 100s, blood pressure remained stable Evaluation was most consistent with sepsis, atrial fibrillation with rapid ventricular response, UTI Results were discussed with the patient at this point after careful consideration I feel that that patient should be admitted to the hospital. This was discussed with the patient that it is in the best interest for their care to be admitted for further evaluation and management. Patient agreed with this plan of care. A call was placed to the admitted physician, Dr. Ward who graciously accepted the patient onto their service. *Note is created using voice recognition software and may contain spelling, syntax or grammatical errors. Laboratory 09/09/18 09/09/18 09/09/18 19:55 19:55 19:55 WBC 11.7 H RBC 3.79 L Hgb 13.0 L Hct 38.2 MCV 101 H MCH 34.4 H MCHC 34.1 RDW 13.6 Plt Count 116 L Total Counted 100 Seg Neutrophils % Not Reportable Seg Neuts % (Manual) 90 H Lymphocytes % Not Reportable Lymphocytes % (Manual) 5 L Monocytes % Not Reportable Monocytes % (Manual) 5 Eosinophils % Not Reportable Eosinophils % (Manual) 0 Basophils % Not Reportable Basophils % (Manual) 0 Absolute Neutrophils Not Reportable Abs Neuts (Manual) 10.5 H Absolute Lymphocytes Not Reportable Abs Lymphs (Manual) 0.6 Absolute Monocytes Not Reportable Abs Monocytes (Manual) 0.6 Absolute Eosinophils Not Reportable Absolute Eos (Manual) 0.0 Absolute Basophils Not Reportable Abs Basophils (Manual) 0.0 Platelet Comment DECREASED Macrocytosis 1+ PT 14.3 INR 1.06 VBG pH VBG pCO2 VBG HCO3 VBG Base Excess Sodium 138.4 Potassium 4.6 Chloride 103 Carbon Dioxide 29 Anion Gap 6 BUN 33 H Creatinine 2.84 H Est GFR ( Amer) 28 L Est GFR (Non-Af Amer) 23 L Glucose 258 H Lactic Acid Calcium 8.7 Total Bilirubin 0.6 Direct Bilirubin 0.2 Neonat Total Bilirubin Not Reportable Neonat Direct Bilirubin Not Reportable Neonat Indirect Bili Not Reportable AST 24 ALT 19 L Alkaline Phosphatase 107 Troponin I Total Protein 7.6 Albumin 3.7 09/09/18 09/09/18 09/09/18 19:55 20:15 20:15 WBC RBC Hgb Hct MCV MCH MCHC RDW Plt Count Total Counted Seg Neutrophils % Seg Neuts % (Manual) Lymphocytes % Lymphocytes % (Manual) Monocytes % Monocytes % (Manual) Eosinophils % Eosinophils % (Manual) Basophils % Basophils % (Manual) Absolute Neutrophils Abs Neuts (Manual) Absolute Lymphocytes Abs Lymphs (Manual) Absolute Monocytes Abs Monocytes (Manual) Absolute Eosinophils Absolute Eos (Manual) Absolute Basophils Abs Basophils (Manual) Platelet Comment Macrocytosis PT INR VBG pH 7.39 VBG pCO2 51.3 VBG HCO3 30.1 VBG Base Excess 4.0 Sodium Potassium Chloride Carbon Dioxide Anion Gap BUN Creatinine Est GFR ( Amer) Est GFR (Non-Af Amer) Glucose Lactic Acid 2.4 H Calcium Total Bilirubin Direct Bilirubin Neonat Total Bilirubin Neonat Direct Bilirubin Neonat Indirect Bili AST ALT Alkaline Phosphatase Troponin I 0.022 Total Protein Albumin Chest X-Ray 09/09/18 20:01 IMPRESSION: No acute cardiopulmonary disease. copyright 2010 [employer]- All Rights Reserved - Vital Signs Vital signs: Temp Pulse Resp BP Pulse Ox 102.0 F H 129 H 25 H 130/78 H 97 09/09/18 20:01 09/09/18 19:43 09/09/18 21:00 09/09/18 20:51 09/09/18 21:00 - Laboratory Result Diagrams: 09/09/18 19:55 09/09/18 19:55 Laboratory results interpreted by me: 09/09/18 09/09/18 09/09/18 19:55 19:55 19:55 WBC 11.7 H RBC 3.79 L Hgb 13.0 L MCV 101 H MCH 34.4 H Plt Count 116 L Seg Neuts % (Manual) 90 H Lymphocytes % (Manual) 5 L Abs Neuts (Manual) 10.5 H BUN 33 H Creatinine 2.84 H Est GFR ( Amer) 28 L Est GFR (Non-Af Amer) 23 L Glucose 258 H Lactic Acid 2.4 H ALT 19 L Critical Care Note - Critical Care Note Total time excluding time spent on procedures (mins): 40 Comments: Critical care time 40 minutes exclusive from separate billable procedures for a patient requiring complex medical decision making, and high potential for clinical deterioration. In a patient with atrial fibrillation with rapid ventricular response, requiring IV Cardizem infusion, close monitoring repeat evaluations. Time spent obtaining history from patient or surrogate, discussions with consultants, development of treatment plan with patient or surrogate, evaluation of patient's response to treatment, examination of patient, ordering and performing treatments and interventions, ordering and review of laboratory studies, re-evaluation of patient's condition, ordering and review of radiographic studies and review of old charts Discharge - Discharge Clinical Impression: Atrial fibrillation with rapid ventricular response, Chronic kidney disease, stage III (moderate), Lactic acid acidosis Sepsis Qualifiers: Sepsis type: sepsis due to unspecified organism Qualified Code(s): A41.9 - Sepsis, unspecified organism UTI (urinary tract infection) Qualifiers: Urinary tract infection type: site unspecified Hematuria presence: without hematuria Qualified Code(s): N39.0 - Urinary tract infection, site not specified Condition: Serious Disposition: ADMITTED INPATIENT Admitting Provider: [facility] Admitted: [facility]
[2018-09-09] MEDS ORDERED: DILTIAZEM HCL INJ 25 MG/5 ML VIAL IV ONE (20:03)
[2018-09-09 20:17] LABS: HEMATOCRIT 38.2 % (37.9-51.0); MEAN CORPUSCULAR HEMOGLOBIN 34.4 pg (27.0-33.4); MEAN CORPUSCULAR HGB CONC 34.1 g/dL (32.0-36.0); MEAN CORPUSCULAR VOLUME 101 fl (80-97); PLATELET COUNT 116 10^3/uL (150-450); RED BLOOD COUNT 3.79 10^6/uL (4.35-5.55); RED CELL DISTRIBUTION WIDTH 13.6 % (11.5-14.0); WHITE BLOOD COUNT 11.7 10^3/uL (4.0-10.5)
[2018-09-09] MEDS: DILTIAZEM HCL/D5W 125 MG/125 ML RTUINJ IV PRN (20:22)
[2018-09-09 20:26] LABS: VENOUS BLOOD HCO3 30.1 mmol/L (20-32); VENOUS BLOOD PCO2 51.3 mmHg (35-63); VENOUS BLOOD PH 7.39 (7.30-7.42)
[2018-09-09 20:27] LABS: INTERNATIONAL RATION (INR) 1.06; PROTHROMBIN TIME 14.3 SEC (11.4-15.4)
[2018-09-09 20:30] LABS: ALANINE AMINOTRANSFERASE 19 U/L (21-72); ALBUMIN 3.7 g/dL (3.5-5.0); ALKALINE PHOSPHATASE 107 U/L (38-126); ANION GAP 6 (5-19); ASPARTATE AMINO TRANSFERASE 24 U/L (17-59); BILIRUBIN,DIRECT 0.2 mg/dL (0.0-0.4); BILIRUBIN,TOTAL 0.6 mg/dL (0.2-1.3); BLOOD UREA NITROGEN 33 mg/dL (7-20); CALCIUM 8.7 mg/dL (8.4-10.2); CARBON DIOXIDE 29 mmol/L (22-30); CHLORIDE 103 mmol/L (98-107); GLUCOSE 258 mg/dL (75-110); POTASSIUM 4.6 mmol/L (3.6-5.0); SODIUM 138.4 mmol/L (137-145); TOTAL PROTEIN 7.6 g/dL (6.3-8.2)
[2018-09-09 20:31] LABS: ABSOLUTE LYMPHOCYTES# (MANUAL) 0.6 10^3/uL (0.5-4.7); ABSOLUTE MONOCYTES # (MANUAL) 0.6 10^3/uL (0.1-1.4); ABSOLUTE NEUTROPHILS# (MANUAL) 10.5 10^3/uL (1.7-8.2); BASOPHILS % (MANUAL) 0 % (0-2); EOSINOPHILS % (MANUAL) 0 % (0-6); LYMPHOCYTES % (MANUAL) 5 % (13-45); MONOCYTES % (MANUAL) 5 % (3-13); SEGMENTED NEUTROPHILS % (MAN) 90 % (42-78); TOTAL CELLS COUNTED 100
[2018-09-09] MEDS ORDERED: RINGERS SOLUTION,LACTATED 1,000 ML IV ONE (20:33)
[2018-09-09 20:34] LABS: PLATELET COMMENT DECREASED
--- NOTE | 2018-09-09 20:36 | RADIOLOGY REPORT (SQ) ---
EXAM DESCRIPTION: XR CHEST 1 VIEW COMPLETED DATE/TME: 09/09/2018 20:01 CLINICAL HISTORY: 58 years, Male, fever COMPARISON: None. NUMBER OF VIEWS: 1 TECHNIQUE: AP view of the chest LIMITATIONS: None. FINDINGS: The lungs are clear. There are no pleural abnormalities. The cardiac silhouette and pulmonary vessels are normal. IMPRESSION: No acute cardiopulmonary disease. copyright 2010 [employer]- All Rights Reserved
[2018-09-09] MEDS ORDERED: CEFTRIAXONE INJ 1000 MG VIAL IV ONE (21:03)
[2018-09-09] MEDS ORDERED: ACETAMINOPHEN 325 MG TABLET PO PRN (22:07)
[2018-09-09] MEDS ORDERED: MAG HYDROX/AL HYDROX/SIMETH SUSP 30 ML UDCUP PO PRN (22:07)
[2018-09-09] MEDS ORDERED: LEVALBUTEROL HCL NEB 0.63 MG/3 ML AMPUL NEB PRN (22:07)
[2018-09-09] MEDS ORDERED: ONDANSETRON HCL INJ/PF 4 MG/2 ML SDV IV PRN (22:07)
[2018-09-09] MEDS ORDERED: GLUCAGON,HUMAN RECOMB 1 MG INJ IM PRN (22:12)
[2018-09-09] MEDS ORDERED: DEXTROSE 50%-WATER 25 GM/50 ML DISP.SYRIN IV PRN ×2 (22:12)
[2018-09-09] MEDS ORDERED: DEXTROSE 40% GEL 15 GM TUBE PO PRN ×2 (22:12)
--- NOTE | 2018-09-09 22:19 | PDOC H&P ---
History of Present Illness Admission Date/PCP: 09/09/18 21:54 CLARISSE REMY MD Patient complains of: Not feeling well History of Present Illness: JOSE D COLBERT is a 58 year old male This is a 58-year-old male with a history of the type 2 diabetes history of c hronic atrial fibrillation's history of the peripheral vascular disease hypertension and hyperlipidemia came to the emergency department with a low blood pressure and not feeling wearing and vomiting The emergency department patient is febrile with a temperature is 101 and patient's heart rate was 130+ with the atrial fib with RVR patient was giving the Cardizem bolus start on a Cardizem drips Patient's mother saw in the ER denied any chest pain denied any shortness of the breath Patient is currently taking the Eliquis 2.5 mg twice a day Patient also chronic kidney disease currently see her Dr. Martino Patient is denied any cough no congestions Patient is denied any urinary symptoms Patient at this point admitting in the hospital for the atrial fib RVR and rule out any sepsis Past Medical History Cardiac Medical History: Reports: Atrial Fibrillation, Congestive Heart Failure, Coronary Artery Disease, Myocardial Infarction, Hyperlipidema, Hypertension, Peripheral Vascular Disease Pulmonary Medical History: Reports: Chronic Obstructive Pulmonary Disease (COPD) Denies: Tuberculosis Endocrine Medical History: Reports: Diabetes Mellitus Type 2, Hypothyroidism Renal/ Medical History: Reports: Chronic Kidney Disease GI Medical History: Reports: Gastroesophageal Reflux Disease Psychiatric Medical History: Reports: Depression Past Surgical History Past Surgical History: Reports: Cardiac Catheterization, Orthopedic Surgery - RAKA, Vascular Surgery - Angioplasty in the right leg Social History Smoking Status: Never Smoker Frequency of Alcohol Use: None Hx Recreational Drug Use: No Drugs: None Hx Prescription Drug Abuse: No Family History Family History: Reviewed & Not Pertinent Parental Family History Reviewed: Yes Children Family History Reviewed: Yes Sibling(s) Family History Reviewed.: Yes Medication/Allergy Home Medications: Apixaban [Eliquis 2.5 mg Tablet] 2.5 mg PO BID 08/17/18 Atorvastatin Calcium [Lipitor 40 mg Tablet] 40 mg PO QHS 08/17/18 Calcitriol [Rocaltrol 0.25 mcg Capsule] 0.25 mcg PO MOWEFR@1000 08/17/18 Digoxin [Lanoxin 0.125 mg Tablet] 0.125 mg PO DAILY 08/17/18 Exenatide Microspheres [Bydureon Pen] 2 mg SQ SA@1000 08/17/18 Furosemide [Lasix 40 mg Tablet] 40 mg PO BID 08/17/18 Hydralazine HCl [Apresoline 50 mg Tablet] 50 mg PO TID 08/17/18 Insulin Detemir [Levemir] 80 unit SQ DAILY 08/17/18 Isosorbide Dinitrate [Isordil Titradose 20 mg Tablet] 20 mg PO TID 08/17/18 Levothyroxine Sodium 150 mcg PO DAILY 08/17/18 Linagliptin [Tradjenta] 5 mg PO DAILY 08/17/18 Losartan Potassium [Cozaar 25 mg Tablet] 25 mg PO DAILY 08/17/18 Metoprolol Succinate [Toprol XL 100 mg Tablet] 100 mg PO Q12 08/17/18 Tamsulosin HCl [Flomax] 0.4 mg PO DAILY 08/17/18 Ampicillin Sodium [Omnipen Inj 500 mg Vial] 500 mg PO Q6 #28 vial 08/18/18 Allergies/Adverse Reactions: No Known Allergies Allergy (Verified 08/16/18 15:09) Review of Systems Constitutional: PRESENT: chills, weakness. ABSENT: fever(s), headache(s), weight gain, weight loss Eyes: ABSENT: visual disturbances Ears: ABSENT: hearing changes Cardiovascular: ABSENT: chest pain, dyspnea on exertion, edema, orthropnea, palpitations Respiratory: ABSENT: cough, hemoptysis Gastrointestinal: ABSENT: abdominal pain, constipation, diarrhea, hematemesis, hematochezia, nausea, vomiting Genitourinary: ABSENT: dysuria, hematuria Musculoskeletal: ABSENT: joint swelling Integumentary: ABSENT: rash, wounds Neurological: ABSENT: abnormal gait, abnormal speech, confusion, dizziness, focal weakness, syncope Psychiatric: ABSENT: anxiety, depression, homidical ideation, suicidal ideation Endocrine: ABSENT: cold intolerance, heat intolerance, menstrual abnormalities, polydipsia, polyuria Hematologic/Lymphatic: ABSENT: easy bleeding, easy bruising, lymphadenopathy Physical Exam Vital Signs: Temp Pulse Resp BP Pulse Ox 102.0 F H 129 H 25 H 130/78 H 97 09/09/18 20:01 09/09/18 19:43 09/09/18 21:00 09/09/18 20:51 09/09/18 21:00 Intake & Output 09/08/18 09/09/18 09/10/18 06:59 06:59 06:59 Intake Total 1000 Balance 1000 Weight 82.554 kg General appearance: PRESENT: no acute distress, well-developed, well-nourished Head exam: PRESENT: atraumatic, normocephalic Eye exam: PRESENT: conjunctiva pink, EOMI, PERRLA. ABSENT: scleral icterus Ear exam: PRESENT: normal external ear exam Mouth exam: PRESENT: moist, tongue midline Neck exam: PRESENT: full ROM. ABSENT: carotid bruit, JVD, lymphadenopathy, thyromegaly Respiratory exam: PRESENT: clear to auscultation clay Cardiovascular exam: PRESENT: irregular rhythm, RRR, tachycardia. ABSENT: diastolic murmur, rubs, systolic murmur Vascular exam: PRESENT: normal capillary refill GI/Abdominal exam: PRESENT: normal bowel sounds, soft. ABSENT: distended, guarding, mass, organolmegaly, rebound, tenderness Rectal exam: PRESENT: deferred Extremities exam: PRESENT: right BKA. ABSENT: pedal edema Neurological exam: PRESENT: alert, awake, oriented to person, oriented to place, oriented to time, oriented to situation, CN II-XII grossly intact. ABSENT: motor sensory deficit Psychiatric exam: PRESENT: appropriate affect, normal mood. ABSENT: homicidal ideation, suicidal ideation Skin exam: PRESENT: dry, intact, warm. ABSENT: cyanosis, rash Results Laboratory Results: 09/09/18 19:55 09/09/18 19:55 09/09/18 09/09/18 09/09/18 19:55 19:55 19:55 WBC 11.7 H RBC 3.79 L Hgb 13.0 L Hct 38.2 MCV 101 H MCH 34.4 H MCHC 34.1 RDW 13.6 Plt Count 116 L Seg Neutrophils % Not Reportable Lymphocytes % Not Reportable Monocytes % Not Reportable Eosinophils % Not Reportable Basophils % Not Reportable Absolute Neutrophils Not Reportable Absolute Lymphocytes Not Reportable Absolute Monocytes Not Reportable Absolute Eosinophils Not Reportable Absolute Basophils Not Reportable VBG pH VBG pCO2 VBG HCO3 VBG Base Excess Sodium 138.4 Potassium 4.6 Chloride 103 Carbon Dioxide 29 Anion Gap 6 BUN 33 H Creatinine 2.84 H Est GFR ( Amer) 28 L Est GFR (Non-Af Amer) 23 L Glucose 258 H Lactic Acid 2.4 H Calcium 8.7 Total Bilirubin 0.6 AST 24 ALT 19 L Alkaline Phosphatase 107 Total Protein 7.6 Albumin 3.7 09/09/18 20:15 WBC RBC Hgb Hct MCV MCH MCHC RDW Plt Count Seg Neutrophils % Lymphocytes % Monocytes % Eosinophils % Basophils % Absolute Neutrophils Absolute Lymphocytes Absolute Monocytes Absolute Eosinophils Absolute Basophils VBG pH 7.39 VBG pCO2 51.3 VBG HCO3 30.1 VBG Base Excess 4.0 Sodium Potassium Chloride Carbon Dioxide Anion Gap BUN Creatinine Est GFR ( Amer) Est GFR (Non-Af Amer) Glucose Lactic Acid Calcium Total Bilirubin AST ALT Alkaline Phosphatase Total Protein Albumin 09/09/18 20:15 Troponin I 0.022 Impressions: Chest X-Ray 09/09/18 20:01 IMPRESSION: No acute cardiopulmonary disease. copyright 2010 [employer]- All Rights Reserved Assessment & Plan - Diagnosis (1) Atrial fibrillation with rapid ventricular response Is this a current diagnosis for this admission?: Yes Plan: Patient is continues Eliquis Continues to Cardizem Will consult the cardiology with this recurrent A. fib (2) Chronic kidney disease, stage III (moderate) Is this a current diagnosis for this admission?: Yes Plan: Continues to monitor the patient (3) Lactic acid acidosis Is this a current diagnosis for this admission?: Yes Plan: Most likely from urinary tract infections will continues to monitor (4) Sepsis Qualifiers: Sepsis type: sepsis due to unspecified organism Qualified Code(s): A41.9 - Sepsis, unspecified organism Is this a current diagnosis for this admission?: Yes Plan: Will get the blood culture urine culture start the patient on IV antibiotic (5) Chronic combined systolic and diastolic heart failure Is this a current diagnosis for this admission?: Yes Plan: We will get the echocardiogram if is not done (6) Diabetes mellitus, type II Qualifiers: Diabetes mellitus terminal system operator insulin use: unspecified terminal system operator insulin use status Is this a current diagnosis for this admission?: Yes Plan: Continues a sliding scale with the [facility] protocol - Time Time Spent: 50 to 70 Minutes Medications reviewed and adjusted accordingly: Yes Anticipated discharge: Home Within: Other - Inpatient Certification Based on my medical assessment, after consideration of the patient's comorbidities, presenting symptoms, or acuity I expect that the services needed warrant INPATIENT care.: Yes I certify that my determination is in accordance with my understanding of Medicare's requirements for reasonable and necessary INPATIENT services [42 CFR 412.3e].: Yes Medical Necessity: Need for IV Antibiotics Post Hospital Care: D/C Jet Inspector Documentation - Plan Summary Plan Summary: Admit the patient in IMCU see other MD orders
[2018-09-10 00:55] LABS: CREATINE KINASE MB 0.67 ng/mL (<4.55); TROPONIN I 0.036 ng/mL
[2018-09-10] MEDS: LANSOPRAZOLE 15 MG TAB.RAP.DR PO SCH ×2 (05:56→17:20)
[2018-09-10 06:18] LABS: ABSOLUTE BASOPHILS # (AUTO) 0.1 10^3/uL (0.0-0.2); ABSOLUTE EOSINOPHILS # (AUTO) 0.1 10^3/uL (0.0-0.6); ABSOLUTE LYMPHOCYTES (AUTO) 1.2 10^3/uL (0.5-4.7); ABSOLUTE MONOCYTES (AUTO) 0.7 10^3/uL (0.1-1.4); ABSOLUTE NEUT (AUTO) 5.1 10^3/uL (1.7-8.2); BASOPHILS % (AUTO) 0.8 % (0-2); EOSINOPHILS % (AUTO) 1.1 % (0-6); HEMATOCRIT 37.3 % (37.9-51.0); HEMOGLOBIN 12.8 g/dL (13.5-17.0); MEAN CORPUSCULAR HEMOGLOBIN 33.9 pg (27.0-33.4); MEAN CORPUSCULAR HGB CONC 34.3 g/dL (32.0-36.0); MEAN CORPUSCULAR VOLUME 99 fl (80-97); MONOCYTES % (AUTO) 9.8 % (3-13); PLATELET COUNT 103 10^3/uL (150-450); RED BLOOD COUNT 3.77 10^6/uL (4.35-5.55); RED CELL DISTRIBUTION WIDTH 13.5 % (11.5-14.0); SEGMENTED NEUTROPHILS % (AUTO) 71.3 % (42-78); TOTAL CELLS COUNTED % (AUTO) 100 %; WHITE BLOOD COUNT 7.1 10^3/uL (4.0-10.5)
[2018-09-10 06:40] LABS: ANION GAP 8 (5-19); BLOOD UREA NITROGEN 31 mg/dL (7-20); CALCIUM 8.5 mg/dL (8.4-10.2); CARBON DIOXIDE 27 mmol/L (22-30); CHLORIDE 104 mmol/L (98-107); CREATINE KINASE 68 U/L (55-170); GLUCOSE 124 mg/dL (75-110); POTASSIUM 4.5 mmol/L (3.6-5.0); SODIUM 138.9 mmol/L (137-145)
[2018-09-10 06:52] LABS: CREATINE KINASE MB 0.84 ng/mL (<4.55); TROPONIN I 0.036 ng/mL
[2018-09-10 08:40] LABS: APPEARANCE,URINE SLIGHTLY-CLOUDY; BILIRUBIN,URINE NEGATIVE (NEGATIVE); COLOR,URINE YELLOW; GLUCOSE, URINE 50 mg/dL (NEGATIVE); KETONES,URINE NEGATIVE (NEGATIVE); LEUKOCYTE ESTERASE,URINE NEGATIVE (NEGATIVE); NITRITE,URINE NEGATIVE (NEGATIVE); PROTEIN,URINE >=500 mg/dL (NEGATIVE); URINE SPECIFIC GRAVITY 1.019; UROBILINOGEN,URINE NEGATIVE mg/dL (<2.0)
[2018-09-10] MEDS ORDERED: ISOSORBIDE DINITRATE 20 MG TABLET PO SCH (10:00)
[2018-09-10] MEDS: INSULIN DETEMIR 100 UNIT/ML 3 ML PEN SUBCUT SCH (10:49)
[2018-09-10] MEDS: DIGOXIN 0.125 MG TABLET PO SCH (10:50)
[2018-09-10] MEDS: APIXABAN 2.5 MG TABLET PO SCH ×2 (10:50→17:20)
[2018-09-10] MEDS: METOPROLOL SUCCINATE 50 MG TAB.SR.24H PO SCH ×2 (10:50→21:47)
[2018-09-10] MEDS: TAMSULOSIN HCL 0.4 MG CAP.SR.24H PO SCH (10:50)
[2018-09-10] MEDS: FUROSEMIDE 40 MG TABLET PO SCH ×2 (10:50→17:20)
[2018-09-10] MEDS: LOSARTAN POTASSIUM 25 MG TABLET PO SCH (10:50)
[2018-09-10] MEDS: LEVOTHYROXINE SODIUM 0.15 MG TABLET PO SCH (10:50)
[2018-09-10] MEDS: SITAGLIPTIN PHOSPHATE 50 MG TABLET PO SCH (10:50)
[2018-09-10] MEDS: HYDRALAZINE HCL 50 MG TABLET PO SCH ×3 (10:52→17:20)
[2018-09-10] MEDS: CEFEPIME 2 GM/D5W RTU 2 GM/50 ML RTUPB IV SCH ×2 (11:45→21:46)
[2018-09-10] MEDS: INSULIN LISPRO 100 UNIT/ML 3 ML VIAL SUBCUT PRN ×3 (12:12→21:42)
--- NOTE | 2018-09-10 12:49 | PDOC PROGRESS REPORT ---
Subjective Progress Note for:: 09/10/18 Subjective:: Patient is feeling much better Patients denied any fever no chills No chest pain no short of breath Patient currently on a Cardizem drip 5 Patient is currently on IV antibiotic Reason For Visit: AFIB,FEVER Physical Exam Vital Signs: Temp Pulse Resp BP Pulse Ox 98.5 F 90 18 120/67 95 09/10/18 11:31 09/10/18 12:00 09/10/18 11:31 09/10/18 12:00 09/10/18 11:31 Intake & Output 09/09/18 09/10/18 09/11/18 06:59 06:59 06:59 Intake Total 1000 130 Output Total 0 200 Balance 1000 -70 Weight 82.4 kg General appearance: PRESENT: no acute distress, well-developed, well-nourished Head exam: PRESENT: atraumatic, normocephalic Eye exam: PRESENT: conjunctiva pink, EOMI, PERRLA. ABSENT: scleral icterus Ear exam: PRESENT: normal external ear exam Mouth exam: PRESENT: moist, tongue midline Neck exam: PRESENT: full ROM. ABSENT: carotid bruit, JVD, lymphadenopathy, thyromegaly Respiratory exam: PRESENT: clear to auscultation clay Cardiovascular exam: PRESENT: irregular rhythm. ABSENT: diastolic murmur, rubs, systolic murmur Vascular exam: PRESENT: normal capillary refill GI/Abdominal exam: PRESENT: normal bowel sounds, soft. ABSENT: distended, guarding, mass, organolmegaly, rebound, tenderness Rectal exam: PRESENT: deferred Neurological exam: PRESENT: alert, awake, oriented to person, oriented to place, oriented to time, oriented to situation, CN II-XII grossly intact. ABSENT: motor sensory deficit Psychiatric exam: PRESENT: appropriate affect, normal mood. ABSENT: homicidal ideation, suicidal ideation Skin exam: PRESENT: dry, intact, warm. ABSENT: cyanosis, rash Results Laboratory Results: 09/10/18 06:02 09/10/18 06:02 09/09/18 09/09/18 09/09/18 19:55 19:55 19:55 WBC 11.7 H RBC 3.79 L Hgb 13.0 L Hct 38.2 MCV 101 H MCH 34.4 H MCHC 34.1 RDW 13.6 Plt Count 116 L Seg Neutrophils % Not Reportable Lymphocytes % Not Reportable Monocytes % Not Reportable Eosinophils % Not Reportable Basophils % Not Reportable Absolute Neutrophils Not Reportable Absolute Lymphocytes Not Reportable Absolute Monocytes Not Reportable Absolute Eosinophils Not Reportable Absolute Basophils Not Reportable VBG pH VBG pCO2 VBG HCO3 VBG Base Excess Sodium 138.4 Potassium 4.6 Chloride 103 Carbon Dioxide 29 Anion Gap 6 BUN 33 H Creatinine 2.84 H Est GFR ( Amer) 28 L Est GFR (Non-Af Amer) 23 L Glucose 258 H Lactic Acid 2.4 H Calcium 8.7 Magnesium Total Bilirubin 0.6 AST 24 ALT 19 L Alkaline Phosphatase 107 Total Protein 7.6 Albumin 3.7 TSH Urine Color Urine Appearance Urine pH Ur Specific Solomon Urine Protein Urine Glucose (UA) Urine Ketones Urine Blood Urine Nitrite Ur Leukocyte Esterase Urine WBC (Auto) Urine RBC (Auto) 09/09/18 09/09/18 09/10/18 20:15 20:15 00:21 WBC RBC Hgb Hct MCV MCH MCHC RDW Plt Count Seg Neutrophils % Lymphocytes % Monocytes % Eosinophils % Basophils % Absolute Neutrophils Absolute Lymphocytes Absolute Monocytes Absolute Eosinophils Absolute Basophils VBG pH 7.39 VBG pCO2 51.3 VBG HCO3 30.1 VBG Base Excess 4.0 Sodium Potassium Chloride Carbon Dioxide Anion Gap BUN Creatinine Est GFR ( Amer) Est GFR (Non-Af Amer) Glucose Lactic Acid 1.9 Calcium Magnesium Total Bilirubin AST ALT Alkaline Phosphatase Total Protein Albumin TSH 2.94 Urine Color Urine Appearance Urine pH Ur Specific Solomon Urine Protein Urine Glucose (UA) Urine Ketones Urine Blood Urine Nitrite Ur Leukocyte Esterase Urine WBC (Auto) Urine RBC (Auto) 09/10/18 09/10/18 09/10/18 06:02 06:02 08:28 WBC 7.1 RBC 3.77 L Hgb 12.8 L Hct 37.3 L MCV 99 H MCH 33.9 H MCHC 34.3 RDW 13.5 Plt Count 103 L Seg Neutrophils % 71.3 Lymphocytes % 17.0 Monocytes % 9.8 Eosinophils % 1.1 Basophils % 0.8 Absolute Neutrophils 5.1 Absolute Lymphocytes 1.2 Absolute Monocytes 0.7 Absolute Eosinophils 0.1 Absolute Basophils 0.1 VBG pH VBG pCO2 VBG HCO3 VBG Base Excess Sodium 138.9 Potassium 4.5 Chloride 104 Carbon Dioxide 27 Anion Gap 8 BUN 31 H Creatinine 2.73 H Est GFR ( Amer) 29 L Est GFR (Non-Af Amer) 24 L Glucose 124 H Lactic Acid Calcium 8.5 Magnesium 1.6 Total Bilirubin AST ALT Alkaline Phosphatase Total Protein Albumin TSH Urine Color YELLOW Urine Appearance SLIGHTLY-CLOUDY Urine pH 5.0 Ur Specific Solomon 1.019 Urine Protein >=500 H Urine Glucose (UA) 50 H Urine Ketones NEGATIVE Urine Blood NEGATIVE Urine Nitrite NEGATIVE Ur Leukocyte Esterase NEGATIVE Urine WBC (Auto) 2 Urine RBC (Auto) 3 09/09/18 09/10/18 09/10/18 20:15 00:21 00:21 Creatine Kinase 67 CK-MB (CK-2) 0.67 Troponin I 0.022 0.036 NT-Pro-B Natriuret Pep 09/10/18 09/10/18 09/10/18 06:02 06:02 12:00 Creatine Kinase 68 71 CK-MB (CK-2) 0.84 Troponin I 0.036 NT-Pro-B Natriuret Pep 3530 H Impressions: Chest X-Ray 09/09/18 20:01 IMPRESSION: No acute cardiopulmonary disease. copyright 2011 [employer]- All Rights Reserved Assessment & Plan - Diagnosis (1) Atrial fibrillation with rapid ventricular response Is this a current diagnosis for this admission?: Yes Plan: Continues to Cardizem drip continues to Eliquis (2) Chronic kidney disease, stage III (moderate) Is this a current diagnosis for this admission?: Yes Plan: Continues to monitor the patient (3) Lactic acid acidosis Is this a current diagnosis for this admission?: Yes Plan: Most likely from urinary tract infections will continues to monitor (4) Sepsis Qualifiers: Sepsis type: sepsis due to unspecified organism Qualified Code(s): A41.9 - Sepsis, unspecified organism Is this a current diagnosis for this admission?: Yes Plan: Will get the blood culture urine culture start the patient on IV antibiotic (5) Chronic combined systolic and diastolic heart failure Is this a current diagnosis for this admission?: Yes Plan: We will get the echocardiogram if is not done (6) Diabetes mellitus, type II Qualifiers: Diabetes mellitus group home insulin use: unspecified group home insulin use status Is this a current diagnosis for this admission?: Yes Plan: Continues a sliding scale with the [facility] protocol - Time Time Spent with patient: 15-24 minutes Medications reviewed and adjusted accordingly: Yes Anticipated discharge: Other Within: Other - Plan Summary Plan Summary: Discussed with the cardiology who will evaluate the patient's regarding the CHF and A. fib Continues to IV antibiotic Will wait for the culture
[2018-09-10 12:54] LABS: CREATINE KINASE MB 0.8 ng/mL (<4.55); TROPONIN I 0.031 ng/mL
[2018-09-10] MEDS: ISOSORBIDE DINITRATE 20 MG TABLET PO SCH ×2 (14:56→21:46)
[2018-09-10] MEDS: DILTIAZEM HCL/D5W 125 MG/125 ML RTUINJ IV PRN (17:22)
[2018-09-10] MEDS: ATORVASTATIN CALCIUM 40 MG TABLET PO SCH (21:46)
--- NOTE | 2018-09-10 23:52 | EKG REPORT ---
SEVERITY:- ABNORMAL ECG - ATRIAL FIBRILLATION, V-RATE 72-105 : Confirmed by: Mayra Sanz 10-Sep-2018 23:51:26
--- NOTE | 2018-09-10 23:52 | EKG REPORT ---
SEVERITY:- ABNORMAL ECG - ATRIAL FIBRILLATION, V-RATE 94-217 LEFT POSTERIOR FASCICULAR BLOCK NONSPECIFIC T CHANGES : Confirmed by: Mayra Sanz 10-Sep-2018 23:51:57
[2018-09-11 05:18] LABS: HEMATOCRIT 33.2 % (37.9-51.0); HEMOGLOBIN 11.4 g/dL (13.5-17.0); MEAN CORPUSCULAR HEMOGLOBIN 34.6 pg (27.0-33.4); MEAN CORPUSCULAR HGB CONC 34.3 g/dL (32.0-36.0); MEAN CORPUSCULAR VOLUME 101 fl (80-97); RED CELL DISTRIBUTION WIDTH 13.3 % (11.5-14.0); WHITE BLOOD COUNT 6.8 10^3/uL (4.0-10.5)
[2018-09-11 05:44] LABS: PLATELET COUNT 81 10^3/uL (150-450)
[2018-09-11 05:49] LABS: ANION GAP 8 (5-19); BLOOD UREA NITROGEN 34 mg/dL (7-20); CALCIUM 8.8 mg/dL (8.4-10.2); CARBON DIOXIDE 29 mmol/L (22-30); CHLORIDE 101 mmol/L (98-107); DIGOXIN 1.13 ng/mL (0.8-2.0); GLUCOSE 160 mg/dL (75-110); POTASSIUM 4.5 mmol/L (3.6-5.0); SODIUM 137.7 mmol/L (137-145)
[2018-09-11 05:50] LABS: ABSOLUTE LYMPHOCYTES# (MANUAL) 2.6 10^3/uL (0.5-4.7); ABSOLUTE MONOCYTES # (MANUAL) 0.5 10^3/uL (0.1-1.4); ABSOLUTE NEUTROPHILS# (MANUAL) 3.5 10^3/uL (1.7-8.2); BASOPHILS % (MANUAL) 1 % (0-2); EOSINOPHILS % (MANUAL) 1 % (0-6); LYMPHOCYTES % (MANUAL) 38 % (13-45); MONOCYTES % (MANUAL) 8 % (3-13); SEGMENTED NEUTROPHILS % (MAN) 52 % (42-78); TOTAL CELLS COUNTED 100; TOXIC GRANULATION SLIGHT; TOXIC VACUOLATION PRESENT
[2018-09-11 05:51] LABS: PLATELET COMMENT DECREASED; RBC MORPHOLOGY COMMENT NORMO-CYTIC/CHROMIC
[2018-09-11 06:26] LABS: FREE T3 2.48 pg/mL (2.77-5.27); FREE T4 (FREE THYROXINE) 1.57 ng/dL (0.78-2.19)
[2018-09-11] MEDS: LANSOPRAZOLE 15 MG TAB.RAP.DR PO SCH ×2 (06:31→18:02)
[2018-09-11] MEDS: ISOSORBIDE DINITRATE 20 MG TABLET PO SCH ×3 (06:32→21:31)
[2018-09-11 06:41] LABS: THYROID STIMULATING HORMONE 3.22 uIU/mL (0.47-4.68)
[2018-09-11] MEDS: SITAGLIPTIN PHOSPHATE 50 MG TABLET PO SCH (09:54)
[2018-09-11] MEDS: HYDRALAZINE HCL 50 MG TABLET PO SCH ×3 (09:54→21:28)
[2018-09-11] MEDS: LOSARTAN POTASSIUM 25 MG TABLET PO SCH (09:54)
[2018-09-11] MEDS: CALCITRIOL 0.25 MCG CAPSULE PO SCH (09:54)
[2018-09-11] MEDS: TAMSULOSIN HCL 0.4 MG CAP.SR.24H PO SCH (09:54)
[2018-09-11] MEDS: CEFEPIME 2 GM/D5W RTU 2 GM/50 ML RTUPB IV SCH ×2 (09:54→21:29)
[2018-09-11] MEDS: FUROSEMIDE 40 MG TABLET PO SCH ×2 (09:54→18:02)
[2018-09-11] MEDS: LEVOTHYROXINE SODIUM 0.15 MG TABLET PO SCH (09:54)
[2018-09-11] MEDS: APIXABAN 2.5 MG TABLET PO SCH ×2 (09:54→18:02)
[2018-09-11] MEDS: INSULIN DETEMIR 100 UNIT/ML 3 ML PEN SUBCUT SCH (09:54)
[2018-09-11] MEDS: METOPROLOL SUCCINATE 50 MG TAB.SR.24H PO SCH (09:55)
[2018-09-11] MEDS: DIGOXIN 0.125 MG TABLET PO SCH (09:55)
[2018-09-11] MEDS: INSULIN LISPRO 100 UNIT/ML 3 ML VIAL SUBCUT PRN ×2 (11:45→18:02)
[2018-09-11] MEDS: DEXTROSE 5%-WATER 500 ML with AMIODARONE HCL 900 MG IV PRN ×2 (15:35)
[2018-09-11] MEDS ORDERED: ONDANSETRON HCL INJ/PF 4 MG/2 ML SDV IV PRN (16:00)
[2018-09-11] MEDS ORDERED: AMIODARONE HCL 150 MG in DEXTROSE 5%-WATER 100 ML IV ONE (18:30)
--- NOTE | 2018-09-11 21:18 | PDOC PROGRESS REPORT ---
Subjective Progress Note for:: 09/11/18 Subjective:: Patient seen by the bedside, he was admitted over the weekend because of concern for urinary tract infection, also found to have atrial fibrillation with rapid regular response. He was admitted and discharged on August 17, 2018 at the time he was found to have staph aureus UTI, staph aureus is not a typical uropathogen, the primary source of the staphylococcus is not clear he was discharged home on amoxicillin. Reason For Visit: AFIB,FEVER Physical Exam Vital Signs: Temp Pulse Resp BP Pulse Ox 97.8 F 85 20 140/86 H 95 09/11/18 19:27 09/11/18 20:59 09/11/18 19:27 09/11/18 20:59 09/11/18 19:27 Intake & Output 09/10/18 09/11/18 09/12/18 06:59 06:59 06:59 Intake Total 1000 412 205 Output Total 0 1650 550 Balance 1000 -1238 -345 Weight 82.4 kg 83.2 kg General appearance: PRESENT: no acute distress Eye exam: PRESENT: PERRLA Respiratory exam: PRESENT: clear to auscultation clay Cardiovascular exam: PRESENT: +S1, +S2 GI/Abdominal exam: PRESENT: soft Neurological exam: PRESENT: alert Results Laboratory Results: 09/11/18 04:02 09/11/18 04:02 09/11/18 09/11/18 09/11/18 04:02 04:02 04:02 WBC 6.8 RBC 3.30 L Hgb 11.4 L Hct 33.2 L MCV 101 H MCH 34.6 H MCHC 34.3 RDW 13.3 Plt Count 81 L Seg Neutrophils % Not Reportable Lymphocytes % Not Reportable Monocytes % Not Reportable Eosinophils % Not Reportable Basophils % Not Reportable Absolute Neutrophils Not Reportable Absolute Lymphocytes Not Reportable Absolute Monocytes Not Reportable Absolute Eosinophils Not Reportable Absolute Basophils Not Reportable Sodium 137.7 Potassium 4.5 Chloride 101 Carbon Dioxide 29 Anion Gap 8 BUN 34 H Creatinine 2.84 H Est GFR ( Amer) 28 L Est GFR (Non-Af Amer) 23 L Glucose 160 H Calcium 8.8 Magnesium 1.8 TSH 3.22 Free T4 1.57 Free T3 pg/mL 2.48 L 09/09/18 09/10/18 09/10/18 20:15 00:21 00:21 Creatine Kinase 67 CK-MB (CK-2) 0.67 Troponin I 0.022 0.036 NT-Pro-B Natriuret Pep 09/10/18 09/10/18 09/10/18 06:02 06:02 12:00 Creatine Kinase 68 71 CK-MB (CK-2) 0.84 Troponin I 0.036 NT-Pro-B Natriuret Pep 3530 H 09/10/18 12:00 Creatine Kinase CK-MB (CK-2) 0.80 Troponin I 0.031 NT-Pro-B Natriuret Pep Impressions: Chest X-Ray 09/09/18 20:01 IMPRESSION: No acute cardiopulmonary disease. copyright 2010 [email or web address]- All Rights Reserved Assessment & Plan - Diagnosis (1) Atrial fibrillation with RVR Is this a current diagnosis for this admission?: Yes Plan: She was seen by cardiology, Dr. Edge, started on amiodarone, presently on IV amiodarone infusion (2) Urinary tract infection Qualifiers: Urinary tract infection type: site unspecified Hematuria presence: without hematuria Qualified Code(s): N39.0 - Urinary tract infection, site not specified Is this a current diagnosis for this admission?: Yes Plan: Continue IV antibiotic ceftriaxone (3) Diabetes mellitus with nephropathy Is this a current diagnosis for this admission?: Yes Plan: She has a history of nephropathy from diabetes, with nephrotic range proteinuria (4) Chronic kidney disease, stage 3 Is this a current diagnosis for this admission?: Yes
[2018-09-11] MEDS: ATORVASTATIN CALCIUM 40 MG TABLET PO SCH (21:28)
--- NOTE | 2018-09-11 22:18 | Progress Note ---
Provider Note Provider Note: CARDIOLOGY PROGRESS NOTE by Dr. Purnima Parra on 09/11/2018. SUBJECTIVE: The patient continues to be in atrial fibrillation with controlled ventricular response. There is no chest pain or discomfort. The patient denies any shortness of breath. There is no PND orthopnea. There is no AV blocks or ventricular arrhythmia seen on the monitor. There is no bleeding on Eliquis. On repeat questioning the patient states that he has not missed doses of Eliquis or the past several years. There is no TIA CVA symptoms. There is no cough or sputum production. Subjective: Patient is well-built and well-nourished in no acute distress. Selected Entries 09/11/18 09/11/18 09/11/18 11:00 11:17 15:00 Temperature 98.0 F Temperature Source Pulse Rate 87 100 Respiratory Rate Blood Pressure 162/69 H 131/84 H O2 Sat by Pulse 96 Oximetry Oxygen Delivery Method 09/11/18 15:17 Temperature 97.9 F Temperature Oral Source Pulse Rate 76 Respiratory 16 Rate Blood Pressure O2 Sat by Pulse 96 Oximetry Oxygen Delivery Room Air Method HEAD: Is atraumatic normocephalic. EYES:. Pupils are equal round regular reactive to light accommodation. Extraocular movements are normal. There is no conjunctival pallor. There is no scleral icterus. EARS: Tympanic memories are intact. External auditory canals are clear. NOSE: There is no inflammation of the nasal mucous membrane. There is no deviated nasal septum. MOUTH: Mucous members of mouth are moist. Tongue is moist. There is no ulcers, and there is no bleeding from the gums. THROAT: There is no redness of the oropharynx. There is no exudates in the throat. SKIN: There is no skin rashes or skin lesions. There is no particular ecchymosis. NECK: Is supple. There is no JVD. Carotids are equal there is no bruit there is no lymphadenopathy. There is no goiter. There is no accessory muscle respiration use. Trachea central. LUNGS: Is clear to auscultation percussion, without any rhonchi rales or wheezing. There is no chest wall tenderness HEART: S1-S2 is heard there is no S3 gallop there is no S4 gallop. S1 is of variable intensity. There is systolic murmur left sternal border and the apex without radiation. There is no rub. ABDOMEN: Is soft. There is no hepatosplenic megaly. Bowel sounds are well heard. There is no tender areas masses. There is no rebound guarding or rigidity. EXTREMITIES: Femorals are diminished. There is no femoral bruits left leg pulses are diminished. There is right AKA is present the stump appears to be clean without any infection. There is no pedal edema. There is no DVT or cellulitis. There is no sinus or clubbing. Capillary refill is normal in the left lower extremity. PHOTO JOURNALIST: The patient is conscious awake alert oriented x3 with no focal deficit. PSYCHIATRIC: The patient judgment and insight are intact his affect is normal. 09/11/18 09/11/18 09/11/18 04:02 04:02 04:02 WBC 6.8 RBC 3.30 L Hgb 11.4 L Hct 33.2 L MCV 101 H MCH 34.6 H MCHC 34.3 RDW 13.3 Plt Count 81 L Sodium 137.7 Potassium 4.5 Chloride 101 Carbon Dioxide 29 Anion Gap 8 BUN 34 H Creatinine 2.84 H Est GFR (Non-Af Amer) 23 L Glucose 160 H Calcium 8.8 Magnesium 1.8 TSH 3.22 Free T4 1.57 Free T3 pg/mL 2.48 L Digoxin 1.13 IMPRESSION/RECOMMENDATION: 1. Chronic atrial fibrillation. Admitted with rapid ventricular response. At present heart rate is controlled. Note by echo of 2017, the patient's left atrial size was normal. The patient has never been tried to be converted to sinus rhythm. In spite of the long-standing atrial fibrillation, it was thought worthwhile to give a trial of trying to convert the patient chemically to sinus rhythm, and if need be by electrical cardioversion. We will stop the patient's digoxin and metoprolol, and start the patient on an amiodarone bolus and drip. The benefits risks and side effects of the medications of amiodarone has been discussed in detail with the patient. 2. Fever with nausea and vomiting:? Etiology at present there is no evidence of cause of fever. The patient has no symptoms a UTI or any symptoms suggestive of bronchitis or pneumonia, and the chest x-ray is clear. There is no recurrence of fever in this admission 3. Hypertension: Blood pressure well controlled 4. Coronary artery disease: History of stent in the past at present no anginal symptoms. No evidence of acute coronary syndrome. 5. Diabetes mellitus type 2 insulin-dependent. Continue patient's current antidiabetic regimen. Follow blood sugars closely. Would recommend checking a hemoglobin A1c in the a.m. 6. 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 At present renal status seems to be stable. Avoid nephrotoxic drugs. 7. Hypothyroidism: Continue thyroid replacement. Check the patient's thyroid function in the a.m. 8. Peripheral vascular disease: Asymptomatic. History of right AKA in the past. Medications reviewed. Medications medications changed. Medical decision making is of high complexity. 40 minutes spent on this patient with more than 50% of time spent in direct patient care. Discussed with Dr. Juárez about management plan of this patient. We will follow with you.
[2018-09-12 05:27] LABS: WHITE BLOOD COUNT 6.6 10^3/uL (4.0-10.5)
[2018-09-12 05:28] LABS: ABSOLUTE EOSINOPHILS # (AUTO) 0.3 10^3/uL (0.0-0.6); ABSOLUTE LYMPHOCYTES (AUTO) 1.9 10^3/uL (0.5-4.7); ABSOLUTE MONOCYTES (AUTO) 0.9 10^3/uL (0.1-1.4); ABSOLUTE NEUT (AUTO) 3.5 10^3/uL (1.7-8.2); BASOPHILS % (AUTO) 0.6 % (0-2); EOSINOPHILS % (AUTO) 4.3 % (0-6); HEMATOCRIT 33.8 % (37.9-51.0); HEMOGLOBIN 11.6 g/dL (13.5-17.0); LYMPHOCYTES % (AUTO) 28.7 % (13-45); MEAN CORPUSCULAR HEMOGLOBIN 34.1 pg (27.0-33.4); MEAN CORPUSCULAR HGB CONC 34.3 g/dL (32.0-36.0); MEAN CORPUSCULAR VOLUME 100 fl (80-97); MONOCYTES % (AUTO) 13.6 % (3-13); PLATELET COUNT 101 10^3/uL (150-450); RED CELL DISTRIBUTION WIDTH 13.5 % (11.5-14.0); SEGMENTED NEUTROPHILS % (AUTO) 52.8 % (42-78); TOTAL CELLS COUNTED % (AUTO) 100 %
[2018-09-12 05:33] LABS: ANION GAP 10 (5-19); BLOOD UREA NITROGEN 37 mg/dL (7-20); CALCIUM 8.9 mg/dL (8.4-10.2); CARBON DIOXIDE 27 mmol/L (22-30); CHLORIDE 102 mmol/L (98-107); GLUCOSE 119 mg/dL (75-110); POTASSIUM 3.8 mmol/L (3.6-5.0)
[2018-09-12] MEDS: HYDRALAZINE HCL 50 MG TABLET PO SCH ×3 (06:54→22:19)
[2018-09-12] MEDS: ISOSORBIDE DINITRATE 20 MG TABLET PO SCH ×3 (06:55→22:19)
[2018-09-12] MEDS: LANSOPRAZOLE 15 MG TAB.RAP.DR PO SCH ×2 (06:55→17:50)
[2018-09-12] MEDS: LEVOTHYROXINE SODIUM 0.15 MG TABLET PO SCH (06:56)
[2018-09-12] MEDS ORDERED: METOPROLOL TARTRATE PF/INJ 5 MG/5 ML SDV IV ONE ×3 (09:00→17:15)
[2018-09-12] MEDS: TAMSULOSIN HCL 0.4 MG CAP.SR.24H PO SCH (09:04)
[2018-09-12] MEDS: SITAGLIPTIN PHOSPHATE 50 MG TABLET PO SCH (09:04)
[2018-09-12] MEDS: LOSARTAN POTASSIUM 25 MG TABLET PO SCH (09:04)
[2018-09-12] MEDS: CEFEPIME 2 GM/D5W RTU 2 GM/50 ML RTUPB IV SCH (09:04)
[2018-09-12] MEDS: APIXABAN 2.5 MG TABLET PO SCH ×2 (09:04→17:50)
[2018-09-12] MEDS: FUROSEMIDE 40 MG TABLET PO SCH ×2 (09:04→17:51)
[2018-09-12] MEDS: INSULIN DETEMIR 100 UNIT/ML 3 ML PEN SUBCUT SCH (09:05)
[2018-09-12] MEDS: DIGOXIN 0.125 MG TABLET PO SCH (10:19)
[2018-09-12] MEDS: METOPROLOL SUCCINATE 50 MG TAB.SR.24H PO SCH (10:19)
[2018-09-12] MEDS: INSULIN LISPRO 100 UNIT/ML 3 ML VIAL SUBCUT PRN ×2 (12:36→17:51)
--- NOTE | 2018-09-12 14:18 | Progress Note ---
Provider Note Provider Note: ID Consult Note Asked by Pharmacy to review patient's chart. Pt not seen or examined. Mr. Villalpando is a 58 year old man with PMH including DM, HTN, AF on anticoagulation, CKD, and PVD s/p RLE amputation who presented on 09/09/18 via EMS with c/o fever and vomiting. He denied any cough, SOB, CP, abdominal pain, dysuria or hematuria. Pt was found to be febrile with temp 103 F with tachypnea, tachycardia. On exam, lungs were CTAB, irregularly irregular tachycardic rhythm, LUSB systolic murmur, RLE stump intact and well healed, no skin lesions, abdomen soft and NTTP with no HSM. Pt had mildly elevated WBC count 11.7. He was found to be in AF with RVR. He was thought to potentially have UTI causing sepsis, and empirically cefepime was started. CXR did not show acute cardiopulmonary disease. Blood cultures are preliminarily reported as negative x48h. U/A showed no pyuria. UCx has no growth x 2 days. Impression/Recommendations Although the initial suspicion was of sepsis due to urinary tract infection, this does not appear to be the case. Pt did not have dysuria on admission, and lack of pyuria on U/A has a high negative predictive value against UTI being present. Blood cultures are also negative x 48h. CXR did not show a focal infiltrate. The possibility remains of a viral syndrome producing fever along with nausea and vomiting. Suggest discontinuing cefepime as no bacterial infection has been identified. Jeffy Kevin MD [facility] pager [phone]
[2018-09-12] MEDS: DEXTROSE 5%-WATER 500 ML with AMIODARONE HCL 900 MG IV PRN ×2 (17:13)
--- NOTE | 2018-09-12 21:16 | PDOC PROGRESS REPORT ---
Subjective Progress Note for:: 09/12/18 Subjective:: Patient seen by the bedside, he has no new complaints Reason For Visit: AFIB,FEVER Physical Exam Vital Signs: Temp Pulse Resp BP Pulse Ox 97.9 F 98 16 144/79 H 96 09/12/18 15:25 09/12/18 18:00 09/12/18 15:25 09/12/18 18:00 09/12/18 15:25 Intake & Output 09/11/18 09/12/18 09/13/18 06:59 06:59 06:59 Intake Total 412 755 Output Total 1650 1100 900 Balance -9688 -345 -900 Weight 83.2 kg 82.4 kg General appearance: PRESENT: no acute distress Eye exam: PRESENT: PERRLA Respiratory exam: PRESENT: clear to auscultation clay Cardiovascular exam: PRESENT: +S2 GI/Abdominal exam: PRESENT: soft Neurological exam: PRESENT: alert Results Laboratory Results: 09/12/18 04:02 09/12/18 04:02 09/12/18 09/12/18 04:02 04:02 WBC 6.6 RBC 3.40 L Hgb 11.6 L Hct 33.8 L MCV 100 H MCH 34.1 H MCHC 34.3 RDW 13.5 Plt Count 101 L Seg Neutrophils % 52.8 Lymphocytes % 28.7 Monocytes % 13.6 H Eosinophils % 4.3 Basophils % 0.6 Absolute Neutrophils 3.5 Absolute Lymphocytes 1.9 Absolute Monocytes 0.9 Absolute Eosinophils 0.3 Absolute Basophils 0.0 Sodium 139.0 Potassium 3.8 Chloride 102 Carbon Dioxide 27 Anion Gap 10 BUN 37 H Creatinine 2.81 H Est GFR ( Amer) 28 L Est GFR (Non-Af Amer) 23 L Glucose 119 H Calcium 8.9 Magnesium 1.9 09/10/18 08:28 Clean Catch Midstream Urine Culture - Final NO GROWTH 2 DAYS 09/09/18 09/10/18 09/10/18 20:15 00:21 00:21 Creatine Kinase 67 CK-MB (CK-2) 0.67 Troponin I 0.022 0.036 NT-Pro-B Natriuret Pep 09/10/18 09/10/18 09/10/18 06:02 06:02 12:00 Creatine Kinase 68 71 CK-MB (CK-2) 0.84 Troponin I 0.036 NT-Pro-B Natriuret Pep 3530 H 09/10/18 12:00 Creatine Kinase CK-MB (CK-2) 0.80 Troponin I 0.031 NT-Pro-B Natriuret Pep Impressions: Chest X-Ray 09/09/18 20:01 IMPRESSION: No acute cardiopulmonary disease. copyright 2010 [employer]- All Rights Reserved Assessment & Plan - Diagnosis (1) Atrial fibrillation with RVR Is this a current diagnosis for this admission?: Yes (2) Urinary tract infection Qualifiers: Urinary tract infection type: site unspecified Hematuria presence: without hematuria Qualified Code(s): N39.0 - Urinary tract infection, site not specified Is this a current diagnosis for this admission?: Yes Plan: Discontinue antibiotic (3) Diabetes mellitus with nephropathy Is this a current diagnosis for this admission?: Yes (4) Chronic kidney disease, stage 3 Is this a current diagnosis for this admission?: Yes
[2018-09-12] MEDS: ATORVASTATIN CALCIUM 40 MG TABLET PO SCH (22:19)
--- NOTE | 2018-09-12 22:33 | Progress Note ---
Provider Note Provider Note: CARDIOLOGY PROGRESS NOTE by Dr. Purnima Edge on 09/12/2018. SUBJECTIVE: The patient continues to be in atrial fibrillation on amiodarone drip. His heart rate is controlled. He denies any chest pain or discomfort. There is no PND orthopnea. There is no cough or sputum production. The patient is afebrile. There is no bleeding on Eliquis. There is no TIA CVA symptoms. Discussed electrical cardioversion with the patient. He does not refuses to have a electrical cardioversion. Hence we will try amiodarone for another 24 hours to see if you can convert to sinus rhythm. PHYSICAL EXAMINATION: The patient is well-built and well-nourished. He is well- groomed. He is in no acute distress. Selected Entries 09/12/18 09/12/18 11:21 12:00 Temperature 98.1 F Temperature Oral Source Pulse Rate 87 Respiratory 18 Rate Blood Pressure 146/85 H BP Location Left Arm BP Position Sitting O2 Sat by Pulse 98 Oximetry Oxygen Delivery Room Air Method HEAD: Is atraumatic normocephalic. EYES:. Pupils are equal round regular reactive to light accommodation. Extraocular movements are normal. There is no conjunctival pallor. There is no scleral icterus. EARS: Tympanic memories are intact. External auditory canals are clear. NOSE: There is no inflammation of the nasal mucous membrane. There is no deviated nasal septum. MOUTH: Mucous members of mouth are moist. Tongue is moist. There is no ulcers, and there is no bleeding from the gums. THROAT: There is no redness of the oropharynx. There is no exudates in the throat. SKIN: There is no skin rashes or skin lesions. There is no particular ecchymosis. NECK: Is supple. There is no JVD. Carotids are equal there is no bruit there is no lymphadenopathy. There is no goiter. There is no accessory muscle respiration use. Trachea central. LUNGS: Is clear to auscultation percussion, without any rhonchi rales or wheezing. There is no chest wall tenderness HEART: S1-S2 is heard there is no S3 gallop there is no S4 gallop. S1 is of variable intensity. There is systolic murmur left sternal border and the apex without radiation. There is no rub. ABDOMEN: Is soft. There is no hepatosplenic megaly. Bowel sounds are well heard. There is no tender areas masses. There is no rebound guarding or rigidity. EXTREMITIES: Femorals are diminished. There is no femoral bruits left leg pulses are diminished. There is right AKA is present the stump appears to be clean without any infection. There is no pedal edema. There is no DVT or cellulitis. There is no sinus or clubbing. Capillary refill is normal in the left lower extremity. FARM IMPLEMENT MECHANIC: The patient is conscious awake alert oriented x3 with no focal deficit. PSYCHIATRIC: The patient judgment and insight are intact his affect is normal. 09/12/18 09/12/18 09/12/18 04:02 04:02 05:55 WBC 6.6 RBC 3.40 L Hgb 11.6 L Hct 33.8 L MCV 100 H MCH 34.1 H MCHC 34.3 RDW 13.5 Plt Count 101 L Seg Neutrophils % 52.8 Lymphocytes % 28.7 Monocytes % 13.6 H Eosinophils % 4.3 Basophils % 0.6 Absolute Neutrophils 3.5 Absolute Lymphocytes 1.9 Absolute Monocytes 0.9 Absolute Eosinophils 0.3 Absolute Basophils 0.0 Sodium 139.0 Potassium 3.8 Chloride 102 Carbon Dioxide 27 Anion Gap 10 BUN 37 H Creatinine 2.81 H Est GFR (Non-Af Amer) 23 L Glucose 119 H POC Glucose 101 Calcium 8.9 Magnesium 1.9 IMPRESSION/RECOMMENDATION: 1. Chronic atrial fibrillation. Admitted with rapid ventricular response. At present heart rate is controlled on amiodarone drip. The patient does not want electrical cardioversion. Hence we will continue the amiodarone for another 24 hours to see if this will convert him to sinus rhythm. If this does not then will go back to his metoprolol and digoxin. 2. Fever with nausea and vomiting:? Etiology at present there is no evidence of cause of fever. The patient has no symptoms a UTI or any symptoms suggestive of bronchitis or pneumonia, and the chest x-ray is clear. There is no recurrence of fever in this admission 3. Hypertension: Blood pressure well controlled 4. Coronary artery disease: History of stent in the past at present no anginal symptoms. No evidence of acute coronary syndrome. 5. Diabetes mellitus type 2 insulin-dependent. Continue patient's current antidiabetic regimen. Follow blood sugars closely. Would recommend checking a hemoglobin A1c in the a.m. 6. Chronic kidney disease stage IV: Patient has a siphon operator whom he follows as an outpatient. At present renal status seems to be stable. Avoid nephr otoxic drugs. 7. Hypothyroidism: Continue thyroid replacement. Check the patient's thyroid function in the a.m. 8. Peripheral vascular disease: Asymptomatic. History of right AKA in the past. Medications reviewed. Medications medications changed. Medical decision making is of high complexity. 40 minutes spent on this patient with more than 50% of time spent in direct patient care. Discussed with Dr. Juárez about management plan of this patient. We will follow with you.
[2018-09-13] MEDS: LEVOTHYROXINE SODIUM 0.15 MG TABLET PO SCH (07:00)
[2018-09-13] MEDS: HYDRALAZINE HCL 50 MG TABLET PO SCH ×2 (07:00→13:36)
[2018-09-13] MEDS: ISOSORBIDE DINITRATE 20 MG TABLET PO SCH ×2 (07:00→13:36)
[2018-09-13] MEDS: LANSOPRAZOLE 15 MG TAB.RAP.DR PO SCH (07:00)
[2018-09-13] MEDS: LOSARTAN POTASSIUM 25 MG TABLET PO SCH (09:20)
[2018-09-13] MEDS: CALCITRIOL 0.25 MCG CAPSULE PO SCH (09:20)
[2018-09-13] MEDS: APIXABAN 2.5 MG TABLET PO SCH (09:20)
[2018-09-13] MEDS: FUROSEMIDE 40 MG TABLET PO SCH (09:20)
[2018-09-13] MEDS: TAMSULOSIN HCL 0.4 MG CAP.SR.24H PO SCH (09:20)
[2018-09-13] MEDS: SITAGLIPTIN PHOSPHATE 50 MG TABLET PO SCH (09:21)
[2018-09-13] MEDS: INSULIN DETEMIR 100 UNIT/ML 3 ML PEN SUBCUT SCH (09:21)
[2018-09-13] MEDS ORDERED: DIGOXIN 0.125 MG TABLET PO ONE (12:00)
[2018-09-13] MEDS ORDERED: METOPROLOL SUCCINATE 50 MG TAB.SR.24H PO ONE (12:00)
--- NOTE | 2018-09-13 14:34 | PDOC DISCHARGE SUMMARY ---
General - Admit/Disc Date/PCP Admission Date/Primary Care Provider: 09/09/18 21:54 CLARISSE REMY MD Discharge Date: 09/13/18 - Discharge Diagnosis (1) Atrial fibrillation with RVR Is this a current diagnosis for this admission?: Yes (2) Diabetes mellitus with nephropathy Is this a current diagnosis for this admission?: Yes (3) Chronic kidney disease, stage 3 Is this a current diagnosis for this admission?: Yes - Additional Information Resuscitation Status: Full Code Home Medications: Apixaban [Eliquis 2.5 mg Tablet] 2.5 mg PO BID 08/17/18 Atorvastatin Calcium [Lipitor 40 mg Tablet] 40 mg PO QHS 08/17/18 Calcitriol [Rocaltrol 0.25 mcg Capsule] 0.25 mcg PO MOWEFR@1000 08/17/18 Digoxin [Lanoxin 0.125 mg Tablet] 0.125 mg PO DAILY 08/17/18 Exenatide Microspheres [Bydureon Pen] 2 mg SQ SA@1000 08/17/18 Furosemide [Lasix 40 mg Tablet] 40 mg PO BID 08/17/18 Hydralazine HCl [Apresoline 50 mg Tablet] 50 mg PO TID 08/17/18 Insulin Detemir [Levemir] 80 unit SQ DAILY 08/17/18 Isosorbide Dinitrate [Isordil Titradose 20 mg Tablet] 20 mg PO TID 08/17/18 Levothyroxine Sodium 150 mcg PO DAILY 08/17/18 Linagliptin [Tradjenta] 5 mg PO DAILY 08/17/18 Losartan Potassium [Cozaar 25 mg Tablet] 25 mg PO DAILY 08/17/18 Metoprolol Succinate [Toprol XL 100 mg Tablet] 100 mg PO Q12 08/17/18 Tamsulosin HCl [Flomax] 0.4 mg PO DAILY 08/17/18 History of Present Illness History of Present Illness: JOSE D COLBERT is a 58 year old male she presented to the emergency room for evaluation of atrial fibrillation with rapid ventricular response and also possible UTI Hospital Course Hospital Course: Patient was admitted for the management of atrial fibrillation with rapid ventricular response, he was treated with intravenous Cardizem infusion for rate control, he has a history of chronic fibrillation chronically on anticoagulation. He was seen in consultation by cardiology Dr. Edge, he recommended intravenous amiodarone, but patient remains in A. fib chronically. 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 Physical Exam Vital Signs: Temp Pulse Resp BP Pulse Ox 97.7 F 94 16 141/82 H 98 09/13/18 11:14 09/13/18 12:00 09/13/18 11:14 09/13/18 12:00 09/13/18 11:14 Intake & Output 09/12/18 09/13/18 09/14/18 06:59 06:59 06:59 Intake Total 755 473 Output Total 1100 1250 300 Balance -345 -1250 173 Weight 82.4 kg 813 kg General appearance: PRESENT: no acute distress Head exam: PRESENT: atraumatic, normocephalic Eye exam: PRESENT: conjunctiva pink, EOMI, PERRLA Ear exam: PRESENT: normal external ear exam Mouth exam: PRESENT: moist, tongue midline Neck exam: PRESENT: full ROM Respiratory exam: PRESENT: clear to auscultation clay Cardiovascular exam: PRESENT: RRR, +S1, +S2 Vascular exam: PRESENT: normal capillary refill GI/Abdominal exam: PRESENT: normal bowel sounds, soft Rectal exam: PRESENT: deferred Neurological exam: PRESENT: alert, CN II-XII grossly intact Psychiatric exam: PRESENT: appropriate affect, normal mood Skin exam: PRESENT: dry, intact, warm Results Laboratory Results: 09/12/18 04:02 09/12/18 04:02 09/10/18 08:28 Clean Catch Midstream Urine Culture - Final NO GROWTH 2 DAYS 09/09/18 09/10/18 09/10/18 20:15 00:21 00:21 Creatine Kinase 67 CK-MB (CK-2) 0.67 Troponin I 0.022 0.036 NT-Pro-B Natriuret Pep 09/10/18 09/10/18 09/10/18 06:02 06:02 12:00 Creatine Kinase 68 71 CK-MB (CK-2) 0.84 Troponin I 0.036 NT-Pro-B Natriuret Pep 3530 H 09/10/18 12:00 Creatine Kinase CK-MB (CK-2) 0.80 Troponin I 0.031 NT-Pro-B Natriuret Pep Impressions: Chest X-Ray 09/09/18 20:01 IMPRESSION: No acute cardiopulmonary disease. copyright 2010 [employer]- All Rights Reserved Qualifiers - * PATIENT BEING DISCHARGED WITH ANY OF THE FOLLOWING DIAGNOSIS: No
[2018-09-13 15:00] VITALS: BP 134/72
--- NOTE | 2018-09-13 22:17 | Progress Note ---
Provider Note Provider Note: CARDIOLOGY PROGRESS NOTE by Dr. Purnima Parra on 09/13/2018.
[2018-09-16] MEDS ORDERED: (PENDING PHARMACY ID) (Exenatide Microspheres [Bydureon Pen] 2 MG) SQ SCH (10:00)
== END 2018-09-13 16:48 | disposition home or self-care (01) | DRG 309 ==
LOC: ER 19:34 → EH 21:54 → 3N 23:56
PROVIDERS: ADMIT Internal Medicine; ATTEND Internal Medicine
PROC: 3E0F73Z Introduction of Anti-inflammatory into Respiratory Tract, Via Natural or Artificial Opening (ICD-10-PCS; principal; 2018-09-10)
DX: I48.2 Chronic atrial fibrillation (principal); N39.0 Urinary tract infection, site not specified; I50.42 Chronic combined systolic (congestive) and diastolic (congestive) heart failure; N18.4 Chronic kidney disease, stage 4 (severe); E11.22 Type 2 diabetes mellitus with diabetic chronic kidney disease; E11.40 Type 2 diabetes mellitus with diabetic neuropathy, unspecified; E11.51 Type 2 diabetes mellitus with diabetic peripheral angiopathy without gangrene; I13.10 Hypertensive heart and chronic kidney disease without heart failure, with stage 1 through stage 4 chronic kidney disease, or unspecified chronic kidney disease; E78.00 Pure hypercholesterolemia, unspecified; I25.10 Atherosclerotic heart disease of native coronary artery without angina pectoris; E03.9 Hypothyroidism, unspecified; K21.9 Gastro-esophageal reflux disease without esophagitis; F32.9 Major depressive disorder, single episode, unspecified; I25.2 Old myocardial infarction; Z79.4 Long term (current) use of insulin; Z79.899 Other long term (current) drug therapy; Z89.512 Acquired absence of left leg below knee; Z95.5 Presence of coronary angioplasty implant and graft; Z87.891 Personal history of nicotine dependence
CPT/HCPCS: 36415; 71045; 80048; 80053; 80162; 81001; 82550; 82553; 82803; 82962; 83605; 83735; 83880; 84439; 84443; 84481; 84484; 85025; 85610; 87040; 87086; 93005; 93010; 96365; 96375; 99291; J0282; J0692; J0696; J1815; J3490; J7060; J7120

== ENCOUNTER → 2018-12-07 | Outpatient (CLI) | payer MEDICARE ==
[2018-12-07 15:43] LABS: ANION GAP 12 (5-19); BLOOD UREA NITROGEN 47 mg/dL (7-20); CALCIUM 9.2 mg/dL (8.4-10.2); CARBON DIOXIDE 25 mmol/L (22-30); CHLORIDE 102 mmol/L (98-107); GLUCOSE 146 mg/dL (75-110); PHOSPHORUS 4.6 mg/dL (2.5-4.5); POTASSIUM 4.8 mmol/L (3.6-5.0); SODIUM 139.4 mmol/L (137-145)
[2018-12-07 15:59] LABS: URINE CREATININE 97.2 mg/dL (22-328)
[2018-12-07 16:05] LABS: UR PRO/CREAT RATIO RESULT 3.2 mg/mg (0.0-0.2); URINE PROTEIN 311.8 mg/dL (<12)
== END ==
LOC: OD 14:54
PROVIDERS: ATTEND Internal Medicine Nephrology
DX: E11.22 Type 2 diabetes mellitus with diabetic chronic kidney disease (principal); N18.4 Chronic kidney disease, stage 4 (severe); E11.21 Type 2 diabetes mellitus with diabetic nephropathy; E83.39 Other disorders of phosphorus metabolism; N25.81 Secondary hyperparathyroidism of renal origin
CPT/HCPCS: 80048; 82570; 83970; 84100; 84156

== ENCOUNTER → 2019-06-08 | Outpatient (CLI) | payer MEDICARE ==
[2019-06-08 16:54] LABS: ANION GAP 11 (5-19); BLOOD UREA NITROGEN 36 mg/dL (7-20); CALCIUM 9.9 mg/dL (8.4-10.2); CARBON DIOXIDE 23 mmol/L (22-30); CHLORIDE 103 mmol/L (98-107); GLUCOSE 173 mg/dL (75-110); POTASSIUM 4.9 mmol/L (3.6-5.0)
[2019-06-08 16:58] LABS: URINE CREATININE 99.7 mg/dL (22-328)
[2019-06-08 17:07] LABS: UR PRO/CREAT RATIO RESULT 3.7 mg/mg (0.0-0.2); URINE PROTEIN 367.1 mg/dL (<12)
[2019-06-08 17:08] LABS: FREE T4 (FREE THYROXINE) 1.55 ng/dL (0.78-2.19)
[2019-06-08 17:22] LABS: THYROID STIMULATING HORMONE 2.25 uIU/mL (0.47-4.68)
== END ==
LOC: OD 15:43
PROVIDERS: ATTEND Internal Medicine Nephrology
DX: I12.9 Hypertensive chronic kidney disease with stage 1 through stage 4 chronic kidney disease, or unspecified chronic kidney disease (principal); N18.4 Chronic kidney disease, stage 4 (severe); E11.22 Type 2 diabetes mellitus with diabetic chronic kidney disease; E11.21 Type 2 diabetes mellitus with diabetic nephropathy; R80.9 Proteinuria, unspecified; R19.7 Diarrhea, unspecified
CPT/HCPCS: 36415; 80048; 82570; 84156; 84439; 84443

== ENCOUNTER 2020-06-28 01:03 | Emergency (ER) | payer MEDICARE ==
[2020-06-28 02:46] LABS: HEMATOCRIT 41.3 % (37.9-51.0); MEAN CORPUSCULAR HEMOGLOBIN 34.4 pg (27.0-33.4); MEAN CORPUSCULAR HGB CONC 33.8 g/dL (32.0-36.0); MEAN CORPUSCULAR VOLUME 102 fl (80-97); PLATELET COUNT 130 10^3/uL (150-450); RED BLOOD COUNT 4.06 10^6/uL (4.35-5.55); RED CELL DISTRIBUTION WIDTH 13.6 % (11.5-14.0); WHITE BLOOD COUNT 10.9 10^3/uL (4.0-10.5)
[2020-06-28] MEDS ORDERED: NORMAL SALINE 1000 ML 1,000 ML IV ONE (02:50)
[2020-06-28 02:57] LABS: ALBUMIN 3.8 g/dL (3.5-5.0); ALKALINE PHOSPHATASE 95 U/L (38-126); ANION GAP 13 (5-19); ASPARTATE AMINO TRANSFERASE 24 U/L (17-59); BILIRUBIN,DIRECT 0.2 mg/dL (0.0-0.4); BILIRUBIN,TOTAL 0.4 mg/dL (0.2-1.3); BLOOD UREA NITROGEN 47 mg/dL (7-20); CALCIUM 10.1 mg/dL (8.4-10.2); CARBON DIOXIDE 21 mmol/L (22-30); CHLORIDE 108 mmol/L (98-107); GLUCOSE 192 mg/dL (75-110); POTASSIUM 5.1 mmol/L (3.6-5.0); TOTAL PROTEIN 7.8 g/dL (6.3-8.2)
[2020-06-28 03:16] LABS: ABSOLUTE LYMPHOCYTES# (MANUAL) 0.5 10^3/uL (0.5-4.7); ABSOLUTE MONOCYTES # (MANUAL) 0.5 10^3/uL (0.1-1.4); BASOPHILS % (MANUAL) 0 % (0-2); EOSINOPHILS % (MANUAL) 0 % (0-6); LYMPHOCYTES % (MANUAL) 5 % (13-45); MONOCYTES % (MANUAL) 5 % (3-13); SEGMENTED NEUTROPHILS % (MAN) 90 % (42-78); TOTAL CELLS COUNTED 100
[2020-06-28 03:17] LABS: PLATELET COMMENT DECREASED; TOXIC GRANULATION SLIGHT; TOXIC VACUOLATION PRESENT
--- NOTE | 2020-06-28 05:46 | ER Document Report ---
ED General - General Chief Complaint: Nausea/Vomiting/Diarrhea Stated Complaint: NAUSEA,VOMITING,DIARRHEA Primary Care Provider: CAROL ANN SILVER MD [Primary Care Provider] - Follow up in 3-5 days Notes: 59-year-old male with diabetes, stage V CKD, hypertension, A. fib presents with numerous episodes of nonbloody nonbilious emesis and few episodes of loose nonbloody nonblack stool after eating [employer] at 5 PM yesterday that he felt was bad. At the time of my evaluation however symptoms had resolved and patient feels completely well. Patient denies any abdominal pain, black stool, bloody stool, lightheadedness, syncope, shortness of breath, headache, eye pain, neck pain or stiffness, fever, cough cold symptoms, sick contacts TRAVEL OUTSIDE OF THE [place] IN LAST 30 DAYS: No - Related Data Allergies/Adverse Reactions: No Known Allergies Allergy (Verified 06/28/20 01:33) Past Medical History - General Information source: Patient, [facility] Records - Social History Smoking Status: Former Smoker Chew tobacco use (# tins/day): No Frequency of alcohol use: None Drug Abuse: None Family History: Reviewed & Not Pertinent Patient has homicidal ideation: No - Past Medical History Cardiac Medical History: Reports: Hx Atrial Fibrillation, Hx Congestive Heart Failure, Hx Coronary Artery Disease, Hx Heart Attack, Hx Hypercholesterolemia, Hx Hypertension, Hx Peripheral Vascular Disease Pulmonary Medical History: Reports: Hx COPD Denies: Hx Tuberculosis Endocrine Medical History: Reports: Hx Diabetes Mellitus Type 1, Hx Diabetes Mellitus Type 2, Hx Hypothyroidism Renal/ Medical History: Reports: Hx Renal Insufficiency. Denies: Hx Peritoneal Dialysis GI Medical History: Reports: Hx Gastroesophageal Reflux Disease, Hx Ulcer Psychiatric Medical History: Reports: Hx Depression Past Surgical History: Reports: Hx Cardiac Catheterization, Hx Orthopedic Surgery - RAKA, Hx Vascular Surgery - Angioplasty in the right leg - Immunizations Hx Diphtheria, Pertussis, Tetanus Vaccination: Yes Hx Pneumococcal Vaccination: 09/25/14 Review of Systems - Review of Systems Notes: REVIEW OF SYSTEMS: CONSTITUTIONAL : Denies fever, chills, or sweats. EENT: Denies recent cold/sinus symptoms, denies throat pain CARDIOVASCULAR: Denies chest pain, MANA RESPIRATORY: Denies cough, denies shortness of breath. GASTROINTESTINAL: Denies abdominal pain, +nausea/vomiting. GENITOURINARY: Denies difficulty urinating, painful urination. MUSCULOSKELETAL: Denies neck pain, back pain. SKIN: Denies rash or skin lesions. HEMATOLOGIC : Denies easy bruising or bleeding. LYMPHATIC: Denies swollen, enlarged glands. NEUROLOGICAL: Denies headache, denies change in gait. PSYCHIATRIC: Denies anxiety or stress or depression. Physical Exam - Vital signs Vitals: Temp 97.7 F 06/28/20 01:04 - Notes Notes: PHYSICAL EXAMINATION: GENERAL: Well-appearing, well-nourished middle-aged man lying in stretcher with no visible signs of discomfort in no acute distress. HEAD: Atraumatic, normocephalic. EYES: Pupils equal round and appropriate constriction, sclera anicteric, conjunctiva are normal. ENT: nares patent, moist mucous membranes. NECK: Normal range of motion, supple without lymphadenopathy LUNGS: Breath sounds clear to auscultation bilaterally and equal. No wheezes rales or rhonchi. HEART: Regular rate and rhythm without murmurs ABDOMEN: Soft, nontender, no guarding, no masses, no CVAT, hyperactive bowel sounds EXTREMITIES: Normal range of motion, no pitting or edema. No cyanosis. NEUROLOGICAL: Awake, alert, conversing appropriately, moves all extremities spontaneously. PSYCH: Normal mood, normal affect. SKIN: Warm, Dry, normal turgor, no rashes or lesions noted. Course - Re-evaluation Re-evalutation: 06/28/20 05:53 Patient with resolved vomiting and diarrhea currently tolerating p.o. in ED. No signs of atypical ACS or uremia causing patient symptoms. Stage V CKD with creatinine worsened from last measurement, potassium now borderline high. I discussed this with patient and gave him a copy of all of his lab work and instructed him to call his cable armorer this morning to inform her of the change in his renal function and that his potassium is now 5.1 and discuss with her whether he should start medication for lowering the potassium. Instructed him to avoid foods containing high potassium. Potassium is not sufficiently high to require starting medication at this time or any emergent dialysis, patient has close follow-up with his cable armorer Dr. Silver and says he will call her in the morning. Gave patient return to ED precautions which she demonstrated understanding of. - Vital Signs Vital signs: Temp Pulse Resp BP Pulse Ox 97.7 F 13 144/78 H 96 06/28/20 01:04 06/28/20 05:01 06/28/20 05:01 06/28/20 05:01 - Laboratory Result Diagrams: 06/28/20 01:26 06/28/20 01:26 Laboratory results interpreted by me: 06/28/20 06/28/20 06/28/20 01:26 01:26 01:30 WBC 10.9 H RBC 4.06 L MCV 102 H MCH 34.4 H Plt Count 130 L Seg Neuts % (Manual) 90 H Lymphocytes % (Manual) 5 L Abs Neuts (Manual) 9.8 H Potassium 5.1 H Chloride 108 H Carbon Dioxide 21 L BUN 47 H Creatinine 3.55 H Est GFR ( Amer) 21 L Est GFR (MDRD) Non-Af 18 L Glucose 192 H POC Glucose 175 H Discharge - Discharge Clinical Impression: Chronic kidney disease (CKD), stage V, Hyperkalemia Vomiting Qualifiers: Vomiting type: unspecified Vomiting Intractability: non-intractable Nausea presence: with nausea Qualified Code(s): R11.2 - Nausea with vomiting, unspecified Diabetes mellitus, type II Qualifiers: Diabetes mellitus intermediate insulin use: with termination clerk use Diabetes mellitus complication status: with hyperglycemia Qualified Code(s): E11.65 - Type 2 diabetes mellitus with hyperglycemia Diarrhea Qualifiers: Diarrhea type: presumed infectious Qualified Code(s): R19.7 - Diarrhea, unspecified Disposition: HOME, SELF-CARE Additional Instructions: Increase your water intake over the next 2 days. Your potassium was slightly high so avoid foods with high potassium until you follow-up with your cable armorer. Call your cable armorer today to make an appointment to follow-up within the next few days. Your kidney function was slightly worse than usual, discuss this with your cable armorer. if you have any return of vomiting , abdominal pain, shortness of breath, diarrhea, dizziness, weakness, fainting, fever, or any other worsening or alarming symptoms return to the emergency department immediately. Many fresh fruits and vegetables are high in potassium: Bananas, oranges, cantaloupe, honeydew, apricots, grapefruit (some dried fruits, such as prunes, raisins, and dates, are also high in potassium) Cooked spinach Cooked broccoli Potatoes Sweet potatoes Mushrooms Peas Cucumbers Zucchini Pumpkins Leafy greens Juice from potassium-rich fruit is also a good choice: [place] juice Tomato juice Prune juice Apricot juice Grapefruit juice Certain dairy products, such as milk and yogurt, are high in potassium (low-fat or fat-free is best). Some fish contain potassium: Tuna Halibut Cod [place] Beans or legumes that are high in potassium include: Chauhan beans Walker beans Kidney beans Soybeans Lentils Other foods that are rich in potassium include: Salt substitutes (read labels to check potassium levels) Molasses Nuts Meat and poultry Brown and wild rice Bran cereal Whole-wheat bread and pasta Referrals: CAROL ANN SILVER MD [Primary Care Provider] - 06/28/20
[2020-06-28 06:04] VITALS: BP 121/80
== END 2020-06-28 06:54 | disposition home or self-care (01) ==
LOC: ER 01:03
DX: I13.2 Hypertensive heart and chronic kidney disease with heart failure and with stage 5 chronic kidney disease, or end stage renal disease (principal); E11.22 Type 2 diabetes mellitus with diabetic chronic kidney disease; N18.5 Chronic kidney disease, stage 5; I50.9 Heart failure, unspecified; E87.5 Hyperkalemia; E11.65 Type 2 diabetes mellitus with hyperglycemia; R11.2 Nausea with vomiting, unspecified; R19.7 Diarrhea, unspecified; R19.5 Other fecal abnormalities; Z87.891 Personal history of nicotine dependence; I48.91 Unspecified atrial fibrillation; I25.10 Atherosclerotic heart disease of native coronary artery without angina pectoris; I25.2 Old myocardial infarction
CPT/HCPCS: 99284; 96360; 36415; 82962; 85025; 80053; J7030

== ENCOUNTER 2020-06-30 11:17 | Emergency (ER) | payer MEDICARE ==
[2020-06-30] MEDS ORDERED: NORMAL SALINE 1000 ML 1,000 ML IV ONE (12:32)
[2020-06-30 12:56] LABS: ALBUMIN 3.6 g/dL (3.5-5.0); ALKALINE PHOSPHATASE 95 U/L (38-126); ANION GAP 12 (5-19); ASPARTATE AMINO TRANSFERASE 45 U/L (17-59); BILIRUBIN,DIRECT 0.4 mg/dL (0.0-0.4); BILIRUBIN,TOTAL 0.7 mg/dL (0.2-1.3); BLOOD UREA NITROGEN 48 mg/dL (7-20); CALCIUM 9.6 mg/dL (8.4-10.2); CARBON DIOXIDE 18 mmol/L (22-30); CHLORIDE 105 mmol/L (98-107); GLUCOSE 249 mg/dL (75-110); TOTAL PROTEIN 7.4 g/dL (6.3-8.2)
[2020-06-30 13:02] LABS: ABSOLUTE BASOPHILS # (AUTO) 0.1 10^3/uL (0.0-0.2); ABSOLUTE EOSINOPHILS # (AUTO) 0.1 10^3/uL (0.0-0.6); ABSOLUTE LYMPHOCYTES (AUTO) 0.6 10^3/uL (0.5-4.7); ABSOLUTE MONOCYTES (AUTO) 1.1 10^3/uL (0.1-1.4); ABSOLUTE NEUT (AUTO) 6.9 10^3/uL (1.7-8.2); BASOPHILS % (AUTO) 0.6 % (0-2); EOSINOPHILS % (AUTO) 1.6 % (0-6); HEMATOCRIT 36.2 % (37.9-51.0); HEMOGLOBIN 12.2 g/dL (13.5-17.0); LYMPHOCYTES % (AUTO) 7.2 % (13-45); MEAN CORPUSCULAR HEMOGLOBIN 34.1 pg (27.0-33.4); MEAN CORPUSCULAR HGB CONC 33.7 g/dL (32.0-36.0); MEAN CORPUSCULAR VOLUME 101 fl (80-97); MONOCYTES % (AUTO) 12.7 % (3-13); PLATELET COUNT 119 10^3/uL (150-450); RED BLOOD COUNT 3.58 10^6/uL (4.35-5.55); RED CELL DISTRIBUTION WIDTH 12.8 % (11.5-14.0); SEGMENTED NEUTROPHILS % (AUTO) 77.9 % (42-78); TOTAL CELLS COUNTED % (AUTO) 100 %; WHITE BLOOD COUNT 8.9 10^3/uL (4.0-10.5)
--- NOTE | 2020-06-30 13:22 | RADIOLOGY REPORT (SQ) ---
EXAM DESCRIPTION: CT ABD/PELVIS NO ORAL OR IV IMAGES COMPLETED DATE/TIME: 06/30/2020 12:57 pm REASON FOR STUDY: diarrhea/vomit COMPARISON: 2014 TECHNIQUE: CT scan of the abdomen and pelvis performed without intravenous or oral contrast. Images reviewed with lung, soft tissue, and bone windows. Reconstructed coronal and sagittal MPR images revi ewed. All images stored on PACS. All CT scanners at this facility use dose modulation, iterative reconstruction, and/or weight based d osing when appropriate to reduce radiation dose to as low as reasonably achievable (ALARA). [facility]: Dose Right [facility]: CareDose [facility]: Dose Right [facility]: Teradose 4D [facility]: [employer] RADIATION DOSE: CT Rad equipment meets quality standard of care and radiation dose reduction techniq ues were employed. CTDIvol: 11.2 mGy. DLP: 614 mGy-cm.mGy. LIMITATIONS: None. FINDINGS: LOWER CHEST: No significant findings. No nodules or infiltrates. NON-CONTRASTED LIVER, SPLEEN, ADRENALS: Evaluation limited by lack of IV contrast. No identified sign ificant masses. PANCREAS: No masses. No peripancreatic inflammatory changes. GALLBLADDER: There appear to be some small gallstones in a contracted gallbladder. RIGHT KIDNEY AND URETER: No suspicious masses. Assessment limited by lack of IV contrast. There are calcifications that appear to be vascular in origin. No hydronephrosis or hydroureter. LEFT KIDNEY AND URETER: No suspicious masses. Assessment limited by lack of IV contrast. There are calcifications that appear to be vascular in origin. No hydronephrosis or hydroureter. AORTA AND RETROPERITONEUM: No aneurysm. There is atherosclerosis including fairly dense atherosclero sis in the superior mesenteric artery. Renal atherosclerosis is present. Iliac atherosclerosis is p resent. BOWEL AND PERITONEAL CAVITY: Retained stool. No obvious bowel mass. APPENDIX: Normal. PELVIS, BLADDER, AND ABDOMINAL WALL:Questionable thickening of the wall of the bladder. The bladder is not very distended. BONES: No significant findings. OTHER: No other significant finding. IMPRESSION: Retained stool. Cholelithiasis. Atherosclerotic changes as described. Questionable th ickening of the wall of the bladder. Correlate for cystitis. COMMENT: Quality ID # [id number]: Final reports with documentation of one or more dose reduction techniques (e.g., Automated exposure control, adjustment of the mA and/or kV according to patient size, use of iterative reconstruction technique) TECHNICAL DOCUMENTATION: JOB ID: [id number] 2010 [employer]- All Rights Reserved Reading location - IP/workstation name: [email or web address]
[2020-06-30 14:49] LABS: APPEARANCE,URINE SLIGHTLY-CLOUDY; BILIRUBIN,URINE NEGATIVE (NEGATIVE); COLOR,URINE YELLOW; GLUCOSE, URINE >=500 mg/dL (NEGATIVE); KETONES,URINE NEGATIVE (NEGATIVE); PROTEIN,URINE >=500 mg/dL (NEGATIVE); URINE SPECIFIC GRAVITY 1.013; UROBILINOGEN,URINE NEGATIVE mg/dL (<2.0)
--- NOTE | 2020-06-30 16:34 | ER Document Report ---
ED General - General Chief Complaint: Nausea/Vomiting/Diarrhea Stated Complaint: VOMITING Time Seen by Provider: 06/30/20 12:05 Mode of Arrival: Medic Information source: Patient TRAVEL OUTSIDE OF THE [place] IN LAST 30 DAYS: No - HPI Notes: Patient presents complaining of vomiting and nausea with decreased appetite. He states upon arrival he is actually feeling better and does not have the significant nausea that he did. States he would like to have something to eat. He denies any significant pain except for some mild diffuse abdominal cramping. No diarrhea. He states he has had fever chills and weakness. He has not been tested for Covid and denies any known exposures. His symptoms have been moderate to severe. They have been intermittent. Nothing does appear to have made them better or worse. He states he was seen here 2 days ago and when he left he felt better for approximately next 24 hours and began to feel worse again. - Related Data Allergies/Adverse Reactions: No Known Allergies Allergy (Verified 06/28/20 01:33) Past Medical History - General Information source: Patient - Social History Smoking Status: Never Smoker Frequency of alcohol use: None Drug Abuse: None Family History: Reviewed & Not Pertinent - Past Medical History Cardiac Medical History: Reports: Hx Atrial Fibrillation, Hx Congestive Heart Failure, Hx Coronary Artery Disease, Hx Heart Attack, Hx Hypercholesterolemia, Hx Hypertension, Hx Peripheral Vascular Disease Pulmonary Medical History: Reports: Hx COPD Denies: Hx Tuberculosis Endocrine Medical History: Reports: Hx Diabetes Mellitus Type 1, Hx Diabetes Mellitus Type 2, Hx Hypothyroidism Renal/ Medical History: Reports: Hx Renal Insufficiency. Denies: Hx Peritoneal Dialysis GI Medical History: Reports: Hx Gastroesophageal Reflux Disease, Hx Ulcer Psychiatric Medical History: Reports: Hx Depression Past Surgical History: Reports: Hx Cardiac Catheterization, Hx Orthopedic [place] rgery - RAKA, Hx Vascular Surgery - Angioplasty in the right leg - Immunizations Hx Diphtheria, Pertussis, Tetanus Vaccination: Yes Hx Pneumococcal Vaccination: 09/25/14 Review of Systems - Review of Systems Constitutional: Chills, Fever, Malaise Cardiovascular: denies: Chest pain, Palpitations Respiratory: denies: Cough, Short of breath -: Yes All other systems reviewed and negative Physical Exam - Vital signs Vitals: Resp BP Pulse Ox 27 H 189/99 H 89 L 06/30/20 11:25 06/30/20 11:25 06/30/20 11:25 Interpretation: Hypertensive - General General appearance: Appears well, Alert - HEENT Head: Normocephalic, Atraumatic Eyes: Normal Pupils: PERRL - Respiratory Respiratory status: No respiratory distress Chest status: Nontender Breath sounds: Normal Chest palpation: Normal - Cardiovascular Rhythm: Regular Heart sounds: Normal auscultation Murmur: No - Abdominal Inspection: Normal Distension: No distension Bowel sounds: Normal Tenderness: Nontender Organomegaly: No organomegaly - Back Back: Normal, Nontender - Extremities General upper extremity: Normal inspection, Nontender, Normal color, Normal ROM, Normal temperature General lower extremity: Normal inspection, Nontender, Normal color, Normal ROM, Normal temperature, Normal weight bearing. No: Rola's sign - Neurological Neuro grossly intact: Yes Cognition: Normal Orientation: AAOx4 [place] Coma Scale Eye Opening: Spontaneous Cory Coma Scale Verbal: Oriented [place] Coma Scale Motor: Obeys Commands [place] Coma Scale Total: 15 Speech: Normal Motor strength normal: LUE, RUE, LLE, RLE Sensory: Normal - Psychological Associated symptoms: Normal affect, Normal mood - Skin Skin Temperature: Warm Skin Moisture: Dry Skin Color: Normal Course - Re-evaluation Re-evalutation: 06/30/20 16:36 Patient presents with nausea and vomiting. Patient had similar symptoms 2 days ago with uneventful work-up. Here patient once again has no significant cause of his nausea and vomiting evident however patient does have a temperature of 100.8. His presentation does seem consistent with a viral syndrome and possibly with Covid. He has been tested for Covid today. I will recommend that he quarantine per protocol. At this time patient is stating that he feels much better and would like to eat and be discharged. He has no evidence of dehydration as he is not significantly tachycardic or hypotensive. He is actually slightly hypertensive despite stating that he took all of his blood pressure medicines today. Patient also has improved laboratory values, including creatinine, compared to his previous laboratories. The patient was evaluated during a global COVID-19 pandemic and that diagnosis was suspected/considered upon their initial presentation. Their evaluation, treatment and testing was consistent with current guidelines for patients who present with complaints or symptoms and may be related to COVID-19. 06/30/20 16:37 06/30/20 16:38 - Vital Signs Vital signs: Temp Pulse Resp BP Pulse Ox 98.4 F 20 172/94 H 92 06/30/20 14:40 06/30/20 13:02 06/30/20 16:01 06/30/20 16:01 - Laboratory Result Diagrams: 06/30/20 11:27 06/30/20 11:27 Laboratory results interpreted by me: 06/30/20 06/30/20 06/30/20 11:27 11:27 14:34 RBC 3.58 L Hgb 12.2 L Hct 36.2 L MCV 101 H MCH 34.1 H Plt Count 119 L Lymph % (Auto) 7.2 L Sodium 135.1 L Carbon Dioxide 18 L BUN 48 H Creatinine 2.78 H Est GFR ( Amer) 28 L Est GFR (MDRD) Non-Af 23 L Glucose 249 H Urine Protein >=500 H Urine Glucose (UA) >=500 H Urine Blood SMALL H - Diagnostic Test Radiology reviewed: Image reviewed, Reports reviewed Discharge - Discharge Clinical Impression: Person under investigation for COVID-19 Vomiting Qualifiers: Vomiting type: unspecified Vomiting Intractability: non-intractable Nausea presence: with nausea Qualified Code(s): R11.2 - Nausea with vomiting, unspecified Condition: Stable Disposition: HOME, SELF-CARE Instructions: COVID-19 Guidance for Persons Under Investigation, Antinausea Medication ([facility]), Prescribed Antidiarrhea Medications ([facility]), Vomiting ([facility]), Intravenous (IV) Fluids ([facility]), Fever ([facility]) Additional Instructions: Please quarantine yourself until the results of your Covid test returned negative. Prescriptions: Ondansetron [Zofran Odt 4 mg Tablet] 1 - 2 tab PO Q4H PRN #15 tab.rapdis PRN Reason: For Nausea/Vomiting Forms: Elevated Blood Pressure Referrals: [facility] [Provider Group] - Follow up in 3-5 days
[2020-06-30 20:13] VITALS: BP 169/118
== END 2020-06-30 20:00 | disposition home or self-care (01) ==
LOC: ER 11:17
DX: R11.2 Nausea with vomiting, unspecified (principal); R19.7 Diarrhea, unspecified; R63.0 Anorexia; R10.9 Unspecified abdominal pain; R50.9 Fever, unspecified; R53.81 Other malaise; Z20.828 Contact with and (suspected) exposure to other viral communicable diseases; I25.10 Atherosclerotic heart disease of native coronary artery without angina pectoris; I25.2 Old myocardial infarction; I10 Essential (primary) hypertension; J44.9 Chronic obstructive pulmonary disease, unspecified
CPT/HCPCS: 99285; 96360; 36415; 85025; 80053; 81001; 74176; J7030